=== PATIENT | male | born 1950 | race African-American/Black ===

== ENCOUNTER 2016-07-02 12:44 | Inpatient (IN) | payer OTHER ==
[~2016-07-02] VITALS: Ht 185.4 cm; Wt 110.8 kg
[~2016-07-02 12:44] MED LIST: 1-ME1LIQ PO; ALLO100T PO; AMIO200 PO; AMLO10 PO; CALC.25 PO; FURO20 PO; HYDR25TA35 PO; KCL20 PO; LACT12%T TOP; LISI-366 PO; METO100T PO; METO2.5T7 PO; PRED20 PO; RENATAB5 PO; SYMB160A INH; TERA5CAP3 PO; VITA400C58 PO; WARF5 PO
[2016-07-02 12:57] VITALS: BP 138/69; PULSE 86; RESP 16; TEMP 97.9; O2SAT 100
[2016-07-02] MEDS ORDERED: SODIUM CHLORIDE 0.9% FLUSH 5 ML FLUSH IVF PRN ×2 (13:00→15:30)
[2016-07-02] MEDS ORDERED: FUROSEMIDE 40 MG/4 ML VIAL IVP ONE (13:00)
[2016-07-02] MEDS ORDERED: NITROGLYCERIN 2% OINT 1 GM PACKET TOP ONE (13:00)
[2016-07-02 13:13] VITALS: BP 138/69; PULSE 77; RESP 23; O2SAT 100
[2016-07-02 13:36] LABS: ANION GAP 11 MEQ/L (5-15); AST (GOT) 10 U/L (15-37); BICARBONATE 20.2 MEQ/L (21.0-32.0); BLOOD UREA NITROGEN 30 MG/DL (7-18); CHLORIDE 105 MEQ/L (98-107); GLOMERULAR FILTRATION RATE 24 ML/MIN (>89); MAGNESIUM 1.9 MG/DL (1.5-2.5); POTASSIUM 4.4 MEQ/L (3.5-5.1); SODIUM (NA) 136 MEQ/L (136-145)
[2016-07-02 13:41] LABS: ALKALINE PHOSPHATASE 98 U/L (45-117); ALT (GPT) 11 U/L (12-78); TOTAL BILIRUBIN ADULT 0.8 MG/DL (0.2-1.0)
[2016-07-02 13:47] LABS: CREATINE KINASE 39 U/L (39-308)
--- NOTE | 2016-07-02 13:55 | RADRPT ---
EXAM DATE/TIME: 07/02/2016 13:23 [facility] COMPARISON: CHEST SINGLE AP, October 23, 2014, 12:54. CT ABDOMEN W/O CONTRAST, October 27, 2014, 14:43. INDICATIONS : Shortness of breath and left arm swelling. MEDICAL HISTORY : None. SURGICAL HISTORY : None. ENCOUNTER: Initial ACUITY: 3 weeks PAIN SCORE: 0/10 LOCATION: Bilateral chest FINDINGS: Single upright portable view of the chest demonstrates bilateral costophrenic angle blunting and jordan cent hazy parenchymal density consistent with stable moderate sized bilateral pleural effusions. The heart size appears moderately enlarged. The pulmonary vasculature is normal in caliber. Osseous struc tures are unremarkable. CONCLUSION: Stable moderate cardiomegaly and bilateral pleural effusions. Vilma Valdivia MD on July 02, 2016 at 13:52 Board Certified Radiologist. This report was verified electronically.
[2016-07-02] MEDS ORDERED: ALLO100T PO (14:03)
[2016-07-02] MEDS ORDERED: VITA500T4 PO (14:03)
[2016-07-02] MEDS ORDERED: METO2.5T PO (14:03)
[2016-07-02] MEDS ORDERED: HYDR25TA35 PO (14:03)
[2016-07-02] MEDS ORDERED: CALC0.25 PO (14:03)
[2016-07-02] MEDS ORDERED: METO100T PO (14:03)
[2016-07-02] MEDS ORDERED: LISI40TA PO (14:03)
[2016-07-02] MEDS ORDERED: SYMB160A INH (14:03)
[2016-07-02] MEDS ORDERED: TERA5CAP3 PO (14:03)
[2016-07-02] MEDS ORDERED: ERGO1CAP30 PO (14:03)
[2016-07-02] MEDS ORDERED: HARVONI PO (14:03)
[2016-07-02] MEDS ORDERED: AMLO10TA2 PO (14:03)
[2016-07-02] MEDS ORDERED: RENATAB PO (14:03)
[2016-07-02] MEDS ORDERED: TRAM50TA PO (14:03)
[2016-07-02 14:04] LABS: AUTOMATED NEUTROPHIL # 3.1 TH/MM3 (1.8-7.7); BASOPHIL # 0.1 TH/MM3 (0-0.2); BASOPHIL % 1.2 % (0.0-2.0); EOSINOPHIL # 0.1 TH/MM3 (0-0.4); EOSINOPHIL % 3.1 % (0.0-4.0); HEMATOCRIT 32.2 % (39.0-51.0); HEMO FLAGS DIFF FINAL; LYMPH % 17.4 % (9.0-44.0); LYMPHOCYTE # 0.8 TH/MM3 (1.0-4.8); MEAN CELL VOLUME 105.3 FL (80.0-100.0); MEAN CORPUSCULAR HGB CONC 34.2 % (32.0-36.0); MONO % 13.4 % (0.0-8.0); NEUT % 64.9 % (16.0-70.0); PLATELET COUNT 110 TH/MM3 (150-450); RED BLOOD COUNT 3.05 MIL/MM3 (4.50-5.90); RED CELL DISTRIBUTION WIDTH 15.6 % (11.6-17.2); WHITE BLOOD COUNT 4.7 TH/MM3 (4.0-11.0)
[2016-07-02 14:11] LABS: INTERNATIONAL NORMALIZED RATIO 1.1 RATIO
[2016-07-02 14:14] LABS: APTT (PATIENT) 23.8 SEC (24.3-30.1)
--- NOTE | 2016-07-02 14:35 | RADRPT ---
EXAM DATE/TIME: 07/02/2016 13:52 [facility] COMPARISON: No previous studies available for comparison. INDICATIONS : Left arm swelling for 2 weeks. MEDICAL HISTORY : Hypertension. Stroke. CVA. A fib. COPD. Dyspnea. Renal failure. SURGICAL HISTORY : AV fistula. ENCOUNTER: Initial ACUITY: 2 weeks PAIN SCORE: 4/10 LOCATION: Left arm. FINDINGS: There is spontaneous flow documented in the brachial, basilic, cephalic, axillary, and subclavian vei ns. The vessels are compressible and augmentation response is documented. No filling defects are se en. The flow is phasic with respiration. Direction of flow in the jugular vein is caudal. CONCLUSION: Normal examination. Vilma Valdivia MD on July 02, 2016 at 14:32 Board Certified Radiologist. This report was verified electronically.
[2016-07-02 15:11] VITALS: BP 159/84; PULSE 86; RESP 16; O2SAT 99
--- NOTE | 2016-07-02 15:24 | HHI.HP ---
[facility] Service [facility] Primary Care Physician Maria Elena [facility] Admission Diagnosis chf Diagnoses: (1) Acute exacerbation of CHF (congestive heart failure) (2) Hypertension (3) Chronic kidney disease (CKD) stage G4/A1, severely decreased glomerular filtration rate (GFR) between 15-29 mL/min/1.73 square meter and albuminuria creatinine ratio less than 30 mg/g Chief Complaint: Dyspnea, swelling Travel History International Travel<30 Days: No Contact w/Intl Traveler <30 Da: No Traveled to Known Affected Are: No History of Present Illness The patient is a 66-year-old male who presented to the emergency department with complaint of worsening shortness of breath since . Over the past 2-3 weeks he has noted increasing dyspnea. No cough. Denies chest pain. Does have a history of CHF. Has noted increased swelling of the left arm. Also having bilateral lower extremity swelling. Review of Systems Constitutional: DENIES: Fever, Chills, Night Sweats Eyes: DENIES: Blurred vision, Vision loss Ears, nose, mouth, throat: DENIES: Hearing loss Respiratory: COMPLAINS OF: Shortness of breath, DENIES: Cough, Wheezing, Sputum production Cardiovascular: COMPLAINS OF: Dyspnea on Exertion, Lower Extremity Edema, DENIES: Chest pain, Palpitations Gastrointestinal: DENIES: Abdominal pain, Constipation, Diarrhea, Nausea, Vomiting Genitourinary: DENIES: Urinary frequency, Urinary incontinence, Urgency, Hematuria, Dysuria, Nocturia Musculoskeletal: DENIES: Joint pain, Muscle aches Integumentary: DENIES: Pruritus, Rash Hematologic/lymphatic: DENIES: Bruising Neurologic: DENIES: Headache Past Family Social History Past Medical History CHF Hypertension CKD stage 4 Hyperlipidemia Anemia History of Hep C Past Surgical History Denies Reported Medications Symbicort 2 puffs twice a day Tear Zosyn 5 mg daily at bedtime Lisinopril 40 mg daily Allopurinol 100 mg daily Metoprolol 150 mg daily Amlodipine 10 mg daily Hydralazine 25 mg twice a day Renal multivitamin Tramadol 100 mg 3 times a day Harvoni daily Metolazone 2.5 mg daily Vitamin B12 daily Calcitriol 0.25 g daily Ergocalciferol 50,000 units monthly Allergies: Coded Allergies: No Known Allergies (Verified , 07/02/16) Family History Hypertension, cancer Social History Quit smoking 20 years ago. Drinks 2-3 beers per day. Reports remote history of IV drug abuse, but not in many years. Physical Exam Vital Signs Vital Signs Date Time Temp Pulse Resp B/P Pulse Ox O2 Delivery O2 Flow Rate FiO2 07/02/16 15:11 86 16 159/84 99 Nasal Cannula 2 07/02/16 13:13 77 23 138/69 100 Nasal Cannula 2 07/02/16 12:57 97.9 86 16 138/69 100 Physical Exam GENERAL: Well-nourished, well-developed male in no acute distress. HEENT: Normocephalic, atraumatic. Pupils equal, round and reactive. Extraocular movements intact. No scleral icterus. No injection or drainage. Oropharynx is clear. Mucous membranes are moist. CARDIOVASCULAR: Regular rate and rhythm without murmurs, gallops, or rubs. RESPIRATORY: Bibasilar crackles are noted. Breathing is non-labored. GASTROINTESTINAL: Abdomen soft, non-tender, nondistended. EXTREMITIES: 2+ bilateral lower extremity edema. No calf tenderness. Trace to 1 + edema of the left upper extremity. PSYCH: Alert and oriented x 3. Laboratory Laboratory Tests Test 07/02/16 13:05 White Blood Count 4.7 Red Blood Count 3.05 Hemoglobin 11.0 Hematocrit 32.2 Mean Corpuscular Volume 105.3 Mean Corpuscular Hemoglobin 36.0 Mean Corpuscular Hemoglobin 34.2 Concent Red Cell Distribution Width 15.6 Platelet Count 110 Mean Platelet Volume 9.6 Neutrophils (%) (Auto) 64.9 Lymphocytes (%) (Auto) 17.4 Monocytes (%) (Auto) 13.4 Eosinophils (%) (Auto) 3.1 Basophils (%) (Auto) 1.2 Neutrophils # (Auto) 3.1 Lymphocytes # (Auto) 0.8 Monocytes # (Auto) 0.6 Eosinophils # (Auto) 0.1 Basophils # (Auto) 0.1 CBC Comment DIFF FINAL Differential Comment Prothrombin Time 12.0 Prothromb Time International 1.1 Ratio Activated Partial 23.8 Thromboplast Time Sodium Level 136 Potassium Level 4.4 Chloride Level 105 Carbon Dioxide Level 20.2 Anion Gap 11 Blood Urea Nitrogen 30 Creatinine 3.16 Estimat Glomerular Filtration 24 Rate Random Glucose 107 Calcium Level 9.3 Magnesium Level 1.9 Total Bilirubin 0.8 Aspartate Amino Transf 10 (AST/SGOT) Alanine Aminotransferase 11 (ALT/SGPT) Alkaline Phosphatase 98 Total Creatine Kinase 39 Troponin I 0.02 B-Type Natriuretic Peptide 1471 Total Protein 7.9 Albumin 3.6 Result Diagram: 07/02/16 1305 07/02/16 1305 Imaging Last Impressions Chest X-Ray 07/02/16 1255 Signed Impressions: Service Date/Time: Saturday, July 02, 2016 13:23 - CONCLUSION: Stable moderate cardiomegaly and bilateral pleural effusions. Vilma Valdivia MD Upper Extremity Ultrasound 07/02/16 0000 Signed Impressions: Service Date/Time: Saturday, July 02, 2016 13:52 - CONCLUSION: Normal examination. Vilma Valdivia MD Assessment and Plan Assessment and Plan 1. CHF exacerbation: Uncertain if systolic or diastolic. Most recent echocardiogram available at this time was done in 2014. Repeat echocardiogram. Diuresis. Consult cardiology. Monitor on telemetry. 2. Chronic kidney disease stage IV: Consult nephrology. 3. Hypertension: Continue amlodipine, metoprolol, hydralazine, terazosin. Hold lisinopril. 4. DVT prophylaxis: Heparin. Michele Drew MD Jul 02, 2016 15:24
[2016-07-02 15:46] VITALS: BP 171/95; PULSE 81; RESP 18; O2SAT 100
--- NOTE | 2016-07-02 17:00 | PD ---
HPI Chief Complaint: Respiratory Symptoms Time Seen by Provider: 12:55 Travel History International Travel<30 days: No Contact w/Intl Traveler<30days: No Traveled to known affect area: No History of Present Illness HPI 66-year-old male presents with shortness of breath. He has also been having swelling to his legs and his left arm. He presents from the [place] with also pleural effusions. He states he feels worse when he moves around. He denies other modifying factors. He denies other concurrent complaints. Quality is hard to catch breath. Severity is worsening to at rest. Duration is progressive over the past week or so. PFSH Past Medical History Asthma: No Atrial Fibrillation: Yes Cancer: No Cardiovascular Problems: Yes (CHF) COPD: Yes Cerebrovascular Accident: Yes (ABOUT 5 YRS AGO) Endocrine: No Genitourinary: No Hypertension: Yes Immune Disorder: No Musculoskeletal: No Neurologic: Yes (STROKE ABOUT 5YRS AGO) Psychiatric: No Reproductive: No Respiratory: Yes (COPD) Migraines: No Renal Failure: Yes Seizures: No Sleep Apnea: No Past Surgical History Surgical History: No Previous Surgery Abdominal Surgery: No Cardiac Surgery: No Ear Surgery: No Endocrine Surgery: No Eye Surgery: No Genitourinary Surgery: No Gynecologic Surgery: No Oral Surgery: No Thoracic Surgery: No Social History Alcohol Use: Yes (BEER DAILY) Tobacco Use: No Substance Use: No Allergies-Medications (Allergen,Severity, Reaction): Coded Allergies: No Known Allergies (Verified , 07/02/16) Reported Meds & Prescriptions Reported Meds & Active Scripts Active Reported Tramadol (Tramadol HCl) 50 Mg Tab 100 Mg PO TID Terazosin (Terazosin HCl) 5 Mg Cap 5 Mg PO HS [Harvoni] 1 Tab PO DAILY From 06/06/2016-11/25/2016 Renal Multivitamin Formula (B-Complex W/ C & Folic Acid) 1 Tab 1 Tab PO DAILY Metoprolol Tartrate 100 Mg Tab 150 Mg PO DAILY Metolazone 2.5 Mg Tab 2.5 Mg PO DAILY Lisinopril 40 Mg Tab 40 Mg PO DAILY Hydralazine (Hydralazine HCl) 25 Mg Tab 25 Mg PO BID Take with a meal Ergocalciferol 50,000 Unit Cap 50,000 Units PO MONTHLY Vitamin B-12 (Cyanocobalamin) 500 Mcg Tab 500 Mcg PO DAILY Calcitriol 0.25 Mcg Cap 0.25 Mcg PO DAILY Symbicort Inh (Budesonide/Formoterol Fumarate) 160-4.5 Mcg/Act Aero 2 Puff INH BID Rinse mouth after each use Amlodipine (Amlodipine Besylate) 10 Mg Tab 10 Mg PO DAILY Allopurinol 100 Mg Tab 100 Mg PO DAILY Review of Systems Except as stated in HPI: all other systems reviewed are Neg Physical Exam Narrative GENERAL: Well-nourished, well-developed patient. SKIN: Warm and dry. HEAD: Normocephalic and atraumatic. EYES: No injection or drainage. ENT: No nasal drainage noted. NECK: Supple, trachea midline. CARDIOVASCULAR: Regular rate and rhythm RESPIRATORY: Crackles bilaterally. No accessory muscle use. GASTROINTESTINAL: Abdomen soft, non-tender, nondistended. EXTREMITIES: Significant edema to bilateral lower extremities and left arm noted NEUROLOGICAL: Awake and alert. Moves all extremities. Normal speech. Data Data Last Documented VS Vital Signs Date Time Temp Pulse Resp B/P Pulse Ox O2 Delivery O2 Flow Rate FiO2 07/02/16 13:13 77 23 138/69 100 Nasal Cannula 2 07/02/16 12:57 97.9 Orders Complete Blood Count With Diff (07/02/16 12:55) Comprehensive Metabolic Panel (07/02/16 12:55) B-Type Natriuretic Peptide (07/02/16 12:55) Act Partial Throm Time (Ptt) (07/02/16 12:55) Prothrombin Time / Inr (Pt) (07/02/16 12:55) Magnesium (Mg) (07/02/16 12:55) Ckmb (Isoenzyme) Profile (07/02/16 12:55) Troponin I (07/02/16 12:55) Iv Access Insert/Monitor (07/02/16 12:55) Electrocardiogram (07/02/16 12:55) Ecg Monitoring (07/02/16 12:55) Oximetry (07/02/16 12:55) Chest, Single Ap (07/02/16 12:55) Sodium Chloride 0.9% Flush (Ns Flush) (07/02/16 13:00) Furosemide Inj (Lasix Inj) (07/02/16 13:00) Us Arm Venous Doppler (07/02/16 ) Nitroglycerin 2% Oint (Nitroglycerin 2% (07/02/16 13:00) Admit Order (Ed Use Only) (07/02/16 14:45) Labs Laboratory Tests Test 07/02/16 13:05 White Blood Count 4.7 TH/MM3 Red Blood Count 3.05 MIL/MM3 Hemoglobin 11.0 GM/DL Hematocrit 32.2 % Mean Corpuscular Volume 105.3 FL Mean Corpuscular Hemoglobin 36.0 PG Mean Corpuscular Hemoglobin 34.2 % Concent Red Cell Distribution Width 15.6 % Platelet Count 110 TH/MM3 Mean Platelet Volume 9.6 FL Neutrophils (%) (Auto) 64.9 % Lymphocytes (%) (Auto) 17.4 % Monocytes (%) (Auto) 13.4 % Eosinophils (%) (Auto) 3.1 % Basophils (%) (Auto) 1.2 % Neutrophils # (Auto) 3.1 TH/MM3 Lymphocytes # (Auto) 0.8 TH/MM3 Monocytes # (Auto) 0.6 TH/MM3 Eosinophils # (Auto) 0.1 TH/MM3 Basophils # (Auto) 0.1 TH/MM3 CBC Comment DIFF FINAL Differential Comment Prothrombin Time 12.0 SEC Prothromb Time International 1.1 RATIO Ratio Activated Partial 23.8 SEC Thromboplast Time Sodium Level 136 MEQ/L Potassium Level 4.4 MEQ/L Chloride Level 105 MEQ/L Carbon Dioxide Level 20.2 MEQ/L Anion Gap 11 MEQ/L Blood Urea Nitrogen 30 MG/DL Creatinine 3.16 MG/DL Estimat Glomerular Filtration 24 ML/MIN Rate Random Glucose 107 MG/DL Calcium Level 9.3 MG/DL Magnesium Level 1.9 MG/DL Total Bilirubin 0.8 MG/DL Aspartate Amino Transf 10 U/L (AST/SGOT) Alanine Aminotransferase 11 U/L (ALT/SGPT) Alkaline Phosphatase 98 U/L Total Creatine Kinase 39 U/L Troponin I 0.02 NG/ML B-Type Natriuretic Peptide 1471 PG/ML Total Protein 7.9 GM/DL Albumin 3.6 GM/DL [facility] Medical Decision Making Medical Screen Exam Complete: Yes Emergency Medical Condition: Yes Medical Record Reviewed: Yes (past history confirmed) Interpretation(s) EKG without STEMI criteria, right bundle branch block, sinus rhythm CBC & BMP Diagram 07/02/16 13:05 Last 24 hours Impressions Chest X-Ray 07/02/16 1255 Signed Impressions: Service Date/Time: Saturday, July 02, 2016 13:23 - CONCLUSION: Stable moderate cardiomegaly and bilateral pleural effusions. Vilma Valdivia MD Upper Extremity Ultrasound 07/02/16 0000 Signed Impressions: Service Date/Time: Saturday, July 02, 2016 13:52 - CONCLUSION: Normal examination. Vilma Valdivia MD Differential Diagnosis Anemia, renal failure, heart failure.... Narrative Course Will check blood work, chest x-ray, EKG and dose with nitroglycerin Lasix and reevaluate ED workup confirms heart failure will admit to the hospital for further care Physician Communication Physician Communication dr shaver agrees to admit Diagnosis Primary Impression: Acute exacerbation of CHF (congestive heart failure) Additional Impression: Chronic kidney disease (CKD) stage G4/A1, severely decreased glomerular filtration rate (GFR) between 15-29 mL/min/1.73 square meter and albuminuria creatinine ratio less than 30 mg/g Admitting Information Admitting Physician Requests: Admit Ana Maria Escudero MD Jul 02, 2016 17:00
[2016-07-02 17:20] VITALS: BP 159/104; PULSE 18; PULSE 73; RESP 18; O2SAT 96
[2016-07-02] MEDS: HEPARIN SODIUM - SQ 10,000 UNITS/ML VIAL SQ SCH (17:33)
[2016-07-02] MEDS: METOPROLOL TARTRATE 50 MG TAB PO SCH ×2 (17:56→22:07)
--- NOTE | 2016-07-02 17:59 | PD.CONS ---
[facility] Service Nephrology Consult Requested By Reason for Consult Stage IV CKD Primary Care Physician [facility] History of Present Illness Mr. Figueroa has been admitted with complaints of shortness of breath, edema. Duration of symptoms is about 3 weeks. No chest pain. He is noted to have advanced renal dysfunction. 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 Has had AVF placed in the left forearm in 2007. He has not been on dialysis. Patient reports of remote history of cardiac catheterization. No diabetes. History of hypertension. Review of Systems Constitutional: COMPLAINS OF: Fatigue, Weight gain Respiratory: COMPLAINS OF: Shortness of breath, DENIES: Cough, Wheezing Cardiovascular: COMPLAINS OF: Dyspnea on Exertion, Lower Extremity Edema, Orthopnea, DENIES: Chest pain, Palpitations, Claudication Gastrointestinal: DENIES: Abdominal pain, Black stools, Bloody stools Past Family Social History Allergies: Coded Allergies: No Known Allergies (Verified , 07/02/16) Past Medical History CHF Hypertension CKD stage 4 Hyperlipidemia Anemia History of Hep C Past Surgical History AVF placement. Reported Medications Symbicort 2 puffs twice a day Terazosin 5 mg daily at bedtime Lisinopril 40 mg daily Allopurinol 100 mg daily Metoprolol 150 mg daily Amlodipine 10 mg daily Hydralazine 25 mg twice a day Renal multivitamin Tramadol 100 mg 3 times a day Harvoni daily Metolazone 2.5 mg daily Vitamin B12 daily Calcitriol 0.25 g daily Ergocalciferol 50,000 units monthly A Active Ordered Medications Current Medications Medications (Trade) Dose Ordered Sig/Denice Route Start Time Stop Time Status Last Admin (NS Flush) 2 ml UNSCH PRN IVF 07/02/16 13:00 (NS Flush) 2 ml BID IVF 07/02/16 21:00 (NS Flush) 2 ml UNSCH PRN IVF 07/02/16 15:30 (Bumex Inj) 1 mg BID@09,18 IVP 07/02/16 18:00 07/02/16 17:33 (KCl) 20 meq BID PO 07/02/16 21:00 (Heparin Inj) 5,000 units Q12H SQ 07/02/16 16:00 07/02/16 17:33 (Lopressor) 50 mg Q8HR PO 07/02/16 17:30 UNV (Norvasc) 10 mg DAILY PO 07/03/16 09:00 UNV (Apresoline) 25 mg Q12HR PO 07/02/16 21:00 UNV (Apresoline Inj) 10 mg Q4H PRN IV PUSH 07/02/16 17:30 UNV Family History Hypertension, cancer Social History Quit smoking 20 years ago. Drinks 2-3 beers per day. Reports remote history of IV drug abuse, but not in many years. Physical Exam Vital Signs Vital Signs Date Time Temp Pulse Resp B/P Pulse Ox O2 Delivery O2 Flow Rate FiO2 07/02/16 17:20 73 18 159/104 96 Nasal Cannula 2 07/02/16 15:46 81 18 171/95 100 Nasal Cannula 2 07/02/16 15:11 86 16 159/84 99 Nasal Cannula 2 07/02/16 13:13 77 23 138/69 100 Nasal Cannula 2 07/02/16 12:57 97.9 86 16 138/69 100 Physical Exam GENERAL: Awake, alert, oriented. SKIN: Warm and dry. HEAD: Normocephalic. EYES: No scleral icterus. No injection or drainage. NECK: Supple, trachea midline. No JVD or lymphadenopathy. CARDIOVASCULAR: Regular rate and rhythm without murmurs, gallops, or rubs. RESPIRATORY: Breath sounds equal bilaterally. Bilateral rhonchi, wheezes. GASTROINTESTINAL: Abdomen soft, non-tender, nondistended. Obese. MUSCULOSKELETAL: No cyanosis, edema. BACK: Nontender without obvious deformity. No CVA tenderness. Laboratory Laboratory Tests Test 07/02/16 13:05 White Blood Count 4.7 Red Blood Count 3.05 Hemoglobin 11.0 Hematocrit 32.2 Mean Corpuscular Volume 105.3 Mean Corpuscular Hemoglobin 36.0 Mean Corpuscular Hemoglobin 34.2 Concent Red Cell Distribution Width 15.6 Platelet Count 110 Mean Platelet Volume 9.6 Neutrophils (%) (Auto) 64.9 Lymphocytes (%) (Auto) 17.4 Monocytes (%) (Auto) 13.4 Eosinophils (%) (Auto) 3.1 Basophils (%) (Auto) 1.2 Neutrophils # (Auto) 3.1 Lymphocytes # (Auto) 0.8 Monocytes # (Auto) 0.6 Eosinophils # (Auto) 0.1 Basophils # (Auto) 0.1 CBC Comment DIFF FINAL Differential Comment Prothrombin Time 12.0 Prothromb Time International 1.1 Ratio Activated Partial 23.8 Thromboplast Time Sodium Level 136 Potassium Level 4.4 Chloride Level 105 Carbon Dioxide Level 20.2 Anion Gap 11 Blood Urea Nitrogen 30 Creatinine 3.16 Estimat Glomerular Filtration 24 Rate Random Glucose 107 Calcium Level 9.3 Magnesium Level 1.9 Total Bilirubin 0.8 Aspartate Amino Transf 10 (AST/SGOT) Alanine Aminotransferase 11 (ALT/SGPT) Alkaline Phosphatase 98 Total Creatine Kinase 39 Troponin I 0.02 B-Type Natriuretic Peptide 1471 Total Protein 7.9 Albumin 3.6 Result Diagram: 07/02/16 1305 07/02/16 1305 Assessment and Plan Problem List: (1) Chronic kidney disease, stage IV (severe) Plan: baseline renal function is not known, he is aware that he has stage IV CKD. May have hypertensive nephrosclerosis. Hepatitis C related MPGN is also a possibility. Obtain UA. He demonstrates signs of fluid overload, I will begin diuretic therapy. No immediate need for dialysis. Gadolinium is contraindicated in this gentleman. Monitor urine output and renal function as well as electrolytes and daily weight. Avoid nephrotoxic agents. Protect left upper extremity from IV and BP measurements. (2) Congestive heart failure Plan: Obtain echo to further classify CHF. Fluid overload also could be from renal dysfunction. Diuretics. (3) Hypertension Plan: BP is high here. Restart home medications. Monitor. (4) Hepatitis C Plan: Appears to be have been on Harvoni. Details are not known. (5) Secondary hyperparathyroidism (of renal origin) Plan: He is on Calcitriol. Obtain PTH level. Also obtain 25 hydroxy Vitamin D level. (6) Anemia Plan: Hemoglobin is 11. May have anemia of CKD. No need for Epogen. Assessment and Plan Thanks for the consult. I will follow. Kory Montaño MD Jul 02, 2016 17:59
[2016-07-02] MEDS ORDERED: BUMETANIDE INJ 1 MG/4 ML VIAL IVP SCH ×2 (18:00)
[2016-07-02 18:45] LABS: BACTERIA, URINE MANY /hpf; BLOOD, URINE SMALL (NEG); COMMENT (UR) CULTURE INDICATED; CULTURE IF INDICATED CULTURE INDICATED; GLUCOSE,URINE NEG (NEG); KETONE, URINE NEG (NEG); NITRITE,URINE NEG (NEG); SQUAMOUS EPITHELIAL CELL URINE <1 /hpf (0-5); URINE COLOR LIGHT-YELLOW (YELLW/STRAW)
[2016-07-02] MEDS ORDERED: BUMETANIDE INJ 1 MG/4 ML VIAL IV PUSH ONE (19:00)
--- NOTE | 2016-07-02 19:18 | MB ---
cc: LITO PERALES DO DATE OF CONSULTATION: 07/02/2016 REASON FOR CONSULTATION: Acute congestive heart failure. PRIMARY CARE PHYSICIAN: Ligia Castaneda HISTORY OF PRESENT ILLNESS: Gagan Figueroa is a pleasant 66-year-old -[place] male who presented to the [facility] Emergency Room on July 02, 2016 with a complaint of worsening shortness of breath. He states that this originally started around when he started noticing that he needed another pillow so that he could sleep at night. Then around , he felt that he was getting more and more short of breath. The shortness of breath comes on with any type of exertion. He denies any chest pain with this. He states that during both and that he ate his meals including ham, turkey and gravy and did not really watch his salt content. He has noticed bilateral lower extremity edema mostly since . Today he went the [facility] and they did an x-ray which showed bilateral pleural effusions and he was sent over to the emergency room. PAST MEDICAL HISTORY: 1. Congestive heart failure, which is most likely diastolic in nature in the past. 2. Hypertension. 3. Chronic kidney disease stage IV 3. Hyperlipidemia. 4. Anemia. 5. History of hepatitis C. PAST SURGICAL HISTORY: 1. Atrial fibrillation ablation (October 30, 2014) with pulmonary vein isolation, roof line posterior wall ablation, mitral valve line, mitral valve isolation, anterior ablation, left atrial tachycardia ablation. 2. Left forearm AV fistula. ALLERGIES: NO KNOWN DRUG ALLERGIES. MEDICATIONS: 1. Symbicort 160 /4.5 two puffs twice a day. 2. Terazosin 5 milligrams every night 3. Lisinopril 40 milligrams daily 4. Allopurinol 100 milligrams daily 5. Metoprolol tartrate 150 milligrams daily. 6. Norvasc 10 milligrams daily. 7. Hydralazine 25 milligrams twice a day. 8. Tramadol 100 milligrams three times a day. 9. Metolazone 2.5 milligrams daily. 10. Calcitriol 0.25 micrograms daily. FAMILY HISTORY: Positive for hypertension and cancer. Denies premature coronary artery disease or sudden cardiac within the family. SOCIAL HISTORY: The patient previously smoked but quit around twenty years ago. He drinks two to three beers per day. Remote history of IV drug abuse but not for a significant number of years. REVIEW OF SYSTEMS Fourteen systems were reviewed including osteopathic in the history and physical with pertinent positives and negatives as above; otherwise negative. PHYSICAL EXAMINATION VITAL SIGNS: Temperature 97.9, heart rate 86, blood pressure 159/84, respirations 16, pulse oximetry 99% on two liters. GENERAL: In general, the patient appears well and in no acute distress, awake, alert and oriented times three. HEAD, EYES, EARS, NOSE, THROAT: Extraocular muscles intact. Mucous membranes moist. NECK: The neck is supple with mild jugular venous distention noted to the jaw line. Carotid upstroke is brisk in nature. HEART: Regular rate and rhythm with a split S2. No noted murmurs, gallops or rubs. PMI is difficult to locate due to body habitus. LUNGS: Decreased breath sounds at bilateral bases with minimal rales. ABDOMEN: The abdomen is soft, nontender and nondistended. No organomegaly noted. EXTREMITIES: Lower extremities have 2+ pitting edema with chronic changes due to edema. Left forearm has a fistula with a positive thrill. NEUROLOGIC: No focal deficits. OSTEOPATHIC: Osteopathically, no kyphoscoliosis, lordosis or paraspinal tender points. LABORATORY FINDINGS: Hemoglobin 11.0, hematocrit 32.2, platelets 110,000. INR 1.1. Potassium 4.4, BUN 30, creatinine 3.06. Troponin 0.02. BNP 1471. CARDIOLOGY STUDIES: Electrocardiogram (July 02, 2016 at 1306): Normal sinus rhythm with occasional PAC, right bundle branch block. Compared to the previous tracing (October 31, 2014 at 0558), no significant change. IMPRESSION: 1. Acute on chronic heart failure presenting over the past few weeks to months, possibly due to increased salt intake. 2. Hypertension 3. History of atrial fibrillation status post ablation (October 30, 2014). 4. Chronic kidney disease stage IV not currently on dialysis, left arm AV fistula. 5. Hyperlipidemia. 6. History of hepatitis C. 7. History of remote tobacco abuse. RECOMMENDATIONS: 1. Nohemi appears to be an acute heart failure most likely on chronic heart failure state. This may be due to increased salt intake during the holidays. We will attempt to diurese him. 2. We will obtain a 2-D echocardiogram to look at his overall left ventricular function, cardiac structure and possible valvulopathies. 3. We will continue troponins for a total of three due to the patient's acute heart failure to rule out a type 1 versus type 2 myocardial infarction, but I do not believe that this is acute coronary syndrome in nature 4. He will need further blood pressure management. 5. Further recommendations will be made during the hospital course. Thank you for allowing me to see Nohemi Figueroa. If there are any questions, please do not hesitate to call. Lito Perales DO DIMITRI/JCC /5:17 PM /7:01 PM
[2016-07-02 20:15] VITALS: BP 159/80; PULSE 88; RESP 20; TEMP 97.3; O2SAT 100
[2016-07-02] MEDS: SODIUM CHLORIDE 0.9% FLUSH 5 ML FLUSH IVF SCH (21:00)
[2016-07-02] MEDS: POTASSIUM CHLORIDE 20 MEQ CONTROLLED RELEASE TAB PO SCH (22:06)
[2016-07-02] MEDS: hydrALAZINE HCL 25 MG TAB PO SCH (22:07)
[2016-07-03] VITALS (9 sets, daily range): BP systolic 136–170; BP diastolic 76–94; PULSE 70–84; RESP 18–26; TEMP 97.3–98.2; O2SAT 95–100
[2016-07-03] MEDS: HEPARIN SODIUM - SQ 10,000 UNITS/ML VIAL SQ SCH ×2 (04:39→15:49)
[2016-07-03] MEDS: METOPROLOL TARTRATE 50 MG TAB PO SCH ×3 (04:40→22:13)
[2016-07-03 06:18] LABS: BICARBONATE 20.6 MEQ/L (21.0-32.0); POTASSIUM 4.4 MEQ/L (3.5-5.1)
--- NOTE | 2016-07-03 08:48 | PD.CARD.PN ---
Subjective Subjective Remarks No chest pain, decreased shortness of breath Objective Medications Current Medications Medications (Trade) Dose Ordered Sig/Denice Route Start Time Stop Time Status Last Admin (KCl) 20 meq BID PO 07/02/16 21:00 07/02/16 22:06 (Heparin Inj) 5,000 units Q12H SQ 07/02/16 16:00 07/03/16 04:39 (Lopressor) 50 mg Q8HR PO 07/02/16 17:30 07/03/16 04:40 (Norvasc) 10 mg DAILY PO 07/03/16 09:00 (Apresoline) 25 mg Q12HR PO 07/02/16 21:00 07/02/16 22:07 (Apresoline Inj) 10 mg Q4H PRN IV PUSH 07/02/16 17:30 (Bumex Inj) 2 mg BID@,18 IVP 07/03/16 09:00 Vital Signs / I&O Vital Signs Date Time Temp Pulse Resp B/P Pulse Ox O2 Delivery O2 Flow Rate FiO2 07/03/16 04:00 97.9 82 20 140/78 99 07/03/16 00:00 97.5 76 20 136/78 100 07/02/16 20:15 97.3 88 20 159/80 100 07/02/16 17:20 73 18 159/104 96 Nasal Cannula 2 07/02/16 15:46 81 18 171/95 100 Nasal Cannula 2 07/02/16 15:11 86 16 159/84 99 Nasal Cannula 2 07/02/16 13:13 100 Nasal Cannula 2.00 07/02/16 13:13 77 23 138/69 100 Nasal Cannula 2 07/02/16 12:57 97.9 86 16 138/69 100 I/O 07/02/16 07/02/16 07/02/16 07/03/16 07/03/16 07/03/16 07:00 15:00 23:00 07:00 15:00 23:00 Intake Total 240 ml 120 ml Output Total 575 ml 600 ml Balance -335 ml -480 ml Intake Oral 240 ml 120 ml Output Urine Total 575 ml 600 ml # Voids 2 Physical Exam GENERAL: NAD, AAOx3 SKIN: Warm and dry. HEAD: Atraumatic. Normocephalic. EYES: Pupils equal and round. No scleral icterus. No injection or drainage. ENT: No nasal bleeding or discharge. Mucous membranes pink and moist. NECK: Trachea midline. Minimal JVD CARDIOVASCULAR: Regular rate and rhythm. No noted murmurs RESPIRATORY: No accessory muscle use. Decreased breath sounds bilaterally, mild rales lower lobes GASTROINTESTINAL: Abdomen soft, non-tender, nondistended. Hepatic and splenic margins not palpable. MUSCULOSKELETAL: Bilateral lower extremity edema with secondary changes. Left forearm fistula with thrill NEUROLOGICAL: Awake and alert. No obvious cranial nerve deficits. Motor grossly within normal limits. Five out of 5 muscle strength in the arms and legs. Normal speech. PSYCHIATRIC: Appropriate mood and affect; insight and judgment normal. Laboratory Laboratory Tests Test 07/02/16 07/02/16 07/02/16 07/03/16 13:05 18:15 19:27 00:24 White Blood Count 4.7 TH/MM3 Red Blood Count 3.05 MIL/MM3 Hemoglobin 11.0 GM/DL Hematocrit 32.2 % Mean Corpuscular Volume 105.3 FL Mean Corpuscular Hemoglobin 36.0 PG Mean Corpuscular Hemoglobin 34.2 % Concent Red Cell Distribution Width 15.6 % Platelet Count 110 TH/MM3 Mean Platelet Volume 9.6 FL Neutrophils (%) (Auto) 64.9 % Lymphocytes (%) (Auto) 17.4 % Monocytes (%) (Auto) 13.4 % Eosinophils (%) (Auto) 3.1 % Basophils (%) (Auto) 1.2 % Neutrophils # (Auto) 3.1 TH/MM3 Lymphocytes # (Auto) 0.8 TH/MM3 Monocytes # (Auto) 0.6 TH/MM3 Eosinophils # (Auto) 0.1 TH/MM3 Basophils # (Auto) 0.1 TH/MM3 CBC Comment DIFF FINAL Differential Comment Prothrombin Time 12.0 SEC Prothromb Time International 1.1 RATIO Ratio Activated Partial 23.8 SEC Thromboplast Time Sodium Level 136 MEQ/L Potassium Level 4.4 MEQ/L Chloride Level 105 MEQ/L Carbon Dioxide Level 20.2 MEQ/L Anion Gap 11 MEQ/L Blood Urea Nitrogen 30 MG/DL Creatinine 3.16 MG/DL Estimat Glomerular Filtration 24 ML/MIN Rate Random Glucose 107 MG/DL Calcium Level 9.3 MG/DL Magnesium Level 1.9 MG/DL Total Bilirubin 0.8 MG/DL Aspartate Amino Transf 10 U/L (AST/SGOT) Alanine Aminotransferase 11 U/L (ALT/SGPT) Alkaline Phosphatase 98 U/L Total Creatine Kinase 39 U/L Troponin I 0.02 NG/ML LESS THAN 0.02 0.02 NG/ML NG/ML B-Type Natriuretic Peptide 1471 PG/ML Total Protein 7.9 GM/DL Albumin 3.6 GM/DL 25-Hydroxy Vitamin D Total 21.9 ng/ML Urine Color LIGHT-YELLOW Urine Turbidity HAZY Urine pH 5.0 Urine Specific [place] 1.008 Urine Protein 30 mg/dL Urine Glucose (UA) NEG mg/dL Urine Ketones NEG mg/dL Urine Occult Blood SMALL Urine Nitrite NEG Urine Bilirubin NEG Urine Urobilinogen LESS THAN 2.0 MG/DL Urine Leukocyte Esterase LARGE Urine RBC 9 /hpf Urine WBC /hpf Urine WBC Clumps MANY Urine Squamous Epithelial <1 /hpf Cells Urine Bacteria MANY /hpf Microscopic Urinalysis Comment CULTURE INDICATED Parathyroid Hormone (Intact) 64.1 PG/ML Test 07/03/16 05:03 Sodium Level 137 MEQ/L Potassium Level 4.4 MEQ/L Chloride Level 106 MEQ/L Carbon Dioxide Level 20.6 MEQ/L Anion Gap 10 MEQ/L Blood Urea Nitrogen 33 MG/DL Creatinine 3.17 MG/DL Estimat Glomerular Filtration 24 ML/MIN Rate Random Glucose 89 MG/DL Calcium Level 8.6 MG/DL Phosphorus Level 3.2 MG/DL Assessment and Plan Problem List: (1) Acute exacerbation of CHF (congestive heart failure) (2) Chronic kidney disease, stage IV (severe) (3) Hypertension (4) COPD (5) Atrial fibrillation (6) Anemia Assessment and Plan 1) Diuresed well over night, down 1 kg, continue with diuresis 2) 2D echo pending 3) Blood pressure better controlled 4) Per the patient, not on ASA due to his kidney function, no contraindications and believe benefit outweighs the risk, would start ASA 81mg 5) History of Afib, s/p ablation (2010) Lito Sanchez DO Jul 03, 2016 08:48
[2016-07-03] MEDS: SODIUM CHLORIDE 0.9% FLUSH 5 ML FLUSH IVF SCH ×2 (09:19→20:26)
[2016-07-03] MEDS: hydrALAZINE HCL 25 MG TAB PO SCH ×2 (09:19→20:26)
[2016-07-03] MEDS: BUMETANIDE INJ 1 MG/4 ML VIAL IVP SCH ×2 (09:19→17:39)
[2016-07-03] MEDS: POTASSIUM CHLORIDE 20 MEQ CONTROLLED RELEASE TAB PO SCH ×2 (09:20→20:26)
--- NOTE | 2016-07-03 10:54 | EKG ---
Date Performed: 07/02/2016 Time Performed: 13:06:34 PTAGE: 66 years EKG: Sinus rhythm WITH OCCASIONAL SUPRAVENTRICULAR PREMATURE COMPLEXES RIGHT BUNDLE BRANCH BLOCK ABNORMAL ECG PREVIOUS TRACING : 10/31/2014 05.58 Compared to prior tracing no significant change DOCTOR: [place] Interpretating Date/Time 07/03/2016 10:53:10
[2016-07-03] MEDS: ASPIRIN 81 MG CHEW TAB CHEW SCH (11:17)
--- NOTE | 2016-07-03 12:01 | HHI.NPPN ---
Subjective General Problems: Edema Renal Failure: Chronic, Acute (Pily Mac) Review of Systems Respiratory Lungs: SOB (Pily Mac) Cardiovascular Cardiac: Edema (Pily Mac) Objective Data Data 07/02/16 07/03/16 19:00 07:00 Intake Total 360 ml Output Total 400 ml 775 ml Balance -400 ml -415 ml Intake Oral 360 ml Output Urine Total 400 ml 775 ml # Voids 2 Vital Signs Date Time Temp Pulse Resp B/P Pulse Ox O2 Delivery O2 Flow Rate FiO2 07/03/16 08:00 97.7 78 18 160/76 98 07/03/16 04:00 97.9 82 20 140/78 99 07/03/16 00:00 97.5 76 20 136/78 100 07/02/16 20:15 97.3 88 20 159/80 100 07/02/16 17:20 73 18 159/104 96 Nasal Cannula 2 07/02/16 15:46 81 18 171/95 100 Nasal Cannula 2 07/02/16 15:11 86 16 159/84 99 Nasal Cannula 2 07/02/16 13:13 100 Nasal Cannula 2.00 07/02/16 13:13 77 23 138/69 100 Nasal Cannula 2 07/02/16 12:57 97.9 86 16 138/69 100 (Pily Mac) -: 07/02/16 1305 07/03/16 0503 Microbiology 07/02/16 Urine Culture, Received Pending Imaging Last 72 hours Impressions Chest X-Ray 07/02/16 1255 Signed Impressions: Service Date/Time: Saturday, July 02, 2016 13:23 - CONCLUSION: Stable moderate cardiomegaly and bilateral pleural effusions. Vilma Valdivia MD Upper Extremity Ultrasound 07/02/16 0000 Signed Impressions: Service Date/Time: Saturday, July 02, 2016 13:52 - CONCLUSION: Normal examination. Vilma Valdivia MD (Pily Mac) Physical Exam General Appearance: Well Developed, Well Nourished, No Acute Distress (Pily Mac) Eyes Eye Exam: Pupils Equal (Pily Mac) Throat Throat Exam: Oral Mucosa [place] & Moist (Pily Mac) Pulmonary Resp Exam: Breath Sounds Equal, No Distress, Crackles, Rhonchi (Pily Mac) Cardiology CV Exam: Regular, Normal Sinus Rhythm (Pily Mac) Gastrointestinal/Abdomen GI Exam: Soft, Non-Tender, Bowel Sounds Present, Positive Bowel Movement ( Pily Mac) Musculoskeletal MS Exam: Joints Intact, Normal Gait (Pily Mac) Integumentary Skin Exam: Normal Turgor (Pily Mac) Extremeties Extremities Exam: Pedal Pulses Palpable, Moderate Edema (Pily Mac) Neurologic Neuro Exam: Alert, Awake, Oriented, Speech Clear, Moving All Extremities ( Pily Mac) Assessment/Plan Discussed Condition With: Patient Assessment Summary: Anemia of CKD Problem List: (1) Chronic kidney disease, stage IV (severe) Plan: baseline renal function is not known, he is aware that he has stage IV CKD. He has AVF in left arm that may not be functioning May have underlying hypertensive nephrosclerosis. Hepatitis C related MPGN is also a possibility. TRAM may be from CHF exacerbation quantify proteinuria, Urine culture in process He still demonstrates signs of fluid overload, continue diuresis he is non oliguric his renal function remained stable overnight No immediate need for dialysis. Monitor urine output and renal function as well as electrolytes and daily weight. Avoid nephrotoxic agents. Gadolinium is contraindicated in this gentleman. Protect left upper extremity from IV and BP measurements. (2) Congestive heart failure Plan: Echo today, results pending continue diuresing (3) Hypertension Plan: BP improved continue oral medications amlodipine can cause lower extremity edema (4) Secondary hyperparathyroidism (of renal origin) Plan: PTH acceptable will resume calcitriol (5) Anemia Plan: Hemoglobin stable (6) Hepatitis C Plan: Appears to be have been on Harvoni. Details are not known. (Pily Mac) Plan patient was seen and examined. Continue diuresis. Renal function is stable. No immediate indication for dialysis. (Kory Montaño MD) Pily Mac Jul 03, 2016 12:01 Kory Montaño MD Jul 03, 2016 20:36
--- NOTE | 2016-07-03 14:25 | HHI.PR ---
Subjective Remarks Follow up CHF exacerbation, renal failure. The patient states that he feels better overall, but does still have shortness of breath. Denies chest pain. No other complaints at this time. Objective Vitals Vital Signs Date Time Temp Pulse Resp B/P Pulse Ox O2 Delivery O2 Flow Rate FiO2 07/03/16 12:00 97.4 84 18 170/84 95 07/03/16 08:00 97.7 78 18 160/76 98 07/03/16 04:00 97.9 82 20 140/78 99 07/03/16 00:00 97.5 76 20 136/78 100 07/02/16 20:15 97.3 88 20 159/80 100 07/02/16 17:20 73 18 159/104 96 Nasal Cannula 2 07/02/16 15:46 81 18 171/95 100 Nasal Cannula 2 07/02/16 15:11 86 16 159/84 99 Nasal Cannula 2 I/O 07/02/16 07/02/16 07/02/16 07/03/16 07/03/16 07/03/16 07:00 15:00 23:00 07:00 15:00 23:00 Intake Total 240 ml 120 ml Output Total 575 ml 600 ml Balance -335 ml -480 ml Intake Oral 240 ml 120 ml Output Urine Total 575 ml 600 ml # Voids 2 Result Diagram: 07/02/16 1305 07/03/16 0503 Imaging Last Impressions Chest X-Ray 07/02/16 1255 Signed Impressions: Service Date/Time: Saturday, July 02, 2016 13:23 - CONCLUSION: Stable moderate cardiomegaly and bilateral pleural effusions. Vilma Valdivia MD Upper Extremity Ultrasound 07/02/16 0000 Signed Impressions: Service Date/Time: Saturday, July 02, 2016 13:52 - CONCLUSION: Normal examination. Vilma Valdivia MD Objective Remarks General: No acute distress. Heart: Regular rhythm. No murmur. Lungs: Mild scattered rhonchi. Breathing is nonlabored. Abdomen: Soft, nontender, nondistended. Extremities: 2+ bilateral lower extremity edema. Psych: Alert and oriented. Procedures None Urinary Catheter: No Vascular Central Line Catheter: No A/P Problem List: (1) Acute exacerbation of CHF (congestive heart failure) ICD Code: I50.9 Status: Acute (2) Hypertension ICD Code: I10 Status: Acute (3) Chronic kidney disease (CKD) stage G4/A1, severely decreased glomerular filtration rate (GFR) between 15-29 mL/min/1.73 square meter and albuminuria creatinine ratio less than 30 mg/g ICD Code: N18.4 Status: Acute Assessment and Plan 1. CHF exacerbation: Uncertain if systolic or diastolic. Most recent echocardiogram available at this time was done in 2014. Repeat echocardiogram is pending. Monitor on telemetry. Appreciate cardiology recommendations. Discussed with Dr. Sanchez. Continue diuresis. 2. Chronic kidney disease stage IV: Appreciate nephrology recommendations. 3. Hypertension: Continue amlodipine, metoprolol, hydralazine, terazosin. Hold lisinopril. 4. DVT prophylaxis: Heparin. Michele Drew MD Jul 03, 2016 14:25
[2016-07-03] MEDS: CALCITRIOL 0.25 MCG CAP PO SCH (14:26)
[2016-07-04] VITALS (9 sets, daily range): BP systolic 155–177; BP diastolic 72–98; PULSE 71–77; RESP 16–22; TEMP 94.6–98.3; O2SAT 96–100
[2016-07-04] MEDS: METOPROLOL TARTRATE 50 MG TAB PO SCH ×3 (05:06→22:49)
[2016-07-04] MEDS: HEPARIN SODIUM - SQ 10,000 UNITS/ML VIAL SQ SCH ×2 (05:07→16:46)
[2016-07-04 07:05] LABS: BICARBONATE 22.6 MEQ/L (21.0-32.0); POTASSIUM 4.1 MEQ/L (3.5-5.1)
[2016-07-04] MEDS: ASPIRIN 81 MG CHEW TAB CHEW SCH (08:48)
[2016-07-04] MEDS: POTASSIUM CHLORIDE 20 MEQ CONTROLLED RELEASE TAB PO SCH ×2 (08:49→20:57)
[2016-07-04] MEDS: BUMETANIDE INJ 1 MG/4 ML VIAL IVP SCH ×2 (08:49→16:46)
[2016-07-04] MEDS: CALCITRIOL 0.25 MCG CAP PO SCH (08:49)
[2016-07-04] MEDS: SODIUM CHLORIDE 0.9% FLUSH 5 ML FLUSH IVF SCH ×2 (08:49→20:56)
[2016-07-04] MEDS: hydrALAZINE HCL 25 MG TAB PO SCH (08:49)
--- NOTE | 2016-07-04 08:59 | EC ---
Study Study Date:07/03/2016 STUDY CONCLUSIONS SUMMARY - Left ventricle: The cavity size was normal. Wall thickness was normal. Systolic function was normal. The estimated ejection fraction was in the range of 55% to 60%. Wall motion was normal; there were no regional wall motion abnormalities. - Mitral valve: Mild regurgitation. - Tricuspid valve: Mild-moderate regurgitation. - Pulmonary arteries: PA peak pressure: 49mm Hg (S). - Pericardium, extracardiac: A trivial pericardial effusion was identified. If LV function is below 40, please consider prescribing an ACEI or ARB or document rationale for non-use. PROCEDURE DATA STUDY STATUS: Elective. Procedure: Transthoracic echocardiography. Image quality was good. Scanning was performed from the parasternal, apical, and subcostal acoustic windows. Study completion: The patient tolerated the procedure well. Transthoracic echocardiography. M-mode, complete 2D, complete spectral Doppler, and color Doppler. Patient status: Inpatient. CARDIAC ANATOMY LEFT VENTRICLE: The cavity size was normal. Wall thickness was normal. Systolic function was normal. The estimated ejection fraction was in the range of 55% to 60%. Wall motion was normal; there were no regional wall motion abnormalities. AORTIC VALVE: Trileaflet; mildly thickened, mildly calcified leaflets. Doppler: Transvalvular velocity was within the normal range. There was no stenosis. No regurgitation. AORTA: Aortic root: The aortic root was normal in size. MITRAL VALVE: Structurally normal valve. Doppler: Transvalvular velocity was within the normal range. There was no evidence for stenosis. Mild regurgitation. Peak gradient: 4mm Hg (D). LEFT ATRIUM: The atrium was normal in size. RIGHT VENTRICLE: The cavity size was normal. Wall thickness was normal. PULMONIC VALVE: Doppler: Transvalvular velocity was within the normal range. There was no evidence for stenosis. No regurgitation. TRICUSPID VALVE: Structurally normal valve. Doppler: Transvalvular velocity was within the normal range. Mild-moderate regurgitation. PULMONARY ARTERY: The main pulmonary artery was normal-sized. Systolic pressure was within the normal range. RIGHT ATRIUM: The atrium was normal in size. PERICARDIUM: A trivial pericardial effusion was identified. SYSTEMIC VEINS: Inferior vena cava: The vessel was normal in size. BASIC MEASUREMENTS ADULT Normal Left ventricle LV internal dimension, ED, chordal level, *53 mm 43-52 PLAX LV internal dimension, ES, chordal level, *40.8 mm 23-38 PLAX Fractional shortening, chordal level, PLAX *23 % >29 LV posterior wall thickness, ED 9.45 mm IVS/LVPW ratio, ED *1.43 <1.3 Ventricular septum Septal thickness, ED 13.5 mm Aortic valve Leaflet separation 19 mm 15-26 Left atrium Anterior-posterior dimension 41 mm Right ventricle RV internal dimension, ED, PLAX 29.9 mm 19-38 BASIC MEASUREMENTS ADULT Normal Aortic valve Leaflet separation 19 mm 15-26 Aorta Root diameter, ED 27 mm 20-37 DOPPLER MEASUREMENTS ADULT Normal Main pulmonary artery Pressure, S *49 mm Hg =30 Mitral valve Peak E-wave velocity 99.2 cm/s Peak A-wave velocity 56.3 cm/s Peak gradient, D 4 mm Hg Peak E/A ratio 1.8 Tricuspid valve Regurgitant peak velocity 311 cm/s Peak RV-RA gradient, S 39 mm Hg Maximal regurgitant velocity 311 cm/s Systemic veins Estimated CVP 10 mm Hg Right ventricle RV pressure, S *49 mm Hg <30 LEGEND: Mean values are shown as u=mean value. Asterisk (*) silva values outside specified normal range. Prepared and signed by James Jones [id number]
--- NOTE | 2016-07-04 10:51 | PD.CARD.PN ---
Subjective Subjective Remarks No chest pain, no shortness of breath Objective Medications Current Medications Medications (Trade) Dose Ordered Sig/Denice Route Start Time Stop Time Status Last Admin (KCl) 20 meq BID PO 07/02/16 21:00 07/04/16 08:49 (Heparin Inj) 5,000 units Q12H SQ 07/02/16 16:00 07/04/16 05:07 (Lopressor) 50 mg Q8HR PO 07/02/16 17:30 07/04/16 05:06 (Norvasc) 10 mg DAILY PO 07/03/16 09:00 07/04/16 08:49 (Apresoline) 25 mg Q12HR PO 07/02/16 21:00 07/04/16 08:49 (Apresoline Inj) 10 mg Q4H PRN IV PUSH 07/02/16 17:30 (Bumex Inj) 2 mg BID@09,18 IVP 07/03/16 09:00 07/04/16 08:49 (Aspirin Chew) 81 mg DAILY CHEW 07/03/16 10:00 07/04/16 08:48 (Rocaltrol) 0.25 mcg DAILY PO 07/03/16 13:00 07/04/16 08:49 Vital Signs / I&O Vital Signs Date Time Temp Pulse Resp B/P Pulse Ox O2 Delivery O2 Flow Rate FiO2 07/04/16 08:30 96 Nasal Cannula 3.00 07/04/16 08:00 98.3 71 18 170/72 100 07/04/16 03:37 97.4 77 22 155/77 99 07/03/16 23:55 97.5 70 24 169/94 100 07/03/16 20:27 74 07/03/16 19:40 97.3 75 26 148/78 100 07/03/16 16:14 75 07/03/16 16:00 98.2 76 18 138/82 98 07/03/16 12:00 97.4 84 18 170/84 95 I/O 07/03/16 07/03/16 07/03/16 07/04/16 07/04/16 07/04/16 07:00 15:00 23:00 07:00 15:00 23:00 Intake Total 120 ml 480 ml 240 ml 100 ml Output Total 600 ml 875 ml 600 ml 500 ml Balance -480 ml -395 ml -360 ml -400 ml Intake Oral 120 ml 480 ml 240 ml 100 ml IV Total 0 ml Output Urine Total 600 ml 875 ml 600 ml 500 ml # Bowel Movements 1 0 0 Physical Exam GENERAL: NAD, AAOx3 SKIN: Warm and dry. HEAD: Atraumatic. Normocephalic. EYES: Pupils equal and round. No scleral icterus. No injection or drainage. ENT: No nasal bleeding or discharge. Mucous membranes pink and moist. NECK: Trachea midline. Minimal JVD CARDIOVASCULAR: Regular rate and rhythm. No noted murmurs RESPIRATORY: No accessory muscle use. Clear to auscultation, no rales noted GASTROINTESTINAL: Abdomen soft, non-tender, nondistended. Hepatic and splenic margins not palpable. MUSCULOSKELETAL: Bilateral lower extremity edema decreased. Left forearm fistula with thrill NEUROLOGICAL: Awake and alert. No obvious cranial nerve deficits. Motor grossly within normal limits. Five out of 5 muscle strength in the arms and legs. Normal speech. PSYCHIATRIC: Appropriate mood and affect; insight and judgment normal. Laboratory Laboratory Tests Test 07/04/16 05:20 Sodium Level 138 MEQ/L Potassium Level 4.1 MEQ/L Chloride Level 105 MEQ/L Carbon Dioxide Level 22.6 MEQ/L Anion Gap 10 MEQ/L Blood Urea Nitrogen 35 MG/DL Creatinine 3.19 MG/DL Estimat Glomerular Filtration 24 ML/MIN Rate Random Glucose 97 MG/DL Calcium Level 8.7 MG/DL Phosphorus Level 2.8 MG/DL Assessment and Plan Problem List: (1) Acute exacerbation of CHF (congestive heart failure) (2) Chronic kidney disease, stage IV (severe) (3) Hypertension (4) COPD (5) Atrial fibrillation (6) Anemia Assessment and Plan 1) Continues to diurese well, weight down 3kg 2) EF 55-60% 3) Blood pressure still elevated over night, will re-add Lisinopril at 20mg 4) Acute heart failure most likely multifactorial including increased salt intake over the holidays, HTN and CKD 5) May need to be on diuretic outpt, but needs follow up with Lito Vargas DO Jul 04, 2016 10:51
[2016-07-04] MEDS ORDERED: hydrALAZINE HCL 25 MG TAB PO ONE ×2 (11:00→11:30)
--- NOTE | 2016-07-04 11:33 | HHI.PR ---
Subjective Remarks Follow-up CHF exacerbation, chronic kidney disease, UTI. The patient continues to report shortness of breath. No chest pain. Feels that the swelling in his legs is improving. Objective Vitals Vital Signs Date Time Temp Pulse Resp B/P Pulse Ox O2 Delivery O2 Flow Rate FiO2 07/04/16 08:30 96 Nasal Cannula 3.00 07/04/16 08:00 98.3 71 18 170/72 100 07/04/16 03:37 97.4 77 22 155/77 99 07/03/16 23:55 97.5 70 24 169/94 100 07/03/16 20:27 74 07/03/16 19:40 97.3 75 26 148/78 100 07/03/16 16:14 75 07/03/16 16:00 98.2 76 18 138/82 98 07/03/16 12:00 97.4 84 18 170/84 95 I/O 07/03/16 07/03/16 07/03/16 07/04/16 07/04/16 07/04/16 07:00 15:00 23:00 07:00 15:00 23:00 Intake Total 120 ml 480 ml 240 ml 100 ml Output Total 600 ml 875 ml 600 ml 500 ml Balance -480 ml -395 ml -360 ml -400 ml Intake Oral 120 ml 480 ml 240 ml 100 ml IV Total 0 ml Output Urine Total 600 ml 875 ml 600 ml 500 ml # Bowel Movements 1 0 0 Result Diagram: 07/02/16 1305 07/04/16 0520 Imaging Last Impressions Chest X-Ray 07/02/16 1255 Signed Impressions: Service Date/Time: Saturday, July 02, 2016 13:23 - CONCLUSION: Stable moderate cardiomegaly and bilateral pleural effusions. Vilma Valdivia MD Upper Extremity Ultrasound 07/02/16 0000 Signed Impressions: Service Date/Time: Saturday, July 02, 2016 13:52 - CONCLUSION: Normal examination. Vilma Valdivia MD Objective Remarks General: No acute distress. Heart: Regular rhythm. No murmur. Lungs: Occasional wheeze. Breathing is nonlabored. Abdomen: Soft, nontender, nondistended. Extremities: 2+ bilateral lower extremity edema, slightly improved. Psych: Alert and oriented. Procedures None Urinary Catheter: No Vascular Central Line Catheter: No A/P Problem List: (1) Acute exacerbation of CHF (congestive heart failure) ICD Code: I50.9 Status: Acute (2) Hypertension ICD Code: I10 Status: Chronic (3) Chronic kidney disease (CKD) stage G4/A1, severely decreased glomerular filtration rate (GFR) between 15-29 mL/min/1.73 square meter and albuminuria creatinine ratio less than 30 mg/g ICD Code: N18.4 Status: Chronic Assessment and Plan 1. CHF exacerbation, diastolic: most recent echocardiogram available at this time was done in 2014. Repeat echocardiogram shows EF of 55-60%. Monitor on telemetry. Appreciate cardiology recommendations. Continue diuresis. 2. Chronic kidney disease stage IV: Appreciate nephrology recommendations. Creatinine stable. 3. Hypertension: Continue amlodipine, metoprolol, hydralazine, terazosin. Restart lisinopril. 4. DVT prophylaxis: Heparin. Michele Drew MD Jul 04, 2016 11:33
[2016-07-04] MEDS: LISINOPRIL 20 MG TAB PO SCH (11:34)
--- NOTE | 2016-07-04 12:29 | HHI.NPPN ---
Subjective General Problems: Edema Renal Failure: Chronic, Acute Interval History He is resting comfortably. Renal function is stable. Good response to diuretics. (Pily Mac) Review of Systems Respiratory Lungs: SOB (Pily Mac) Cardiovascular Cardiac: Edema (Pily Mac) Objective Data Data 07/03/16 07/04/16 19:00 07:00 Intake Total 480 ml 340 ml Output Total 875 ml 1100 ml Balance -395 ml -760 ml Intake Oral 480 ml 340 ml IV Total 0 ml Output Urine Total 875 ml 1100 ml # Bowel Movements 1 0 Vital Signs Date Time Temp Pulse Resp B/P Pulse Ox O2 Delivery O2 Flow Rate FiO2 07/04/16 08:30 96 Nasal Cannula 3.00 07/04/16 08:00 98.3 71 18 170/72 100 07/04/16 03:37 97.4 77 22 155/77 99 07/03/16 23:55 97.5 70 24 169/94 100 07/03/16 20:27 74 07/03/16 19:40 97.3 75 26 148/78 100 07/03/16 16:14 75 07/03/16 16:00 98.2 76 18 138/82 98 (Pily Mac) -: 07/02/16 1305 07/04/16 0520 Imaging Last 72 hours Impressions Chest X-Ray 07/02/16 1255 Signed Impressions: Service Date/Time: Saturday, July 02, 2016 13:23 - CONCLUSION: Stable moderate cardiomegaly and bilateral pleural effusions. Vilma Valdivia MD Upper Extremity Ultrasound 07/02/16 0000 Signed Impressions: Service Date/Time: Saturday, July 02, 2016 13:52 - CONCLUSION: Normal examination. Vilma Valdivia MD (Pily Mac) Physical Exam General Appearance: Well Developed, Well Nourished, No Acute Distress, Comfortable ( Pily Mac) Eyes Eye Exam: Pupils Equal (Pily Mac) Throat Throat Exam: Oral Mucosa [place] & Moist (Pily Mac) Pulmonary Resp Exam: Breath Sounds Equal, No Distress, Crackles, Rhonchi (Pily Mac) Cardiology CV Exam: Regular, Normal Sinus Rhythm (Pily Mac) Gastrointestinal/Abdomen GI Exam: Soft, Non-Tender, Bowel Sounds Present, Positive Bowel Movement ( Pily Mac) Musculoskeletal MS Exam: Joints Intact, Normal Gait (Pily Mac) Integumentary Skin Exam: Normal Turgor (Pily Mac) Extremeties Extremities Exam: Pedal Pulses Palpable, Moderate Edema (Pily Mac) Neurologic Neuro Exam: Alert, Awake, Oriented, Speech Clear, Moving All Extremities ( Pily Mac) Assessment/Plan Discussed Condition With: Patient Assessment Summary: Anemia of CKD Problem List: (1) Chronic kidney disease, stage IV (severe) Plan: baseline renal function is not known, he is aware that he has stage IV CKD. He has AVF in left arm that may not be functioning May have underlying hypertensive nephrosclerosis. Hepatitis C related MPGN is also a possibility. renal function has remained stable He still demonstrates signs of fluid overload, continue diuresis he is non oliguric No need for dialysis at this time Monitor urine output and renal function as well as electrolytes and daily weight. Avoid nephrotoxic agents. Gadolinium is contraindicated in this gentleman. Protect left upper extremity from IV and BP measurements. (2) Congestive heart failure Plan: Echo EF 55-60%, cardiology has been following continue diuresing (3) Hypertension Plan: BP improved continue oral medications amlodipine can cause lower extremity edema , dosage reduced to 5 mg daily Lisinopril resumed, monitor response hydralazine dosage adjusted by cardiology (4) Secondary hyperparathyroidism (of renal origin) Plan: PTH acceptable continue calcitriol (5) Anemia Plan: Hemoglobin stable (6) Hepatitis C Plan: Appears to be have been on Harvoni. Details are not known. (Pily Mac) Plan patient was seen and examined. Renal function is stable. He can be discharged on oral diuretic. No immediate need for dialysis. He is currently comfortable. (Kory Montaño MD) Pily Mac Jul 04, 2016 12:29 Kory Montaño MD Jul 04, 2016 16:30
[2016-07-04] MEDS: hydrALAZINE HCL 20 MG/ML VIAL IV PUSH PRN (19:00)
[2016-07-04] MEDS: hydrALAZINE HCL 50 MG TAB PO SCH (20:57)
[2016-07-04] MEDS ORDERED: hydrALAZINE HCL 25 MG TAB PO SCH (21:00)
[2016-07-05] VITALS (10 sets, daily range): BP systolic 135–162; BP diastolic 71–97; PULSE 78–150; RESP 16–19; TEMP 98–98.5; O2SAT 98–100
[2016-07-05] MEDS: HEPARIN SODIUM - SQ 10,000 UNITS/ML VIAL SQ SCH ×2 (05:22→17:47)
[2016-07-05] MEDS: METOPROLOL TARTRATE 50 MG TAB PO SCH ×3 (05:22→20:53)
--- NOTE | 2016-07-05 08:01 | HHI.PR ---
Subjective Remarks Follow-up CHF exacerbation. The patient states that he is feeling better today. Oxygen requirement continues to decrease. Has been ambulating in the room without significant dyspnea. Objective Vitals Vital Signs Date Time Temp Pulse Resp B/P Pulse Ox O2 Delivery O2 Flow Rate FiO2 07/05/16 04:00 98.0 83 16 161/79 100 07/05/16 00:38 Nasal Cannula 2.00 07/04/16 22:58 98 Nasal Cannula 3.00 07/04/16 20:00 97.7 73 16 161/72 100 07/04/16 20:00 76 07/04/16 18:45 177/96 07/04/16 16:00 94.6 76 18 167/98 100 07/04/16 15:32 72 07/04/16 12:00 97.7 75 18 161/74 98 07/04/16 08:30 96 Nasal Cannula 3.00 07/04/16 08:00 98.3 71 18 170/72 100 I/O 07/04/16 07/04/16 07/04/16 07/05/16 07/05/16 07/05/16 07:00 15:00 23:00 07:00 15:00 23:00 Intake Total 100 ml 360 ml 200 ml 360 ml Output Total 500 ml 1540 ml 930 ml 700 ml Balance -400 ml -1180 ml -730 ml -340 ml Intake Oral 100 ml 360 ml 200 ml 360 ml IV Total 0 ml Output Urine Total 500 ml 1540 ml 930 ml 700 ml # Bowel Movements 0 Result Diagram: 07/02/16 1305 07/04/16 0520 Imaging Last Impressions Chest X-Ray 07/02/16 1255 Signed Impressions: Service Date/Time: Saturday, July 02, 2016 13:23 - CONCLUSION: Stable moderate cardiomegaly and bilateral pleural effusions. Vilma Valdivia MD Upper Extremity Ultrasound 07/02/16 0000 Signed Impressions: Service Date/Time: Saturday, July 02, 2016 13:52 - CONCLUSION: Normal examination. Vilma Valdivia MD Objective Remarks General: No acute distress. Heart: Regular rhythm. No murmur. Lungs: Occasional wheeze. Breathing is nonlabored. Abdomen: Soft, nontender, nondistended. Extremities: 2+ bilateral lower extremity edema. Psych: Alert and oriented. Procedures None Urinary Catheter: No Vascular Central Line Catheter: No A/P Problem List: (1) Acute exacerbation of CHF (congestive heart failure) ICD Code: I50.9 Status: Acute (2) Hypertension ICD Code: I10 Status: Chronic (3) Chronic kidney disease (CKD) stage G4/A1, severely decreased glomerular filtration rate (GFR) between 15-29 mL/min/1.73 square meter and albuminuria creatinine ratio less than 30 mg/g ICD Code: N18.4 Status: Chronic Assessment and Plan 1. CHF exacerbation, diastolic: Improving. Repeat echocardiogram shows EF of 55- 60%. Monitor on telemetry. Appreciate cardiology recommendations. Continue diuresis with Bumex. Wean oxygen as tolerated. 2. Chronic kidney disease stage IV: Appreciate nephrology recommendations. Creatinine stable. 3. Hypertension: Blood pressure still elevated. Continue amlodipine, metoprolol , terazosin, lisinopril. Increase hydralazine. Amlodipine decreased due to edema. 4. DVT prophylaxis: Heparin. Michele Drew MD Jul 05, 2016 08:01
[2016-07-05 08:45] LABS: BICARBONATE 26.7 MEQ/L (21.0-32.0); POTASSIUM 3.9 MEQ/L (3.5-5.1)
[2016-07-05] MEDS: SODIUM CHLORIDE 0.9% FLUSH 5 ML FLUSH IVF SCH ×2 (09:00→20:53)
[2016-07-05] MEDS: CALCITRIOL 0.25 MCG CAP PO SCH (10:09)
[2016-07-05] MEDS: hydrALAZINE HCL 50 MG TAB PO SCH ×3 (10:09→20:53)
[2016-07-05] MEDS: ASPIRIN 81 MG CHEW TAB CHEW SCH (10:09)
[2016-07-05] MEDS: BUMETANIDE INJ 1 MG/4 ML VIAL IVP SCH ×2 (10:09→17:47)
[2016-07-05] MEDS: LISINOPRIL 20 MG TAB PO SCH (10:10)
[2016-07-05] MEDS: amLODIPine BESYLATE 5 MG TAB PO SCH (10:10)
[2016-07-05] MEDS: POTASSIUM CHLORIDE 20 MEQ CONTROLLED RELEASE TAB PO SCH ×2 (10:10→20:53)
--- NOTE | 2016-07-05 16:52 | PD.CARD.PN ---
Subjective Subjective Remarks pt had a 34 beat run of VT Objective Medications Administered Medications Medications (Trade) Dose Ordered Sig/Denice Route PRN Reason Start Time Stop Time Status Last Admin Dose Admin IV Flush (NS Flush) 2 ml BID IVF 07/02/16 21:00 07/05/16 09:00 Potassium Chloride (KCl) 20 meq BID PO 07/02/16 21:00 07/05/16 10:10 Heparin Sodium (Porcine) (Heparin Inj) 5,000 units Q12H SQ 07/02/16 16:00 07/05/16 05:22 Metoprolol Tartrate (Lopressor) 50 mg Q8HR PO 07/02/16 17:30 07/05/16 13:15 Hydralazine HCl (Apresoline Inj) 10 mg Q4H PRN IV PUSH SBP>160, DBP>90 07/02/16 17:30 07/04/16 19:00 Bumetanide (Bumex Inj) 2 mg BID@09,18 IVP 07/03/16 09:00 07/05/16 10:09 Aspirin (Aspirin Chew) 81 mg DAILY CHEW 07/03/16 10:00 07/05/16 10:09 Calcitriol (Rocaltrol) 0.25 mcg DAILY PO 07/03/16 13:00 07/05/16 10:09 Lisinopril (Prinivil) 20 mg DAILY PO 07/04/16 11:00 07/05/16 10:10 Amlodipine Besylate (Norvasc) 5 mg DAILY PO 07/05/16 09:00 07/05/16 10:10 Hydralazine HCl (Apresoline) 50 mg Q8HR PO 07/05/16 14:00 07/05/16 13:15 Vital Signs / I&O Vital Signs Date Time Temp Pulse Resp B/P Pulse Ox O2 Delivery O2 Flow Rate FiO2 07/05/16 16:12 98.3 78 18 153/73 99 07/05/16 12:16 98.2 78 18 135/71 99 07/05/16 08:09 98.5 80 19 162/87 100 07/05/16 04:00 98.0 83 16 161/79 100 07/05/16 00:38 Nasal Cannula 2.00 07/04/16 22:58 98 Nasal Cannula 3.00 07/04/16 20:00 97.7 73 16 161/72 100 07/04/16 20:00 76 07/04/16 18:45 177/96 I/O 07/04/16 07/04/16 07/04/16 07/05/16 07/05/16 07/05/16 07:00 15:00 23:00 07:00 15:00 23:00 Intake Total 100 ml 360 ml 200 ml 360 ml 720 ml Output Total 500 ml 1540 ml 930 ml 700 ml 950 ml Balance -400 ml -1180 ml -730 ml -340 ml -230 ml Intake Oral 100 ml 360 ml 200 ml 360 ml 720 ml IV Total 0 ml Output Urine Total 500 ml 1540 ml 930 ml 700 ml 950 ml # Bowel Movements 0 0 Physical Exam GENERAL: This is a well-nourished, well-developed patient, in no apparent distress. CARDIOVASCULAR: Regular rate and rhythm without murmurs, gallops, or rubs. RESPIRATORY: Clear to auscultation. Breath sounds equal bilaterally. No wheezes , rales, or rhonchi. GASTROINTESTINAL: Abdomen soft, non-tender, nondistended. Normal active bowel sounds MUSCULOSKELETAL: Extremities without clubbing, cyanosis, or edema. NEURO: Alert & Oriented x4 to person, place, time, situation. Moves all ext x4 Laboratory Laboratory Tests Test 07/05/16 07:50 Sodium Level 140 MEQ/L Potassium Level 3.9 MEQ/L Chloride Level 105 MEQ/L Carbon Dioxide Level 26.7 MEQ/L Anion Gap 8 MEQ/L Blood Urea Nitrogen 35 MG/DL Creatinine 3.22 MG/DL Estimat Glomerular Filtration 24 ML/MIN Rate Random Glucose 88 MG/DL Calcium Level 9.0 MG/DL Imaging Last Impressions Chest X-Ray 07/02/16 1255 Signed Impressions: Service Date/Time: Saturday, July 02, 2016 13:23 - CONCLUSION: Stable moderate cardiomegaly and bilateral pleural effusions. Vilma Valdivia MD Upper Extremity Ultrasound 07/02/16 0000 Signed Impressions: Service Date/Time: Saturday, July 02, 2016 13:52 - CONCLUSION: Normal examination. Vilma Valdivia MD Assessment and Plan Problem List: (1) VT (ventricular tachycardia) Assessment and Plan: Significant 34 beat run; will check mg/phos, K is ok. Will likely need high-risk cath to excluded ischemic origin, though will be at high risk for renal failure (2) Acute exacerbation of CHF (congestive heart failure) Assessment and Plan: seems reasonably compensated (3) Chronic kidney disease, stage IV (severe) (4) Hypertension Assessment and Plan Tentative plan is for cath Tue by Daniel with EP study if no CAD Roger Contreras MD Jul 05, 2016 16:52
--- NOTE | 2016-07-05 17:32 | HHI.NPPN ---
Subjective General Problems: Edema Renal Failure: Chronic, Acute Review of Systems Respiratory Lungs: SOB Cardiovascular Cardiac: Edema Objective Data Data 07/04/16 07/05/16 19:00 07:00 Intake Total 360 ml 560 ml Output Total 1540 ml 1630 ml Balance -1180 ml -1070 ml Intake Oral 360 ml 560 ml IV Total 0 ml Output Urine Total 1540 ml 1630 ml Vital Signs Date Time Temp Pulse Resp B/P Pulse Ox O2 Delivery O2 Flow Rate FiO2 07/05/16 16:12 98.3 78 18 153/73 99 07/05/16 12:16 98.2 78 18 135/71 99 07/05/16 08:09 98.5 80 19 162/87 100 07/05/16 04:00 98.0 83 16 161/79 100 07/05/16 00:38 Nasal Cannula 2.00 07/04/16 22:58 98 Nasal Cannula 3.00 07/04/16 20:00 97.7 73 16 161/72 100 07/04/16 20:00 76 07/04/16 18:45 177/96 -: 07/02/16 1305 07/05/16 0750 Physical Exam General Appearance: Well Developed, Well Nourished, No Acute Distress, Comfortable Eyes Eye Exam: Pupils Equal Throat Throat Exam: Oral Mucosa [place] & Moist Pulmonary Resp Exam: Breath Sounds Equal, No Distress, Crackles, Rhonchi Cardiology CV Exam: Regular, Normal Sinus Rhythm Gastrointestinal/Abdomen GI Exam: Soft, Non-Tender, Bowel Sounds Present, Positive Bowel Movement Musculoskeletal MS Exam: Joints Intact, Normal Gait Integumentary Skin Exam: Normal Turgor Extremeties Extremities Exam: Pedal Pulses Palpable, Moderate Edema Neurologic Neuro Exam: Alert, Awake, Oriented, Speech Clear, Moving All Extremities Assessment/Plan Discussed Condition With: Patient Assessment Summary: Anemia of CKD Problem List: (1) Chronic kidney disease, stage IV (severe) Plan: baseline renal function is not known, he is aware that he has stage IV CKD. He has AVF in left arm that may not be functioning May have underlying hypertensive nephrosclerosis. Hepatitis C related MPGN is also a possibility. renal function cr slightly up on bumex UOP 3.1 L (2) Congestive heart failure Plan: Echo EF 55-60%, cardiology has been following continue diuresing (3) Hypertension Plan: BP improved continue oral medications amlodipine can cause lower extremity edema , dosage reduced to 5 mg daily Lisinopril resumed, monitor response hydralazine dosage adjusted by cardiology (4) Secondary hyperparathyroidism (of renal origin) Plan: PTH acceptable continue calcitriol (5) Anemia Plan: Hemoglobin stable (6) Hepatitis C Plan: Appears to be have been on Harvoni. Details are not known. Pepito Gold MD Jul 05, 2016 17:32
[2016-07-05 17:41] LABS: MAGNESIUM 1.5 MG/DL (1.5-2.5)
[2016-07-06] VITALS (27 sets, daily range): BP systolic 140–178; BP diastolic 66–98; PULSE 79–110; RESP 18–20; TEMP 98–98.5; O2SAT 96–99
[2016-07-06] MEDS: HEPARIN SODIUM - SQ 10,000 UNITS/ML VIAL SQ SCH ×2 (03:30→15:13)
[2016-07-06 04:37] LABS: BICARBONATE 27.6 MEQ/L (21.0-32.0); POTASSIUM 3.8 MEQ/L (3.5-5.1)
[2016-07-06] MEDS: METOPROLOL TARTRATE 50 MG TAB PO SCH ×3 (06:14→21:25)
[2016-07-06] MEDS: hydrALAZINE HCL 50 MG TAB PO SCH ×3 (06:14→21:25)
[2016-07-06] MEDS: CALCITRIOL 0.25 MCG CAP PO SCH (08:47)
[2016-07-06] MEDS: POTASSIUM CHLORIDE 20 MEQ CONTROLLED RELEASE TAB PO SCH ×2 (08:47→21:25)
[2016-07-06] MEDS: LISINOPRIL 20 MG TAB PO SCH (08:47)
[2016-07-06] MEDS: ASPIRIN 81 MG CHEW TAB CHEW SCH (08:47)
[2016-07-06] MEDS: amLODIPine BESYLATE 5 MG TAB PO SCH (08:47)
[2016-07-06] MEDS: BUMETANIDE INJ 1 MG/4 ML VIAL IVP SCH ×2 (08:47→21:29)
[2016-07-06] MEDS: cefTRIAXone INJ 1,000 MG in SODIUM CHLORIDE 0.9% INJ 100 ML IV SCH (08:48)
--- NOTE | 2016-07-06 11:20 | HHI.PR ---
Subjective Remarks Follow-up CHF. Patient states that his breathing is better. Denies chest pain, dyspnea, palpitations. Objective Vitals Vital Signs Date Time Temp Pulse Resp B/P Pulse Ox O2 Delivery O2 Flow Rate FiO2 07/06/16 06:00 90 07/06/16 05:00 96 07/06/16 04:00 98.2 96 20 156/66 99 07/06/16 04:00 110 07/06/16 03:00 89 07/06/16 02:00 91 07/06/16 02:00 97 Room Air 07/06/16 01:00 94 07/06/16 00:00 94 07/06/16 00:00 98.4 80 18 140/88 98 07/06/16 00:00 99 Nasal Cannula 2.00 07/05/16 23:00 84 07/05/16 22:00 79 07/05/16 21:00 93 07/05/16 20:00 98.3 94 18 147/97 98 07/05/16 20:00 80 07/05/16 20:00 99 Nasal Cannula 2.00 07/05/16 16:12 98.3 78 18 153/73 99 07/05/16 12:47 150 07/05/16 12:16 98.2 78 18 135/71 99 I/O 07/05/16 07/05/16 07/05/16 07/06/16 07/06/16 07/06/16 07:00 15:00 23:00 07:00 15:00 23:00 Intake Total 360 ml 720 ml 460 ml Output Total 700 ml 950 ml 750 ml Balance -340 ml -230 ml -290 ml Intake Oral 360 ml 720 ml 460 ml Output Urine Total 700 ml 950 ml 750 ml # Bowel Movements 0 0 Result Diagram: 07/02/16 1305 07/06/16 0351 Imaging Last Impressions Chest X-Ray 07/02/16 1255 Signed Impressions: Service Date/Time: Saturday, July 02, 2016 13:23 - CONCLUSION: Stable moderate cardiomegaly and bilateral pleural effusions. Vilma Valdivia MD Upper Extremity Ultrasound 07/02/16 0000 Signed Impressions: Service Date/Time: Saturday, July 02, 2016 13:52 - CONCLUSION: Normal examination. Vilma Valdivia MD Objective Remarks General: No acute distress. Heart: Regular rhythm. No murmur. Lungs: Occasional wheeze. Breathing is nonlabored. Abdomen: Soft, nontender, nondistended. Extremities: 2+ bilateral lower extremity edema. Psych: Alert and oriented. Procedures None Urinary Catheter: No Vascular Central Line Catheter: No A/P Problem List: (1) Acute exacerbation of CHF (congestive heart failure) ICD Code: I50.9 Status: Acute (2) Hypertension ICD Code: I10 Status: Chronic (3) VT (ventricular tachycardia) ICD Code: I47.2 Status: Acute (4) Chronic kidney disease, stage IV (severe) ICD Code: N18.4 Status: Chronic Assessment and Plan 1. CHF exacerbation, diastolic: Improving. Repeat echocardiogram shows EF of 55- 60%. Monitor on telemetry. Appreciate cardiology recommendations. Continue diuresis with Bumex. Tolerating room air this morning. 2. Chronic kidney disease stage IV: Appreciate nephrology recommendations. Creatinine stable. 3. Hypertension: Blood pressure still elevated. Continue amlodipine, metoprolol , terazosin, lisinopril. Increase hydralazine. Amlodipine decreased due to edema. 4. DVT prophylaxis: Heparin. 5. Ventricular tachycardia: Patient had a 34 beat run of V. tach yesterday. Appreciate cardiology recommendations. Transferred to [facility]. Michele Drew MD Jul 06, 2016 11:20
--- NOTE | 2016-07-06 11:42 | PD.CARD.PN ---
Subjective Subjective Remarks No more VT, no complaints. Objective Medications Administered Medications Medications (Trade) Dose Ordered Sig/Denice Route PRN Reason Start Time Stop Time Status Last Admin Dose Admin IV Flush (NS Flush) 2 ml BID IVF 07/02/16 21:00 07/05/16 20:53 Potassium Chloride (KCl) 20 meq BID PO 07/02/16 21:00 07/06/16 08:47 Heparin Sodium (Porcine) (Heparin Inj) 5,000 units Q12H SQ 07/02/16 16:00 07/06/16 03:30 Metoprolol Tartrate (Lopressor) 50 mg Q8HR PO 07/02/16 17:30 07/06/16 06:14 Hydralazine HCl (Apresoline Inj) 10 mg Q4H PRN IV PUSH SBP>160, DBP>90 07/02/16 17:30 07/04/16 19:00 Bumetanide (Bumex Inj) 2 mg BID@09,18 IVP 07/03/16 09:00 07/06/16 08:47 Aspirin (Aspirin Chew) 81 mg DAILY CHEW 07/03/16 10:00 07/06/16 08:47 Calcitriol (Rocaltrol) 0.25 mcg DAILY PO 07/03/16 13:00 07/06/16 08:47 Lisinopril (Prinivil) 20 mg DAILY PO 07/04/16 11:00 07/06/16 08:47 Amlodipine Besylate (Norvasc) 5 mg DAILY PO 07/05/16 09:00 07/06/16 08:47 Hydralazine HCl 50 mg 50 mg Q8HR PO 07/05/16 14:00 07/06/16 06:14 Ceftriaxone Sodium/Sodium Chloride (Rocephin Inj/NS Inj) 100 ml @ 200 mls/hr Q24H IV 07/06/16 07:00 07/06/16 08:48 Vital Signs / I&O Vital Signs Date Time Temp Pulse Resp B/P Pulse Ox O2 Delivery O2 Flow Rate FiO2 07/06/16 06:00 90 07/06/16 05:00 96 07/06/16 04:00 98.2 96 20 156/66 99 07/06/16 04:00 110 07/06/16 03:00 89 07/06/16 02:00 91 07/06/16 02:00 97 Room Air 07/06/16 01:00 94 07/06/16 00:00 94 07/06/16 00:00 98.4 80 18 140/88 98 07/06/16 00:00 99 Nasal Cannula 2.00 07/05/16 23:00 84 07/05/16 22:00 79 07/05/16 21:00 93 07/05/16 20:00 98.3 94 18 147/97 98 07/05/16 20:00 80 07/05/16 20:00 99 Nasal Cannula 2.00 07/05/16 16:12 98.3 78 18 153/73 99 07/05/16 12:47 150 07/05/16 12:16 98.2 78 18 135/71 99 I/O 07/05/16 07/05/16 07/05/16 07/06/16 07/06/16 07/06/16 07:00 15:00 23:00 07:00 15:00 23:00 Intake Total 360 ml 720 ml 460 ml Output Total 700 ml 950 ml 750 ml Balance -340 ml -230 ml -290 ml Intake Oral 360 ml 720 ml 460 ml Output Urine Total 700 ml 950 ml 750 ml # Bowel Movements 0 0 Physical Exam GENERAL: This is a well-nourished, well-developed patient, in no apparent distress. CARDIOVASCULAR: Regular rate and rhythm without murmurs, gallops, or rubs. RESPIRATORY: Clear to auscultation. Breath sounds equal bilaterally. No wheezes , rales, or rhonchi. GASTROINTESTINAL: Abdomen soft, non-tender, nondistended. Normal active bowel sounds MUSCULOSKELETAL: Extremities without clubbing, cyanosis, or edema. NEURO: Alert & Oriented x4 to person, place, time, situation. Moves all ext x4 Laboratory Laboratory Tests Test 07/05/16 07/06/16 17:07 03:51 Phosphorus Level 2.3 MG/DL Magnesium Level 1.5 MG/DL Sodium Level 141 MEQ/L Potassium Level 3.8 MEQ/L Chloride Level 104 MEQ/L Carbon Dioxide Level 27.6 MEQ/L Anion Gap 9 MEQ/L Blood Urea Nitrogen 35 MG/DL Creatinine 3.11 MG/DL Estimat Glomerular Filtration 25 ML/MIN Rate Random Glucose 104 MG/DL Calcium Level 9.1 MG/DL Imaging Last Impressions Chest X-Ray 07/02/16 1255 Signed Impressions: Service Date/Time: Saturday, July 02, 2016 13:23 - CONCLUSION: Stable moderate cardiomegaly and bilateral pleural effusions. Vilma Valdivia MD Upper Extremity Ultrasound 07/02/16 0000 Signed Impressions: Service Date/Time: Saturday, July 02, 2016 13:52 - CONCLUSION: Normal examination. Vilma Valdivia MD Assessment and Plan Problem List: (1) VT (ventricular tachycardia) Assessment and Plan: Significant 34 beat run; will check mg/phos, K is ok. Will likely need high-risk cath to excluded ischemic origin, though will be at high risk for renal failure; will replete Mg. (2) Acute exacerbation of CHF (congestive heart failure) Assessment and Plan: seems reasonably compensated (3) Chronic kidney disease, stage IV (severe) (4) Hypertension Assessment and Plan Tentative plan is for cath Tue by Daniel with EP study if no CAD Roger Contreras MD Jul 06, 2016 11:41
[2016-07-06] MEDS ORDERED: MAGNESIUM SULFATE 1 GM PREMIX 100 ML IV ONE (11:45)
[2016-07-06] MEDS: SODIUM CHLORIDE 0.9% FLUSH 5 ML FLUSH IVF SCH ×2 (15:10→21:26)
[2016-07-07] VITALS (26 sets, daily range): BP systolic 149–164; BP diastolic 80–105; PULSE 74–101; RESP 16–18; TEMP 98.3–98.7; O2SAT 97–100
[2016-07-07] MEDS: HEPARIN SODIUM - SQ 10,000 UNITS/ML VIAL SQ SCH ×2 (05:42→17:47)
[2016-07-07] MEDS: METOPROLOL TARTRATE 50 MG TAB PO SCH ×3 (05:45→21:10)
[2016-07-07] MEDS: hydrALAZINE HCL 50 MG TAB PO SCH ×3 (05:45→21:10)
[2016-07-07] MEDS: cefTRIAXone INJ 1,000 MG in SODIUM CHLORIDE 0.9% INJ 100 ML IV SCH (05:46)
[2016-07-07 07:08] LABS: BICARBONATE 29.4 MEQ/L (21.0-32.0); MAGNESIUM 1.6 MG/DL (1.5-2.5); POTASSIUM 3.8 MEQ/L (3.5-5.1)
[2016-07-07] MEDS ORDERED: POTASSIUM PHOSPHATE MONOBASIC 500 MG TAB PO ONE (07:30)
[2016-07-07] MEDS: SODIUM CHLORIDE 0.9% FLUSH 5 ML FLUSH IVF SCH ×2 (09:26→21:10)
[2016-07-07] MEDS: CALCITRIOL 0.25 MCG CAP PO SCH (09:27)
[2016-07-07] MEDS: amLODIPine BESYLATE 5 MG TAB PO SCH (09:27)
[2016-07-07] MEDS: LISINOPRIL 20 MG TAB PO SCH (09:27)
[2016-07-07] MEDS: BUMETANIDE INJ 1 MG/4 ML VIAL IVP SCH ×2 (09:27→17:48)
[2016-07-07] MEDS: POTASSIUM CHLORIDE 20 MEQ CONTROLLED RELEASE TAB PO SCH ×2 (09:27→21:10)
[2016-07-07] MEDS: ASPIRIN 81 MG CHEW TAB CHEW SCH (09:28)
--- NOTE | 2016-07-07 10:00 | HHI.PR ---
Subjective Remarks Follow-up CHF, hypertension. Patient denies chest pain, dyspnea. Feels that his lower extremity swelling is improving. Objective Vitals Vital Signs Date Time Temp Pulse Resp B/P Pulse Ox O2 Delivery O2 Flow Rate FiO2 07/07/16 07:00 98.5 88 18 161/100 97 07/07/16 06:00 94 07/07/16 05:00 87 07/07/16 04:17 98.3 86 16 154/83 98 07/07/16 04:00 86 07/07/16 03:00 92 07/07/16 02:00 101 07/07/16 01:00 94 07/07/16 00:40 98.5 92 16 160/105 98 07/07/16 00:00 90 07/06/16 23:00 92 07/06/16 22:00 106 07/06/16 21:00 89 07/06/16 20:00 87 07/06/16 19:54 98.2 81 20 175/98 98 07/06/16 19:54 98 Room Air 07/06/16 19:00 91 07/06/16 18:00 91 07/06/16 18:00 98.5 83 20 144/81 99 07/06/16 17:14 96 21 07/06/16 17:00 105 07/06/16 16:00 89 07/06/16 15:00 98.1 81 20 178/86 99 07/06/16 15:00 85 07/06/16 14:00 91 07/06/16 13:00 91 07/06/16 12:00 101 07/06/16 11:49 98 07/06/16 11:00 88 07/06/16 11:00 98.0 88 20 158/88 99 07/06/16 10:00 81 I/O 07/06/16 07/06/16 07/06/16 07/07/16 07/07/16 07/07/16 07:00 15:00 23:00 07:00 15:00 23:00 Intake Total 460 ml 820 ml 480 ml Output Total 750 ml 1650 ml 1900 ml Balance -290 ml -830 ml -1420 ml Intake Oral 460 ml 620 ml 480 ml IV Total 200 ml Output Urine Total 750 ml 1650 ml 1900 ml # Bowel Movements 0 1 1 Result Diagram: 07/07/16 0555 Imaging Last Impressions Chest X-Ray 07/02/16 1255 Signed Impressions: Service Date/Time: Saturday, July 02, 2016 13:23 - CONCLUSION: Stable moderate cardiomegaly and bilateral pleural effusions. Vilma Valdivia MD Upper Extremity Ultrasound 07/02/16 0000 Signed Impressions: Service Date/Time: Saturday, July 02, 2016 13:52 - CONCLUSION: Normal examination. Vilma Valdivia MD Objective Remarks General: No acute distress. Heart: Regular rhythm. No murmur. Lungs: Clear to auscultation bilaterally. Breathing is nonlabored. Abdomen: Soft, nontender, nondistended. Extremities: 2+ bilateral lower extremity edema, slightly improved. Psych: Alert and oriented. Procedures None Urinary Catheter: No Vascular Central Line Catheter: No A/P Problem List: (1) Acute exacerbation of CHF (congestive heart failure) ICD Code: I50.9 Status: Acute (2) Hypertension ICD Code: I10 Status: Chronic (3) VT (ventricular tachycardia) ICD Code: I47.2 Status: Acute (4) Chronic kidney disease, stage IV (severe) ICD Code: N18.4 Status: Chronic Assessment and Plan 1. CHF exacerbation, diastolic: Improving. Repeat echocardiogram shows EF of 55- 60%. Monitor on telemetry. Appreciate cardiology recommendations. Continue diuresis with Bumex. Tolerating room air. 2. Chronic kidney disease stage IV: Appreciate nephrology recommendations. Creatinine stable. 3. Hypertension: Blood pressure still elevated. Continue amlodipine, metoprolol , terazosin, lisinopril. Increase hydralazine. Amlodipine decreased due to edema. 4. DVT prophylaxis: Heparin. 5. Ventricular tachycardia: Patient had a 34 beat run of V. tach. Appreciate cardiology recommendations. Transferred to [facility]. Planning for cardiac catheterization tomorrow. Discussed with Dr. Contreras. Michele Drew MD Jul 07, 2016 10:00
--- NOTE | 2016-07-07 10:10 | PD.CARD.PN ---
Subjective Subjective Remarks pt feels well, no further vt Objective Medications Administered Medications Medications (Trade) Dose Ordered Sig/Denice Route PRN Reason Start Time Stop Time Status Last Admin Dose Admin IV Flush (NS Flush) 2 ml BID IVF 07/02/16 21:00 07/07/16 09:26 Potassium Chloride (KCl) 20 meq BID PO 07/02/16 21:00 07/07/16 09:27 Heparin Sodium (Porcine) (Heparin Inj) 5,000 units Q12H SQ 07/02/16 16:00 07/07/16 05:42 Metoprolol Tartrate (Lopressor) 50 mg Q8HR PO 07/02/16 17:30 07/07/16 05:45 Hydralazine HCl (Apresoline Inj) 10 mg Q4H PRN IV PUSH SBP>160, DBP>90 07/02/16 17:30 07/04/16 19:00 Bumetanide (Bumex Inj) 2 mg BID@09,18 IVP 07/03/16 09:00 07/07/16 09:27 Aspirin (Aspirin Chew) 81 mg DAILY CHEW 07/03/16 10:00 07/07/16 09:28 Calcitriol (Rocaltrol) 0.25 mcg DAILY PO 07/03/16 13:00 07/07/16 09:27 Lisinopril (Prinivil) 20 mg DAILY PO 07/04/16 11:00 07/07/16 09:27 Amlodipine Besylate (Norvasc) 5 mg DAILY PO 07/05/16 09:00 07/07/16 09:27 Hydralazine HCl 50 mg 50 mg Q8HR PO 07/05/16 14:00 07/07/16 05:45 Ceftriaxone Sodium/Sodium Chloride (Rocephin Inj/NS Inj) 100 ml @ 200 mls/hr Q24H IV 07/06/16 07:00 07/07/16 05:46 Vital Signs / I&O Vital Signs Date Time Temp Pulse Resp B/P Pulse Ox O2 Delivery O2 Flow Rate FiO2 07/07/16 07:00 98.5 88 18 161/100 97 07/07/16 06:00 94 07/07/16 05:00 87 07/07/16 04:17 98.3 86 16 154/83 98 07/07/16 04:00 86 07/07/16 03:00 92 07/07/16 02:00 101 07/07/16 01:00 94 07/07/16 00:40 98.5 92 16 160/105 98 07/07/16 00:00 90 07/06/16 23:00 92 07/06/16 22:00 106 07/06/16 21:00 89 07/06/16 20:00 87 07/06/16 19:54 98.2 81 20 175/98 98 07/06/16 19:54 98 Room Air 07/06/16 19:00 91 07/06/16 18:00 91 07/06/16 18:00 98.5 83 20 144/81 99 07/06/16 17:14 96 21 07/06/16 17:00 105 07/06/16 16:00 89 07/06/16 15:00 98.1 81 20 178/86 99 07/06/16 15:00 85 07/06/16 14:00 91 07/06/16 13:00 91 07/06/16 12:00 101 07/06/16 11:49 98 07/06/16 11:00 88 07/06/16 11:00 98.0 88 20 158/88 99 I/O 07/06/16 07/06/16 07/06/16 07/07/16 07/07/16 07/07/16 07:00 15:00 23:00 07:00 15:00 23:00 Intake Total 460 ml 820 ml 480 ml Output Total 750 ml 1650 ml 1900 ml Balance -290 ml -830 ml -1420 ml Intake Oral 460 ml 620 ml 480 ml IV Total 200 ml Output Urine Total 750 ml 1650 ml 1900 ml # Bowel Movements 0 1 1 Physical Exam GENERAL: This is a well-nourished, well-developed patient, in no apparent distress. CARDIOVASCULAR: Regular rate and rhythm without murmurs, gallops, or rubs. RESPIRATORY: Clear to auscultation. Breath sounds equal bilaterally. No wheezes , rales, or rhonchi. GASTROINTESTINAL: Abdomen soft, non-tender, nondistended. Normal active bowel sounds MUSCULOSKELETAL: Extremities without clubbing, cyanosis, or edema. NEURO: Alert & Oriented x4 to person, place, time, situation. Moves all ext x4 Laboratory Laboratory Tests Test 07/07/16 05:55 Sodium Level 140 MEQ/L Potassium Level 3.8 MEQ/L Chloride Level 104 MEQ/L Carbon Dioxide Level 29.4 MEQ/L Anion Gap 7 MEQ/L Blood Urea Nitrogen 34 MG/DL Creatinine 3.03 MG/DL Estimat Glomerular Filtration 25 ML/MIN Rate Random Glucose 98 MG/DL Calcium Level 9.4 MG/DL Phosphorus Level 1.8 MG/DL Magnesium Level 1.6 MG/DL Imaging Last Impressions Chest X-Ray 07/02/16 1255 Signed Impressions: Service Date/Time: Saturday, July 02, 2016 13:23 - CONCLUSION: Stable moderate cardiomegaly and bilateral pleural effusions. Vilma Valdivia MD Upper Extremity Ultrasound 07/02/16 0000 Signed Impressions: Service Date/Time: Saturday, July 02, 2016 13:52 - CONCLUSION: Normal examination. Vilma Valdivia MD Assessment and Plan Problem List: (1) VT (ventricular tachycardia) Assessment and Plan: Significant 34 beat run; Will likely need high-risk cath to excluded ischemic origin, though will be at high risk for renal failure ; (2) Acute exacerbation of CHF (congestive heart failure) Assessment and Plan: seems reasonably compensated (3) Chronic kidney disease, stage IV (severe) (4) Hypertension Assessment and Plan Tentative plan is for cath Tue by Daniel with EP study if no CAD, will make npo past midnight Roger Contreras MD Jul 07, 2016 10:10
[2016-07-07] MEDS: TERAZOSIN HCL 5 MG CAP PO SCH (21:10)
[2016-07-08] VITALS (24 sets, daily range): BP systolic 129–171; BP diastolic 70–92; PULSE 66–100; RESP 16–20; TEMP 97.8–98.6; O2SAT 97–99
[2016-07-08] MEDS: HEPARIN SODIUM - SQ 10,000 UNITS/ML VIAL SQ SCH (04:11)
[2016-07-08] MEDS: METOPROLOL TARTRATE 50 MG TAB PO SCH ×3 (06:05→21:15)
[2016-07-08] MEDS: cefTRIAXone INJ 1,000 MG in SODIUM CHLORIDE 0.9% INJ 100 ML IV SCH (06:05)
[2016-07-08] MEDS: hydrALAZINE HCL 50 MG TAB PO SCH ×3 (06:05→21:15)
[2016-07-08 06:55] LABS: BICARBONATE 29.5 MEQ/L (21.0-32.0); MAGNESIUM 1.4 MG/DL (1.5-2.5); POTASSIUM 3.4 MEQ/L (3.5-5.1)
[2016-07-08] MEDS: LISINOPRIL 20 MG TAB PO SCH (08:08)
[2016-07-08] MEDS: CALCITRIOL 0.25 MCG CAP PO SCH (08:08)
[2016-07-08] MEDS: amLODIPine BESYLATE 5 MG TAB PO SCH (08:08)
[2016-07-08] MEDS: POTASSIUM CHLORIDE 20 MEQ CONTROLLED RELEASE TAB PO SCH ×2 (08:08→21:14)
[2016-07-08] MEDS: ASPIRIN 81 MG CHEW TAB CHEW SCH (08:08)
[2016-07-08] MEDS ORDERED: MAGNESIUM SULFATE 1 GM PREMIX 100 ML IV ONE (08:45)
[2016-07-08] MEDS: BUMETANIDE INJ 1 MG/4 ML VIAL IVP SCH (09:06)
[2016-07-08] MEDS: SODIUM CHLORIDE 0.9% FLUSH 5 ML FLUSH IVF SCH ×2 (09:07→21:15)
--- NOTE | 2016-07-08 09:36 | HHI.PR ---
Subjective Remarks Follow-up CHF, arrhythmia. Patient denies chest pain, dyspnea. Swelling is improving. Scheduled for catheterization today. Objective Vitals Vital Signs Date Time Temp Pulse Resp B/P Pulse Ox O2 Delivery O2 Flow Rate FiO2 07/08/16 06:00 100 07/08/16 05:00 100 07/08/16 04:00 75 07/08/16 04:00 98.2 92 18 156/77 98 07/08/16 03:00 81 07/08/16 02:00 83 07/08/16 01:00 86 07/08/16 00:00 98.4 89 18 167/85 98 07/08/16 00:00 89 07/07/16 23:00 90 07/07/16 22:00 97 07/07/16 21:00 88 07/07/16 20:19 21 07/07/16 20:00 96 07/07/16 20:00 98 Room Air 07/07/16 20:00 98.7 96 18 164/87 98 07/07/16 18:00 98 07/07/16 17:00 92 07/07/16 16:00 95 07/07/16 15:00 90 07/07/16 15:00 98.4 80 18 162/91 97 07/07/16 14:00 91 07/07/16 13:00 90 07/07/16 12:00 89 07/07/16 11:00 98.4 89 18 149/80 98 07/07/16 11:00 89 07/07/16 10:21 100 21 07/07/16 10:00 92 I/O 07/07/16 07/07/16 07/07/16 07/08/16 07/08/16 07/08/16 07:00 15:00 23:00 07:00 15:00 23:00 Intake Total 480 ml 910 ml 240 ml Output Total 1900 ml 900 ml 1400 ml Balance -1420 ml 10 ml -1160 ml Intake Oral 480 ml 810 ml 240 ml IV Total 100 ml Output Urine Total 1900 ml 900 ml 1400 ml # Bowel Movements 1 1 0 Result Diagram: 07/08/16 0615 Imaging Last Impressions Chest X-Ray 07/02/16 1255 Signed Impressions: Service Date/Time: Saturday, July 02, 2016 13:23 - CONCLUSION: Stable moderate cardiomegaly and bilateral pleural effusions. Vilma Valdivia MD Upper Extremity Ultrasound 07/02/16 0000 Signed Impressions: Service Date/Time: Saturday, July 02, 2016 13:52 - CONCLUSION: Normal examination. Vilma Valdivia MD Objective Remarks General: No acute distress. Heart: Regular rhythm. No murmur. Lungs: Clear to auscultation bilaterally. Breathing is nonlabored. Abdomen: Soft, nontender, nondistended. Extremities: 1+ bilateral lower extremity edema. Psych: Alert and oriented. Procedures None Urinary Catheter: No Vascular Central Line Catheter: No A/P Problem List: (1) Acute exacerbation of CHF (congestive heart failure) ICD Code: I50.9 Status: Acute (2) Hypertension ICD Code: I10 Status: Chronic (3) VT (ventricular tachycardia) ICD Code: I47.2 Status: Acute (4) Chronic kidney disease, stage IV (severe) ICD Code: N18.4 Status: Chronic Assessment and Plan 1. CHF exacerbation, diastolic: Improving. Repeat echocardiogram shows EF of 55- 60%. Monitor on telemetry. Appreciate cardiology recommendations. Continue diuresis with Bumex. Tolerating room air. 2. Chronic kidney disease stage IV: Appreciate nephrology recommendations. Creatinine stable. 3. Hypertension: Blood pressure still elevated. Continue amlodipine, metoprolol , terazosin, lisinopril. Increase hydralazine. Amlodipine decreased due to edema. 4. DVT prophylaxis: Heparin. 5. Ventricular tachycardia: Patient had a 34 beat run of V. tach. Appreciate cardiology recommendations. Transferred to [facility]. Planning for cardiac catheterization today. 6. Hypomagnesemia: Supplement magnesium. 7. Hypokalemia: Supplement potassium. Michele Drew MD Jul 08, 2016 09:36
[2016-07-08] MEDS ORDERED: POTASSIUM CHLORIDE 20 MEQ CONTROLLED RELEASE TAB PO ONE (09:45)
--- NOTE | 2016-07-08 10:17 | EKG ---
Date Performed: 07/08/2016 Time Performed: 04:32:56 PTAGE: 66 years EKG: Sinus rhythm with PAC(s) Right bundle branch block Inferior T wave changes are nonspecific PVC Compared to prior tracing no significant change Abnormal ECG PREVIOUS TRACING : 07/02/2016 13.06 DOCTOR: [place] Interpretating Date/Time 07/08/2016 10:14:56
[2016-07-08] MEDS ORDERED: HEPARIN-NS/PF INJ 500 ML ONE (11:38)
[2016-07-08] MEDS ORDERED: MIDAZOLAM HCL 2 MG/2 ML VIAL ONE (11:38)
[2016-07-08] MEDS ORDERED: MAGNESIUM SULFATE 1 GM PREMIX 100 ML ONE (11:51)
[2016-07-08] MEDS ORDERED: IOHEXOL 350 MG/ML 50 ML BTL (for Cath Lab) OTHER ONE (12:30)
--- NOTE | 2016-07-08 13:02 | PD.CARD.PN ---
Subjective Subjective Remarks Post-cath, doing well, no chest pain, no shortness of breath Objective Medications Current Medications Medications (Trade) Dose Ordered Sig/Denice Route Start Time Stop Time Status Last Admin (KCl) 20 meq BID PO 07/02/16 21:00 07/08/16 08:08 (Heparin Inj) 5,000 units Q12H SQ 07/02/16 16:00 07/08/16 04:11 (Lopressor) 50 mg Q8HR PO 07/02/16 17:30 07/08/16 06:05 (Apresoline Inj) 10 mg Q4H PRN IV PUSH 07/02/16 17:30 07/04/16 19:00 (Aspirin Chew) 81 mg DAILY CHEW 07/03/16 10:00 07/08/16 08:08 (Rocaltrol) 0.25 mcg DAILY PO 07/03/16 13:00 07/08/16 08:08 (Prinivil) 20 mg DAILY PO 07/04/16 11:00 07/08/16 08:08 (Norvasc) 5 mg DAILY PO 07/05/16 09:00 07/08/16 08:08 Hydralazine HCl 50 mg 50 mg Q8HR PO 07/05/16 14:00 07/08/16 06:05 (Rocephin Inj/NS Inj) 100 ml @ 200 mls/hr Q24H IV 07/06/16 07:00 07/08/16 06:05 (Hytrin) 5 mg HS PO 07/07/16 21:00 07/07/16 21:10 (Bumetanide) 2 mg BID@09,18 PO 07/08/16 18:00 Vital Signs / I&O Vital Signs Date Time Temp Pulse Resp B/P Pulse Ox O2 Delivery O2 Flow Rate FiO2 07/08/16 11:00 78 07/08/16 10:00 97 21 07/08/16 10:00 85 07/08/16 09:00 90 07/08/16 08:00 93 07/08/16 08:00 99 Room Air 07/08/16 07:00 98.6 87 17 171/92 99 07/08/16 07:00 84 07/08/16 06:00 100 07/08/16 05:00 100 07/08/16 04:00 75 07/08/16 04:00 98.2 92 18 156/77 98 07/08/16 03:00 81 07/08/16 02:00 83 07/08/16 01:00 86 07/08/16 00:00 98.4 89 18 167/85 98 07/08/16 00:00 89 07/07/16 23:00 90 07/07/16 22:00 97 07/07/16 21:00 88 07/07/16 20:19 21 07/07/16 20:00 96 07/07/16 20:00 98 Room Air 07/07/16 20:00 98.7 96 18 164/87 98 07/07/16 18:00 98 07/07/16 17:00 92 07/07/16 16:00 95 07/07/16 15:00 90 07/07/16 15:00 98.4 80 18 162/91 97 07/07/16 14:00 91 I/O 07/07/16 07/07/16 07/07/16 07/08/16 07/08/16 07/08/16 07:00 15:00 23:00 07:00 15:00 23:00 Intake Total 480 ml 910 ml 240 ml Output Total 1900 ml 900 ml 1400 ml Balance -1420 ml 10 ml -1160 ml Intake Oral 480 ml 810 ml 240 ml IV Total 100 ml Output Urine Total 1900 ml 900 ml 1400 ml # Bowel Movements 1 1 0 Physical Exam GENERAL: NAD, AAOx3 SKIN: Warm and dry. HEAD: Atraumatic. Normocephalic. EYES: Pupils equal and round. No scleral icterus. No injection or drainage. ENT: No nasal bleeding or discharge. Mucous membranes pink and moist. NECK: Trachea midline. Minimal JVD CARDIOVASCULAR: Regular rate and rhythm. No noted murmurs RESPIRATORY: No accessory muscle use. Clear to auscultation, no rales noted GASTROINTESTINAL: Abdomen soft, non-tender, nondistended. Hepatic and splenic margins not palpable. MUSCULOSKELETAL: Bilateral lower extremity edema decreased. Left forearm fistula with thrill NEUROLOGICAL: Awake and alert. No obvious cranial nerve deficits. Motor grossly within normal limits. Five out of 5 muscle strength in the arms and legs. Normal speech. PSYCHIATRIC: Appropriate mood and affect; insight and judgment normal. Laboratory Laboratory Tests Test 07/08/16 06:15 Sodium Level 141 MEQ/L Potassium Level 3.4 MEQ/L Chloride Level 101 MEQ/L Carbon Dioxide Level 29.5 MEQ/L Anion Gap 11 MEQ/L Blood Urea Nitrogen 32 MG/DL Creatinine 2.91 MG/DL Estimat Glomerular Filtration 27 ML/MIN Rate Random Glucose 93 MG/DL Calcium Level 9.2 MG/DL Phosphorus Level 2.3 MG/DL Magnesium Level 1.4 MG/DL Assessment and Plan Problem List: (1) VT (ventricular tachycardia) (2) Acute exacerbation of CHF (congestive heart failure) (3) Chronic kidney disease, stage IV (severe) (4) Hypertension Assessment and Plan 1) Sustained VT with 34 beat run, may be due to electrolytes, but still a long run... no significant CAD to explain, will consult Dr. Gonzales EP Cardio for further work up 2) EF 55-60% 3) Acute heart failure most likely multifactorial including increased salt intake over the holidays, HTN and CKD 4) May need to be on diuretic outpt, but [facility] Lito Sanchez DO Jul 08, 2016 13:02
[2016-07-08] MEDS ORDERED: MISC INFORMATION XX ONE (13:45)
[2016-07-08] MEDS ORDERED: SODIUM CHLORIDE 0.9% FLUSH 5 ML FLUSH IVF PRN (13:45)
[2016-07-08] MEDS: hydrALAZINE HCL 20 MG/ML VIAL IV PUSH PRN (16:27)
--- NOTE | 2016-07-08 16:47 | MA ---
cc: LITO PERALES DO DATE 07/08/2016 PROCEDURE Left heart catheterization, coronary angiogram. PREPROCEDURE DIAGNOSIS Sustained VT, acute on chronic heart failure. POSTPROCEDURE DIAGNOSIS No significant coronary artery disease, sustained VT of unknown cause. MEDICATIONS 1. Versed 1 mg. 2. Fentanyl 50 mcg. CONTRAST USED 40 mL. FLUOROSCOPY 4.8 minutes ESTIMATED BLOOD LOSS 10 mL PROCEDURAL SUMMARY Gagan Figueroa is a pleasant 66-year-old male who originally came in with acute on chronic heart failure. Over the weekend he was found to have a 34 beat run of ventricular tachycardia of unknown cause. Because of the sustained ventricular tachycardia, I was asked to rule out an ischemic cause. I explained risks, benefits and alternatives including possible dialysis as he has chronic kidney disease stage IV. He understood the risks, benefits and alternative and signed consent as such. He was brought to the cardiac catheterization lab and prepped in the usual sterile fashion. Because of his chronic kidney disease, DyeVert was hooked up to our IV system for the procedure. Right femoral artery was accessed using a modified Seldinger technique with a micro puncture needle. Placement of a 5-Sami sheath was done, aspirated and flushed easily. JR-4 was advanced over a J-wire to the ascending aorta. Selective angiography of the right coronary artery shows that it is a nondominant vessel. JR-4 was then exchanged for a JL-4. Selective angiography of the left coronary system shows a large left main with no significant disease. LAD is a tortuous vessel with 20-30% lesion proximally and no significant disease distally. The LAD is noted to wrap around the lower part of the apex and help somewhat with the inferior wall. The LAD gives off two major diagonals with no significant disease. The left circumflex is a large vessel with tortuosity as well. It gives off three main obtuse marginals including the PDA. JL-4 was then exchanged for an angled pigtail. This was used to cross the aortic valve and pressures of the left ventricle were measured with an LVEDP of 23. This was pulled back across the aortic valve showing no significant gradient of aortic stenosis. Angled pigtail was then removed over a J-wire. The patient left the catheterization lab cardiovascularly stable. We will plan on pulling his line in his room. IMPRESSION 1. Sustained ventricular tachycardia of unknown cause. 2. Acute on chronic heart failure on admission since being diuresed. 3. Tortuous coronary arteries most likely from hypertensive heart disease. RECOMMENDATIONS 1. Gagan appears to be diuresed well and is no longer having symptoms. 2. As far as his ventricular tachycardia goes I will have Dr. Gonzales see him for further considerations on workup. 3. Continue with electrolyte replacement. Thank you for allowing me to see Gagan Figueroa. If there are any questions please do not hesitate to call. Lito Perales DO VGP/KK /12:33 PM /4:35 PM
[2016-07-08] MEDS: BUMETANIDE 1 MG TAB PO SCH (17:19)
[2016-07-08] MEDS ORDERED: cloNIDine HCL 0.1 MG TAB PO PRN (19:45)
[2016-07-08] MEDS: TERAZOSIN HCL 5 MG CAP PO SCH (21:15)
[2016-07-09] VITALS (27 sets, daily range): BP systolic 131–158; BP diastolic 79–91; PULSE 71–111; RESP 16–20; TEMP 97.7–99.3; O2SAT 94–99
[2016-07-09] MEDS: hydrALAZINE HCL 50 MG TAB PO SCH ×3 (05:33→21:30)
[2016-07-09] MEDS: METOPROLOL TARTRATE 50 MG TAB PO SCH ×3 (05:33→21:29)
[2016-07-09 06:56] LABS: BICARBONATE 31.9 MEQ/L (21.0-32.0); MAGNESIUM 1.7 MG/DL (1.5-2.5); POTASSIUM 3.6 MEQ/L (3.5-5.1)
[2016-07-09 07:06] LABS: AUTOMATED NEUTROPHIL # 2.3 TH/MM3 (1.8-7.7); BASOPHIL # 0.1 TH/MM3 (0-0.2); BASOPHIL % 1.5 % (0.0-2.0); EOSINOPHIL # 0.1 TH/MM3 (0-0.4); EOSINOPHIL % 3.2 % (0.0-4.0); HEMATOCRIT 32.8 % (39.0-51.0); HEMO FLAGS DIFF FINAL; LYMPHOCYTE # 1.2 TH/MM3 (1.0-4.8); MEAN CELL VOLUME 106.2 FL (80.0-100.0); MEAN CORPUSCULAR HEMOGLOBIN 35.7 PG (27.0-34.0); MEAN CORPUSCULAR HGB CONC 33.6 % (32.0-36.0); MONO % 17.6 % (0.0-8.0); NEUT % 51.7 % (16.0-70.0); PLATELET COUNT 112 TH/MM3 (150-450); RED BLOOD COUNT 3.09 MIL/MM3 (4.50-5.90); RED CELL DISTRIBUTION WIDTH 15.5 % (11.6-17.2); WHITE BLOOD COUNT 4.5 TH/MM3 (4.0-11.0)
[2016-07-09] MEDS: cefTRIAXone INJ 1,000 MG in SODIUM CHLORIDE 0.9% INJ 100 ML IV SCH (07:36)
[2016-07-09] MEDS: ASPIRIN 81 MG CHEW TAB CHEW SCH (08:49)
[2016-07-09] MEDS: LISINOPRIL 20 MG TAB PO SCH (08:49)
[2016-07-09] MEDS: amLODIPine BESYLATE 5 MG TAB PO SCH (08:49)
[2016-07-09] MEDS: POTASSIUM CHLORIDE 20 MEQ CONTROLLED RELEASE TAB PO SCH ×2 (08:49→21:29)
[2016-07-09] MEDS: SODIUM CHLORIDE 0.9% FLUSH 5 ML FLUSH IVF SCH ×2 (08:49→21:30)
[2016-07-09] MEDS: CALCITRIOL 0.25 MCG CAP PO SCH (08:49)
[2016-07-09] MEDS: BUMETANIDE 1 MG TAB PO SCH ×2 (08:50→18:00)
--- NOTE | 2016-07-09 08:55 | MB ---
cc: MICHAEL GARCÍA M.D. DATE OF CONSULTATION 07/09/2016 REASON FOR CONSULTATION Ventricular tachycardia HISTORY Mr. Figueroa is a 66-year-old -[place] gentleman with a history of diastolic heart failure, previous hospitalization, high blood pressure, renal insufficiency, history of Hep-C, previous hospitalization admitted due to shortness of breath. During hospitalization, he developed a full episode of ventricular tachycardia over 34 beat that was self-limited. Left heart catheterization was performed and showed no significant occlusion. A 2-D echo indicated a normal ejection fraction. I was consulted for further evaluation and management. The chart was reviewed. The patient was evaluated. ALLERGIES None SOCIAL HISTORY The patient drinks two or three beers a day, stopped smoking 20 years ago. FAMILY HISTORY Noncontributory to his current medical condition. MEDICATIONS 1. Symbicort 2. Lisinopril 3. Allopurinol 4. Metoprolol 5. Amlodipine 6. Hydralazine 7. Tramadol 8. Metolazone REVIEW OF SYSTEMS Currently, the patient refers no chest pain or discomfort. No palpitation. No vomiting. No fever. PHYSICAL EXAM Alert, fully oriented. VITAL SIGNS: His blood pressure this morning 131/91, pulse around 79-90, respiratory rate 18. LUNGS: Ventilated. CARDIOVASCULAR: S1-S2, no gallop. No murmur. No rub. ABDOMEN: Soft. No mass. No bruit. EXTREMITIES: No edema. Electrocardiogram shows sinus rhythm, PVCs, right bundle-branch block, diffuse ST changes. LABORATORY DATA White blood cell is 4.5, hemoglobin 11. Potassium is 3.6, creatinine is getting better 2.98, troponin 0.02, INR 1.1. ASSESSMENT AND RECOMMENDATIONS Mr. Figeuroa has an episode of ventricular tachycardia. It was self-limited over 34 beats. Normal ejection fraction. He was symptomatic. He is already on beta-florence. Left heart catheterization indicated no occlusion. My recommendation at this point is electrophysiology study and if VT induced, defibrillator insertion for sudden secondary prevention. The risks, the nature and the benefit of the procedure are clearly stated to him. The risks include pneumothorax, cardiac perforation, stroke and even . The patient understood and agreed to proceed. He will be NPO after breakfast. The case extensively discussed with him. MD NU Duval/DJAna /8:16 AM /8:42 AM
[2016-07-09] MEDS: MAGNESIUM SULFATE 1 GM PREMIX 100 ML IV SCH ×2 (12:17→13:19)
--- NOTE | 2016-07-09 13:14 | HHI.PR ---
Subjective Remarks Patient resting in bed comfortably Seen and examined with the nurse at the bedside Stated no short of breath chest pain headache or lightheadedness He was seen by Dr. Gonzales today, mostly plan for EP study. Objective Vitals Vital Signs Date Time Temp Pulse Resp B/P Pulse Ox O2 Delivery O2 Flow Rate FiO2 07/09/16 12:46 81 07/09/16 11:00 98.4 76 19 149/79 98 07/09/16 11:00 84 07/09/16 10:00 87 07/09/16 09:00 95 07/09/16 08:00 73 07/09/16 07:00 98.2 71 19 154/81 98 07/09/16 07:00 98 Room Air 07/09/16 07:00 71 07/09/16 06:00 82 07/09/16 05:00 81 07/09/16 04:00 99.3 111 20 131/91 94 07/09/16 04:00 79 07/09/16 03:00 79 07/09/16 02:00 98 07/09/16 01:00 84 07/09/16 00:00 82 07/09/16 00:00 98.9 96 20 153/84 98 07/08/16 23:00 76 07/08/16 22:00 84 07/08/16 21:00 78 07/08/16 20:00 97 Room Air 07/08/16 20:00 78 07/08/16 20:00 97.8 79 20 129/70 97 07/08/16 19:54 97 07/08/16 18:03 75 07/08/16 17:00 68 07/08/16 16:06 78 07/08/16 15:00 66 07/08/16 15:00 99 Room Air 07/08/16 15:00 98.0 87 16 170/89 99 07/08/16 14:00 77 I/O 07/08/16 07/08/16 07/08/16 07/09/16 07/09/16 07/09/16 07:00 15:00 23:00 07:00 15:00 23:00 Intake Total 240 ml 1180 ml 380 ml Output Total 1400 ml 1475 ml 1050 ml Balance -1160 ml -295 ml -670 ml Intake Oral 240 ml 480 ml 380 ml IV Total 700 ml Output Urine Total 1400 ml 1475 ml 1050 ml # Bowel Movements 0 Result Diagram: 07/09/16 0600 07/09/16 0600 Imaging Last Impressions Chest X-Ray 07/02/16 1255 Signed Impressions: Service Date/Time: Saturday, July 02, 2016 13:23 - CONCLUSION: Stable moderate cardiomegaly and bilateral pleural effusions. Vilma Valdivia MD Upper Extremity Ultrasound 07/02/16 0000 Signed Impressions: Service Date/Time: Saturday, July 02, 2016 13:52 - CONCLUSION: Normal examination. Vilma Valdivia MD Objective Remarks GENERAL: This is a well-nourished, well-developed patient, in no apparent distress. SKIN: No rashes, warm and dry HEAD: Atraumatic. Normocephalic. EYES: Pupils equal round and reactive. Extraocular motions intact. No scleral icterus. ENT: Nose without bleeding, or drainage, Airway patent. NECK: Trachea midline. Supple CARDIOVASCULAR: Regular rate and rhythm with ectopy RESPIRATORY: Fair air entry bilaterally. No wheezes, rales, or rhonchi. GASTROINTESTINAL: Abdomen soft, non-tender, nondistended. Positive bowel sounds MUSCULOSKELETAL: Extremities without clubbing, cyanosis, +1 edema. Pedal pulses appreciated NEUROLOGICAL: Awake and alert. Moves all extremity. Normal speech.no focal neurological deficit Procedures None A/P Problem List: (1) Acute exacerbation of CHF (congestive heart failure) ICD Code: I50.9 Status: Acute (2) Hypertension ICD Code: I10 Status: Chronic (3) VT (ventricular tachycardia) ICD Code: I47.2 Status: Acute (4) Chronic kidney disease, stage IV (severe) ICD Code: N18.4 Status: Chronic Assessment and Plan - CHF exacerbation, diastolic: Improving. Repeat echocardiogram shows EF of 55- 60%. Monitor on telemetry. Appreciate cardiology recommendations. Continue diuresis with Bumex. Tolerating room air. - Chronic kidney disease stage IV: Appreciate nephrology recommendations. Creatinine stable. Monitor BMP - Hypertension: Still uncontrolled,. Continue amlodipine, metoprolol, terazosin , lisinopril. hydralazine. Amlodipine decreased due to edema. Clonidine as needed with parameter - Ventricular tachycardia: Patient had a 34 beat run of V. tach. Appreciate cardiology recommendations. Status post heart catheter showed tortuous coronary artery, recommended EP study, Dr. Alston consulted - Hypomagnesemia: Supplement magnesium as needed - DVT prophylaxis: Heparin. D/W nurse Vaibhav Salgado MD Jul 09, 2016 13:14
--- NOTE | 2016-07-09 13:37 | PD.CARD.PN ---
Subjective Subjective Remarks No chest pain, no shortness of breath Objective Medications Current Medications Medications (Trade) Dose Ordered Sig/Denice Route Start Time Stop Time Status Last Admin (KCl) 20 meq BID PO 07/02/16 21:00 07/09/16 08:49 (Lopressor) 50 mg Q8HR PO 07/02/16 17:30 07/09/16 05:33 (Apresoline Inj) 10 mg Q4H PRN IV PUSH 07/02/16 17:30 07/08/16 16:27 (Aspirin Chew) 81 mg DAILY CHEW 07/03/16 10:00 07/09/16 08:49 (Rocaltrol) 0.25 mcg DAILY PO 07/03/16 13:00 07/09/16 08:49 (Prinivil) 20 mg DAILY PO 07/04/16 11:00 07/09/16 08:49 (Norvasc) 5 mg DAILY PO 07/05/16 09:00 07/09/16 08:49 Hydralazine HCl 50 mg 50 mg Q8HR PO 07/05/16 14:00 07/09/16 05:33 (Rocephin Inj/NS Inj) 100 ml @ 200 mls/hr Q24H IV 07/06/16 07:00 07/09/16 07:36 (Hytrin) 5 mg HS PO 07/07/16 21:00 07/08/16 21:15 (Bumetanide) 2 mg BID@09,18 PO 07/08/16 18:00 07/09/16 08:50 Clonidine 0.1 mg 0.1 mg Q6H PRN PO 07/08/16 19:45 (Magnesium Sulfate 1 Gm Premix) 100 ml @ 100 mls/hr Q1H IV 07/09/16 12:00 07/09/16 13:59 07/09/16 13:19 Vital Signs / I&O Vital Signs Date Time Temp Pulse Resp B/P Pulse Ox O2 Delivery O2 Flow Rate FiO2 07/09/16 12:46 81 07/09/16 11:00 98.4 76 19 149/79 98 07/09/16 11:00 84 07/09/16 10:00 87 07/09/16 09:00 95 07/09/16 08:00 73 07/09/16 07:00 98.2 71 19 154/81 98 07/09/16 07:00 98 Room Air 07/09/16 07:00 71 07/09/16 06:00 82 07/09/16 05:00 81 07/09/16 04:00 99.3 111 20 131/91 94 07/09/16 04:00 79 07/09/16 03:00 79 07/09/16 02:00 98 07/09/16 01:00 84 07/09/16 00:00 82 07/09/16 00:00 98.9 96 20 153/84 98 07/08/16 23:00 76 07/08/16 22:00 84 07/08/16 21:00 78 07/08/16 20:00 97 Room Air 07/08/16 20:00 78 07/08/16 20:00 97.8 79 20 129/70 97 07/08/16 19:54 97 07/08/16 18:03 75 07/08/16 17:00 68 07/08/16 16:06 78 07/08/16 15:00 66 07/08/16 15:00 99 Room Air 07/08/16 15:00 98.0 87 16 170/89 99 07/08/16 14:00 77 I/O 07/08/16 07/08/16 07/08/16 07/09/16 07/09/16 07/09/16 07:00 15:00 23:00 07:00 15:00 23:00 Intake Total 240 ml 1180 ml 380 ml Output Total 1400 ml 1475 ml 1050 ml Balance -1160 ml -295 ml -670 ml Intake Oral 240 ml 480 ml 380 ml IV Total 700 ml Output Urine Total 1400 ml 1475 ml 1050 ml # Bowel Movements 0 Physical Exam GENERAL: NAD, AAOx3 SKIN: Warm and dry. HEAD: Atraumatic. Normocephalic. EYES: Pupils equal and round. No scleral icterus. No injection or drainage. ENT: No nasal bleeding or discharge. Mucous membranes pink and moist. NECK: Trachea midline. Minimal JVD CARDIOVASCULAR: Regular rate and rhythm. No noted murmurs RESPIRATORY: No accessory muscle use. Clear to auscultation, no rales noted GASTROINTESTINAL: Abdomen soft, non-tender, nondistended. Hepatic and splenic margins not palpable. MUSCULOSKELETAL: Bilateral lower extremity edema decreased. Left forearm fistula with thrill NEUROLOGICAL: Awake and alert. No obvious cranial nerve deficits. Motor grossly within normal limits. Five out of 5 muscle strength in the arms and legs. Normal speech. PSYCHIATRIC: Appropriate mood and affect; insight and judgment normal. Laboratory Laboratory Tests Test 07/09/16 06:00 White Blood Count 4.5 TH/MM3 Red Blood Count 3.09 MIL/MM3 Hemoglobin 11.0 GM/DL Hematocrit 32.8 % Mean Corpuscular Volume 106.2 FL Mean Corpuscular Hemoglobin 35.7 PG Mean Corpuscular Hemoglobin 33.6 % Concent Red Cell Distribution Width 15.5 % Platelet Count 112 TH/MM3 Mean Platelet Volume 9.7 FL Neutrophils (%) (Auto) 51.7 % Lymphocytes (%) (Auto) 26.0 % Monocytes (%) (Auto) 17.6 % Eosinophils (%) (Auto) 3.2 % Basophils (%) (Auto) 1.5 % Neutrophils # (Auto) 2.3 TH/MM3 Lymphocytes # (Auto) 1.2 TH/MM3 Monocytes # (Auto) 0.8 TH/MM3 Eosinophils # (Auto) 0.1 TH/MM3 Basophils # (Auto) 0.1 TH/MM3 CBC Comment DIFF FINAL Differential Comment Sodium Level 138 MEQ/L Potassium Level 3.6 MEQ/L Chloride Level 99 MEQ/L Carbon Dioxide Level 31.9 MEQ/L Anion Gap 7 MEQ/L Blood Urea Nitrogen 31 MG/DL Creatinine 2.98 MG/DL Estimat Glomerular Filtration 26 ML/MIN Rate Random Glucose 91 MG/DL Calcium Level 8.9 MG/DL Magnesium Level 1.7 MG/DL Assessment and Plan Problem List: (1) VT (ventricular tachycardia) (2) Acute exacerbation of CHF (congestive heart failure) (3) Chronic kidney disease, stage IV (severe) (4) Hypertension Assessment and Plan 1) Sustained VT with 34 beat run, may be due to electrolytes, but still a long run... no significant CAD to explain, to undergo EP study today with Dr. Gonzales to see if inducible VT 2) EF 55-60% 3) Acute heart failure most likely multifactorial including increased salt intake over the holidays, HTN and CKD... appears currently euvolemic 4) May need to be on diuretic outpt, but [facility] Lito Sanchez DO Jul 09, 2016 13:37
[2016-07-09] MEDS: TERAZOSIN HCL 5 MG CAP PO SCH (21:29)
[2016-07-10] VITALS (14 sets, daily range): BP systolic 146–170; BP diastolic 82–100; PULSE 67–116; RESP 16–20; TEMP 97.8–98.4; O2SAT 63–99
[2016-07-10] MEDS: hydrALAZINE HCL 50 MG TAB PO SCH ×2 (06:20→14:05)
[2016-07-10] MEDS: METOPROLOL TARTRATE 50 MG TAB PO SCH ×2 (06:20→14:05)
[2016-07-10] MEDS ORDERED: ISOPROTERENOL HCL 1 MG/5 ML AMP ONE (07:45)
[2016-07-10] MEDS ORDERED: SODIUM CHLOR 0.9% 250 ML INJ 250 ML ONE (07:46)
[2016-07-10] MEDS ORDERED: PROPOFOL 200 MG/20 ML AMP IV ONE (08:30)
[2016-07-10] MEDS ORDERED: ONDANSETRON HCL 4 MG/2 ML VIAL IV PRN (09:00)
[2016-07-10] MEDS ORDERED: METOCLOPRAMIDE HCL 10 MG/2 ML VIAL IV PRN (09:00)
[2016-07-10] MEDS ORDERED: ATROPINE SULFATE 1 MG/ML VIAL IV PRN (09:00)
[2016-07-10] MEDS ORDERED: oxyCODONE/ACETAMINOPHEN 5 MG/325 MG TAB PO PRN ×2 (09:00)
[2016-07-10] MEDS ORDERED: MIDAZOLAM HCL 2 MG/2 ML VIAL ONE (09:00)
[2016-07-10] MEDS ORDERED: SODIUM CHLOR 0.9% 250 ML INJ 250 ML IV PRN (09:00)
[2016-07-10] MEDS ORDERED: LORazepam 2 MG/ML VIAL IV PRN (09:00)
[2016-07-10] MEDS ORDERED: LIDOCAINE HCL 1% 50 ML VIAL INFIL PRN (09:00)
--- NOTE | 2016-07-10 09:15 | MA ---
cc: MICHAEL GARCÍA M.D. DATE: 07/10/2016 PROCEDURE Electrophysiology study, CS cannulation, repeat electrophysiology study on Isuprel infusion. INDICATION Mr. Song is a 66-year-old -[place] gentleman with history of high blood pressure, hyperlipidemia, developed episode of self-limited ventricular tachycardia, during hospitalization, left heart catheterization showed no significant occlusion. The ejection fraction was 55%, to undergo electrophysiology study. The risks, the nature and the benefit of the procedure are clearly stated to him. The risks include pneumothorax, cardiac perforation, stroke, need for open heart surgery and even . The patient understood and agreed to proceed. PROCEDURE After written informed consent was obtained, the patient was brought to the EP lab where he was prepped and draped in the usual sterile fashion. Conscious sedation was initiated and maintained throughout the procedure by anesthesiologist. Once sedation was verified, the right inguinal area was anesthetized with 2% Xylocaine. Using modified Seldinger technique, the right femoral vein was cannulated on four occasions, four guidewires were advanced. Over the wires 3, 5 and a 6-Togolese Hemaquet were advanced. Then under fluoroscopic guidance through the 5 and 6-Togolese Hemaquet, four 5-Togolese Violet curved quadripolar electrophysiology catheters were advanced and placed around the His, upper right atrium, coronary sinus and right ventricular apex. Basic interval was measured, they were within normal limits. At this point atrial pacing protocol was performed. Atrial pacing protocol consists of incremental atrial pacing as well as program stimulation with 410 cycle length and up to one excess stimuli delivered. No tachyarrhythmia was induced. Sinus recovery time were within normal limits. Pacing from the coronary sinus showed no pre-excitation. Then ventricular pacing protocol was performed. There was VA conduction. Ventricular pacing protocol consists of incremental ventricular pacing as well as program stimulation with 410 cycle length and up to three excess stimuli delivered. No tachyarrhythmia was induced. Then Isuprel infusion was initiated. Ventricular pacing protocol was repeated again, no tachyarrhythmia was induced, post Isuprel no tachyarrhythmia was induced. At that point the procedure was complete. All catheters were removed. The patient is going to be transferred to the recovery room. No incident report. The patient tolerated the procedure. Blood loss was minimal. 1. Electrocardiogram. At baseline the patient was in sinus. Postprocedure electrocardiogram was unchanged. 2. Basic interval. Base cycle length was around 840 milliseconds, AH around 90 and HV around 68 milliseconds. 3. Atrial pacing protocol. Wenckebach of the node was around 240 milliseconds. ERP of the node 600 240 milliseconds. No tachyarrhythmia was induced. 4. Ventricular pacing protocol. There was VA conduction. No tachyarrhythmia was induced. CONCLUSION Negative electrophysiology study for supraventricular tachyarrhythmia. COMMENT AND RECOMMENDATION The patient will be transferred to the recovery room. Can be observed and discharged home later on the day. Medical management for now. MD NU Duval/ANNETTEL /8:47 AM 8:54 AM
[2016-07-10] MEDS: BUMETANIDE 1 MG TAB PO SCH (09:31)
[2016-07-10] MEDS: ASPIRIN 81 MG CHEW TAB CHEW SCH (09:31)
[2016-07-10] MEDS: LISINOPRIL 20 MG TAB PO SCH (09:31)
[2016-07-10] MEDS: POTASSIUM CHLORIDE 20 MEQ CONTROLLED RELEASE TAB PO SCH (09:31)
[2016-07-10] MEDS: amLODIPine BESYLATE 5 MG TAB PO SCH (09:31)
[2016-07-10] MEDS: CALCITRIOL 0.25 MCG CAP PO SCH (09:31)
[2016-07-10] MEDS: SODIUM CHLORIDE 0.9% FLUSH 5 ML FLUSH IVF SCH (09:32)
--- NOTE | 2016-07-10 09:39 | PD.CARD.PN ---
Subjective Subjective Remarks No chest pain, no shortness of breath Back from EP study, no inducible VT Objective Medications Current Medications Medications (Trade) Dose Ordered Sig/Denice Route Start Time Stop Time Status Last Admin (KCl) 20 meq BID PO 07/02/16 21:00 07/10/16 09:31 (Lopressor) 50 mg Q8HR PO 07/02/16 17:30 07/10/16 06:20 (Apresoline Inj) 10 mg Q4H PRN IV PUSH 07/02/16 17:30 07/08/16 16:27 (Aspirin Chew) 81 mg DAILY CHEW 07/03/16 10:00 07/10/16 09:31 (Rocaltrol) 0.25 mcg DAILY PO 07/03/16 13:00 07/10/16 09:31 (Prinivil) 20 mg DAILY PO 07/04/16 11:00 07/10/16 09:31 (Norvasc) 5 mg DAILY PO 07/05/16 09:00 07/10/16 09:31 Hydralazine HCl 50 mg 50 mg Q8HR PO 07/05/16 14:00 07/10/16 06:20 (Rocephin Inj/NS Inj) 100 ml @ 200 mls/hr Q24H IV 07/06/16 07:00 07/09/16 07:36 (Hytrin) 5 mg HS PO 07/07/16 21:00 07/09/16 21:29 (Bumetanide) 2 mg BID@09,18 PO 07/08/16 18:00 07/10/16 09:31 (NS Flush) 2 ml BID IVF 07/08/16 21:00 07/10/16 09:32 (NS Flush) 2 ml UNSCH PRN IVF 07/08/16 13:45 07/09/16 07:36 (Catapres) 0.1 mg Q6H PRN PO 07/08/16 19:45 (Percocet 5-325 Mg) 1 tab Q4H PRN PO 07/10/16 09:00 (Percocet 5-325 Mg) 2 tab Q4H PRN PO 07/10/16 09:00 (Ativan Inj) 0.5 mg UNSCH PRN IV 07/10/16 09:00 07/11/16 08:59 Atropine Sulfate 0.5 mg 0.5 mg UNSCH PRN IV 07/10/16 09:00 (NS 250 ml Inj) 250 ml @ 500 mls/hr ONCE PRN IV 07/10/16 09:00 07/11/16 08:59 (Reglan Inj) 10 mg Q4H PRN IV 07/10/16 09:00 (Zofran Inj) 4 mg Q4H PRN IV 07/10/16 09:00 (Xylocaine 1% Inj (50 ml)) 10 ml UNSCH PRN INFIL 07/10/16 09:00 07/11/16 08:59 (Bacitracin Oint Packet) 0.9 gm ONCE ONCE TOP 07/10/16 10:00 07/10/16 10:01 07/10/16 09:32 Vital Signs / I&O Vital Signs Date Time Temp Pulse Resp B/P Pulse Ox O2 Delivery O2 Flow Rate FiO2 07/10/16 06:00 67 07/10/16 05:00 70 07/10/16 04:00 76 07/10/16 03:48 98.0 71 16 146/82 99 07/10/16 03:00 81 07/10/16 02:00 81 07/10/16 01:00 80 07/10/16 00:20 97.8 69 16 147/93 98 07/10/16 00:00 71 07/09/16 23:00 75 07/09/16 22:00 75 07/09/16 21:00 87 07/09/16 20:00 78 07/09/16 19:57 97.7 78 16 147/84 99 07/09/16 19:56 99 Room Air 07/09/16 19:41 97 21 07/09/16 19:00 83 07/09/16 18:11 88 07/09/16 17:05 73 07/09/16 16:24 90 07/09/16 15:30 98.7 79 17 158/86 98 07/09/16 15:00 72 07/09/16 14:00 89 07/09/16 13:00 83 07/09/16 12:46 81 07/09/16 11:00 98.4 76 19 149/79 98 07/09/16 11:00 84 07/09/16 10:00 87 I/O 1/1807/09/16 07/09/16 07/10/16 07/10/16 07/10/16 07:00 15:00 23:00 07:00 15:00 23:00 Intake Total 380 ml 530 ml 320 ml Output Total 1050 ml 775 ml 400 ml Balance -670 ml -245 ml -80 ml Intake Oral 380 ml 330 ml 320 ml IV Total 200 ml Output Urine Total 1050 ml 775 ml 400 ml # Bowel Movements 1 Physical Exam GENERAL: NAD, AAOx3 SKIN: Warm and dry. HEAD: Atraumatic. Normocephalic. EYES: Pupils equal and round. No scleral icterus. No injection or drainage. ENT: No nasal bleeding or discharge. Mucous membranes pink and moist. NECK: Trachea midline. Minimal JVD CARDIOVASCULAR: Regular rate and rhythm. No noted murmurs RESPIRATORY: No accessory muscle use. Clear to auscultation, no rales noted GASTROINTESTINAL: Abdomen soft, non-tender, nondistended. Hepatic and splenic margins not palpable. MUSCULOSKELETAL: Bilateral lower extremity edema decreased. Left forearm fistula with thrill NEUROLOGICAL: Awake and alert. No obvious cranial nerve deficits. Motor grossly within normal limits. Five out of 5 muscle strength in the arms and legs. Normal speech. PSYCHIATRIC: Appropriate mood and affect; insight and judgment normal. Laboratory Laboratory Tests Test 07/10/16 05:30 Magnesium Level 2.2 MG/DL Assessment and Plan Problem List: (1) VT (ventricular tachycardia) (2) Acute exacerbation of CHF (congestive heart failure) (3) Chronic kidney disease, stage IV (severe) (4) Hypertension Assessment and Plan 1) Sustained VT with 34 beat run, may be due to electrolytes, but still a long run... no significant CAD to explain, EP study showing no inducible VT 2) EF 55-60% 3) Acute heart failure most likely multifactorial including increased salt intake over the holidays, HTN and CKD... 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
[2016-07-10] MEDS ORDERED: BACITRACIN OINT 0.9 GM PKT TOP ONE (10:00)
[2016-07-10] MEDS: hydrALAZINE HCL 20 MG/ML VIAL IV PUSH PRN (11:54)
[2016-07-10] MEDS ORDERED: POTA20TA5 PO (12:10)
[2016-07-10] MEDS ORDERED: AMLO5 PO (12:10)
[2016-07-10] MEDS ORDERED: Aspirin Chew CHEW (12:10)
[2016-07-10] MEDS ORDERED: LISI-515 PO (12:10)
[2016-07-10] MEDS ORDERED: BUME1TAB PO (12:10)
[2016-07-10] MEDS ORDERED: METO-309 PO (12:10)
[2016-07-10] MEDS ORDERED: HYDR50TA15 PO (12:10)
[2016-07-10] MEDS ORDERED: OXYC1TAB63 PO (12:10)
--- NOTE | 2016-07-10 12:13 | HHI.FF ---
Face to Face Verification Diagnosis: (1) Acute exacerbation of CHF (congestive heart failure) (2) Hypertension (3) VT (ventricular tachycardia) (4) Chronic kidney disease, stage IV (severe) Physical Therapy Order: Evaluate and Treat Occupational Therapy Order: Evaluate and Treat Home Health Nursing Order: Medical education CHF education Nursing assessment with vital signs I have seen patient Nohemi Figueroa on 07/10/16. My clinical findings support the need for the requested home health care services because: Med compliance is questionable I certify that my clinical findings support that this patient is homebound because: Unsafe to leave home unassisted Poor cardiac reserve Vaibhav Salgado MD Jul 10, 2016 12:13
--- NOTE | 2016-07-10 13:09 | HHI.PR ---
Subjective Remarks Doing well this morning, patient had EP study yesterday was negative Chest pain or short of breath Objective Vitals Vital Signs Date Time Temp Pulse Resp B/P Pulse Ox O2 Delivery O2 Flow Rate FiO2 07/10/16 12:00 100 07/10/16 11:00 83 07/10/16 11:00 97.9 75 20 170/100 75 07/10/16 10:00 72 07/10/16 09:00 69 07/10/16 07:00 98.4 116 20 161/96 63 07/10/16 07:00 80 07/10/16 07:00 93 Nasal Cannula 2.00 07/10/16 06:00 67 07/10/16 05:00 70 07/10/16 04:00 76 07/10/16 03:48 98.0 71 16 146/82 99 07/10/16 03:00 81 07/10/16 02:00 81 07/10/16 01:00 80 07/10/16 00:20 97.8 69 16 147/93 98 07/10/16 00:00 71 07/09/16 23:00 75 07/09/16 22:00 75 07/09/16 21:00 87 07/09/16 20:00 78 07/09/16 19:57 97.7 78 16 147/84 99 07/09/16 19:56 99 Room Air 07/09/16 19:41 97 21 07/09/16 19:00 83 07/09/16 18:11 88 07/09/16 17:05 73 07/09/16 16:24 90 07/09/16 15:30 98.7 79 17 158/86 98 07/09/16 15:00 72 07/09/16 14:00 89 I/O 07/09/16 07/09/16 07/09/16 07/10/16 07/10/16 07/10/16 07:00 15:00 23:00 07:00 15:00 23:00 Intake Total 380 ml 530 ml 320 ml Output Total 1050 ml 775 ml 400 ml Balance -670 ml -245 ml -80 ml Intake Oral 380 ml 330 ml 320 ml IV Total 200 ml Output Urine Total 1050 ml 775 ml 400 ml # Bowel Movements 1 Result Diagram: 07/09/16 0600 1/18/17 0600 Objective Remarks GENERAL: This is a well-nourished, well-developed patient, in no apparent distress. SKIN: No rashes, warm and dry HEAD: Atraumatic. Normocephalic. EYES: Pupils equal round and reactive. Extraocular motions intact. No scleral icterus. ENT: Nose without bleeding, or drainage, Airway patent. NECK: Trachea midline. Supple CARDIOVASCULAR: Regular rate and rhythm with ectopy RESPIRATORY: Fair air entry bilaterally. No wheezes, rales, or rhonchi. GASTROINTESTINAL: Abdomen soft, non-tender, nondistended. Positive bowel sounds MUSCULOSKELETAL: Extremities without clubbing, cyanosis, +1 edema. Pedal pulses appreciated NEUROLOGICAL: Awake and alert. Moves all extremity. Normal speech.no focal neurological deficit Procedures None A/P Problem List: (1) Acute exacerbation of CHF (congestive heart failure) ICD Code: I50.9 Status: Acute (2) Hypertension ICD Code: I10 Status: Chronic (3) VT (ventricular tachycardia) ICD Code: I47.2 Status: Acute (4) Chronic kidney disease, stage IV (severe) ICD Code: N18.4 Status: Chronic Assessment and Plan - CHF exacerbation, diastolic: Improving. Repeat echocardiogram shows EF of 55- 60%. Monitor on telemetry. Appreciate cardiology recommendations. Continue diuresis with Bumex. Tolerating room air. - Chronic kidney disease stage IV: Appreciate nephrology recommendations. Creatinine stable. Monitor BMP - Hypertension: Still uncontrolled,. Continue amlodipine, metoprolol, terazosin , lisinopril. hydralazine. Amlodipine decreased due to edema. Clonidine as needed with parameter - Ventricular tachycardia: Patient had a 34 beat run of V. tach. Appreciate cardiology recommendations. Status post heart catheter showed tortuous coronary artery, status post EP study she is negative - Hypomagnesemia: Supplement magnesium as needed - DVT prophylaxis: Heparin. D/W nurse Discharge Planning Discharge home today Vaibhav Salgado MD Jul 10, 2016 13:09
--- NOTE | 2016-07-10 17:42 | HHI.DS ---
Discharge Summary Admission Date Jul 02, 2016 at 14:46 Discharge Date: Jul 10, 2016 Admitting Diagnosis chf (1) Acute exacerbation of CHF (congestive heart failure) ICD Code: I50.9 (2) Hypertension ICD Code: I10 (3) VT (ventricular tachycardia) ICD Code: I47.2 (4) Chronic kidney disease, stage IV (severe) ICD Code: N18.4 Procedures Heart catheter and EP study Brief History - From Admission The patient is a 66-year-old male who presented to the emergency department with complaint of worsening shortness of breath since . Over the past 2-3 weeks he has noted increasing dyspnea. No cough. Denies chest pain. Does have a history of CHF. Has noted increased swelling of the left arm. Also having bilateral lower extremity swelling. CBC/BMP: 07/09/16 0600 07/09/16 0600 Significant Findings Laboratory Tests Test 07/08/16 07/09/16 06:15 06:00 Potassium Level 3.4 MEQ/L (3.5-5.1) Blood Urea Nitrogen 32 MG/DL (7-18) 31 MG/DL (7-18) Creatinine 2.91 MG/DL 2.98 MG/DL (0.60-1.30) (0.60-1.30) Estimat Glomerular Filtration 27 ML/MIN (>89) 26 ML/MIN (>89) Rate Phosphorus Level 2.3 MG/DL (2.5-4.9) Magnesium Level 1.4 MG/DL (1.5-2.5) Red Blood Count 3.09 MIL/MM3 (4.50-5.90) Hemoglobin 11.0 GM/DL (13.0-17.0) Hematocrit 32.8 % (39.0-51.0) Mean Corpuscular Volume 106.2 FL (80.0-100.0) Mean Corpuscular Hemoglobin 35.7 PG (27.0-34.0) Platelet Count 112 TH/MM3 (150-450) Monocytes (%) (Auto) 17.6 % (0.0-8.0) PE at Discharge GENERAL: This is a well-nourished, well-developed patient, in no apparent distress. SKIN: No rashes, warm and dry HEAD: Atraumatic. Normocephalic. EYES: Pupils equal round and reactive. Extraocular motions intact. No scleral icterus. ENT: Nose without bleeding, or drainage, Airway patent. NECK: Trachea midline. Supple CARDIOVASCULAR: Regular rate and rhythm with ectopy RESPIRATORY: Fair air entry bilaterally. No wheezes, rales, or rhonchi. GASTROINTESTINAL: Abdomen soft, non-tender, nondistended. Positive bowel sounds MUSCULOSKELETAL: Extremities without clubbing, cyanosis, +1 edema. Pedal pulses appreciated NEUROLOGICAL: Awake and alert. Moves all extremity. Normal speech.no focal neurological deficit Hospital Course 66 years old male admitted for CHF exacerbation, diastolic: Improving. Repeat echocardiogram shows EF of 55-60%. Monitor on telemetry. Appreciate cardiology recommendations. Continue diuresis with Bumex. Tolerating room air. Chronic kidney disease stage IV: Appreciate nephrology recommendations. Creatinine stable. Monitor BMP Hypertension uncontrolled,. Continue amlodipine, metoprolol, terazosin, lisinopril. hydralazine. Amlodipine decreased due to edema. Clonidine as needed with parameter Ventricular tachycardia: Patient had a 34 beat run of V. tach. Appreciate cardiology recommendations. Status post heart catheter showed tortuous coronary artery, status post EP study she is negative patient cleared by forest patrolman for discharge [id number] encounter performed with the patient on discharge day, with extensive counseling, as well as physical exam, summary of hospitalization course and postdischarge plan has been D/W the patient. D/W nurse D/W case management rn. Discharge medications reviewed and printed and signed, post discharge follow up visit with PCP and other specialist as well as Brief hospital course and discharge summary has been placed. Pt Condition on Discharge: Fair Discharge Disposition: Disch w/ Home Health Serv Discharge Time: > 30 minutes Discharge Instructions DIET: Follow Instructions for: Heart Healthy Diet Activities you can perform: See Additionl Instruction Other Activity Instructions: Per PT recommendation New Medications: Amlodipine (Norvasc) 5 Mg Tab 5 MG PO DAILY htn #30 TAB Bumetanide (Bumetanide) 1 Mg Tab 2 MG PO BID@09,18 chf #30 TAB Hydralazine (Hydralazine) 50 Mg Tab 50 MG PO Q8HR htn #60 TAB Lisinopril (Lisinopril) 20 Mg Tab 20 MG PO DAILY htn #30 TAB Metoprolol Tartrate (Lopressor) 50 Mg Tab 50 MG PO Q8HR cad #60 TAB Oxycodone-Acetaminophen (Oxycodone-Acetaminophen) 5-325 mg Tab 1 TAB PO Q4H PRN PAIN SCALE 1 TO 4 #10 TAB Potassium Chloride Microencaps (Potassium Chloride Microencaps) 20 Meq Tab 20 MEQ PO BID repl #60 TAB ([Aspirin Chew]) 81 MG CHEW 81 MG CHEW DAILY cad #30 TAB.CHEW Continued Medications: Allopurinol (Allopurinol) 100 Mg Tab 100 MG PO DAILY Gout #30 Ref 0 TAB B-Complex W/ C & Folic Acid (Renal Multivitamin Formula) 1 Tab 1 TAB PO DAILY Nutritional Supplement Budesonide-Formoterol Inh (Symbicort Inh) 160-4.5 Mcg/Act Aero 2 PUFF INH BID Rinse mouth after each use #1 Ref 0 INHALER Calcitriol (Calcitriol) 0.25 Mcg Cap 0.25 MCG PO DAILY Calcium Supplement #30 Ref 0 CAP Cyanocobalamin (Vitamin B-12) 500 Mcg Tab 500 MCG PO DAILY Nutritional Supplement #1 Ref 0 BOTTLE Ergocalciferol (Ergocalciferol) 50,000 Unit Cap 80056 UNITS PO MONTHLY Nutritional Supplement #30 Ref 0 CAP Metoprolol Tartrate (Metoprolol Tartrate) 100 Mg Tab 150 MG PO DAILY #30 Ref 0 TAB Terazosin (Terazosin) 5 Mg Cap 5 MG PO HS Prostate #30 Ref 0 CAP Vaibhav Salgado MD Jul 10, 2016 17:42
== END 2016-07-10 15:30 | disposition home health service (06) | DRG 286 ==
LOC: NEPE 12:44 → NEDA 14:46 → N04B 20:04 → HCIN 07-05 18:47
PROVIDERS: ADMIT Hospitalist; ATTEND Hospitalist
PROC: B2111ZZ Fluoroscopy of Multiple Coronary Arteries using Low Osmolar Contrast (ICD-10-PCS; 2016-07-08)
PROC: 4A023N7 Measurement of Cardiac Sampling and Pressure, Left Heart, Percutaneous Approach (ICD-10-PCS; principal; 2016-07-08 09:45)
PROC: 4A0234Z Measurement of Cardiac Electrical Activity, Percutaneous Approach (ICD-10-PCS; 2016-07-10)
DX: I13.0 Hypertensive heart and chronic kidney disease with heart failure and stage 1 through stage 4 chronic kidney disease, or unspecified chronic kidney disease (principal); I50.33 Acute on chronic diastolic (congestive) heart failure; I47.2 Ventricular tachycardia; N18.4 Chronic kidney disease, stage 4 (severe); N25.81 Secondary hyperparathyroidism of renal origin; N39.0 Urinary tract infection, site not specified; J44.9 Chronic obstructive pulmonary disease, unspecified; Z87.891 Personal history of nicotine dependence; E78.5 Hyperlipidemia, unspecified; D63.1 Anemia in chronic kidney disease; B19.20 Unspecified viral hepatitis C without hepatic coma; I48.91 Unspecified atrial fibrillation; E87.6 Hypokalemia; E83.42 Hypomagnesemia; I77.1 Stricture of artery; M10.9 Gout, unspecified; Z86.73 Personal history of transient ischemic attack (TIA), and cerebral infarction without residual deficits
CPT/HCPCS: 71010; 76937; 80048; 80053; 81001; 82043; 82306; 82550; 83735; 83880; 83970; 84100; 84484; 85025; 85610; 85730; 87077; 87086; 87186; 93005; 93306; 93454; 93620; 93623; 93971; 96374; C1730; C1769; C1893; J0360; J0696; J1644; J1940; J2250; J3010; J3475; J7050; Q9967

== ENCOUNTER 2017-07-05 17:35 | Inpatient (IN) | payer OTHER, MEDICARE ==
[~2017-07-05] VITALS: Ht 185.4 cm; Wt 88.2 kg
[2017-07-05] VITALS (8 sets, daily range): BP systolic 98–121; BP diastolic 71–85; PULSE 78–163; RESP 16–23; TEMP 96.6–97.6; O2SAT 99–100
[~2017-07-05 17:35] MED LIST changes: -1-ME1LIQ PO; -AMIO200 PO; -AMLO10 PO; +AMLO10TA2 PO; +AMLO5 PO; +Aspirin Chew CHEW; +BUME1TAB PO; -CALC.25 PO; +CALC0.25 PO; -FURO20 PO; +HARVONI PO; +HYDR50TA15 PO; -KCL20 PO; -LACT12%T TOP; -LISI-366 PO; +LISI-515 PO; +LISI40TA PO; +METO-309 PO; +METO2.5T PO; -METO2.5T7 PO; +OXYC1TAB63 PO; +POTA20TA5 PO; -PRED20 PO; +RENATAB PO; -RENATAB5 PO; +TRAM50TA PO; -VITA400C58 PO; +VITA500012 PO; +VITA500T4 PO; -WARF5 PO
[2017-07-05] MEDS ORDERED: DILTIAZEM HCL 25 MG/5 ML VIAL ONE (17:47)
[2017-07-05] MEDS ORDERED: HYDR-3799 PO (17:56)
[2017-07-05] MEDS ORDERED: SODIUM CHLORIDE 0.9% FLUSH 10 ML FLUSH IVF PRN (18:00)
[2017-07-05] MEDS ORDERED: DILTIAZEM HCL 25 MG/5 ML VIAL IV ONE ×2 (18:00→18:45)
[2017-07-05] MEDS ORDERED: SODIUM CHLORID 0.9% 500 ML INJ 500 ML IV ONE ×2 (18:15→19:15)
[2017-07-05] MEDS ORDERED: CALCIUM GLUCONATE INJ 1 GM in DEXTROSE 5% IN WATER 100ML INJ 100 ML IV ONE ×2 (18:15)
[2017-07-05] MEDS ORDERED: METOPROLOL TARTRATE 5 MG/5 ML VIAL IV PUSH STA (18:19)
[2017-07-05 18:24] LABS: AUTOMATED NEUTROPHIL # 3.8 TH/MM3 (1.8-7.7); HEMOGLOBIN 10.1 GM/DL (13.0-17.0); LYMPH % 10.2 % (9.0-44.0); LYMPHOCYTE # 0.5 TH/MM3 (1.0-4.8); MEAN CELL VOLUME 111.5 FL (80.0-100.0); MEAN CORPUSCULAR HEMOGLOBIN 38.7 PG (27.0-34.0); MEAN CORPUSCULAR HGB CONC 34.7 % (32.0-36.0); MEAN PLATELET VOLUME 10.2 FL (7.0-11.0); MONO % 10.1 % (0.0-8.0); MONOCYTE # 0.5 TH/MM3 (0-0.9); NEUT % 79.7 % (16.0-70.0); PLATELET COUNT 63 TH/MM3 (150-450); RED CELL DISTRIBUTION WIDTH 16.1 % (11.6-17.2); WHITE BLOOD COUNT 4.8 TH/MM3 (4.0-11.0)
[2017-07-05 18:39] LABS: INTERNATIONAL NORMALIZED RATIO 1.5 RATIO; PROTHROMBIN TIME - PATIENT 15.3 SEC (9.8-11.6)
[2017-07-05 18:42] LABS: ALBUMIN 3.3 GM/DL (3.4-5.0); ALT (GPT) 35 U/L (12-78); AST (GOT) 29 U/L (15-37); BICARBONATE 17.8 MEQ/L (21.0-32.0); BLOOD UREA NITROGEN 146 MG/DL (7-18); CHLORIDE 102 MEQ/L (98-107); GLOMERULAR FILTRATION RATE 6 ML/MIN (>89); GLUCOSE,RANDOM 95 MG/DL (74-106); SODIUM (NA) 137 MEQ/L (136-145)
[2017-07-05 18:46] LABS: ALKALINE PHOSPHATASE 62 U/L (45-117); TOTAL BILIRUBIN ADULT 3.4 MG/DL (0.2-1.0); TOTAL PROTEIN 7.3 GM/DL (6.4-8.2); TROPONIN I 0.08 NG/ML (0.02-0.05)
[2017-07-05 18:50] LABS: CREATININE 10.87 MG/DL (0.60-1.30)
[2017-07-05] MEDS: DILTIAZEM INJ 125 MG in SODIUM CHLORIDE 0.9% INJ 100 ML IV PRN (18:51)
--- NOTE | 2017-07-05 18:55 | RADRPT ---
EXAM DATE/TIME: 07/05/2017 18:39 [facility] COMPARISON: CHEST SINGLE AP, July 02, 2016, 13:23. INDICATIONS : Short of Breath MEDICAL HISTORY : Hypertension. Stroke. CVA. A fib. COPD. Dyspnea. Renal failure SURGICAL HISTORY : AV fistula. ENCOUNTER: Initial ACUITY: 1 day PAIN SCORE: 0/10 LOCATION: Bilateral chest FINDINGS: Basilar consolidation and small effusion not changed on the right and almost completely resolved on t he left. No pneumothorax. Heart size stable, upper limits of normal. CONCLUSION: Improved on the left. No significant change on the right. Matthew Aguila MD on July 05, 2017 at 18:51 Board Certified Radiologist. This report was verified electronically.
[2017-07-05] MEDS ORDERED: VANCOMYCIN 1 GM/200 ML INJ 200 ML IV SCH (19:00)
[2017-07-05] MEDS ORDERED: CEFEPIME INJ 1,000 MG in SODIUM CHLORIDE 0.9% INJ 100 ML IV ONE (19:00)
[2017-07-05 19:09] LABS: BURR CELLS 1+ (NORMAL)
[2017-07-05 19:10] LABS: ACANTHOCYTES OCC (NORMAL); OVALOCYTES 1+ (NORMAL)
--- NOTE | 2017-07-05 19:13 | PD ---
HPI Chief Complaint: Respiratory Symptoms Time Seen by Provider: 17:42 Travel History International Travel<30 days: No Contact w/Intl Traveler<30days: No Traveled to known affect area: No History of Present Illness HPI Patient is a 67-year-old male who comes in complaining of shortness of breath and palpitations. He says he was seen at [facility] yesterday and diagnosed with pneumonia. He says he was told to stay, but he signed out AMA. He has a history of chronic kidney disease, and his arm is being prepped for a fistula. He has not started dialysis yet. He denies any chest pain. He says "I don't feel well." He says he has not been urinating very much. Nothing seems to make his symptoms better. PFSH Past Medical History Asthma: No Atrial Fibrillation: Yes Cancer: No Cardiovascular Problems: Yes (CHF) COPD: Yes Cerebrovascular Accident: Yes Endocrine: No Genitourinary: No Hypertension: Yes Immune Disorder: No Musculoskeletal: No Neurologic: Yes (STROKE ABOUT 5YRS AGO) Psychiatric: No Reproductive: No Respiratory: Yes Migraines: No Renal Failure: Yes Seizures: No Sleep Apnea: No Past Surgical History Abdominal Surgery: No Cardiac Surgery: No Ear Surgery: No Endocrine Surgery: No Eye Surgery: No Genitourinary Surgery: No Gynecologic Surgery: No Oral Surgery: No Thoracic Surgery: No Other Surgery: Yes (AV FISTULA ON LEFT FOREARM ) Social History Alcohol Use: Yes (BEER DAILY) Tobacco Use: No Substance Use: No Allergies-Medications (Allergen,Severity, Reaction): Coded Allergies: No Known Allergies (Verified Adverse Reaction, Unknown, 07/05/17) Reported Meds & Prescriptions Reported Meds & Active Scripts Active Reported Hydralazine HCl 25 Mg Tablet 50 Mg PO TID Terazosin (Terazosin HCl) 5 Mg Cap 5 Mg PO HS Metoprolol Tartrate 100 Mg Tab 150 Mg PO DAILY Metolazone 2.5 Mg Tab 2.5 Mg PO DAILY Calcitriol 0.25 Mcg Cap 0.25 Mcg PO DAILY Amlodipine (Amlodipine Besylate) 10 Mg Tab 5 Mg PO DAILY Allopurinol 100 Mg Tab 100 Mg PO DAILY Review of Systems Except as stated in HPI: all other systems reviewed are Neg General / Constitutional: No: Fever, Chills HENT: No: Headaches, Lightheadedness Cardiovascular: Positive: Palpitations Respiratory: Positive: Cough, Shortness of Breath Gastrointestinal: No: Nausea, Vomiting Genitourinary: Positive: Decreased Urinary Output Musculoskeletal: No: Myalgias, Edema Skin: No Rash, No Change in Pigmentation Neurologic: No: Weakness, Dizziness Physical Exam Narrative GENERAL: Awake and alert, in no acute distress. SKIN: Focused skin assessment warm/dry. HEAD: Atraumatic. Normocephalic. EYES: Pupils equal and round. No scleral icterus. No injection or drainage. ENT: No nasal bleeding or discharge. Dry mucous membranes. NECK: Trachea midline. No JVD. CARDIOVASCULAR: Tachycardia. No murmur appreciated. RESPIRATORY: No accessory muscle use. Clear to auscultation. Breath sounds equal bilaterally. GASTROINTESTINAL: Abdomen soft, non-tender, nondistended. MUSCULOSKELETAL: No obvious deformities. No clubbing. No cyanosis. No edema. NEUROLOGICAL: Awake and alert. No obvious cranial nerve deficits. Motor grossly within normal limits. Normal speech. PSYCHIATRIC: Appropriate mood and affect; insight and judgment normal. Data Data Last Documented VS Vital Signs Date Time Temp Pulse Resp B/P (MAP) Pulse Ox O2 Delivery O2 Flow Rate FiO2 07/05/17 18:54 144 112/82 07/05/17 18:23 16 100 Nasal Cannula 2.00 07/05/17 17:38 97.6 Orders Orders Diltiazem Inj (Cardizem Inj) (07/05/17 17:47) Complete Blood Count With Diff (07/05/17 17:58) Comprehensive Metabolic Panel (07/05/17 17:58) B-Type Natriuretic Peptide (07/05/17 17:58) Act Partial Throm Time (Ptt) (07/05/17 17:58) Prothrombin Time / Inr (Pt) (07/05/17 17:58) Ckmb (Isoenzyme) Profile (07/05/17 17:58) Troponin I (07/05/17 17:58) Iv Access Insert/Monitor (07/05/17 17:58) Ecg Monitoring (07/05/17 17:58) Oximetry (07/05/17 17:58) Oxygen Administration (07/05/17 17:58) Chest, Single Ap (07/05/17 17:58) Sodium Chloride 0.9% Flush (Ns Flush) (07/05/17 18:00) Blood Culture (07/05/17 17:58) Diltiazem Inj (Cardizem Inj) (07/05/17 18:00) Calcium Gluconate Inj (Calcium Gluconate (07/05/17 18:15) Sodium Chlorid 0.9% 500 Ml Inj (Ns 500 M (07/05/17 18:15) Metoprolol Tartrate Inj (Lopressor Inj) (07/05/17 18:19) Vital Signs (Adult) Q15MX4,Q4H (07/05/17 18:34) Rough Rounder Machine / Telemetry STARR.Q8H (07/05/17 18:34) Cardiac Rhythm STARR.Q8H (07/05/17 18:34) Notify Dr: Other (07/05/17 18:34) Diltiazem Inj (Cardizem Inj) (07/05/17 18:45) Diltiazem Inj (Cardizem Inj) (07/05/17 18:45) Cefepime Inj (Maxipime Inj) (07/05/17 19:00) Vancomycin Inj (Vancomycin Inj) (07/05/17 19:00) Electrocardiogram (07/05/17 17:42) Sodium Chlorid 0.9% 500 Ml Inj (Ns 500 M (07/05/17 19:15) Labs Laboratory Tests Test 07/05/17 18:00 White Blood Count 4.8 TH/MM3 Red Blood Count 2.60 MIL/MM3 Hemoglobin 10.1 GM/DL Hematocrit 29.0 % Mean Corpuscular Volume 111.5 FL Mean Corpuscular Hemoglobin 38.7 PG Mean Corpuscular Hemoglobin Concent 34.7 % Red Cell Distribution Width 16.1 % Platelet Count 63 TH/MM3 Mean Platelet Volume 10.2 FL Neutrophils (%) (Auto) 79.7 % Lymphocytes (%) (Auto) 10.2 % Monocytes (%) (Auto) 10.1 % Eosinophils (%) (Auto) 0.0 % Basophils (%) (Auto) 0.0 % Neutrophils # (Auto) 3.8 TH/MM3 Lymphocytes # (Auto) 0.5 TH/MM3 Monocytes # (Auto) 0.5 TH/MM3 Eosinophils # (Auto) 0.0 TH/MM3 Basophils # (Auto) 0.0 TH/MM3 CBC Comment AUTO DIFF Prothrombin Time 15.3 SEC Prothromb Time International Ratio 1.5 RATIO Activated Partial Thromboplast Time 24.3 SEC Blood Urea Nitrogen 146 MG/DL Creatinine 10.87 MG/DL Random Glucose 95 MG/DL Total Protein 7.3 GM/DL Albumin 3.3 GM/DL Calcium Level 9.0 MG/DL Alkaline Phosphatase 62 U/L Aspartate Amino Transf (AST/SGOT) 29 U/L Alanine Aminotransferase (ALT/SGPT) 35 U/L Total Bilirubin 3.4 MG/DL Sodium Level 137 MEQ/L Potassium Level 4.6 MEQ/L Chloride Level 102 MEQ/L Carbon Dioxide Level 17.8 MEQ/L Anion Gap 17 MEQ/L Estimat Glomerular Filtration Rate 6 ML/MIN Total Creatine Kinase 69 U/L Troponin I 0.08 NG/ML B-Type Natriuretic Peptide 1320 PG/ML MDM Medical Decision Making Medical Screen Exam Complete: Yes Emergency Medical Condition: Yes Medical Record Reviewed: Yes Interpretation(s) ECG shows atrial fibrillation with RVR. Differential Diagnosis Sepsis versus pneumonia versus ACS versus A. fib versus electrolyte abnormality versus renal failure Narrative Course Patient is a 67-year-old male who comes in due to palpitations and shortness of breath. Exam shows tachycardia and dry mucous membranes. IV established, labs sent. Labs show BUN to be 104 and creatinine is 10. BNP is elevated. Troponin is 0.08. Patient given antibiotics, IV fluids, aspirin. Patient received 20 mg of Cardizem by EMS. He was given another 25 on arrival. Followed by bolus of 10 mg of Cardizem. Given 500 ML's of IV fluid. Given 2.5 mg of metoprolol. Started on a Cardizem drip. Given another 500 ML bolus of IV fluids. Started on IV antibiotics due to pneumonia diagnosis yesterday. He'll be admitted for further management. Critical Care Narrative Aggregate critical care time was 40 minutes. Time to perform other separately billable procedures was not included in the critical care time. My time did not include minutes spent treating any other patients simultaneously or on activities that did not directly contribute to the patient's treatment. The services I provided to this patient were to treat and/or prevent clinically significant deterioration that could result in: Serious illness or I provided critical care services requiring my management, as noted below: Chart data review, documentation time, medication orders and management, vital sign assessments/reviewing monitor data, ordering and reviewing lab tests, ordering and interpreting/reviewing x-rays and diagnostic studies, care of the patient and discussion of the patient with the admitting physicians. Diagnosis Primary Impression: Atrial fibrillation with RVR Additional Impressions: Kidney failure Qualified Codes: N17.9 - Acute kidney failure, unspecified; N18.9 - Chronic kidney disease, unspecified Pneumonia Qualified Codes: J18.9 - Pneumonia, unspecified organism Admitting Information Admitting Physician Requests: it Keisha Ordaz MD Jul 05, 2017 19:13
[2017-07-05] MEDS ORDERED: DIGOXIN 0.5 MG/2 ML VIAL IV PUSH ONE (19:30)
[2017-07-05] MEDS ORDERED: LACTULOSE SYRUP 20 GM/30 ML CUP PO PRN (20:00)
[2017-07-05] MEDS ORDERED: MISCELLANEOUS NURSING INFORMATION XX SCH (20:00)
[2017-07-05] MEDS ORDERED: MAGNESIUM HYDROXIDE SUSP 30 ML CUP PO PRN (20:00)
[2017-07-05] MEDS ORDERED: SODIUM CHLORIDE 0.9% FLUSH 10 ML FLUSH IV FLUSH PRN (20:00)
[2017-07-05] MEDS ORDERED: CHLORHEXIDINE GLUCONATE 2 % 1 PACK (2 CLOTHS) TOP PRN (20:00)
[2017-07-05] MEDS ORDERED: ACETAMINOPHEN 325 MG TAB PO PRN (20:00)
[2017-07-05] MEDS ORDERED: SENNOSIDES 8.6 MG TAB PO PRN (20:00)
[2017-07-05] MEDS ORDERED: RESP: ALBUTEROL 2.5 MG/3 ML NEB (PRN) INH (20:00)
[2017-07-05] MEDS ORDERED: METOCLOPRAMIDE HCL 10 MG/2 ML VIAL IV PUSH PRN (20:00)
[2017-07-05] MEDS ORDERED: BISACODYL 10 MG SUPP RECTAL PRN (20:00)
[2017-07-05] MEDS ORDERED: ONDANSETRON HCL 4 MG/2 ML VIAL IV PUSH PRN (20:00)
[2017-07-05] MEDS ORDERED: AMIODARONE INJ 150 MG in DEXTROSE 5% IN WATER 100ML INJ 100 ML IV ONE ×2 (20:11)
[2017-07-05] MEDS ORDERED: AMIODARONE INJ 450 MG in DEXTROSE 5% IN WATE(EXCEL) INJ 241 ML IV PRN ×2 (20:21)
[2017-07-05] MEDS: RESP: IPRATROPIUM 0.5 MG/2.5 ML NEB INH SCH (20:30)
[2017-07-05] MEDS ORDERED: VANCOMYCIN 1,000 MG/NS 250 ML IV ONE ×2 (20:30)
--- NOTE | 2017-07-05 20:34 | HHI.HP ---
HPI Service Critical Care Medicine Primary Care Physician Maria Elena [facility] Admission Diagnosis Afib with rvr, elevated troponin, renal failure Diagnosis: Chief Complaint: Shortness of breath Travel History International Travel<30 Days: No Contact w/Intl Traveler <30 Da: No Traveled to Known Affected Are: No Sepsis Criteria SIRS Criteria (2 or more): Heart rate over 90, RR > 20 or PaCO2 < 32 Sepsis Criteria (SIRS+source): Infect source susp/known Severe Sepsis (+one): Acute Oliguria/Renal Failure Criteria Outcome: Meets severe sepsis criteria History of Present Illness HPI 67-year-old male with a medical history significant for diastolic CHF, CK D for which she had a left arm AV fistula placed which is being prepped for dialysis. Patient developed a cough about a week back with some shortness of breath and was seen at [facility] yesterday and diagnosed with a pneumonia. He was advised admission however signed out AMA since he wished to come to [facility]. Following leaving that hospital he went home yesterday and then today presented at [facility] ER with persisting cough and shortness of breath. He was noted to be in A. fib with RVR with ventricular rate going up to the 180s. He was otherwise maintaining BP and O2 sats on 2 L nasal cannula. He has had a poor appetite for the last 1 week as well as minimal diarrhea. Denies any chest pain or abdominal pain. He did have some nausea off and on for the last week. He denies any increasing leg swelling, denies any melena or rectal bleeding dysuria. Urinary frequency or hematuria. Patient was also found to have worsening renal function with creatinine of 10 and BUN greater than 100. Patient was initiated on a Cardizem drip for rate control and was also given digoxin 0.5 mg IV 1 dose. He was accepted for admission by critical care medicine service. When I evaluated the patient in the ER he was sitting up in the ER stretcher on 2 L nasal cannula and did not appear to be in any acute distress except for minimal shortness of breath and cough. 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 In the ER he did receive a dose of antibiotics after blood cultures were obtained. History PFSH Past Medical History Asthma: No Atrial Fibrillation: Yes Cancer: No Cardiovascular Problems: Yes (CHF) COPD: Yes Cerebrovascular Accident: Yes Endocrine: No Genitourinary: No Hypertension: Yes Immune Disorder: No Musculoskeletal: No Neurologic: Yes (STROKE ABOUT 5YRS AGO) Psychiatric: No Reproductive: No Respiratory: Yes Migraines: No Renal Failure: Yes Seizures: No Sleep Apnea: No Past Surgical History Abdominal Surgery: No Cardiac Surgery: No Ear Surgery: No Endocrine Surgery: No Eye Surgery: No Genitourinary Surgery: No Gynecologic Surgery: No Oral Surgery: No Thoracic Surgery: No Other Surgery: Yes (AV FISTULA ON LEFT FOREARM ) Social History Alcohol Use: Yes (BEER DAILY) Tobacco Use: No Substance Use: No Allergies-Medications Allergies-Medications (Allergen,Severity, Reaction): Coded Allergies: No Known Allergies (Verified Adverse Reaction, Unknown, 07/05/17) Reported Meds & Prescriptions Reported Meds & Active Scripts Active Reported Hydralazine HCl 25 Mg Tablet 50 Mg PO TID Terazosin (Terazosin HCl) 5 Mg Cap 5 Mg PO HS Metoprolol Tartrate 100 Mg Tab 150 Mg PO DAILY Metolazone 2.5 Mg Tab 2.5 Mg PO DAILY Calcitriol 0.25 Mcg Cap 0.25 Mcg PO DAILY Amlodipine (Amlodipine Besylate) 10 Mg Tab 5 Mg PO DAILY Allopurinol 100 Mg Tab 100 Mg PO DAILY ROS Review of Systems Except as stated in HPI: all other systems reviewed are Neg General / Constitutional: No: Fever, Chills HENT: No: Headaches, Lightheadedness Cardiovascular: Positive: Palpitations Respiratory: Positive: Cough, Shortness of Breath Gastrointestinal: Positive : Diarrhea. No: Nausea, Vomiting Genitourinary: Positive: Decreased Urinary Output Musculoskeletal: No: Myalgias, Edema Skin: No Rash, No Change in Pigmentation Neurologic: No: Weakness, Dizziness Physical Exam Vital Signs Vital Signs Date Time Temp Pulse Resp B/P (MAP) Pulse Ox O2 Delivery O2 Flow Rate FiO2 07/05/17 19:43 130 148/80 07/05/17 19:13 159 109/74 07/05/17 18:54 144 112/82 07/05/17 18:51 170 141/64 07/05/17 18:23 163 16 105/85 (92) 100 Nasal Cannula 2.00 07/05/17 18:03 100 Nasal Cannula 2.00 07/05/17 18:03 100 Nasal Cannula 2.00 07/05/17 18:03 158 16 98/80 (86) 07/05/17 17:44 150 17 100 Nasal Cannula 2.00 07/05/17 17:38 97.6 78 23 117/71 (86) 100 Physical Exam Physical Exam Narrative GENERAL: Awake and alert, in no acute distress. SKIN: Focused skin assessment warm/dry. HEAD: Atraumatic. Normocephalic. EYES: Pupils equal and round. No scleral icterus. No injection or drainage. ENT: No nasal bleeding or discharge. Dry mucous membranes. NECK: Trachea midline. No JVD. CARDIOVASCULAR: S1-S2 irregularly irregular, no gallop or murmur. RESPIRATORY: Good air entry bilaterally but decreased at bases, scattered rhonchi, no wheezing GASTROINTESTINAL: Abdomen soft, non-tender, nondistended. Bowel sounds sluggish MUSCULOSKELETAL: No obvious deformities. No clubbing. No cyanosis. No edema. NEUROLOGICAL: Awake and alert. No obvious cranial nerve deficits. Motor grossly within normal limits. Normal speech. PSYCHIATRIC: Appropriate mood and affect; insight and judgment normal. Laboratory Laboratory Tests Test 07/05/17 18:00 White Blood Count 4.8 Red Blood Count 2.60 Hemoglobin 10.1 Hematocrit 29.0 Mean Corpuscular Volume 111.5 Mean Corpuscular Hemoglobin 38.7 Mean Corpuscular Hemoglobin Concent 34.7 Red Cell Distribution Width 16.1 Platelet Count 63 Mean Platelet Volume 10.2 Neutrophils (%) (Auto) 79.7 Lymphocytes (%) (Auto) 10.2 Monocytes (%) (Auto) 10.1 Eosinophils (%) (Auto) 0.0 Basophils (%) (Auto) 0.0 Neutrophils # (Auto) 3.8 Lymphocytes # (Auto) 0.5 Monocytes # (Auto) 0.5 Eosinophils # (Auto) 0.0 Basophils # (Auto) 0.0 CBC Comment AUTO DIFF Differential Comment AUTO DIFF CONFIRMED Platelet Estimate LOW Platelet Morphology Comment NORMAL Ovalocytes 1+ Nicole Cells 1+ Acanthocytes OCC Prothrombin Time 15.3 Prothromb Time International Ratio 1.5 Activated Partial Thromboplast Time 24.3 Blood Urea Nitrogen 146 Creatinine 10.87 Random Glucose 95 Total Protein 7.3 Albumin 3.3 Calcium Level 9.0 Alkaline Phosphatase 62 Aspartate Amino Transf (AST/SGOT) 29 Alanine Aminotransferase (ALT/SGPT) 35 Total Bilirubin 3.4 Sodium Level 137 Potassium Level 4.6 Chloride Level 102 Carbon Dioxide Level 17.8 Anion Gap 17 Estimat Glomerular Filtration Rate 6 Total Creatine Kinase 69 Troponin I 0.08 B-Type Natriuretic Peptide 1320 Date/Time Source Procedure Growth Status 07/05/17 18:10 Blood Peripheral Aerobic Blood Culture Pending Received 07/05/17 18:10 Blood Peripheral Anaerobic Blood Culture Pending Received Result Diagram: 07/05/17 1800 07/05/17 1800 Imaging Chest x-ray portable which was personally reviewed: Right pleural effusion with suspected right base consolidation Septic Shock Reassessment Septic shock perfusion: reassessment completed Caprini VTE Risk Assessment Caprini VTE Risk Assessment: Mod/High Risk (score >= 2) Caprini Risk Assessment Model Point Value = 1 Point Value = 2 Point Value = 3 Point Value = 5 Age 41-60 Minor surgery BMI > 25 kg/m2 Swollen legs Varicose veins or History of unexplained or recurrent spontaneous Oral contraceptives or hormone replacement Sepsis (< 1 month) Serious lung disease, including pneumonia (< 1 month) Abnormal pulmonary function Acute myocardial infarction Congestive heart failure (< 1 month) History of inflammatory bowel disease Medical patient at bed rest Age 61-74 Arthroscopic surgery Major open surgery (> 45 min) Laparoscopic surgery (> 45 min) Malignancy Confined to bed (> 72 hours) Immobilizing plaster cast Central venous access Age >= 75 History of VTE Family history of VTE Factor V Leiden Prothrombin [id number] Lupus anticoagulant Anticardiolipin antibodies Elevated serum homocysteine Heparin-induced thrombocytopenia Other congenital or acquired thrombophilia Stroke (< 1 month) Elective arthroplasty Hip, pelvis, or leg fracture Acute spinal cord injury (< 1 month) Prophylaxis Regimen Total Risk Factor Score Risk Level Prophylaxis Regimen 0-1 Low Early ambulation 2 Moderate Order ONE of the following: *Sequential Compression Device (SCD) *Heparin 5000 units SQ BID 3-4 Higher Order ONE of the following medications: *Heparin 5000 units SQ TID *Enoxaparin/Lovenox 40 mg SQ daily (WT < 150 kg, CrCl > 30 mL/min) *Enoxaparin/Lovenox 30 mg SQ daily (WT < 150 kg, CrCl > 10-29 mL/min) *Enoxaparin/Lovenox 30 mg SQ BID (WT < 150 kg, CrCl > 30 mL/min) AND/OR *Sequential Compression Device (SCD) 5 or more Highest Order ONE of the following medications: *Heparin 5000 units SQ TID (Preferred with Epidurals) *Enoxaparin/Lovenox 40 mg SQ daily (WT < 150 kg, CrCl > 30 mL/min) *Enoxaparin/Lovenox 30 mg SQ daily (WT < 150 kg, CrCl > 10-29 mL/min) *Enoxaparin/Lovenox 30 mg SQ BID (WT < 150 kg, CrCl > 30 mL/min) AND *Sequential Compression Device (SCD) Assessment and Plan Assessment and Plan 67-year-old male with: Acute respiratory failure Dyspnea A. fib with RVR History of diastolic CHF Suspected pneumonia Suspected sepsis TRAM/CKD Diarrhea Plan: Neuro: Follow neuro status. Tylenol when necessary for pain. Cardiovascular: Continue Cardizem drip. Given digoxin 0.5 mg IV 1 dose. Being initiated on amiodarone bolus followed by infusion to attempt cardioversion. 2-D echo ordered. Consult cardiology Dr. Sanchez who has evaluated patient during last admission. Patient is followed by the [facility] for his cardiac care. Gentle hydration as patient appears dry clinically. Pulmonary: Continue supplemental O2, ipratropium every 6 hourly with albuterol for wheezing if needed. CT chest without contrast requested for further evaluation of right base effusion/consolidation. GI/liver: Adam T elevation noted. We'll initiate renal diet. Zofran when necessary for nausea vomiting. Watch for diarrhea. Renal/: IV hydration, strict intake output, monitor and replete electro lites , follow BUN/creatinine. Latif catheterization for accurate intake output and patient with TRAM/ CKD. Nephrology consult requested as patient may require hemodialysis. He has a left arm AV fistula though has never been on dialysis before. He is followed by grade checker at the [place]. Check UA and urine cultures as indicated. ID: Received Vanco/cefepime in ER. We'll continue cefepime and add Zithromax for empiric antibiotic coverage while awaiting blood culture results. Check urine for strep pneumo and Legionella antigen. Check nasal washings for influenza A and B. Endocrine: Watch for hyperglycemia, SSI for glycemic control if needed. Heme: Follow CBC. Thrombocytopenia noted. Subcutaneous heparin for DVT prophylaxis Prophylaxis: SCDs, subcutaneous heparin for DVT prophylaxis. Condition critical. Time spent on critical care excluding procedures 60 minutes Rashad Valdes MD Jul 05, 2017 20:34
[2017-07-05] MEDS: SODIUM CHLOR 0.9% 1000 ML INJ 1,000 ML IV SCH (20:56)
[2017-07-05 21:49] LABS: TROPONIN I 0.08 NG/ML (0.02-0.05)
[2017-07-05] MEDS: AMIODARONE INJ 450 MG in SODIUM CHLOR 0.9% (EXCEL) INJ 241 ML IV PRN (21:51)
[2017-07-05] MEDS: METOPROLOL TARTRATE 5 MG/5 ML VIAL IV PUSH SCH (22:39)
[2017-07-05] MEDS: HEPARIN SODIUM - SQ 10,000 UNITS/ML VIAL SQ SCH (22:40)
[2017-07-05] MEDS: SODIUM CHLORIDE 0.9% FLUSH 10 ML FLUSH IV FLUSH SCH (22:40)
[2017-07-05] MEDS: AZITHROMYCIN 250 MG TAB PO SCH (22:42)
--- NOTE | 2017-07-05 22:55 | RADRPT ---
EXAM DATE/TIME: 07/05/2017 22:07 [facility] COMPARISON: CT ABDOMEN W/O CONTRAST, October 27, 2014, 14:43. CHEST SINGLE AP, July 05, 2017, 18:39. INDICATIONS : Shortness of breath. RADIATION DOSE: 9.59 CTDIvol (mGy) MEDICAL HISTORY : Cardiovascular disease. Stroke Renal failure, chronic. SURGICAL HISTORY : None. ENCOUNTER: Initial ACUITY: 1 day PAIN SCALE: 0/10 LOCATION: Bilateral chest TECHNIQUE: Volumetric scanning of the chest was performed. Using automated exposure control and adjustment of t he mA and/or kV according to patient size, radiation dose was kept as low as reasonably achievable to obtain optimal diagnostic quality images. DICOM format image data is available electronically for r eview and comparison. Follow-up recommendations for detected pulmonary nodules are based at a minimum on nodule size and pa tient risk factors according to Fleischner Society Guidelines. FINDINGS: Moderate right and small left pleural effusions are present. There is associated dependent consolidat ion of both lower lobes that is also right worse than left. Limited hilar evaluation without contrast but potentially a 16 x 24 mm right hilar lymph node. I don't see any mediastinal or left hilar lymph adenopathy. There is no pneumothorax. Patchy coronary artery calcification, both right and left-sided. Upper abdomen only partly included on the study. Small ascites is evident. Liver surface appears mild ly nodular. CONCLUSION: 1. Right greater the left pleural effusions and basilar consolidation. 2. Suspected mildly enlarged right hilar lymph node, nonspecific but no lymphadenopathy seen elsewher e and presumably benign/reactive. 3. Suspected cirrhosis. Small ascites is seen in the upper abdomen. 4. Coronary artery calcification. Matthew Aguila MD on July 05, 2017 at 22:48 Board Certified Radiologist. This report was verified electronically.
[2017-07-05 23:03] LABS: AMORPHOUS SEDIMENT, URINE RARE; BACTERIA, URINE MANY /hpf; BILIRUBIN, URINE NEG (NEG); BLOOD, URINE SMALL (NEG); GLUCOSE,URINE NEG (NEG); HYALINE CAST, URINE 5 /lpf (RARE); KETONE, URINE NEG (NEG); NITRITE,URINE NEG (NEG); SQUAMOUS EPITHELIAL CELL URINE <1 /hpf (0-5); URINE COLOR YELLOW (YELLW/STRAW); URINE LEUKOCYTE ESTERASE LARGE (NEG)
[2017-07-06] VITALS (20 sets, daily range): BP systolic 107–129; BP diastolic 69–91; PULSE 121–162; RESP 16–25; TEMP 96.3–99; O2SAT 96–100
[2017-07-06] MEDS ORDERED: DIGOXIN 0.5 MG/2 ML VIAL IV PUSH ONE (00:30)
[2017-07-06] MEDS ORDERED: DILTIAZEM HCL 25 MG/5 ML VIAL IV ONE (02:00)
[2017-07-06] MEDS: DILTIAZEM INJ 125 MG in SODIUM CHLORIDE 0.9% INJ 100 ML IV PRN ×3 (03:34→20:51)
[2017-07-06] MEDS: METOPROLOL TARTRATE 5 MG/5 ML VIAL IV PUSH SCH ×3 (03:45→13:30)
[2017-07-06] MEDS: CHLORHEXIDINE GLUCONATE 2 % 1 PACK (2 CLOTHS) TOP SCH (03:45)
[2017-07-06] MEDS: RESP: IPRATROPIUM 0.5 MG/2.5 ML NEB INH SCH ×4 (04:00→21:11)
[2017-07-06 04:07] LABS: AUTOMATED NEUTROPHIL # 3.8 TH/MM3 (1.8-7.7); BASOPHIL % 0.1 % (0.0-2.0); HEMATOCRIT 25.8 % (39.0-51.0); LYMPH % 5.8 % (9.0-44.0); LYMPHOCYTE # 0.3 TH/MM3 (1.0-4.8); MEAN CORPUSCULAR HEMOGLOBIN 38.8 PG (27.0-34.0); MEAN PLATELET VOLUME 10.3 FL (7.0-11.0); MONO % 8.3 % (0.0-8.0); MONOCYTE # 0.4 TH/MM3 (0-0.9); NEUT % 85.8 % (16.0-70.0); PLATELET COUNT 56 TH/MM3 (150-450); RED BLOOD COUNT 2.32 MIL/MM3 (4.50-5.90); RED CELL DISTRIBUTION WIDTH 15.9 % (11.6-17.2); WHITE BLOOD COUNT 4.5 TH/MM3 (4.0-11.0)
[2017-07-06 04:24] LABS: ALBUMIN 3.1 GM/DL (3.4-5.0); AST (GOT) 23 U/L (15-37); BICARBONATE 14.7 MEQ/L (21.0-32.0); BLOOD UREA NITROGEN 140 MG/DL (7-18); CALCIUM 9.1 MG/DL (8.5-10.1); CHLORIDE 103 MEQ/L (98-107); GLOMERULAR FILTRATION RATE 6 ML/MIN (>89); GLUCOSE,RANDOM 138 MG/DL (74-106); MAGNESIUM 2.2 MG/DL (1.5-2.5); SODIUM (NA) 136 MEQ/L (136-145)
[2017-07-06 04:25] LABS: ALT (GPT) 29 U/L (12-78); PHOSPHORUS 5.5 MG/DL (2.5-4.9)
[2017-07-06 04:30] LABS: ALKALINE PHOSPHATASE 57 U/L (45-117); TOTAL BILIRUBIN ADULT 3.3 MG/DL (0.2-1.0); TOTAL PROTEIN 6.7 GM/DL (6.4-8.2); TROPONIN I 0.08 NG/ML (0.02-0.05)
[2017-07-06 04:34] LABS: CREATININE 10.47 MG/DL (0.60-1.30)
--- NOTE | 2017-07-06 04:46 | RADRPT ---
EXAM DATE/TIME: 07/06/2017 03:18 [facility] COMPARISON: CHEST SINGLE AP, July 05, 2017, 18:39. INDICATIONS : Shortness of breath, possible pulmonary disease. MEDICAL HISTORY : Hypertension. Stroke. Chronic obstructive pulmonary disease. CVA A-Fib Renal failure SURGICAL HISTORY : A-V fistula ENCOUNTER: Subsequent ACUITY: 2 days PAIN SCORE: 0/10 LOCATION: Bilateral chest FINDINGS: The heart size is enlarged. There is increased density at the right lower chest. The left lung is darrian ssly clear. CONCLUSION: Right base increased density secondary to right effusion with some degree of accompanying atelectasis or consolidation. This is unchanged from the prior exam. Matthew Toro MD on July 06, 2017 at 4:42 Board Certified Radiologist. This report was verified electronically.
[2017-07-06 04:50] LABS: ACANTHOCYTES OCC (NORMAL)
[2017-07-06 04:51] LABS: KERATOCYTES OCC (NORMAL); OVALOCYTES 1+ (NORMAL)
[2017-07-06] MEDS: AMIODARONE INJ 450 MG in SODIUM CHLOR 0.9% (EXCEL) INJ 241 ML IV PRN ×2 (05:36→20:52)
[2017-07-06] MEDS: HEPARIN SODIUM - SQ 10,000 UNITS/ML VIAL SQ SCH ×2 (06:00→13:31)
[2017-07-06] MEDS: SODIUM CHLORIDE 0.9% FLUSH 10 ML FLUSH IV FLUSH SCH ×2 (07:47→20:52)
[2017-07-06] MEDS: AZITHROMYCIN 250 MG TAB PO SCH (07:48)
--- NOTE | 2017-07-06 09:44 | PD.CONS ---
History of Present Illness Service Nephrology Consult Requested By Attending Reason for Consult CKD on TRAM Primary Care Physician Physician [facility] Diagnoses: (1) Kidney failure (2) Chronic kidney disease, stage IV (severe) (3) Atrial fibrillation with RVR (4) COPD (5) Acute exacerbation of CHF (congestive heart failure) History of Present Illness 67-year-old male with a medical history significant for CKD stage four with left arm AV fistula placed 10 years ago but has not needed dialysis. He presented yesterday to [facility] [place] and left against advise. Patient then presented to [facility]. Creat is elevated at 10.47 and BUN of 40. Also reports minimal urinary output. (Chhaya Vee) Diagnoses: (1) Kidney failure (2) Chronic kidney disease, stage IV (severe) (3) Atrial fibrillation with RVR (4) COPD (5) Acute exacerbation of CHF (congestive heart failure) (Marianne Elise MD) Review of Systems Constitutional: COMPLAINS OF: Fatigue, Fever Respiratory: COMPLAINS OF: Cough, Sputum production, Shortness of breath Gastrointestinal: COMPLAINS OF: Diarrhea, DENIES: Nausea, Vomiting Genitourinary: DENIES: Urinary frequency minimal urine output reported (Chhaya Vee) Past Family Social History Allergies: Coded Allergies: No Known Allergies (Verified Allergy, Unknown, 07/05/17) Past Medical History Asthma: No Atrial Fibrillation Cancer: No (CHF) COPD: Yes Cerebrovascular Accident: Yes HTN STROKE COPD CKD stage IV Past Surgical History Other Surgery: Yes (AV FISTULA ON LEFT FOREARM ) Reported Medications Current Medications Medications (Trade) Dose Ordered Sig/Denice Route Start Time Stop Time Status Last Admin (NS Flush) 2 ml UNSCH PRN IVF 07/05/17 18:00 Diltiazem HCl 125 mg/Sodium Chloride 125 ml @ 5 mls/hr TITRATE PRN IV 07/05/17 18:45 07/06/17 03:34 Sodium Chloride 1,000 ml @ 60 mls/hr [id number] IV 07/05/17 19:58 07/05/17 20:56 (NS Flush) 2 ml BID IV FLUSH 07/05/17 21:00 07/06/17 07:47 (Tylenol) 650 mg Q6H PRN PO 07/05/17 20:00 (Zofran Inj) 4 mg Q6H PRN IV PUSH 07/05/17 20:00 (Reglan Inj) 5 mg Q6H PRN IV PUSH 07/05/17 20:00 (Albuterol Neb) 2.5 mg Q6HR NEB PRN INH 07/05/17 20:00 (Atrovent Neb) 0.5 mg Q6HR NEB INH 07/05/17 22:00 07/06/17 08:01 (Heparin Inj) 5,000 units Q8H SQ 07/05/17 22:00 07/05/17 22:40 Miscellaneous Information 1 Q361D XX 07/05/17 20:00 (Chlorhexidine 2% Cloth) 3 pack Taper DAILY@04 TOP 07/06/17 04:00 07/02/18 03:59 07/06/17 03:45 (Chlorhexidine 2% Cloth) 3 pack UNSCH PRN TOP 07/05/17 20:00 (Milk Of Magnesia Liq) 30 ml Q12H PRN PO 07/05/17 20:00 (Senokot) 17.2 mg Q12H PRN PO 07/05/17 20:00 (Dulcolax Supp) 10 mg DAILY PRN RECTAL 07/05/17 20:00 (Lactulose Liq) 30 ml DAILY PRN PO 07/05/17 20:00 Amiodarone HCl 450 mg/Sodium Chloride 250 ml @ 33.33 mls/ hr Q7H31M PRN IV 07/05/17 20:45 07/06/17 05:36 (Zithromax) 500 mg DAILY PO 07/05/17 20:45 07/06/17 07:48 Cefepime HCl 1000 mg/Sodium Chloride 100 ml @ 200 mls/hr DAILY@1800 IV 07/06/17 18:00 (Lopressor Inj) 5 mg Q6H IV PUSH 07/05/17 21:00 07/06/17 07:47 Social History Quit smoking 10 years ago beer daily lives with elderly mother (Chhaya Vee) Physical Exam Vital Signs Vital Signs Date Time Temp Pulse Resp B/P (MAP) Pulse Ox O2 Delivery O2 Flow Rate FiO2 07/06/17 07:52 98 Nasal Cannula 2.00 07/06/17 07:49 129 123/91 07/06/17 07:00 97.6 132 17 123/91 (102) 98 07/06/17 06:00 130 07/06/17 06:00 130 07/06/17 05:36 133 122/84 07/06/17 04:00 128 07/06/17 04:00 96.3 128 16 118/86 (97) 100 07/06/17 04:00 128 07/06/17 03:34 150 119/81 07/06/17 02:00 135 07/06/17 02:00 135 07/05/17 22:58 139 07/05/17 22:57 139 07/05/17 22:54 96.6 139 17 121/78 (92) 100 07/05/17 21:51 110 114/75 07/05/17 21:30 130 18 106/85 (92) 100 Nasal Cannula 2.00 07/05/17 20:56 136 116/81 07/05/17 20:32 99 Nasal Cannula 1.00 07/05/17 19:43 130 148/80 07/05/17 19:13 159 109/74 07/05/17 18:54 144 112/82 07/05/17 18:51 170 141/64 07/05/17 18:23 163 16 105/85 (92) 100 Nasal Cannula 2.00 07/05/17 18:03 100 Nasal Cannula 2.00 07/05/17 18:03 100 Nasal Cannula 2.00 07/05/17 18:03 158 16 98/80 (86) 07/05/17 17:44 150 17 100 Nasal Cannula 2.00 07/05/17 17:38 97.6 78 23 117/71 (86) 100 Physical Exam GENERAL: Awake and alert, in no acute distress. SKIN: Focused skin assessment warm/dry. Fistula in left arm HEAD: Atraumatic. Normocephalic. EYES: Pupils equal and round. No scleral icterus. No injection or drainage. ENT: No nasal bleeding or discharge. Dry mucous membranes. NECK: Trachea midline. No JVD. CARDIOVASCULAR: S1-S2 irregularly irregular, no gallop or murmur. RESPIRATORY: Good air entry bilaterally but decreased at bases, scattered rhonchi, no wheezing GASTROINTESTINAL: Abdomen soft, non-tender, nondistended. Bowel sounds sluggish MUSCULOSKELETAL: No obvious deformities. No clubbing. No cyanosis. No edema. NEUROLOGICAL: Awake and alert. No obvious cranial nerve deficits. Motor grossly within normal limits. Normal speech. PSYCHIATRIC: Appropriate mood and affect; insight and judgment normal Laboratory Laboratory Tests Test 07/05/17 18:00 07/05/17 20:54 07/05/17 22:30 07/06/17 03:37 White Blood Count 4.8 4.5 Red Blood Count 2.60 2.32 Hemoglobin 10.1 9.0 Hematocrit 29.0 25.8 Mean Corpuscular Volume 111.5 111.0 Mean Corpuscular Hemoglobin 38.7 38.8 Mean Corpuscular Hemoglobin Concent 34.7 35.0 Red Cell Distribution Width 16.1 15.9 Platelet Count 63 56 Mean Platelet Volume 10.2 10.3 Neutrophils (%) (Auto) 79.7 85.8 Lymphocytes (%) (Auto) 10.2 5.8 Monocytes (%) (Auto) 10.1 8.3 Eosinophils (%) (Auto) 0.0 0.0 Basophils (%) (Auto) 0.0 0.1 Neutrophils # (Auto) 3.8 3.8 Lymphocytes # (Auto) 0.5 0.3 Monocytes # (Auto) 0.5 0.4 Eosinophils # (Auto) 0.0 0.0 Basophils # (Auto) 0.0 0.0 CBC Comment AUTO DIFF AUTO DIFF Differential Comment AUTO DIFF CONFIRMED AUTO DIFF CONFIRMED Platelet Estimate LOW LOW Platelet Morphology Comment NORMAL ENLARGED Ovalocytes 1+ 1+ [place] Cells 1+ Acanthocytes OCC OCC Prothrombin Time 15.3 Prothromb Time International Ratio 1.5 Activated Partial Thromboplast Time 24.3 Blood Urea Nitrogen 146 140 Creatinine 10.87 10.47 Random Glucose 95 138 Total Protein 7.3 6.7 Albumin 3.3 3.1 Calcium Level 9.0 9.1 Alkaline Phosphatase 62 57 Aspartate Amino Transf (AST/SGOT) 29 23 Alanine Aminotransferase (ALT/SGPT) 35 29 Total Bilirubin 3.4 3.3 Sodium Level 137 136 Potassium Level 4.6 4.6 Chloride Level 102 103 Carbon Dioxide Level 17.8 14.7 Anion Gap 17 18 Estimat Glomerular Filtration Rate 6 6 Total Creatine Kinase 69 Troponin I 0.08 0.08 0.08 B-Type Natriuretic Peptide 1320 Thyroid Stimulating Hormone 3rd Gen 0.631 Urine Color YELLOW Urine Turbidity HAZY Urine pH 5.0 Urine Specific [place] 1.013 Urine Protein 30 Urine Glucose (UA) NEG Urine Ketones NEG Urine Occult Blood SMALL Urine Nitrite NEG Urine Bilirubin NEG Urine Urobilinogen LESS THAN 2.0 Urine Leukocyte Esterase LARGE Urine RBC 5 Urine WBC 113 Urine Squamous Epithelial Cells <1 Urine Amorphous Sediment RARE Urine Bacteria MANY Urine Hyaline Casts 5 Microscopic Urinalysis Comment CATH-CULTURE IND Nasal Screen MRSA (PCR) MRSA NOT DETECTED Keratocytes OCC Phosphorus Level 5.5 Magnesium Level 2.2 Lactic Acid Level 1.1 Date/Time Source Procedure Growth Status 07/05/17 18:10 Blood Peripheral Aerobic Blood Culture Pending Received 07/05/17 18:10 Blood Peripheral Anaerobic Blood Culture Pending Received 07/05/17 22:30 Urine Catheterized Urine Urine Culture Pending Received (Chhaya Vee) Result Diagram: 07/06/17 0337 07/06/17 0337 Imaging Last Impressions Chest X-Ray 07/06/17 0000 Signed Impressions: Service Date/Time: Thursday, July 06, 2017 03:18 - CONCLUSION: Right base increased density secondary to right effusion with some degree of accompanying atelectasis or consolidation. This is unchanged from the prior exam. Matthew Toro MD Chest CT 07/05/17 0000 Signed Impressions: Service Date/Time: Wednesday, July 05, 2017 22:07 - CONCLUSION: 1. Right greater the left pleural effusions and basilar consolidation. 2. Suspected mildly enlarged right hilar lymph node, nonspecific but no lymphadenopathy seen elsewhere and presumably benign/reactive. 3. Suspected cirrhosis. Small ascites is seen in the upper abdomen. 4. Coronary artery calcification. Matthew Aguila MD (Chhaya Vee) Assessment and Plan Problem List: (1) Kidney failure ICD Codes: N19 - Unspecified kidney failure Status: Acute Plan: Creat 10.47. BUN 140. GFR 6. Minimal urine output with noted SOB. Plan to start dialysis today. Fistula in left arm in place Consult for case management to arrange outpatient dialysis (2) COPD Status: Acute Plan: O 2 2 liters on breathing treatment (3) Atrial fibrillation with RVR ICD Codes: I48.91 - Unspecified atrial fibrillation Status: Acute Plan: Heart rate in 130 to 140's On amiodarone and cardizem. Cardiology managing (4) Anemia ICD Codes: D64.9 - Anemia, unspecified Plan: HGB 9.0 most likely chronic disease (Chhaya Vee) Problem List: (1) Kidney failure ICD Codes: N19 - Unspecified kidney failure Status: Acute Plan: Creat 10.47. BUN 140. GFR 6. Minimal urine output with noted SOB. Plan to start dialysis today. Fistula in left arm in place Consult for case management to arrange outpatient dialysis. D/W the patient and his family over the phone. Patient live in [facility] and will need out patient HD arrangement. (2) COPD Status: Acute Plan: O 2 2 liters on breathing treatment (3) Atrial fibrillation with RVR ICD Codes: I48.91 - Unspecified atrial fibrillation Status: Acute Plan: Heart rate in 130 to 140's On amiodarone and cardizem. Cardiology managing (4) Anemia ICD Codes: D64.9 - Anemia, unspecified Plan: HGB 9.0 most likely chronic disease (Marianne Elise MD) Problem Qualifiers (1) Kidney failure: Qualified Codes: N17.9 - Acute kidney failure, unspecified; N18.5 - Chronic kidney disease, stage 5 Chhaya Vee Jul 06, 2017 09:44 Marianne Elise MD Jul 06, 2017 16:40
[2017-07-06] MEDS ORDERED: SODIUM CHLOR 0.9% 1000 ML INJ 1,000 ML IV PRN (09:57)
[2017-07-06] MEDS ORDERED: SODIUM CHLOR 0.9% 1000 ML INJ 1,000 ML OTHER PRN ×2 (09:57)
[2017-07-06] MEDS ORDERED: ALBUMIN 25% INJ 100 ML IV PRN (10:00)
[2017-07-06] MEDS ORDERED: MANNITOL 12.5 GM/50 ML VIAL IV PRN (10:00)
[2017-07-06] MEDS ORDERED: ACETAMINOPHEN 325 MG TAB PO PRN (10:00)
[2017-07-06] MEDS ORDERED: GENTAMICIN SULFATE 20 MG/2 ML VIAL OTHER PRN (10:00)
[2017-07-06] MEDS ORDERED: diphenhydrAMINE HCL 25 MG CAP PO PRN (10:00)
[2017-07-06] MEDS ORDERED: HEPARIN SODIUM - IV 10,000 UNITS/10 ML VIAL PRN (10:00)
[2017-07-06] MEDS ORDERED: HEPARIN SODIUM - IV 10,000 UNITS/10 ML VIAL IV FLUSH PRN (10:00)
[2017-07-06] MEDS ORDERED: ONDANSETRON HCL 4 MG/2 ML VIAL IV PUSH PRN (10:00)
[2017-07-06] MEDS ORDERED: NITROGLYCERIN 0.4 MG SL 25 TABS/BTL SL PRN (10:00)
[2017-07-06] MEDS ORDERED: SODIUM CHLORIDE 0.9% FLUSH 10 ML FLUSH IV FLUSH PRN (10:00)
--- NOTE | 2017-07-06 12:45 | PD.CONS ---
HPI Consult Requested By [facility] History of Present Illness 67-year-old male with a medical history significant for diastolic CHF, CKD on HD diagnosed with a pneumonia in [facility]. He was advised admission however signed out AMA since he wished to come to [facility]. Following leaving that hospital he went home yesterday and then today presented at [facility] ER with persisting cough and shortness of breath. He was noted to be in A. fib with RVR with ventricular rate going up to the 180s. Cardiology consulted fo Afib management. Pt known to Dr. Sanchez and Dr. Gonzales. Review of Systems Consitutional: DENIES: Fatigue, Fever, Chills, Weight gain, Weight loss Eyes: DENIES: Amaurosis Fugax, Change in vision HEENT: DENIES: Lightheadedness, Change in hearing Respiratory: DENIES: See HPI, Cough, Snoring, Shortness of breath, Wheezing, Sputum production Cardiovascular: DENIES: See HPI, Chest pain, Palpitations, Syncope, Tachycardia Gastrointestinal: DENIES: Nausea, Vomiting, Change in bowel habits, Reflux, Bloody stools, Melena Genitourinary: DENIES: Urinary incontinence, Difficulty voiding Integumentary: DENIES: Rash Neurologic: DENIES: Tingling or numbness, Memory problems, Poor Balance, Stroke symptoms Musculoskeletal: DENIES: Joint pain, Muscle pain, Limited range of motion, Back pain Psychiatric: DENIES: Anxiety, Depression, Sleep disturbances Hematologic: DENIES: Bruising tendencies, Bleeding tendencies Endocrine: DENIES: Weight gain, Weight loss, Thyroid disease Past Family Social History Allergies: Coded Allergies: No Known Allergies (Verified Allergy, Unknown, 07/05/17) Past Medical History Atrial Fibrillation COPD HTN STROKE CKD stage IV Reported Medications Reported Meds & Active Scripts Active Reported Hydralazine HCl 25 Mg Tablet 50 Mg PO TID Terazosin (Terazosin HCl) 5 Mg Cap 5 Mg PO HS Metoprolol Tartrate 100 Mg Tab 150 Mg PO DAILY Metolazone 2.5 Mg Tab 2.5 Mg PO DAILY Calcitriol 0.25 Mcg Cap 0.25 Mcg PO DAILY Amlodipine (Amlodipine Besylate) 10 Mg Tab 5 Mg PO DAILY Allopurinol 100 Mg Tab 100 Mg PO DAILY Active Ordered Medications Current Medications Medications (Trade) Dose Ordered Sig/Denice Route Start Time Stop Time Status Last Admin (NS Flush) 2 ml UNSCH PRN IVF 07/05/17 18:00 Diltiazem HCl 125 mg/Sodium Chloride 125 ml @ 5 mls/hr TITRATE PRN IV 07/05/17 18:45 07/06/17 11:33 Sodium Chloride 1,000 ml @ 60 mls/hr [id number] IV 07/05/17 19:58 07/05/17 20:56 (NS Flush) 2 ml BID IV FLUSH 07/05/17 21:00 07/06/17 07:47 (Tylenol) 650 mg Q6H PRN PO 07/05/17 20:00 (Zofran Inj) 4 mg Q6H PRN IV PUSH 07/05/17 20:00 (Reglan Inj) 5 mg Q6H PRN IV PUSH 07/05/17 20:00 (Albuterol Neb) 2.5 mg Q6HR NEB PRN INH 07/05/17 20:00 (Atrovent Neb) 0.5 mg Q6HR NEB INH 07/05/17 22:00 07/06/17 08:01 (Heparin Inj) 5,000 units Q8H SQ 07/05/17 22:00 07/05/17 22:40 Miscellaneous Information 1 Q361D XX 07/05/17 20:00 (Chlorhexidine 2% Cloth) 3 pack Taper DAILY@04 TOP 07/06/17 04:00 07/02/18 03:59 07/06/17 03:45 (Chlorhexidine 2% Cloth) 3 pack UNSCH PRN TOP 07/05/17 20:00 (Milk Of Magnesia Liq) 30 ml Q12H PRN PO 07/05/17 20:00 (Senokot) 17.2 mg Q12H PRN PO 07/05/17 20:00 (Dulcolax Supp) 10 mg DAILY PRN RECTAL 07/05/17 20:00 (Lactulose Liq) 30 ml DAILY PRN PO 07/05/17 20:00 Amiodarone HCl 450 mg/Sodium Chloride 250 ml @ 33.33 mls/ hr Q7H31M PRN IV 07/05/17 20:45 07/06/17 05:36 (Zithromax) 500 mg DAILY PO 07/05/17 20:45 07/06/17 07:48 Cefepime HCl 1000 mg/Sodium Chloride 100 ml @ 200 mls/hr DAILY@1800 IV 07/06/17 18:00 (Lopressor Inj) 5 mg Q6H IV PUSH 07/05/17 21:00 07/06/17 07:47 Sodium Chloride 1,000 ml @ 0 mls/hr Q0M PRN OTHER 07/06/17 09:57 (Heparin Inj) 8,000 units UNSCH PRN IV FLUSH 07/06/17 10:00 Sodium Chloride 1,000 ml @ 200 mls/hr Q5H PRN IV 07/06/17 09:57 Sodium Chloride 1,000 ml @ 0 mls/hr Q0M PRN OTHER 07/06/17 09:57 (Mannitol Inj) 12.5 gm UNSCH PRN IV 07/06/17 10:00 Albumin Human 100 ml @ 60 mls/hr UNSCH PRN IV 07/06/17 10:00 (NS Flush) 5 ml UNSCH PRN IV FLUSH 07/06/17 10:00 (Heparin Inj) UNSCH PRN .XX 07/06/17 10:00 (Gentamicin (Dialysis) Inj) 20 mg UNSCH PRN OTHER 07/06/17 10:00 (Zofran Inj) 4 mg UNSCH PRN IV PUSH 07/06/17 10:00 (Tylenol) 650 mg UNSCH PRN PO 07/06/17 10:00 (Benadryl) 25 mg UNSCH PRN PO 07/06/17 10:00 (Nitrostat Sl) 0.4 mg UNSCH PRN SL 07/06/17 10:00 (Catapres) 0.1 mg UNSCH PRN PO 07/06/17 10:00 (Epogen Inj) 10,000 units UNSCH PRN IV PUSH 07/06/17 10:00 (Gelfoam 12 Mm/7 Mm Top) 1 foam UNSCH PRN TOP 07/06/17 10:00 Social History Quit smoking 10 years ago beer daily lives with elderly mother Physical Exam Vital Signs Vital Signs Date Time Temp Pulse Resp B/P (MAP) Pulse Ox O2 Delivery O2 Flow Rate FiO2 07/06/17 11:33 147 107/67 07/06/17 11:00 153 20 124/73 (90) 97 07/06/17 10:00 121 07/06/17 10:00 121 18 125/89 (101) 97 07/06/17 10:00 121 07/06/17 09:00 133 17 118/76 (90) 97 07/06/17 08:00 129 18 107/78 (88) 98 07/06/17 08:00 129 07/06/17 08:00 129 07/06/17 07:52 98 Nasal Cannula 2.00 07/06/17 07:49 129 123/91 07/06/17 07:00 97.6 132 17 123/91 (102) 98 07/06/17 06:00 130 07/06/17 06:00 130 07/06/17 05:36 133 122/84 07/06/17 04:00 128 07/06/17 04:00 96.3 128 16 118/86 (97) 100 07/06/17 04:00 128 07/06/17 03:34 150 119/81 07/06/17 02:00 135 07/06/17 02:00 135 07/05/17 22:58 139 07/05/17 22:57 139 07/05/17 22:54 96.6 139 17 121/78 (92) 100 07/05/17 21:51 110 114/75 07/05/17 21:30 130 18 106/85 (92) 100 Nasal Cannula 2.00 07/05/17 20:56 136 116/81 07/05/17 20:32 99 Nasal Cannula 1.00 07/05/17 19:43 130 148/80 07/05/17 19:13 159 109/74 07/05/17 18:54 144 112/82 07/05/17 18:51 170 141/64 07/05/17 18:23 163 16 105/85 (92) 100 Nasal Cannula 2.00 07/05/17 18:03 100 Nasal Cannula 2.00 07/05/17 18:03 100 Nasal Cannula 2.00 07/05/17 18:03 158 16 98/80 (86) 07/05/17 17:44 150 17 100 Nasal Cannula 2.00 07/05/17 17:38 97.6 78 23 117/71 (86) 100 Physical Exam GENERAL: Well-nourished, well-developed patient. SKIN: Warm and dry. HEAD: Normocephalic. EYES: No scleral icterus. No injection or drainage. NECK: Supple, trachea midline. No JVD or lymphadenopathy. CARDIOVASCULAR: Irr Irr without murmurs, gallops, or rubs. RESPIRATORY: Breath sounds equal bilaterally. No accessory muscle use. GASTROINTESTINAL: Abdomen soft, non-tender, nondistended. EXTREMITIES: No cyanosis, or ++edema. NEUROLOGICAL: Awake, alert, and oriented x 3. Non-focal. Laboratory Laboratory Tests Test 07/05/17 18:00 07/05/17 20:54 07/05/17 22:30 07/06/17 03:37 White Blood Count 4.8 4.5 Red Blood Count 2.60 2.32 Hemoglobin 10.1 9.0 Hematocrit 29.0 25.8 Mean Corpuscular Volume 111.5 111.0 Mean Corpuscular Hemoglobin 38.7 38.8 Mean Corpuscular Hemoglobin Concent 34.7 35.0 Red Cell Distribution Width 16.1 15.9 Platelet Count 63 56 Mean Platelet Volume 10.2 10.3 Neutrophils (%) (Auto) 79.7 85.8 Lymphocytes (%) (Auto) 10.2 5.8 Monocytes (%) (Auto) 10.1 8.3 Eosinophils (%) (Auto) 0.0 0.0 Basophils (%) (Auto) 0.0 0.1 Neutrophils # (Auto) 3.8 3.8 Lymphocytes # (Auto) 0.5 0.3 Monocytes # (Auto) 0.5 0.4 Eosinophils # (Auto) 0.0 0.0 Basophils # (Auto) 0.0 0.0 CBC Comment AUTO DIFF AUTO DIFF Differential Comment AUTO DIFF CONFIRMED AUTO DIFF CONFIRMED Platelet Estimate LOW LOW Platelet Morphology Comment NORMAL ENLARGED Ovalocytes 1+ 1+ Nicole Cells 1+ Acanthocytes OCC OCC Prothrombin Time 15.3 Prothromb Time International Ratio 1.5 Activated Partial Thromboplast Time 24.3 Blood Urea Nitrogen 146 140 Creatinine 10.87 10.47 Random Glucose 95 138 Total Protein 7.3 6.7 Albumin 3.3 3.1 Calcium Level 9.0 9.1 Alkaline Phosphatase 62 57 Aspartate Amino Transf (AST/SGOT) 29 23 Alanine Aminotransferase (ALT/SGPT) 35 29 Total Bilirubin 3.4 3.3 Sodium Level 137 136 Potassium Level 4.6 4.6 Chloride Level 102 103 Carbon Dioxide Level 17.8 14.7 Anion Gap 17 18 Estimat Glomerular Filtration Rate 6 6 Total Creatine Kinase 69 Troponin I 0.08 0.08 0.08 B-Type Natriuretic Peptide 1320 Thyroid Stimulating Hormone 3rd Gen 0.631 Urine Color YELLOW Urine Turbidity HAZY Urine pH 5.0 Urine Specific [place] 1.013 Urine Protein 30 Urine Glucose (UA) NEG Urine Ketones NEG Urine Occult Blood SMALL Urine Nitrite NEG Urine Bilirubin NEG Urine Urobilinogen LESS THAN 2.0 Urine Leukocyte Esterase LARGE Urine RBC 5 Urine WBC 113 Urine Squamous Epithelial Cells <1 Urine Amorphous Sediment RARE Urine Bacteria MANY Urine Hyaline Casts 5 Microscopic Urinalysis Comment CATH-CULTURE IND Nasal Screen MRSA (PCR) MRSA NOT DETECTED Keratocytes OCC Phosphorus Level 5.5 Magnesium Level 2.2 Lactic Acid Level 1.1 Test 07/06/17 11:00 Date/Time Source Procedure Growth Status 07/05/17 18:10 Blood Peripheral Aerobic Blood Culture - Preliminary NO GROWTH IN 1 DAY Resulted 07/05/17 18:10 Blood Peripheral Anaerobic Blood Culture - Preliminary NO GROWTH IN 1 DAY Resulted 07/05/17 22:30 Urine Catheterized Urine Urine Culture Pending Received Result Diagram: 07/06/17 0337 07/06/17 0337 Imaging Last Impressions Chest X-Ray 07/06/17 0000 Signed Impressions: Service Date/Time: Thursday, July 06, 2017 03:18 - CONCLUSION: Right base increased density secondary to right effusion with some degree of accompanying atelectasis or consolidation. This is unchanged from the prior exam. Matthew Toro MD Chest CT 07/05/17 0000 Signed Impressions: Service Date/Time: Wednesday, July 05, 2017 22:07 - CONCLUSION: 1. Right greater the left pleural effusions and basilar consolidation. 2. Suspected mildly enlarged right hilar lymph node, nonspecific but no lymphadenopathy seen elsewhere and presumably benign/reactive. 3. Suspected cirrhosis. Small ascites is seen in the upper abdomen. 4. Coronary artery calcification. Matthew Aguila MD Assessment and Plan Problem List: (1) Atrial fibrillation ICD Codes: I48.91 - Atrial fibrillation Status: Acute Plan: Afib with RVR in the setting of Acute on Chronic Renal Failure. S/P HD Still on Afib with RVR, asymptomatic. On Cardizem and Amiodarone drips EF 60% Recommendations: -Cont rate control with Cardizem and Amio -Avoid electrolytes abnormalities -Consult Dr. Gonzales in AM Further management to be determine by James Evans MD Jul 06, 2017 12:44
--- NOTE | 2017-07-06 13:05 | ECHRPT ---
Indication: Atrial-fib CONCLUSIONS The left ventricular systolic function is normal with an estimated ejection fraction in the range of 60-65%. Normal left ventricular size. Wall thickness is measured at the upper limits of normal. No regional wall motion abnormalities are present. Mild thickening of the mitral valve leaflets. Trace mitral valve regurgitation. Mild thickening of the aortic valve leaflets. There is moderate tricuspid regurgitation. There is estimated mild pulmonary hypertension present (range 40-50 mmHg). BP: 122 / 84 HR: 133 Rhythm: Atrial fibrillation MEASUREMENTS (Male / Female) Normal Values Technical Quality:Good 2D ECHO LV Diastolic Diameter PLAX 4.6 cm 4.2 - 5.9 / 3.9 - 5.3 cm LV Systolic Diameter PLAX 3.3 cm IVS Diastolic Thickness 1.2 cm 0.6 - 1.0 / 0.6 - 0.9 cm LVPW Diastolic Thickness 1.3 cm 0.6 - 1.0 / 0.6 - 0.9 cm LV Relative Wall Thickness 0.5 RV Internal Dim ED PLAX 2.6 cm LVOT Diameter 2.0 cm LA Systolic Diameter LX 3.9 cm 3.0 - 4.0 / 2.7 - 3.8 cm M-MODE Aortic Root Diameter MM 2.2 cm LA Systolic Diameter MM 3.6 cm LA Ao Ratio MM 1.6 AV Cusp Separation MM 1.3 cm DOPPLER AV Peak Velocity 192.0 cm/s AV Peak Gradient 14.7 mmHg LVOT Peak Velocity 122.0 cm/s LVOT Peak Gradient 6.0 mmHg AV Area Cont Eq pk 2.0 cm MV Area PHT 4.3 cm LV E' Lateral Velocity 6.8 cm/s LV E' Septal Velocity 4.5 cm/s TR Peak Velocity 297.0 cm/s TR Peak Gradient 35.3 mmHg Right Atrial Pressure 10.0 mmHg Pulmonary Artery Systolic Pressu 45.3 mmHg Right Ventricular Systolic Press 45.3 mmHg PV Peak Velocity 100.0 cm/s PV Peak Gradient 4.0 mmHg FINDINGS LEFT VENTRICLE The left ventricular systolic function is normal with an estimated ejection fraction in the range of 60-65%. Normal left ventricular size. Wall thickness is measured at the upper limits of normal. No regional wall motion abnormalities are present. RIGHT VENTRICLE Normal right ventricular size and systolic function. LEFT ATRIUM The left atrial size is normal. RIGHT ATRIUM The right atrial size is normal. ATRIAL SEPTUM Normal atrial septal thickness without atrial level shunting by limited color doppler interrogation. AORTA The aortic root and proximal ascending aorta are normal in size on limited imaging. MITRAL VALVE Mild thickening of the mitral valve leaflets. Trace mitral valve regurgitation. AORTIC VALVE Trileaflet aortic valve. Mild thickening of the aortic valve leaflets. TRICUSPID VALVE Structurally normal tricuspid valve. There is moderate tricuspid regurgitation. There is estimated mild pulmonary hypertension present (range 40-50 mmHg). PULMONARY VALVE No pulmonary valve regurgitation or stenosis. VESSELS The inferior vena cava is normal in size. PERICARDIUM No pericardial effusion. James Jones MD (Electronically Signed) Final Date:06 July 2017 13:04
[2017-07-06] MEDS: SODIUM CHLOR 0.9% 1000 ML INJ 1,000 ML IV SCH (13:29)
[2017-07-06] MEDS ORDERED: METOPROLOL TARTRATE 5 MG/5 ML VIAL IV PUSH STA ×2 (14:07→14:19)
[2017-07-06 14:42] LABS: HEPATITIS A AB IGM NEGATIVE (NEGATIVE); HEPATITIS B CORE AB IGM NEGATIVE (NEGATIVE); HEPATITIS B SURFACE ANTIGEN NEGATIVE (NEGATIVE); HEPATITIS C AB IgG REACTIVE (NEGATIVE)
[2017-07-06] MEDS: DILTIAZEM HCL 90 MG TAB PO SCH ×2 (15:28→20:52)
--- NOTE | 2017-07-06 16:21 | EKG ---
Date Performed: 07/05/2017 Time Performed: 17:42:20 PTAGE: 67 years EKG: ATRIAL FIBRILLATION WITH RAPID VENTRICULAR RESPONSE RIGHT BUNDLE BRANCH BLOCK ABNORMAL ECG Compared to PREVIOUS TRACING , atrial fibrillation has replaced Sinus rhythm . PREVIOUS TRACIN07/08/2016 04.32 DOCTOR: Raleigh Langley Interpretating Date/Time 07/06/2017 16:20:31
[2017-07-06] MEDS: CEFEPIME INJ 1,000 MG in SODIUM CHLORIDE 0.9% INJ 100 ML IV SCH (17:47)
--- NOTE | 2017-07-06 19:37 | HHI.CCPN ---
Subjective Remarks/Hospital Course Hospital Course: 67-year-old male with a medical history significant for diastolic CHF, CK D for which she had a left arm AV fistula placed which is being prepped for dialysis. Patient developed a cough about a week back with some shortness of breath and was seen at [facility] yesterday and diagnosed with a pneumonia. He was advised admission however signed out AMA since he wished to come to [facility]. Following leaving that hospital he went home yesterday and then today presented at [facility] ER with persisting cough and shortness of breath. He was noted to be in A. fib with RVR with ventricular rate going up to the 180s. He was otherwise maintaining BP and O2 sats on 2 L nasal cannula. He has had a poor appetite for the last 1 week as well as minimal diarrhea. Denies any chest pain or abdominal pain. He did have some nausea off and on for the last week. He denies any increasing leg swelling, denies any melena or rectal bleeding dysuria. Urinary frequency or hematuria. Patient was also found to have worsening renal function with creatinine of 10 and BUN greater than 100. Patient was initiated on a Cardizem drip for rate control and was also given digoxin 0.5 mg IV 1 dose. He was accepted for admission by critical care medicine service. When I evaluated the patient in the ER he was sitting up in the ER stretcher on 2 L nasal cannula and did not appear to be in any acute distress except for minimal shortness of breath and cough. Patient tells me that he sees his physicians at the [place] including his concrete tile machine operator and talent acquisition specialist. In the ER he did receive a dose of antibiotics after blood cultures were obtained. Subjective: 07/06: seen and evaluated around 10am. delayed note entry. patient remains in afib RVR. currently undergoing HD. discussed case with Dr. Hoffmann, plan for volume removal with IHD and see if this will improve rate control. remains on cardizem drip and amiodarone drip. dig loaded overnight. patient subjectively denies complaints. ROS negative. Objective Vital Signs Date Time Temp Pulse Resp B/P (MAP) Pulse Ox O2 Delivery O2 Flow Rate FiO2 07/06/17 18:00 143 07/06/17 17:00 17 111/86 (94) 96 07/06/17 16:00 97.6 07/06/17 07:52 Nasal Cannula 2.00 Intake and Output 07/06/17 07/06/17 07/07/17 08:00 16:00 00:00 Intake Total 350 ml 200 ml 360 ml Output Total 350 ml 2000 ml 250 ml Balance 0 ml -1800 ml 110 ml Result Diagram: 07/06/1733607/06/17336 Imaging Chest x-ray portable which was personally reviewed: Right pleural effusion with suspected right base consolidation Objective Remarks GENERAL: Awake and alert, lying in bed. SKIN: Focused skin assessment warm/dry. HEAD: Atraumatic. Normocephalic. EYES: Pupils equal and round. No scleral icterus. No injection or drainage. ENT: No nasal bleeding or discharge. Dry mucous membranes. NECK: Trachea midline. No JVD. CARDIOVASCULAR: tachycardic rate in the 150s, irregularly irregular rhythm. afib by tele. RESPIRATORY: equal chest rise, nc o2. GASTROINTESTINAL: Abdomen soft, non-tender, nondistended. MUSCULOSKELETAL: No obvious deformities. No clubbing. No cyanosis. No edema. NEUROLOGICAL: Awake and alert. No obvious cranial nerve deficits. Motor grossly within normal limits. Normal speech. A/P Assessment and Plan 67-year-old male with: Acute hypoxic respiratory failure - resolving. Dyspnea - resolved. A. fib with RVR - persistent, severe. Diastolic CHF exacerbation possible pneumonia TRAM/CKD requiring renal replacement therapy Diarrhea Plan: Neuro: Follow neuro status. Tylenol when necessary for pain. Cardiovascular: Continue Cardizem drip and amiodarone drip. start cardizem 90mg po q6h and metoprolol 25mg po q6h. add lopressor 5mg iv q2h prn for breakthrough to control heart rate. loaded with digoxin 0.5mg iv on 07/05. check dig level in AM. stop ivf. IHD for volume removal. Pulmonary: Continue supplemental O2, ipratropium every 6 hourly with albuterol for wheezing if needed. GI/liver: renal diet. Zofran when necessary for nausea vomiting. Watch for diarrhea. Renal/: strict intake output, monitor and replete electrolites, follow BUN/ creatinine. Latif catheterization for accurate intake output and patient with TRAM/ CKD. Nephrology consult. IHD daily for volume removal. ID: Received Vanco/cefepime in ER. We'll continue cefepime and add Zithromax for empiric antibiotic coverage while awaiting blood culture results. Check urine for strep pneumo and Legionella antigen. Check nasal washings for influenza A and B. Endocrine: Watch for hyperglycemia, SSI for glycemic control if needed. Heme: Follow CBC. Thrombocytopenia noted. start heparin drip: CHADS score > 2 for afib. Prophylaxis: SCDs, heaprin drip. Dispo: remain in ICU. very complex and difficult to control afib. Prashanth Oshea MD Jul 06, 2017 19:37
[2017-07-06] MEDS: METOPROLOL TARTRATE 5 MG/5 ML VIAL IV PUSH PRN (20:52)
[2017-07-06] MEDS: METOPROLOL TARTRATE 25 MG TAB PO SCH (21:42)
[2017-07-06] MEDS: HEPARIN-D5W 25,000 U/250 ML 250 ML IV PRN (21:48)
[2017-07-07] VITALS (20 sets, daily range): BP systolic 102–122; BP diastolic 65–85; PULSE 125–149; RESP 12–20; TEMP 97.5–98.5; O2SAT 95–99
[2017-07-07] MEDS: CHLORHEXIDINE GLUCONATE 2 % 1 PACK (2 CLOTHS) TOP SCH (03:35)
[2017-07-07] MEDS: DILTIAZEM HCL 90 MG TAB PO SCH ×4 (03:38→22:11)
[2017-07-07] MEDS: METOPROLOL TARTRATE 25 MG TAB PO SCH ×4 (03:38→22:11)
[2017-07-07] MEDS: RESP: IPRATROPIUM 0.5 MG/2.5 ML NEB INH SCH ×4 (03:46→21:24)
[2017-07-07] MEDS: DILTIAZEM INJ 125 MG in SODIUM CHLORIDE 0.9% INJ 100 ML IV PRN ×3 (05:23→22:11)
[2017-07-07 05:41] LABS: HEMATOCRIT 25.6 % (39.0-51.0); HEMOGLOBIN 8.8 GM/DL (13.0-17.0); MEAN CELL VOLUME 110.9 FL (80.0-100.0); MEAN CORPUSCULAR HEMOGLOBIN 38.3 PG (27.0-34.0); MEAN CORPUSCULAR HGB CONC 34.5 % (32.0-36.0); MEAN PLATELET VOLUME 10.3 FL (7.0-11.0); PLATELET COUNT 60 TH/MM3 (150-450); RED BLOOD COUNT 2.31 MIL/MM3 (4.50-5.90); RED CELL DISTRIBUTION WIDTH 15.7 % (11.6-17.2); WHITE BLOOD COUNT 4.5 TH/MM3 (4.0-11.0)
[2017-07-07 06:10] LABS: INTERNATIONAL NORMALIZED RATIO 1.4 RATIO; PROTHROMBIN TIME - PATIENT 14.6 SEC (9.8-11.6)
[2017-07-07 06:35] LABS: ALBUMIN 2.8 GM/DL (3.4-5.0); ALKALINE PHOSPHATASE 54 U/L (45-117); ALT (GPT) 25 U/L (12-78); AST (GOT) 20 U/L (15-37); BICARBONATE 20.3 MEQ/L (21.0-32.0); BLOOD UREA NITROGEN 97 MG/DL (7-18); CHLORIDE 103 MEQ/L (98-107); CREATININE 7.86 MG/DL (0.60-1.30); GLOMERULAR FILTRATION RATE 8 ML/MIN (>89); GLUCOSE,RANDOM 117 MG/DL (74-106); SODIUM (NA) 136 MEQ/L (136-145); TOTAL BILIRUBIN ADULT 3.5 MG/DL (0.2-1.0); TOTAL PROTEIN 6.4 GM/DL (6.4-8.2)
--- NOTE | 2017-07-07 10:15 | HHI.CCPN ---
Subjective Remarks/Hospital Course Hospital Course: 67-year-old male with a medical history significant for diastolic CHF, CK D for which she had a left arm AV fistula placed which is being prepped for dialysis. Patient developed a cough about a week back with some shortness of breath and was seen at [facility] yesterday and diagnosed with a pneumonia. He was advised admission however signed out AMA since he wished to come to [facility]. Following leaving that hospital he went home yesterday and then today presented at [facility] ER with persisting cough and shortness of breath. He was noted to be in A. fib with RVR with ventricular rate going up to the 180s. He was otherwise maintaining BP and O2 sats on 2 L nasal cannula. He has had a poor appetite for the last 1 week as well as minimal diarrhea. Denies any chest pain or abdominal pain. He did have some nausea off and on for the last week. He denies any increasing leg swelling, denies any melena or rectal bleeding dysuria. Urinary frequency or hematuria. Patient was also found to have worsening renal function with creatinine of 10 and BUN greater than 100. Patient was initiated on a Cardizem drip for rate control and was also given digoxin 0.5 mg IV 1 dose. He was accepted for admission by critical care medicine service. When I evaluated the patient in the ER he was sitting up in the ER stretcher on 2 L nasal cannula and did not appear to be in any acute distress except for minimal shortness of breath and cough. Patient tells me that he sees his physicians at the [place] including his bacteriology research assistant and unloader. In the ER he did receive a dose of antibiotics after blood cultures were obtained. Subjective: 07/06: seen and evaluated around 10am. delayed note entry. patient remains in afib RVR. currently undergoing HD. discussed case with Dr. Hoffmann, plan for volume removal with IHD and see if this will improve rate control. remains on cardizem drip and amiodarone drip. dig loaded overnight. patient subjectively denies complaints. ROS negative. 07/07 Patient is lying in bed in NAD. Afebrile. On Heparin, Cardizem and Amio drips. For HD today. Objective Vital Signs Date Time Temp Pulse Resp B/P (MAP) Pulse Ox O2 Delivery O2 Flow Rate FiO2 07/07/17 09:00 131 14 102/77 (85) 98 07/07/17 08:22 Nasal Cannula 1.00 07/07/17 08:00 97.6 Intake and Output 07/07/17 07/07/17 07/08/17 08:00 16:00 00:00 Intake Total 508 ml Output Total 285 ml Balance 223 ml Result Diagram: 07/07/17 0512 07/07/17 0512 Other Results Laboratory Tests Test 07/06/17 11:00 07/06/17 20:52 07/07/17 05:12 07/07/17 07:43 Hepatitis A IgM Antibody NEGATIVE Hepatitis B Surface Antigen NEGATIVE Hepatitis B Core IgM Antibody NEGATIVE Hepatitis C Antibody REACTIVE Activated Partial Thromboplast Time 24.9 SEC 206.8 SEC 53.3 SEC White Blood Count 4.5 TH/MM3 Red Blood Count 2.31 MIL/MM3 Hemoglobin 8.8 GM/DL Hematocrit 25.6 % Mean Corpuscular Volume 110.9 FL Mean Corpuscular Hemoglobin 38.3 PG Mean Corpuscular Hemoglobin Concent 34.5 % Red Cell Distribution Width 15.7 % Platelet Count 60 TH/MM3 Mean Platelet Volume 10.3 FL Prothrombin Time 14.6 SEC Prothromb Time International Ratio 1.4 RATIO Blood Urea Nitrogen 97 MG/DL Creatinine 7.86 MG/DL Random Glucose 117 MG/DL Total Protein 6.4 GM/DL Albumin 2.8 GM/DL Calcium Level 9.0 MG/DL Alkaline Phosphatase 54 U/L Aspartate Amino Transf (AST/SGOT) 20 U/L Alanine Aminotransferase (ALT/SGPT) 25 U/L Total Bilirubin 3.5 MG/DL Sodium Level 136 MEQ/L Potassium Level 3.3 MEQ/L Chloride Level 103 MEQ/L Carbon Dioxide Level 20.3 MEQ/L Anion Gap 13 MEQ/L Estimat Glomerular Filtration Rate 8 ML/MIN Digoxin Level 2.0 NG/ML Imaging Last Impressions Chest X-Ray 07/06/17 0000 Signed Impressions: Service Date/Time: Thursday, July 06, 2017 03:18 - CONCLUSION: Right base increased density secondary to right effusion with some degree of accompanying atelectasis or consolidation. This is unchanged from the prior exam. Matthew Toro MD Chest CT 07/05/17 0000 Signed Impressions: Service Date/Time: Wednesday, July 05, 2017 22:07 - CONCLUSION: 1. Right greater the left pleural effusions and basilar consolidation. 2. Suspected mildly enlarged right hilar lymph node, nonspecific but no lymphadenopathy seen elsewhere and presumably benign/reactive. 3. Suspected cirrhosis. Small ascites is seen in the upper abdomen. 4. Coronary artery calcification. Matthew Aguila MD Objective Remarks GENERAL: Awake and alert, lying in bed. SKIN: Focused skin assessment warm/dry. HEAD: Atraumatic. Normocephalic. EYES: Pupils equal and round. No scleral icterus. No injection or drainage. ENT: No nasal bleeding or discharge. Dry mucous membranes. NECK: Trachea midline. No JVD. CARDIOVASCULAR: tachycardic rate in the 150s, irregularly irregular rhythm. afib by tele. RESPIRATORY: equal chest rise, nc o2. GASTROINTESTINAL: Abdomen soft, non-tender, nondistended. MUSCULOSKELETAL: No obvious deformities. No clubbing. No cyanosis. No edema. NEUROLOGICAL: Awake and alert. No obvious cranial nerve deficits. Motor grossly within normal limits. Normal speech. A/P Assessment and Plan 67-year-old male with: Acute hypoxic respiratory failure - resolving. Dyspnea - resolved. A. fib with RVR - persistent, Diastolic CHF exacerbation possible pneumonia TRAM/CKD requiring renal replacement therapy Diarrhea Plan: Neuro: Follow neuro status. Tylenol when necessary for pain. CV: Continue Cardizem drip and amiodarone drip. On Cardizem 90mg po q6h and metoprolol 25mg po q6h. Lopressor 5mg iv q2h prn for breakthrough to control heart rate. Cards is following- Dr. Shun Gonzales consulted for possible ablation. Pulmonary: Continue supplemental O2, ipratropium every 6 hourly with albuterol for wheezing if needed. GI/liver: renal diet. Zofran when necessary for nausea vomiting. Renal/: Monitor renal function, avoid nephrotoxins. s/p HD yesterday with removal 2L. For HD today Renal-Dr. Montaño ID: Received Vanco/cefepime in ER. Continue cefepime and Zithromax for empiric antibiotic coverage strep pneumo and Legionella antigen negative. Blood culture 07/05: NGTD Endocrine:, SSI for glycemic control if needed. Heme: Follow CBC, coags- on Heparin drip Prophylaxis: SCDs, heparin drip. Level 3 El Adamson MD Jul 07, 2017 10:15
[2017-07-07] MEDS: EPOETIN ALFA 10,000 UNITS/ML VIAL IV PUSH PRN (10:25)
[2017-07-07] MEDS: GELATIN 12 MM/7 MM FOAM TOP PRN (10:25)
[2017-07-07] MEDS: VITAMIN B CMPLX/VITC/FOLIC AC CAP PO SCH (10:30)
--- NOTE | 2017-07-07 10:36 | HHI.NPPN ---
Subjective General Problems: Anemia, Edema, Heart Disease, Hypertension Renal Failure: End Stage Renal Disease History of Present Illness 67-year-old male with a medical history significant for Hypertension, CVA, Atrial fibrillation, and CKD stage four approaching stage 5, with left arm AV fistula placed 10 years ago but has not needed dialysis. He presented yesterday to [facility] [place] and left against advise. Patient then presented to [place]. Creat is elevated at 10.47 and BUN of 40. Also reports minimal urinary output. Additional Remarks Patient is alert, now on HD, no SOB, no chest pain. Review of Systems General Constitutional: Fatigue Respiratory Lungs: SOB Cardiovascular Cardiac: YUAN Objective Data Data Vital Signs Date Time Temp Pulse Resp B/P (MAP) Pulse Ox O2 Delivery O2 Flow Rate FiO2 07/07/17 10:00 143 07/07/17 09:00 131 14 102/77 (85) 98 07/07/17 08:22 98 Nasal Cannula 1.00 07/07/17 08:21 135 07/07/17 08:21 135 07/07/17 08:00 127 07/07/17 08:00 97.6 127 12 107/79 (88) 96 07/07/17 06:00 139 07/07/17 05:23 134 103/74 07/07/17 05:20 130 103/74 07/07/17 05:20 130 103/74 07/07/17 04:00 97.5 140 18 116/73 (87) 98 07/07/17 04:00 140 07/07/17 03:48 99 Nasal Cannula 2.00 07/07/17 02:00 135 07/07/17 00:00 98.5 132 20 115/78 (90) 95 07/07/17 00:00 132 07/06/17 22:00 137 07/06/17 21:13 98 Nasal Cannula 2.00 07/06/17 20:52 148 115/69 07/06/17 20:51 151 115/69 07/06/17 20:00 150 07/06/17 20:00 98.3 150 16 115/69 (84) 97 07/06/17 19:51 98 Nasal Cannula 2.00 07/06/17 18:00 143 07/06/17 18:00 143 07/06/17 17:00 150 17 111/86 (94) 96 07/06/17 16:00 147 07/06/17 16:00 147 07/06/17 16:00 97.6 147 19 122/76 (91) 97 07/06/17 15:00 146 25 129/89 (102) 98 07/06/17 14:00 152 07/06/17 14:00 152 07/06/17 14:00 152 19 123/80 (94) 98 07/06/17 13:00 162 118/79 (92) 96 07/06/17 12:00 99.0 154 21 117/81 (93) 98 07/06/17 12:00 154 07/06/17 12:00 154 07/06/17 11:33 147 107/67 07/06/17 11:00 153 20 124/73 (90) 97 -: 07/07/17 0512 07/07/17 0512 Physical Exam General Appearance: No Acute Distress, Comfortable Eyes Eye Exam: Pupils Equal Neck Neck Exam: Neck Supple Pulmonary Resp Exam: Breath Sounds Equal, Crackles, Rhonchi, Decreased Bases, Diminished Breath Sounds Cardiology CV Exam: Irregular, Tachycardia Gastrointestinal/Abdomen GI Exam: Soft, Non-Tender, Bowel Sounds Present, Distended Extremeties Extremities Exam: Trace Edema Neurologic Neuro Exam: Alert, Awake, Oriented Psychiatric Psych Exam: Appropriate Responses Assessment/Plan Assessment Summary: Anemia of CKD, Hypertension, End Stage Renal Disease Problem List: (1) End stage renal failure on dialysis ICD Codes: N18.6 - End stage renal disease; Z99.2 - Dependence on renal dialysis (2) Congestive heart failure ICD Codes: I50.9 - Congestive heart failure Status: Acute (3) Hypertension ICD Codes: I10 - Hypertension Status: Chronic (4) Anemia ICD Codes: D64.9 - Anemia, unspecified Status: Acute (5) Anemia ICD Codes: D64.9 - Anemia, unspecified (6) COPD Status: Acute (7) Atrial fibrillation ICD Codes: I48.91 - Atrial fibrillation Status: Acute Plan Patient was started on HD. He has advance stage 5 chronic kidney disease. Now on HD, and tolerating well. AVF is working, and the BP is stable. Follow Hgb, on Epogen, check iron study. Start Phsolo as Po4 slightly elevated. Check PTH. HD to continue 3 times a week. Still has RVR, cardiology following. Problem Qualifiers (1) Hypertension: Qualified Codes: I10 - Essential (primary) hypertension Marianne Elise MD Jul 07, 2017 10:36
[2017-07-07] MEDS: AZITHROMYCIN 250 MG TAB PO SCH (11:35)
[2017-07-07] MEDS: AMIODARONE INJ 450 MG in SODIUM CHLOR 0.9% (EXCEL) INJ 241 ML IV PRN (12:37)
[2017-07-07] MEDS: HEPARIN-D5W 25,000 U/250 ML 250 ML IV PRN (12:40)
[2017-07-07] MEDS: CALCIUM ACETATE 667 MG CAP PO SCH ×2 (13:00→15:36)
[2017-07-07] MEDS: SODIUM CHLORIDE 0.9% FLUSH 10 ML FLUSH IV FLUSH SCH ×2 (13:45→22:10)
[2017-07-07] MEDS: CEFEPIME INJ 1,000 MG in SODIUM CHLORIDE 0.9% INJ 100 ML IV SCH (15:36)
[2017-07-08] VITALS (13 sets, daily range): BP systolic 108–132; BP diastolic 71–92; PULSE 104–131; RESP 14–19; TEMP 97.5–98.2; O2SAT 93–98
[2017-07-08] MEDS: METOPROLOL TARTRATE 5 MG/5 ML VIAL IV PUSH PRN (00:57)
[2017-07-08] MEDS: CHLORHEXIDINE GLUCONATE 2 % 1 PACK (2 CLOTHS) TOP SCH (01:45)
[2017-07-08] MEDS: METOPROLOL TARTRATE 25 MG TAB PO SCH ×4 (03:55→22:22)
[2017-07-08] MEDS: DILTIAZEM HCL 90 MG TAB PO SCH ×4 (03:55→22:22)
[2017-07-08] MEDS: RESP: IPRATROPIUM 0.5 MG/2.5 ML NEB INH SCH ×4 (04:06→20:36)
[2017-07-08] MEDS: AMIODARONE INJ 450 MG in SODIUM CHLOR 0.9% (EXCEL) INJ 241 ML IV PRN ×2 (05:09→19:01)
[2017-07-08 08:46] LABS: HEMATOCRIT 29.9 % (39.0-51.0); HEMOGLOBIN 10.4 GM/DL (13.0-17.0); MEAN CELL VOLUME 110.5 FL (80.0-100.0); MEAN CORPUSCULAR HEMOGLOBIN 38.3 PG (27.0-34.0); MEAN CORPUSCULAR HGB CONC 34.7 % (32.0-36.0); MEAN PLATELET VOLUME 9.6 FL (7.0-11.0); PLATELET COUNT 59 TH/MM3 (150-450); RED CELL DISTRIBUTION WIDTH 15.8 % (11.6-17.2); WHITE BLOOD COUNT 4.6 TH/MM3 (4.0-11.0)
[2017-07-08 08:55] LABS: INTERNATIONAL NORMALIZED RATIO 1.2 RATIO; PROTHROMBIN TIME - PATIENT 12.6 SEC (9.8-11.6)
[2017-07-08 09:09] LABS: % SATURATION IRON PROFILE 14.9 % (20-50); ALBUMIN 2.8 GM/DL (3.4-5.0); ALT (GPT) 22 U/L (12-78); AST (GOT) 15 U/L (15-37); BLOOD UREA NITROGEN 64 MG/DL (7-18); CALCIUM 9.1 MG/DL (8.5-10.1); CHLORIDE 100 MEQ/L (98-107); CREATININE 5.69 MG/DL (0.60-1.30); GLOMERULAR FILTRATION RATE 12 ML/MIN (>89); GLUCOSE,RANDOM 120 MG/DL (74-106); IRON (FE) 40 MCG/DL (65-175); SODIUM (NA) 136 MEQ/L (136-145); TOTAL IRON BINDING CAPACITY 269 MCG/DL (250-450)
[2017-07-08 09:17] LABS: ALKALINE PHOSPHATASE 62 U/L (45-117); TOTAL BILIRUBIN ADULT 2.5 MG/DL (0.2-1.0); TOTAL PROTEIN 6.9 GM/DL (6.4-8.2)
[2017-07-08] MEDS: CALCIUM ACETATE 667 MG CAP PO SCH ×3 (10:12→17:13)
[2017-07-08] MEDS: SODIUM CHLORIDE 0.9% FLUSH 10 ML FLUSH IV FLUSH SCH ×2 (10:12→22:22)
[2017-07-08] MEDS: AZITHROMYCIN 250 MG TAB PO SCH (10:12)
[2017-07-08] MEDS: VITAMIN B CMPLX/VITC/FOLIC AC CAP PO SCH (10:12)
[2017-07-08] MEDS: DILTIAZEM INJ 125 MG in SODIUM CHLORIDE 0.9% INJ 100 ML IV PRN ×2 (10:38→23:49)
[2017-07-08 10:58] LABS: FERRITIN 256 NG/ML (26-388)
--- NOTE | 2017-07-08 11:00 | HHI.NPPN ---
Subjective General Problems: Anemia, Edema, Heart Disease, Hypertension Renal Failure: End Stage Renal Disease History of Present Illness 67-year-old male with a medical history significant for Hypertension, CVA, Atrial fibrillation, and CKD stage four approaching stage 5, with left arm AV fistula placed 10 years ago but has not needed dialysis. He presented yesterday to [facility] [place] and left against advise. Patient then presented to [place]. Creat is elevated at 10.47 and BUN of 40. Also reports minimal urinary output. Additional Remarks Patient is alert, no SOB , no chest pain. Review of Systems General Constitutional: Fatigue Respiratory Lungs: SOB Cardiovascular Cardiac: YAUN Objective Data Data Vital Signs Date Time Temp Pulse Resp B/P (MAP) Pulse Ox O2 Delivery O2 Flow Rate FiO2 07/08/17 10:38 114 121/84 07/08/17 09:36 97 Nasal Cannula 1.00 07/08/17 06:00 112 07/08/17 05:26 98 Nasal Cannula 1.00 07/08/17 05:09 114 07/08/17 04:00 97.8 113 14 126/90 (102) 95 07/08/17 04:00 113 07/08/17 02:00 109 07/08/17 02:00 109 116/79 07/08/17 01:47 104 07/08/17 00:00 97.6 131 18 131/71 (91) 94 07/08/17 00:00 131 07/07/17 22:11 133 114/83 07/07/17 22:00 133 07/07/17 21:26 98 Nasal Cannula 1.00 07/07/17 20:22 98 Nasal Cannula 1.00 07/07/17 20:00 97.5 131 13 122/75 (91) 96 07/07/17 20:00 131 07/07/17 18:00 125 07/07/17 16:00 97.5 135 16 105/76 (86) 96 07/07/17 16:00 135 07/07/17 15:00 132 16 118/85 (96) 97 07/07/17 14:00 130 13 120/78 (92) 97 07/07/17 14:00 130 07/07/17 13:46 132 07/07/17 13:00 127 13 106/77 (87) 96 07/07/17 12:37 140 1/16/18 12:00 149 07/07/17 12:00 97.8 149 14 111/78 (89) 97 07/07/17 11:00 143 15 109/78 (88) 97 -: 07/08/17 0800 07/08/17 0800 Physical Exam General Appearance: No Acute Distress, Comfortable Eyes Eye Exam: Pupils Equal Neck Neck Exam: Neck Supple Pulmonary Resp Exam: Breath Sounds Equal, Crackles, Rhonchi, Decreased Bases, Diminished Breath Sounds Cardiology CV Exam: Irregular, Tachycardia Gastrointestinal/Abdomen GI Exam: Soft, Non-Tender, Bowel Sounds Present, Distended Extremeties Extremities Exam: Trace Edema Neurologic Neuro Exam: Alert, Awake, Oriented Psychiatric Psych Exam: Appropriate Responses Assessment/Plan Assessment Summary: Anemia of CKD, Hypertension, End Stage Renal Disease Problem List: (1) End stage renal failure on dialysis ICD Codes: N18.6 - End stage renal disease; Z99.2 - Dependence on renal dialysis (2) Congestive heart failure ICD Codes: I50.9 - Congestive heart failure Status: Acute (3) Hypertension ICD Codes: I10 - Hypertension Status: Chronic (4) Anemia ICD Codes: D64.9 - Anemia, unspecified Status: Acute (5) Anemia ICD Codes: D64.9 - Anemia, unspecified (6) COPD Status: Acute (7) Atrial fibrillation ICD Codes: I48.91 - Atrial fibrillation Status: Acute Plan Patient was started on HD. He has advance stage 5 chronic kidney disease. Now on HD, and tolerating well. AVF is working, and the BP is stable. Follow Hgb, on Epogen, check iron study. On Phsolo as Po4 slightly elevated. Check PTH. HD to continue 3 times a week. Out patient HD arrangements. K is low, will replace. Problem Qualifiers (1) Hypertension: Qualified Codes: I10 - Essential (primary) hypertension Marianne Elise MD Jul 08, 2017 11:00
[2017-07-08] MEDS ORDERED: POTASSIUM CHLORIDE 20 MEQ CONTROLLED RELEASE TAB PO ONE (11:45)
--- NOTE | 2017-07-08 14:21 | HHI.CCPN ---
Subjective Remarks/Hospital Course Hospital Course: 67-year-old male with a medical history significant for diastolic CHF, CKD for which he had a left arm AV fistula placed which is being prepped for dialysis. Patient developed a cough about a week back with some shortness of breath and was seen at [facility] yesterday and diagnosed with a pneumonia. He was advised admission however signed out AMA since he wished to come to [facility]. Following leaving that hospital he went home yesterday and then today presented at [facility] ER with persisting cough and shortness of breath. He was noted to be in A. fib with RVR with ventricular rate going up to the 180s. He was otherwise maintaining BP and O2 sats on 2 L nasal cannula. He has had a poor appetite for the last 1 week as well as minimal diarrhea. Denies any chest pain or abdominal pain. He did have some nausea off and on for the last week. He denies any increasing leg swelling, denies any melena or rectal bleeding dysuria. Urinary frequency or hematuria. Patient was also found to have worsening renal function with creatinine of 10 and BUN greater than 100. Patient was initiated on a Cardizem drip for rate control and was also given digoxin 0.5 mg IV 1 dose. He was accepted for admission by critical care medicine service. When I evaluated the patient in the ER he was sitting up in the ER stretcher on 2 L nasal cannula and did not appear to be in any acute distress except for minimal shortness of breath and cough. Patient tells me that he sees his physicians at the [facility] including his clinical administrative coordinator and industrial pharmacist. In the ER he did receive a dose of antibiotics after blood cultures were obtained. Subjective: 07/06: seen and evaluated around 10am. delayed note entry. patient remains in afib RVR. currently undergoing HD. discussed case with Dr. Hoffmann, plan for volume removal with IHD and see if this will improve rate control. remains on cardizem drip and amiodarone drip. dig loaded overnight. patient subjectively denies complaints. ROS negative. 07/07 Patient is lying in bed in NAD. Afebrile. On Heparin, Cardizem and Amio drips. For HD today. 07/08: Resting in bed comfortably on nasal cannula. Remains in A. fib with RVR on Cardizem and amiodarone drips as well as by mouth Cardizem and Lopressor with IV Lopressor as needed for rapid ventricular response. Has been evaluated by cardiology Dr. Hoffmann however still awaiting EP evaluation by Dr. Gonzales to consider ablation in view of difficult to control A. fib with RVR. Objective Vital Signs Date Time Temp Pulse Resp B/P (MAP) Pulse Ox O2 Delivery O2 Flow Rate FiO2 07/08/17 12:00 98.2 114 19 126/86 (99) 93 07/08/17 09:36 Nasal Cannula 1.00 Intake and Output 07/08/17 07/08/17 07/09/17 08:00 16:00 00:00 Intake Total 863 ml Output Total 160 ml Balance 703 ml Result Diagram: 07/08/17 0800 07/08/17 0800 Other Results Microbiology Date/Time Source Procedure Growth Status 07/05/17 22:30 Urine Catheterized Urine Urine Culture - Final NO GROWTH IN 48 HOURS. Complete 07/05/17 22:30 Urine Catheterized Urine Legionella Antigen - Final PRESUMPTIVE NEGATIVE FOR LEGIONELLA P... Complete 07/05/17 22:30 Urine Catheterized Urine Streptococcus pneumoniae Antigen (M - Final PRESUMPTIVE NEGATIVE FOR STREPTOCOCCU... Complete Imaging Last Impressions Chest X-Ray 07/06/17 0000 Signed Impressions: Service Date/Time: Thursday, July 06, 2017 03:18 - CONCLUSION: Right base increased density secondary to right effusion with some degree of accompanying atelectasis or consolidation. This is unchanged from the prior exam. Matthew Toro MD Chest CT 07/05/17 0000 Signed Impressions: Service Date/Time: Wednesday, July 05, 2017 22:07 - CONCLUSION: 1. Right greater the left pleural effusions and basilar consolidation. 2. Suspected mildly enlarged right hilar lymph node, nonspecific but no lymphadenopathy seen elsewhere and presumably benign/reactive. 3. Suspected cirrhosis. Small ascites is seen in the upper abdomen. 4. Coronary artery calcification. Matthew Aguila MD Objective Remarks GENERAL: Awake and alert, lying in bed. SKIN: Focused skin assessment warm/dry. HEAD: Atraumatic. Normocephalic. EYES: Pupils equal and round. No scleral icterus. No injection or drainage. ENT: No nasal bleeding or discharge. Dry mucous membranes. NECK: Trachea midline. No JVD. CARDIOVASCULAR: tachycardic rate in the 150s, irregularly irregular rhythm. afib by tele. RESPIRATORY: equal chest rise, nc o2. GASTROINTESTINAL: Abdomen soft, non-tender, nondistended. MUSCULOSKELETAL: No obvious deformities. No clubbing. No cyanosis. No edema. NEUROLOGICAL: Awake and alert. No obvious cranial nerve deficits. Motor grossly within normal limits. Normal speech. A/P Assessment and Plan 67-year-old male with: Acute hypoxic respiratory failure - resolving. Dyspnea - resolved. A. fib with RVR - persistent, Diastolic CHF exacerbation possible pneumonia TRAM/CKD requiring renal replacement therapy Diarrhea Plan: Neuro: Follow neuro status. Tylenol when necessary for pain. CV: Continue Cardizem drip and amiodarone drip. On Cardizem 90mg po q6h and metoprolol 25mg po q6h. Lopressor 5mg iv q2h prn for breakthrough to control heart rate. Cards is following- Dr. Hoffmann. On anticoagulation with heparin per cardiology. Switched to by mouth anticoagulation following evaluation/ablation by Dr. Gonzales. Dr. Gonzales to evaluate for possible ablation. Pulmonary: Continue supplemental O2, ipratropium every 6 hourly with albuterol for wheezing if needed. GI/liver: renal diet. Zofran when necessary for nausea vomiting. Renal/: Monitor renal function, avoid nephrotoxins. Started HD. Renal-Dr. Montaño ID: Received Vanco/cefepime in ER. Continue cefepime and Zithromax for empiric antibiotic coverage strep pneumo and Legionella antigen negative. Blood culture 07/05: NGTD Endocrine:, SSI for glycemic control if needed. Heme: Follow CBC, coags- on Heparin drip Prophylaxis: SCDs, heparin drip. Level 3 Rashad Valdes MD Jul 08, 2017 14:21
--- NOTE | 2017-07-08 15:45 | MB ---
cc: DWAYNE MANN M.D. DATE OF CONSULTATION 07/08/2017 HISTORY OF PRESENT ILLNESS Nohemi is a very pleasant 67-year-old gentleman with a history of coronary artery disease. He had a stent placed two years ago. He does not recall if he had chest pain prior to that. He presented to the emergency room on July 05 with chief complaint of palpitations and shortness of breath. He was recently diagnosed with pneumonia at [facility] and left AMA at that time. He has a history of chronic renal insufficiency and has been placed on dialysis during this admission for the first time. He is currently in atrial fibrillation with rapid ventricular response. He has been anemic with thrombocytopenia as well since admission. He complains of shortness of breath which is mild and palpitations. Otherwise denies any fevers, chills, cough, GI or bleeding, PND, orthopnea, syncope, dizziness or chest pain. PAST MEDICAL HISTORY 1. Per history of present illness. 2. History of a CVA 5 years ago. 3. Hypertension. SOCIAL HISTORY Drinks a beer a day. Denies tobacco use. ALLERGIES None. MEDICATIONS Medications prior to admission: 1. Hydralazine 25 mg t.i.d. 2. Terazosin. 3. Metoprolol 100 mg daily. 4. Metolazone 2.5 mg daily. 5. Calcitriol. 6. Amlodipine 10 mg daily. 7. Allopurinol 100 mg daily. In the hospital the patient is on: 1. Calcium acetate 667 mg t.i.d. 2. Vitamin-B. 3. Vitamin-C. 4. Folic acid complex. 5. Metoprolol 25 mg q.6h. 6. Heparin drip. 7. Cefepime. 8. Diltiazem 90, p.o. q.6h. 9. Albumin IV with dialysis. 10.Amiodarone IV. 11.Azithromycin 500 mg p.o. daily. 12.Cardizem drip. PHYSICAL EXAMINATION VITAL SIGNS: Blood pressure 121/84, pulse ranging between 112 and 114, sats 93% on one liter nasal cannula, respiratory rate 19, temperature 98.2. GENERAL: He is alert and oriented x3, in no distress. NECK: Supple. No JVD. No bruit. CARDIOVASCULAR: S1, S2, no murmurs, rubs or gallops. LUNGS: Notable for decreased breath sounds at the right base. ABDOMEN: Soft, nontender, nondistended. Positive bowel sounds. EXTREMITIES: Without extremity edema. IMAGING Chest x-ray on July 06, 2017 shows a right base increased density secondary to right effusion with some degree of accompanying atelectasis or consolidation, unchanged compared to previous. EKG EKG on admission shows atrial fibrillation at a rate of 170 beats per minute, right bundle branch block, nonspecific ST-T wave changes. ECHOCARDIOGRAM He had an echocardiogram on July 06 which shows an EF of 60-65%, trace mitral regurgitation, PA pressure ranging between 40 and 50, moderate tricuspid regurgitation. LABORATORY White count 4.6, hemoglobin 10.4 (8.8 yesterday), platelet count 59 (as low as 56), hematocrit 29.9. Sodium 136, potassium 3.9, chloride 100, bicarb 27.0, BUN 64, creatinine 5.69. AST 15, ALT 22. Albumin 2.8. BNP is 1320. Troponin is 0.08 followed by 0.08 and 0.08. INR is 1.2. PTT today at 8:00 a.m. is 37.8. Digoxin level is 2.0 on July 07, 2017. Hepatitis C antibody is reactive on July 06, 2017. DIAGNOSIS 1. Atrial fibrillation with rapid ventricular response. 2. Anemia. 3. Thrombocytopenia. 4. Chronic renal insufficiency. 5. End-stage renal disease. 6. Hepatitis C. 7. Hypokalemia. 8. Hypoalbuminemia. 9. Hyperbilirubinemia. 10.Macrocytosis. 11.Non-STEMI. 12.Coronary artery disease. 13.History of CVA. 14.Mitral regurgitation. DISCUSSION The patient's CHADS-VASc score is 4. He has hypertension, he has had a previous CVA and he has coronary artery disease. Therefore I recommend Coumadin and/or novel oral anticoagulant agent such Xarelto, Pradaxa or Eliquis, if or when his blood count is stabilized and evaluated. Currently not only is he anemic but his hemoglobin is unstable. Certainly this could be from his end-stage renal disease but he also has thrombocytopenia and hepatitis C and he could be sequestering platelets and have varices and high bleeding risk. He will definitely need further evaluation of the exact etiology of his anemia and thrombocytopenia prior to starting long-term anticoagulation. Currently he is on heparin which he appears to be tolerating. His high heart rate is partially explained by anemia. Therefore, I would not be overly aggressive with rate control. As long as his heart rate is nonsustained above 130 for more than an hour consecutively would manage conservatively, again until his anemia can be analyzed better and stabilized. His troponin elevation is probably nonspecific due to renal insufficiency. He is not having any chest pain, however, will need to follow him closely as he has had previous stent placement and he has multiple cardiac risk factors for an ischemic etiology to the elevated troponin. Aspirin is currently being held, again due to unstable hemoglobin and thrombocytopenia. He is being treated for pneumonia as well. Will continue to follow him closely. Dwayne Mann MD AWC/BT /2:30 PM /3:10 PM
[2017-07-08] MEDS: CEFEPIME INJ 1,000 MG in SODIUM CHLORIDE 0.9% INJ 100 ML IV SCH (17:14)
[2017-07-08] MEDS: HEPARIN-D5W 25,000 U/250 ML 250 ML IV PRN (17:52)
--- NOTE | 2017-07-08 23:52 | HHI.PR ---
Subjective Remarks Feeling tired Objective Vital Signs Date Time Temp Pulse Resp B/P (MAP) Pulse Ox O2 Delivery O2 Flow Rate FiO2 07/08/17 22:00 120 07/08/17 20:37 94 21 07/08/17 20:00 119 07/08/17 20:00 97.5 119 16 132/92 (105) 93 07/08/17 19:01 118 131/82 07/08/17 16:00 98.2 117 15 108/78 (88) 95 07/08/17 12:00 98.2 114 19 126/86 (99) 93 07/08/17 10:38 114 121/84 07/08/17 09:36 97 Nasal Cannula 1.00 07/08/17 08:00 98.0 114 14 123/84 (97) 95 07/08/17 06:00 112 07/08/17 05:26 98 Nasal Cannula 1.00 07/08/17 05:09 114 07/08/17 04:00 97.8 113 14 126/90 (102) 95 07/08/17 04:00 113 07/08/17 02:00 109 07/08/17 02:00 109 116/79 07/08/17 01:47 104 07/08/17 00:00 97.6 131 18 131/71 (91) 94 07/08/17 00:00 131 I/O 07/08/17 07/08/17 07/08/17 07/09/17 07/09/17 07/09/17 07:00 15:00 23:00 07:00 15:00 23:00 Intake Total 863 ml 480 ml Output Total 160 ml 250 ml Balance 703 ml 230 ml Intake Oral 300 ml 480 ml IV Total 563 ml Output Urine Total 160 ml 250 ml # Bowel Movements 1 Result Diagram: 07/08/17 0800 07/08/17 0800 Imaging alert, fully oriented, in bed Lungs: ventilated Heart: S1, S2 irregular, no gallop Abdomen: soft, no mass Ext: no edema Last Impressions Chest X-Ray 07/06/17 0000 Signed Impressions: Service Date/Time: Thursday, July 06, 2017 03:18 - CONCLUSION: Right base increased density secondary to right effusion with some degree of accompanying atelectasis or consolidation. This is unchanged from the prior exam. Matthew Toro MD Chest CT 07/05/17 0000 Signed Impressions: Service Date/Time: Wednesday, July 05, 2017 22:07 - CONCLUSION: 1. Right greater the left pleural effusions and basilar consolidation. 2. Suspected mildly enlarged right hilar lymph node, nonspecific but no lymphadenopathy seen elsewhere and presumably benign/reactive. 3. Suspected cirrhosis. Small ascites is seen in the upper abdomen. 4. Coronary artery calcification. Matthew Aguila MD Current Medications Medications (Trade) Dose Ordered Sig/Denice Route Start Time Stop Time Status Last Admin (NS Flush) 2 ml UNSCH PRN IVF 07/05/17 18:00 Diltiazem HCl 125 mg/Sodium Chloride 125 ml @ 5 mls/hr TITRATE PRN IV 07/05/17 18:45 07/08/17 10:38 (NS Flush) 2 ml BID IV FLUSH 07/05/17 21:00 07/08/17 22:22 (Tylenol) 650 mg Q6H PRN PO 07/05/17 20:00 (Zofran Inj) 4 mg Q6H PRN IV PUSH 07/05/17 20:00 (Reglan Inj) 5 mg Q6H PRN IV PUSH 07/05/17 20:00 (Albuterol Neb) 2.5 mg Q6HR NEB PRN INH 07/05/17 20:00 (Atrovent Neb) 0.5 mg Q6HR NEB INH 07/05/17 22:00 07/08/17 20:36 (Heparin Inj) 5,000 units Q8H SQ 07/05/17 22:00 Future Hold 07/06/17 13:31 Miscellaneous Information 1 Q361D XX 07/05/17 20:00 07/06/17 20:00 (Chlorhexidine 2% Cloth) 3 pack Taper DAILY@04 TOP 07/06/17 04:00 07/02/18 03:59 07/08/17 01:45 (Chlorhexidine 2% Cloth) 3 pack UNSCH PRN TOP 07/05/17 20:00 (Milk Of Magnesia Liq) 30 ml Q12H PRN PO 07/05/17 20:00 (Senokot) 17.2 mg Q12H PRN PO 07/05/17 20:00 (Dulcolax Supp) 10 mg DAILY PRN RECTAL 07/05/17 20:00 (Lactulose Liq) 30 ml DAILY PRN PO 07/05/17 20:00 Amiodarone HCl 450 mg/Sodium Chloride 250 ml @ 33.33 mls/ hr Q7H31M PRN IV 07/05/17 20:45 07/08/17 19:01 (Zithromax) 500 mg DAILY PO 07/05/17 20:45 07/08/17 10:12 Cefepime HCl 1000 mg/Sodium Chloride 100 ml @ 200 mls/hr DAILY@1800 IV 07/06/17 18:00 07/08/17 17:14 Sodium Chloride 1,000 ml @ 0 mls/hr Q0M PRN OTHER 07/06/17 09:57 (Heparin Inj) 8,000 units UNSCH PRN IV FLUSH 07/06/17 10:00 Sodium Chloride 1,000 ml @ 200 mls/hr Q5H PRN IV 07/06/17 09:57 Sodium Chloride 1,000 ml @ 0 mls/hr Q0M PRN OTHER 07/06/17 09:57 (Mannitol Inj) 12.5 gm UNSCH PRN IV 07/06/17 10:00 Albumin Human 100 ml @ 60 mls/hr UNSCH PRN IV 07/06/17 10:00 (NS Flush) 5 ml UNSCH PRN IV FLUSH 07/06/17 10:00 (Heparin Inj) UNSCH PRN .XX 07/06/17 10:00 (Gentamicin (Dialysis) Inj) 20 mg UNSCH PRN OTHER 07/06/17 10:00 (Zofran Inj) 4 mg UNSCH PRN IV PUSH 07/06/17 10:00 (Tylenol) 650 mg UNSCH PRN PO 07/06/17 10:00 (Benadryl) 25 mg UNSCH PRN PO 07/06/17 10:00 (Nitrostat Sl) 0.4 mg UNSCH PRN SL 07/06/17 10:00 (Catapres) 0.1 mg UNSCH PRN PO 07/06/17 10:00 (Epogen Inj) 10,000 units UNSCH PRN IV PUSH 07/06/17 10:00 07/07/17 10:25 (Gelfoam 12 Mm/7 Mm Top) 1 foam UNSCH PRN TOP 07/06/17 10:00 07/07/17 10:25 (Cardizem) 90 mg Q6H PO 07/06/17 15:30 07/08/17 22:22 (Lopressor) 25 mg Q6H PO 07/06/17 22:00 07/08/17 22:22 (Lopressor Inj) 5 mg Q2H PRN IV PUSH 07/06/17 15:30 07/08/17 00:57 Heparin Sodium/ Dextrose 250 ml @ 17 mls/hr TITRATE PRN IV 07/06/17 19:00 07/08/17 17:52 (Phoslo) 667 mg TID PO 07/07/17 13:00 07/08/17 17:13 (Nephrocaps) 1 cap DAILY PO 07/07/17 10:30 07/08/17 10:12 Assessment and Plan Problem List: (1) Atrial fibrillation ICD Codes: I48.91 - Atrial fibrillation Status: Acute Plan: Patient HR difficult to control. On cardizem IV and PO On IN heparin NO chest pain No sign of active CAD No indication of liver malfunction I do not understand Dr Garcia assessment nor his involvement in the case. Case discussed extensively with Mr Figueroa. ESRD on HD Good candidate for eliquis. EPS and ablation tomorrow. Patient understand the risks, the nature and benefits of the procedure And agree to proceed. (2) Hypertension ICD Codes: I10 - Hypertension Status: Chronic Plan: SBP 122 (3) End stage renal failure on dialysis ICD Codes: N18.6 - End stage renal disease; Z99.2 - Dependence on renal dialysis Plan: Manage by nephrology Problem Qualifiers (1) Hypertension: Qualified Codes: I10 - Essential (primary) hypertension Jonny Gonzales MD Jul 08, 2017 23:52
[2017-07-09] VITALS (12 sets, daily range): BP systolic 113–138; BP diastolic 68–98; PULSE 62–130; RESP 16–17; TEMP 98.1–98.5; O2SAT 94–100
[2017-07-09] MEDS: RESP: IPRATROPIUM 0.5 MG/2.5 ML NEB INH SCH ×4 (03:51→21:08)
[2017-07-09] MEDS: CHLORHEXIDINE GLUCONATE 2 % 1 PACK (2 CLOTHS) TOP SCH (04:00)
[2017-07-09 04:33] LABS: HEMATOCRIT 30.2 % (39.0-51.0); HEMOGLOBIN 10.6 GM/DL (13.0-17.0); MEAN CELL VOLUME 109.5 FL (80.0-100.0); MEAN CORPUSCULAR HEMOGLOBIN 38.3 PG (27.0-34.0); MEAN PLATELET VOLUME 9.5 FL (7.0-11.0); PLATELET COUNT 69 TH/MM3 (150-450); RED BLOOD COUNT 2.76 MIL/MM3 (4.50-5.90); RED CELL DISTRIBUTION WIDTH 16.7 % (11.6-17.2); WHITE BLOOD COUNT 4.9 TH/MM3 (4.0-11.0)
[2017-07-09] MEDS: DILTIAZEM HCL 90 MG TAB PO SCH (04:34)
[2017-07-09] MEDS: METOPROLOL TARTRATE 25 MG TAB PO SCH (04:34)
[2017-07-09 04:42] LABS: INTERNATIONAL NORMALIZED RATIO 1.2 RATIO
[2017-07-09 05:02] LABS: ALBUMIN 2.7 GM/DL (3.4-5.0); ALT (GPT) 19 U/L (12-78); AST (GOT) 10 U/L (15-37); BICARBONATE 25.3 MEQ/L (21.0-32.0); BLOOD UREA NITROGEN 68 MG/DL (7-18); CALCIUM 8.9 MG/DL (8.5-10.1); CHLORIDE 101 MEQ/L (98-107); CREATININE 5.75 MG/DL (0.60-1.30); GLOMERULAR FILTRATION RATE 12 ML/MIN (>89); GLUCOSE,RANDOM 117 MG/DL (74-106); SODIUM (NA) 137 MEQ/L (136-145)
[2017-07-09 05:05] LABS: ALKALINE PHOSPHATASE 67 U/L (45-117); TOTAL BILIRUBIN ADULT 1.7 MG/DL (0.2-1.0); TOTAL PROTEIN 6.9 GM/DL (6.4-8.2)
--- NOTE | 2017-07-09 08:05 | MB ---
cc: MICHAEL GARCÍA M.D. DATE OF CONSULTATION July 07, 2017 REASON FOR CONSULTATION Atrial fibrillation, fast ventricular response unable to control with medication. Mr. Figueroa is a 57-year-old -[place] gentleman with history of atrial fibrillation. He had a previous ablation around 5 or 6 years ago. He was admitted at the hospital due to atrial fibrillation with biventricular response. The patient is on multiple medications. Heart rate difficult to control. I was consulted for evaluation and management. The chart was reviewed. The patient was evaluated. ALLERGIES None. SOCIAL HISTORY The gentleman denies smoking and drinking. FAMILY HISTORY Noncontributory to his current medical condition. MEDICATIONS 1. Metoprolol. 2. Cefepime. 3. Cardizem 90 mg q. 6 hours. 4. He is on aspirin. 5. Acetaminophen. 6. Epogen. 7. Metoprolol. 8. Cardizem IV. REVIEW OF SYSTEMS Currently he refers feeling tired. No chest pain or chest discomfort. No fever. PHYSICAL EXAMINATION GENERAL: On physical exam, fully oriented. VITAL SIGNS: Blood pressure on evaluation 105/76, pulse 75, pulse 135, respiratory 18. LUNGS: Ventilated. CARDIOVASCULAR: S1, S2, irregular. No gallop. ABDOMEN: Soft. No mass. EXTREMITIES: No edema. ELECTROCARDIOGRAM Atrial fibrillation with fast ventricular response. Right bundle-branch block, diffuse ST changes. LABORATORY DATA Hemoglobin 10.4, white blood cells 4.6, potassium is 3.3, creatinine is 7.69. ASSESSMENT AND RECOMMENDATIONS Mr. Figueroa's heart rate is very difficult to control. He had atrial fibrillation with fast ventricular response. He was on heparin prehospitalization. The best approach at this point is electrophysiology study and ablation. The risks, the nature and the benefit of the procedure are clearly stated to him. The risks include pneumothorax, cardiac perforation, stroke and even . The gentleman is going to be observed. Possible ablation on morning. Michael García MD HS/SSB /11:36 PM /7:46 AM
[2017-07-09] MEDS: VITAMIN B CMPLX/VITC/FOLIC AC CAP PO SCH (09:00)
[2017-07-09] MEDS: CALCIUM ACETATE 667 MG CAP PO SCH ×3 (09:00→18:00)
[2017-07-09] MEDS: SODIUM CHLORIDE 0.9% FLUSH 10 ML FLUSH IV FLUSH SCH ×2 (09:00→21:00)
[2017-07-09] MEDS: AZITHROMYCIN 250 MG TAB PO SCH (09:00)
[2017-07-09] MEDS: AMIODARONE INJ 450 MG in SODIUM CHLOR 0.9% (EXCEL) INJ 241 ML IV PRN (10:35)
--- NOTE | 2017-07-09 10:40 | HHI.CCPN ---
Subjective Remarks/Hospital Course Hospital Course: 67-year-old male with a medical history significant for diastolic CHF, CKD for which he had a left arm AV fistula placed which is being prepped for dialysis. Patient developed a cough about a week back with some shortness of breath and was seen at [facility] yesterday and diagnosed with a pneumonia. He was advised admission however signed out AMA since he wished to come to [facility]. Following leaving that hospital he went home yesterday and then today presented at [facility] ER with persisting cough and shortness of breath. He was noted to be in A. fib with RVR with ventricular rate going up to the 180s. He was otherwise maintaining BP and O2 sats on 2 L nasal cannula. He has had a poor appetite for the last 1 week as well as minimal diarrhea. Denies any chest pain or abdominal pain. He did have some nausea off and on for the last week. He denies any increasing leg swelling, denies any melena or rectal bleeding dysuria. Urinary frequency or hematuria. Patient was also found to have worsening renal function with creatinine of 10 and BUN greater than 100. Patient was initiated on a Cardizem drip for rate control and was also given digoxin 0.5 mg IV 1 dose. He was accepted for admission by critical care medicine service. When I evaluated the patient in the ER he was sitting up in the ER stretcher on 2 L nasal cannula and did not appear to be in any acute distress except for minimal shortness of breath and cough. Patient tells me that he sees his physicians at the [facility] including his [employer] insurance. In the ER he did receive a dose of antibiotics after blood cultures were obtained. Subjective: 07/06: seen and evaluated around 10am. delayed note entry. patient remains in afib RVR. currently undergoing HD. discussed case with Dr. Hoffmann, plan for volume removal with IHD and see if this will improve rate control. remains on cardizem drip and amiodarone drip. dig loaded overnight. patient subjectively denies complaints. ROS negative. 07/07 Patient is lying in bed in NAD. Afebrile. On Heparin, Cardizem and Amio drips. For HD today. 07/08: Resting in bed comfortably on nasal cannula. Remains in A. fib with RVR on Cardizem and amiodarone drips as well as by mouth Cardizem and Lopressor with IV Lopressor as needed for rapid ventricular response. Has been evaluated by cardiology Dr. Hoffmann however still awaiting EP evaluation by Dr. Gonzales to consider ablation in view of difficult to control A. fib with RVR. 07.09 No events overnight. Receiving HD with 2L goal removal. For possible EP study and ablation this morning by Dr. Gonzales. Remains in Afib with RVR, on Amio and Cardizem drips. Objective Vital Signs Date Time Temp Pulse Resp B/P (MAP) Pulse Ox O2 Delivery O2 Flow Rate FiO2 07/09/17 08:00 114 07/09/17 07:59 95 21 07/09/17 04:00 98.2 16 138/98 (111) 07/08/17 09:36 Nasal Cannula 1.00 Intake and Output 07/09/17 07/09/17 07/10/17 08:00 16:00 00:00 Output Total 325 ml Balance -325 ml Result Diagram: 07/09/17 0422 07/09/17 0422 Other Results Laboratory Tests Test 07/08/17 22:44 07/09/17 04:22 Activated Partial Thromboplast Time 41.8 SEC 36.6 SEC White Blood Count 4.9 TH/MM3 Red Blood Count 2.76 MIL/MM3 Hemoglobin 10.6 GM/DL Hematocrit 30.2 % Mean Corpuscular Volume 109.5 FL Mean Corpuscular Hemoglobin 38.3 PG Mean Corpuscular Hemoglobin Concent 35.0 % Red Cell Distribution Width 16.7 % Platelet Count 69 TH/MM3 Mean Platelet Volume 9.5 FL Prothrombin Time 12.0 SEC Prothromb Time International Ratio 1.2 RATIO Blood Urea Nitrogen 68 MG/DL Creatinine 5.75 MG/DL Random Glucose 117 MG/DL Total Protein 6.9 GM/DL Albumin 2.7 GM/DL Calcium Level 8.9 MG/DL Alkaline Phosphatase 67 U/L Aspartate Amino Transf (AST/SGOT) 10 U/L Alanine Aminotransferase (ALT/SGPT) 19 U/L Total Bilirubin 1.7 MG/DL Sodium Level 137 MEQ/L Potassium Level 3.0 MEQ/L Chloride Level 101 MEQ/L Carbon Dioxide Level 25.3 MEQ/L Anion Gap 11 MEQ/L Estimat Glomerular Filtration Rate 12 ML/MIN Imaging Last Impressions Chest X-Ray 07/06/17 0000 Signed Impressions: Service Date/Time: Thursday, July 06, 2017 03:18 - CONCLUSION: Right base increased density secondary to right effusion with some degree of accompanying atelectasis or consolidation. This is unchanged from the prior exam. Matthew Toro MD Chest CT 07/05/17 0000 Signed Impressions: Service Date/Time: Wednesday, July 05, 2017 22:07 - CONCLUSION: 1. Right greater the left pleural effusions and basilar consolidation. 2. Suspected mildly enlarged right hilar lymph node, nonspecific but no lymphadenopathy seen elsewhere and presumably benign/reactive. 3. Suspected cirrhosis. Small ascites is seen in the upper abdomen. 4. Coronary artery calcification. Matthew Aguila MD Objective Remarks GENERAL: Awake and alert, lying in bed. SKIN: Focused skin assessment warm/dry. HEAD: Atraumatic. Normocephalic. EYES: Pupils equal and round. No scleral icterus. No injection or drainage. ENT: No nasal bleeding or discharge. Dry mucous membranes. NECK: Trachea midline. No JVD. CARDIOVASCULAR: tachycardic, irregularly irregular rhythm. afib by tele. RESPIRATORY: equal chest rise, nc o2. GASTROINTESTINAL: Abdomen soft, non-tender, nondistended. MUSCULOSKELETAL: No obvious deformities. No clubbing. No cyanosis. No edema. NEUROLOGICAL: Awake and alert. No obvious cranial nerve deficits. Motor grossly within normal limits. Normal speech. A/P Assessment and Plan 67-year-old male with: Acute hypoxic respiratory failure - resolving. Dyspnea - resolved. A. fib with RVR - persistent, Diastolic CHF exacerbation possible pneumonia TRAM/CKD requiring renal replacement therapy Diarrhea Plan: Neuro: Follow neuro status. Tylenol when necessary for pain. CV: Continue Cardizem drip and amiodarone drip. On Cardizem 90mg po q6h and metoprolol 25mg po q6h. Lopressor 5mg iv q2h prn for breakthrough to control heart rate. Cards is following- Dr. Hoffmann. On anticoagulation with heparin per cardiology. For possible EP study and ablation today Pulmonary: Continue supplemental O2, ipratropium every 6 hourly with albuterol for wheezing if needed. GI/liver: renal diet. Zofran when necessary for nausea vomiting. Renal/: Monitor renal function, avoid nephrotoxins. Renal-Dr. Montaño. HD today with 2L goal removal. ID: Received Vanco/cefepime in ER. Continue cefepime and Zithromax for empiric antibiotic coverage strep pneumo and Legionella antigen negative. Blood culture 07/05: NGTD Endocrine:, SSI for glycemic control if needed. Heme: Follow CBC, coags- on Heparin drip Prophylaxis: SCDs, heparin drip. Level 2 El Adamson MD Jul 09, 2017 10:40
[2017-07-09 11:02] LABS: AUTOMATED NEUTROPHIL # 4.4 TH/MM3 (1.8-7.7); BASOPHIL % 0.2 % (0.0-2.0); EOSINOPHIL % 0.4 % (0.0-4.0); HEMATOCRIT 33.2 % (39.0-51.0); HEMOGLOBIN 11.4 GM/DL (13.0-17.0); LYMPHOCYTE # 0.4 TH/MM3 (1.0-4.8); MEAN CELL VOLUME 109.7 FL (80.0-100.0); MEAN CORPUSCULAR HEMOGLOBIN 37.5 PG (27.0-34.0); MEAN CORPUSCULAR HGB CONC 34.2 % (32.0-36.0); MEAN PLATELET VOLUME 10.3 FL (7.0-11.0); MONO % 9.9 % (0.0-8.0); MONOCYTE # 0.5 TH/MM3 (0-0.9); NEUT % 82.5 % (16.0-70.0); PLATELET COUNT 70 TH/MM3 (150-450); RED BLOOD COUNT 3.03 MIL/MM3 (4.50-5.90); RED CELL DISTRIBUTION WIDTH 16.4 % (11.6-17.2); WHITE BLOOD COUNT 5.3 TH/MM3 (4.0-11.0)
[2017-07-09] MEDS: GELATIN 12 MM/7 MM FOAM TOP PRN (11:11)
--- NOTE | 2017-07-09 11:11 | HHI.NPPN ---
Subjective General Problems: Anemia, Edema, Heart Disease, Hypertension Renal Failure: End Stage Renal Disease History of Present Illness 67-year-old male with a medical history significant for Hypertension, CVA, Atrial fibrillation, and CKD stage four approaching stage 5, with left arm AV fistula placed 10 years ago but has not needed dialysis. He presented yesterday to [facility] and left against advise. Patient then presented to [place]. Creat is elevated at 10.47 and BUN of 40. Also reports minimal urinary output. Additional Remarks Patient is alert, no SOB , seen during HD, still has tachycardia. Review of Systems General Constitutional: Fatigue Respiratory Lungs: SOB Cardiovascular Cardiac: YUAN Objective Data Data Vital Signs Date Time Temp Pulse Resp B/P (MAP) Pulse Ox O2 Delivery O2 Flow Rate FiO2 07/09/17 10:35 133 125/83 07/09/17 08:00 114 07/09/17 07:59 95 21 07/09/17 06:00 123 07/09/17 04:00 124 07/09/17 04:00 98.2 124 16 138/98 (111) 99 07/09/17 02:00 123 07/09/17 01:27 122 134/89 07/09/17 00:00 98.1 123 16 131/95 (107) 94 07/09/17 00:00 123 07/08/17 23:49 122 140/95 07/08/17 22:00 120 07/08/17 20:37 94 21 07/08/17 20:00 119 132/92 07/08/17 20:00 119 132/92 07/08/17 20:00 119 07/08/17 20:00 97.5 119 16 132/92 (105) 93 07/08/17 19:01 118 131/82 07/08/17 16:00 98.2 117 15 108/78 (88) 95 07/08/17 12:00 98.2 114 19 126/86 (99) 93 -: 07/09/17 1040 07/09/17 0422 Physical Exam General Appearance: No Acute Distress, Comfortable Eyes Eye Exam: Pupils Equal Neck Neck Exam: Neck Supple Pulmonary Resp Exam: Breath Sounds Equal, Crackles, Rhonchi, Decreased Bases, Diminished Breath Sounds Cardiology CV Exam: Irregular, Tachycardia Gastrointestinal/Abdomen GI Exam: Soft, Non-Tender, Bowel Sounds Present, Distended Extremeties Extremities Exam: Trace Edema Neurologic Neuro Exam: Alert, Awake, Oriented Psychiatric Psych Exam: Appropriate Responses Assessment/Plan Assessment Summary: Anemia of CKD, Hypertension, End Stage Renal Disease Problem List: (1) End stage renal failure on dialysis ICD Codes: N18.6 - End stage renal disease; Z99.2 - Dependence on renal dialysis (2) Congestive heart failure ICD Codes: I50.9 - Congestive heart failure Status: Acute (3) Hypertension ICD Codes: I10 - Hypertension Status: Chronic (4) Anemia ICD Codes: D64.9 - Anemia, unspecified Status: Acute (5) Anemia ICD Codes: D64.9 - Anemia, unspecified (6) COPD Status: Acute (7) Atrial fibrillation ICD Codes: I48.91 - Atrial fibrillation Status: Acute Plan Patient was started on HD. He has advance stage 5 chronic kidney disease. AVF is working, and the BP is stable. Follow Hgb, on Epogen, check iron study. On Phsolo as Po4 slightly elevated. Check PTH. HD to continue 3 times a week. Out patient HD arrangements. Still tachycardic, for ablation procedure today. HD now, remove fluid as tolerated. Problem Qualifiers (1) Hypertension: Qualified Codes: I10 - Essential (primary) hypertension Marianne Elise MD Jul 09, 2017 11:11
[2017-07-09] MEDS: EPOETIN ALFA 10,000 UNITS/ML VIAL IV PUSH PRN (11:12)
[2017-07-09 11:37] LABS: INTERNATIONAL NORMALIZED RATIO 1.2 RATIO; PROTHROMBIN TIME - PATIENT 11.9 SEC (9.8-11.6)
[2017-07-09 11:53] LABS: BANDS 1 % (0-6); CORRECTED NUCLEATED RBC 6 /100 WBC (0-0); LYMPHOCYTES 5 % (9-44); MONOCYTES 9 % (0-8); NEUTROPHIL # MANUAL DIFF 4.6 TH/MM3 (1.8-7.7); NUCLEATED RED BLOOD CELL 6 (0-0); POLYS (SEG NEUTROPHILS) 85 % (16-70)
[2017-07-09 12:00] LABS: OVALOCYTES 1+ (NORMAL)
[2017-07-09] MEDS ORDERED: PHENYLEPH/NS 1000 MCG/10 ML SYR IV ONE (12:00)
[2017-07-09] MEDS ORDERED: PROPOFOL 200 MG/20 ML AMP IV ONE (12:00)
[2017-07-09] MEDS ORDERED: METOPROLOL TARTRATE 5 MG/5 ML VIAL IV PUSH ONE (12:00)
[2017-07-09] MEDS ORDERED: PHENYLEPHRINE HCL 10 MG/ML VIAL IV ONE (12:00)
[2017-07-09] MEDS ORDERED: NEOSTIGMINE 5 MG/5 ML SYRINGE IV PUSH ONE (12:00)
[2017-07-09] MEDS ORDERED: ROCURONIUM INJ 50 MG/5 ML SYRINGE IV PUSH ONE (12:00)
[2017-07-09] MEDS ORDERED: SUCCINYLCHOLINE CHLORIDE 100 MG/5 ML SYRINGE IV PUSH ONE (12:00)
[2017-07-09] MEDS ORDERED: LIDOCAINE HCL 1% PF 5 ML SYRINGE OTHER ONE (12:00)
[2017-07-09] MEDS ORDERED: GLYCOPYRROLATE 1 MG/5 ML SYRINGE IV PUSH ONE (12:00)
[2017-07-09] MEDS ORDERED: ONDANSETRON HCL 4 MG/2 ML VIAL IV ONE (12:00)
[2017-07-09] MEDS ORDERED: ePHEDrine/NS 25 MG/5 ML SYRINGE IV ONE (12:00)
[2017-07-09 12:03] LABS: KERATOCYTES OCC (NORMAL)
[2017-07-09 12:03] LABS: CALCIUM 8.8 MG/DL (8.5-10.1); CREATININE 3.51 MG/DL (0.60-1.30)
[2017-07-09] MEDS ORDERED: HEPARIN-NS/PF INJ 2,000 ML ONE (14:10)
[2017-07-09] MEDS ORDERED: LEVOFLOXACIN 500 MG IV ONE (14:11)
[2017-07-09] MEDS ORDERED: FUROSEMIDE 40 MG/4 ML VIAL ONE (14:29)
[2017-07-09] MEDS ORDERED: PROTAMINE SULFATE 50 MG/5 ML VIAL ONE (14:29)
--- NOTE | 2017-07-09 14:42 | PD.CARD.PN ---
Subjective Subjective Remarks alert in nad Objective Medications Current Medications Medications (Trade) Dose Ordered Sig/Denice Route Start Time Stop Time Status Last Admin (NS Flush) 2 ml UNSCH PRN IVF 07/05/17 18:00 Diltiazem HCl 125 mg/Sodium Chloride 125 ml @ 5 mls/hr TITRATE PRN IV 07/05/17 18:45 07/08/17 23:49 (NS Flush) 2 ml BID IV FLUSH 07/05/17 21:00 07/08/17 22:22 (Tylenol) 650 mg Q6H PRN PO 07/05/17 20:00 (Zofran Inj) 4 mg Q6H PRN IV PUSH 07/05/17 20:00 (Reglan Inj) 5 mg Q6H PRN IV PUSH 07/05/17 20:00 (Albuterol Neb) 2.5 mg Q6HR NEB PRN INH 07/05/17 20:00 (Atrovent Neb) 0.5 mg Q6HR NEB INH 07/05/17 22:00 07/09/17 07:58 (Heparin Inj) 5,000 units Q8H SQ 07/05/17 22:00 Future Hold 07/06/17 13:31 Miscellaneous Information 1 Q361D XX 07/05/17 20:00 07/06/17 20:00 (Chlorhexidine 2% Cloth) 3 pack Taper DAILY@04 TOP 07/06/17 04:00 07/02/18 03:59 07/09/17 04:00 (Chlorhexidine 2% Cloth) 3 pack UNSCH PRN TOP 07/05/17 20:00 (Milk Of Magnesia Liq) 30 ml Q12H PRN PO 07/05/17 20:00 (Senokot) 17.2 mg Q12H PRN PO 07/05/17 20:00 (Dulcolax Supp) 10 mg DAILY PRN RECTAL 07/05/17 20:00 (Lactulose Liq) 30 ml DAILY PRN PO 07/05/17 20:00 Amiodarone HCl 450 mg/Sodium Chloride 250 ml @ 33.33 mls/ hr Q7H31M PRN IV 07/05/17 20:45 07/09/17 10:35 (Zithromax) 500 mg DAILY PO 07/05/17 20:45 07/08/17 10:12 Cefepime HCl 1000 mg/Sodium Chloride 100 ml @ 200 mls/hr DAILY@1800 IV 07/06/17 18:00 07/08/17 17:14 Sodium Chloride 1,000 ml @ 0 mls/hr Q0M PRN OTHER 07/06/17 09:57 (Heparin Inj) 8,000 units UNSCH PRN IV FLUSH 07/06/17 10:00 Sodium Chloride 1,000 ml @ 200 mls/hr Q5H PRN IV 07/06/17 09:57 Sodium Chloride 1,000 ml @ 0 mls/hr Q0M PRN OTHER 07/06/17 09:57 (Mannitol Inj) 12.5 gm UNSCH PRN IV 07/06/17 10:00 Albumin Human 100 ml @ 60 mls/hr UNSCH PRN IV 07/06/17 10:00 (NS Flush) 5 ml UNSCH PRN IV FLUSH 07/06/17 10:00 (Heparin Inj) UNSCH PRN .XX 07/06/17 10:00 (Gentamicin (Dialysis) Inj) 20 mg UNSCH PRN OTHER 07/06/17 10:00 (Zofran Inj) 4 mg UNSCH PRN IV PUSH 07/06/17 10:00 (Tylenol) 650 mg UNSCH PRN PO 07/06/17 10:00 (Benadryl) 25 mg UNSCH PRN PO 07/06/17 10:00 (Nitrostat Sl) 0.4 mg UNSCH PRN SL 07/06/17 10:00 (Catapres) 0.1 mg UNSCH PRN PO 07/06/17 10:00 (Epogen Inj) 10,000 units UNSCH PRN IV PUSH 07/06/17 10:00 07/09/17 11:12 (Gelfoam 12 Mm/7 Mm Top) 1 foam UNSCH PRN TOP 07/06/17 10:00 07/09/17 11:11 (Cardizem) 90 mg Q6H PO 07/06/17 15:30 07/09/17 04:34 (Lopressor) 25 mg Q6H PO 07/06/17 22:00 07/09/17 04:34 (Lopressor Inj) 5 mg Q2H PRN IV PUSH 07/06/17 15:30 07/08/17 00:57 Heparin Sodium/ Dextrose 250 ml @ 17 mls/hr TITRATE PRN IV 07/06/17 19:00 07/08/17 17:52 (Phoslo) 667 mg TID PO 07/07/17 13:00 07/08/17 17:13 (Nephrocaps) 1 cap DAILY PO 07/07/17 10:30 07/08/17 10:12 Vital Signs / I&O Vital Signs Date Time Temp Pulse Resp B/P (MAP) Pulse Ox O2 Delivery O2 Flow Rate FiO2 07/09/17 10:35 133 125/83 07/09/17 08:00 114 07/09/17 07:59 95 21 07/09/17 06:00 123 07/09/17 04:00 124 07/09/17 04:00 98.2 124 16 138/98 (111) 99 07/09/17 02:00 123 07/09/17 01:27 122 134/89 07/09/17 00:00 98.1 123 16 131/95 (107) 94 07/09/17 00:00 123 07/08/17 23:49 122 140/95 07/08/17 22:00 120 07/08/17 20:37 94 21 07/08/17 20:00 119 132/92 07/08/17 20:00 119 132/92 07/08/17 20:00 119 07/08/17 20:00 97.5 119 16 132/92 (105) 93 07/08/17 19:01 118 131/82 07/08/17 16:00 98.2 117 15 108/78 (88) 95 I/O 07/08/17 07/08/17 07/08/17 07/09/17 07/09/17 07/09/17 07:00 15:00 23:00 07:00 15:00 23:00 Intake Total 863 ml 580 ml 100 ml Output Total 160 ml 250 ml 325 ml 4000 ml Balance 703 ml 330 ml -225 ml -4000 ml Intake Oral 300 ml 480 ml IV Total 563 ml 100 ml 100 ml Output Urine Total 160 ml 250 ml 325 ml Hemodialysis 4000 ml # Bowel Movements 1 2 Laboratory GENERAL: SKIN: Warm and dry. HEAD: Normocephalic. EYES: No scleral icterus. No injection or drainage. NECK: Supple, trachea midline. No JVD or lymphadenopathy. CARDIOVASCULAR: Regular rate and rhythm without murmurs, gallops, or rubs. RESPIRATORY: Breath sounds equal bilaterally. No accessory muscle use. GASTROINTESTINAL: Abdomen soft, non-tender, nondistended. MUSCULOSKELETAL: No cyanosis, or edema. BACK: Nontender without obvious deformity. No CVA tenderness. Laboratory Tests Test 07/08/17 22:44 07/09/17 04:22 07/09/17 10:40 07/09/17 11:00 Activated Partial Thromboplast Time 41.8 SEC 36.6 SEC 49.7 SEC White Blood Count 4.9 TH/MM3 5.3 TH/MM3 Red Blood Count 2.76 MIL/MM3 3.03 MIL/MM3 Hemoglobin 10.6 GM/DL 11.4 GM/DL Hematocrit 30.2 % 33.2 % Mean Corpuscular Volume 109.5 FL 109.7 FL Mean Corpuscular Hemoglobin 38.3 PG 37.5 PG Mean Corpuscular Hemoglobin Concent 35.0 % 34.2 % Red Cell Distribution Width 16.7 % 16.4 % Platelet Count 69 TH/MM3 70 TH/MM3 Mean Platelet Volume 9.5 FL 10.3 FL Prothrombin Time 12.0 SEC 11.9 SEC Prothromb Time International Ratio 1.2 RATIO 1.2 RATIO Blood Urea Nitrogen 68 MG/DL 37 MG/DL Creatinine 5.75 MG/DL 3.51 MG/DL Random Glucose 117 MG/DL 112 MG/DL Total Protein 6.9 GM/DL Albumin 2.7 GM/DL Calcium Level 8.9 MG/DL 8.8 MG/DL Alkaline Phosphatase 67 U/L Aspartate Amino Transf (AST/SGOT) 10 U/L Alanine Aminotransferase (ALT/SGPT) 19 U/L Total Bilirubin 1.7 MG/DL Sodium Level 137 MEQ/L 137 MEQ/L Potassium Level 3.0 MEQ/L 3.2 MEQ/L Chloride Level 101 MEQ/L 99 MEQ/L Carbon Dioxide Level 25.3 MEQ/L 28.0 MEQ/L Anion Gap 11 MEQ/L 10 MEQ/L Estimat Glomerular Filtration Rate 12 ML/MIN 21 ML/MIN Neutrophils (%) (Auto) 82.5 % Lymphocytes (%) (Auto) 7.0 % Monocytes (%) (Auto) 9.9 % Eosinophils (%) (Auto) 0.4 % Basophils (%) (Auto) 0.2 % Neutrophils # (Auto) 4.4 TH/MM3 Lymphocytes # (Auto) 0.4 TH/MM3 Monocytes # (Auto) 0.5 TH/MM3 Eosinophils # (Auto) 0.0 TH/MM3 Basophils # (Auto) 0.0 TH/MM3 CBC Comment AUTO DIFF Differential Total Cells Counted 100 Neutrophils % (Manual) 85 % Band Neutrophils % 1 % Lymphocytes % 5 % Monocytes % 9 % Neutrophils # (Manual) 4.6 TH/MM3 Nucleated Red Blood Cells 6 /100 WBC Differential Comment FINAL DIFF MANUAL Platelet Estimate LOW Platelet Morphology Comment NORMAL Ovalocytes 1+ Keratocytes OCC Blood Smear Pathologist Review Test 07/09/17 12:39 Activated Partial Thromboplast Time 52.7 SEC Assessment and Plan Problem List: (1) Atrial fibrillation ICD Codes: I48.91 - Atrial fibrillation Status: Acute (2) NSTEMI (non-ST elevated myocardial infarction) ICD Codes: I21.4 - Non-ST elevation (NSTEMI) myocardial infarction (3) Chronic kidney disease (CKD) stage G4/A1, severely decreased glomerular filtration rate (GFR) between 15-29 mL/min/1.73 square meter and albuminuria creatinine ratio less than 30 mg/g ICD Codes: N18.4 - Chronic kidney disease (CKD) stage G4/A1, severely decreased glomerular filtration rate (GFR) between 15-29 mL/min/1.73 square meter and albuminuria creatinine ratio less than 30 mg/g Status: Chronic (4) Hepatitis C ICD Codes: B19.20 - Unspecified viral hepatitis C without hepatic coma Status: Acute (5) Anemia ICD Codes: D64.9 - Anemia, unspecified Status: Acute Assessment and Plan 1.) Afib rvr - rvr somewhat due to anemia, eps per Dr Gonzales, hgb unstable, needs work up to consider risks/benefits of shelter ac, ac with coumadin or noac indicated if no contraindiactions due to chadsvasc score = 4, currently on iv heparin Dwayne Garcia MD Jul 09, 2017 14:42
[2017-07-09] MEDS ORDERED: ISOPROTERENOL HCL 1 MG/5 ML AMP ONE (15:38)
[2017-07-09] MEDS ORDERED: ONDANSETRON HCL 4 MG/2 ML VIAL IV PUSH PRN (16:30)
[2017-07-09] MEDS ORDERED: BACITRACIN OINT 0.9 GM PKT TOP ONE (16:30)
[2017-07-09] MEDS ORDERED: SODIUM CHLOR 0.9% 250 ML INJ 250 ML IV PRN (16:30)
[2017-07-09] MEDS ORDERED: LORazepam 2 MG/ML VIAL IV PUSH PRN (16:30)
[2017-07-09] MEDS ORDERED: METOCLOPRAMIDE HCL 10 MG/2 ML VIAL IV PUSH PRN (16:30)
[2017-07-09] MEDS ORDERED: LIDOCAINE HCL 1% 30 ML VIAL INFIL PRN (16:30)
[2017-07-09] MEDS ORDERED: oxyCODONE/ACETAMINOPHEN 5 MG/325 MG TAB PO PRN ×2 (16:30)
[2017-07-09] MEDS ORDERED: ATROPINE SULFATE 1 MG/ML VIAL IV PUSH PRN (16:30)
--- NOTE | 2017-07-09 16:34 | CATHPROC ---
Patient Name: SAMRA BERKOWITZ Study #: [id number] Initial MD: Jonny Gonzales Date of : 1950 Study Date: 07/09/2017 Cardiac Catheterization Report 07/09/2017 4:36:21 PM Financial #: [id number] 1 of 10 Patient Name: SAMRA BERKOWITZ Study #: [id number] Initial MD: Jonny Gonzales Date of : 1950 Study Date: 07/09/2017 Entire Case Report Patient Information Patient Name SAMRA BERKOWITZ Date of 1950 Age 67 years Financial # [id number] Gender M AlternateID Lab Number 2 Room Number 508 Height (in) 73.0 Height (cm) 185.4 BSA 2.23 Weight (lbs) 216.3 Weight (kg) 98.3 Patient Address/Phone Number Home Address [facility] Home Phone Number [address] [facility] [address] Study Information Study Number Admission Scheduled Start Study Start [id number] Jul 05 2017 7:23PM 07/09/2017 Jul 09 2017 1:40PM [place] Service Electrophysiology Study Admit Source Facility Department Other [facility] - Welding Machine Operator Plasma Arc Physician and Clinical Staff Initial Jonny Wilkins Chain Carrier Esteban Dugan,RT(R) Other Anesthesia, POWERHOUSE OILER Recorder April Pond,BRITANY Recorder Pily Wong,BRITANY Scrub Kelly Shirley RCIS Procedures Performed Procedure Location (Site) Vessel Name ICE CATHETER INSERT RA Atruim RF Ablation LT. ATRIUM LT. ATRIUM 07/09/2017 4:36:21 PM Financial #: [id number] 2 of 10 Patient Name: SAMRA BERKOWITZ Study #: [id number] Initial MD: Jonny Gonzales Date of : 1950 Study Date: 07/09/2017 Equipment Time Manager Continuous Improvement Description Size Mfg Part Number Used/Scraped NEEDLE, TRANSSEPTAL NR 98 [id number] 13:43 [facility] Used C1 *[id number] [employer]/ EP [id number] 13:43 KIT, TRANSDUCER / AFIB Used PACER *[id number]- CATHETER, TACTICATH ABLAT BUNDLE 13:43 BUN[employer] Used 65 BUNDLE *[id number]- BUNDLE [id number] CATHETER, FR7 OPTIMA SPIRAL 13:43 [employer]UN[facility] FR7 *[id number]- Used BUNDLE BUNDLE [id number] 13:43 [employer] CATHETER, JSN, QUAD BUNDLE FR 5 *[id number]- Used BUNDLE [id number] 13:43 [employer]UN[employer] CATHETER, JSN, QUAD BUNDLE FR 5 *[id number]- Used BUNDLE 06578-SQOVUX SET, COOL POINT TUBING 13:43 [employer]UND[employer] *[id number]- Used BUNDLE BUNDLE SHEATH, FR8.5 STEERABLE SM 13:43 BUND[employer] 71CM [id number] Used 71CM BUNDLE COVER, TRANSDUCER CABLE 612-113 13:43 [employer] Used ACUNAV *[id number] 13:43 CORDIS/PACER SHEATH, FR10 QING 11CM FR 10 Used *[id number] 13:43 CORDIS/PACER SHEATH, FR9 QING 11CM FR 9 [id number] Used [id number] 13:43 [employer] PACK, CCL CUSTOM * Used *[id number] 13:43 MEDLINE PACER FISHER, LIMB * 2530 *[id number] Used [id number] 13:43 Conjur MEDICAL SHEATH, FR4.5 PRELUDE 11CM FR 4.5 Used [id number] 13:43 NAMIC TUBING, HIGH PRESSURE 48" 48" Used *[id number] 13:43 NAMIC TUBING, HIGH PRESSURE 48" 48" Used *[id number] 13:43 [employer] BLANKET,WARM AIR CCL * Used *[id number] DL1775 13:43 [facility] MEDICAL ELECTRODE KIT, CODI X SURFACE * Used *[id number] 184609 13:43 [facility] MEDICAL SHEATH, EPS, FR6 FAST CATH FR 6 Used *[id number] 13:43 [facility] MEDICAL SHEATH, EPS, FR7 FAST CATH FR 7 [id number] Used 655439 13:43 [facility] MEDICAL SHEATH, EPS, FR8 FAST CATH FR 8 Used *[id number] CATHETER, ACUNAV FR10 ICE [id number] 15:30 JACOBO FR 10 Used (JACOBO) *[id number] [facility] PAD, ELECTROSURGICAL 13:43 * [id number] *[id number] Used SURGICAL GROUNDING (BLUE) 07/09/2017 4:36:21 PM Financial #: [id number] 3 of 10 Patient Name: SAMRA BERKOWITZ Study #: [id number] Initial MD: Jonny Gonzales Date of : 1950 Study Date: 07/09/2017 Insurance Information Insurance Payor [facility], Private Health Insurance Third Green Party Third Green Party Number NF [facility] History: Allergies Allergy Reaction No Known Allergies History: Risk Factors Hypertension Dyslipidemia Previous Heart Failure Yes Yes Yes Prior PCI Yes Cerebrovascular Chronic Lung Disease Disease Yes Yes Labs Hgb (g/dl) Hct (%) RBC (MIL/MM3) WBC (l/cumm) Platelets (thousands) 11.60-17.00 35.00-51.00 4.00-5.90 4.00-11.00 150.00-450.00 10.0 30 2.8 4.9 69 Glucose (mg/dl) BUN (mg/dl) Creatinine (mg/dl) BUN:Creatinine (1:x) 74.00-106.00 7.00-18.00 0.50-1.30 10.00-20.00 117 68 5.7 11.9 Na (meq/l) K (meq/l) 136.00-145.00 3.50-5.10 137 3 INR (PTT:PT) 0.90-1.10 1.2 Medication Medication Total Dose (Bolus/Oral) Medication Total Dosage/Unit 1% XYLOCAINE 40 mL HEPARIN 33767 units 07/09/2017 4:36:21 PM Financial #: [id number] 4 of 10 Patient Name: SAMRA BERKOWITZ Study #: [id number] Initial MD: Jonny Gonzales Date of : 1950 Study Date: 07/09/2017 Medications (Bolus/Oral) Medication Time Given Dosage/Unit Administered By Reason 1% XYLOCAINE 07/09/2017 3:21:26 PM 20 mL Jonny Gonzales 20 mL 1% XYLOCAINE given in lab by Jonny Gonzales in Left Groin via Subcutaneous. 1% XYLOCAINE 07/09/2017 3:22:24 PM 20 mL Jonny Gonzales 20 mL 1% XYLOCAINE given in lab by Jonny Gonzales in Right Groin via Subcutaneous. HEPARIN 07/09/2017 3:31:06 PM 8000 units Anesthesia, POWERHOUSE OILER 8000 units HEPARIN given in lab by Anesthesia, POWERHOUSE OILER via Peripheral IV. Ordered by Jonny Gonzales. HEPARIN 07/09/2017 3:54:12 PM 2000 units Anesthesia, POWERHOUSE OILER 2000 units HEPARIN given in lab by Anesthesia, POWERHOUSE OILER via Peripheral IV. Ordered by Jonny Gonzales. Medication (Drip) Medication Time Given Dosage/Unit Concentration/Unit Diluent (ml) Solution HEPARIN DRIP 07/09/2017 3:54:30 PM 1000 units/hr 84653 units 250 D5W 1000 units/hr HEPARIN DRIP given in lab by Anesthesia, POWERHOUSE OILER via Peripheral IV. Pump/Drip Flow = 10 ml /hr using [place] [address] units in 250 ml. Ordered by Jonny Gonzales. HEPARIN DRIP STOPPED 07/09/2017 2:07:00 PM 10 units/hr 0 D5W 10 units/hr HEPARIN DRIP STOPPED given in lab by Jonny Gonzales. Pump/Drip Flow = 0 ml/hr using D5W. ISUPREL 07/09/2017 4:01:17 PM 10 mcg/min 1 mg 250 NaCl .9 10 mcg/min ISUPREL given in lab by Anesthesia, POWERHOUSE OILER via Peripheral IV. Pump/Drip Flow = 150 ml/hr usi ng NaCl .9 with a concentration of 1 mg in 250 ml. Ordered by Jonny Gonzales. 07/09/2017 4:36:21 PM Financial #: [id number] 5 of 10 Patient Name: SAMRA BERKOWITZ Study #: [id number] Initial MD: Jonny Gonzales Date of : 1950 Study Date: 07/09/2017 Initial Case Assessment Cardiovascular HR Rhythm NIBP Chest Pain 124 af 126/90 0 Edema Present Skin color Skin None Normal Warm Dry Circulatory - Right Pulses Dorsalis Pedis 1 Scale (0,1,2,3,4,d) Circulatory - Left Pulses Dorsalis Pedis 1 Scale (0,1,2,3,4,d) Circulatory - Lower Extremities Color Lower Right Color Lower Left Normal Normal Neurological State Oriented to time-place- Alert Moves all extremities person Respiration - General Respiration Rate SpO2 (%) (B/min) 18 100 07/09/2017 4:36:21 PM Financial #: [id number] 6 of 10 Patient Name: SAMRA BERKOWITZ Study #: [id number] Initial MD: Jonny Gonzales Date of : 1950 Study Date: 07/09/2017 Final Case Assessment Cardiovascular HR Rhythm NIBP Chest Pain 72 SR 128/48 0 Edema Present Skin color Skin None Normal Warm Dry Circulatory - Right Pulses Dorsalis Pedis 1 Scale (0,1,2,3,4,d) Circulatory - Left Pulses Dorsalis Pedis 1 Scale (0,1,2,3,4,d) Neurological State Oriented to time-place- Alert Moves all extremities person Respiration - General Respiration Rate SpO2 (%) (B/min) 18 97 Chronological Log Time Study Chronological Log 14:07:00 10 units/hr HEPARIN DRIP STOPPED given in lab by Jonny Gonzales. Pump/Drip Flow = 0 ml/hr us ing D5W. 14:10:40 Patient arrived via Bed. 14:10:46 Patient Name, D.O.B, / Armband Verified By R.N. 14:10:47 Heparin, amiodarone and cardizem gtts turned off by per Dr Gonzales's order. Arrived w fole y P/I. 14:10:48 Consent signed by the physician and the patient and verified by the Welding Machine Operator Plasma Arc staff. 14:10:51 Pre-op and post- op instructions given; patient acknowledges understanding of instructions. 14:11:00 Verbal Stimulation=2 Physical Stimulation=2 Airway=2 Respiration=2 TOTAL=8. (0=absent, 1=li mited, 2=present) 14:11:06 Anesthesia at bedside. Assumes care of patient. Rob 14:11:14 Patient has been NPO for More than 6Hrs. 14:11:19 Skin Breakdown- none per pt. Left arm w fistula drsg c/d/i 14:11:22 Patient Warmer Placed on the Table. 14:11:27 Disposable Defibrillator Pads Placed On Patient. 07/09/2017 4:36:21 PM Financial #: [id number] 7 of 10 Patient Name: SAMRA BERKOWITZ Study #: [id number] Initial MD: Jonny Gonzales Date of : 1950 Study Date: 07/09/2017 14:11:30 Gerardo Prominences Protected 14:17:34 A # 18 IV was noted in the Antecubital (right). Grade = 0 0.9ns kvo 14:17:35 A # 20 IV was noted in the Forearm (right). Grade = 0 0.9ns kvo 14:17:38 History and physical on the chart or being dictated. Assessment: Initial Case, VS=371 BPM, Rhythm=af, UJFD=403/90 mmhg, Chest Pain=0, Edema=None, Co ariadna=Normal, Skin = Warm, Dry Right Pulses: Daniel Ped=1 Left Pulses: Daniel Ped=1 14:25:00 Lower Right Extremities: Color=Normal Lower Left Extremities: Color=Normal Neurological: State=Alert, Ox3, JOLLY Respiration: Resp=18 B/min, GpT6=531 % 14:34:02 Table restraints applied according to hospital policy 14:34:08 Bilateral groins prepped with 2% chlorhexidine, and draped after a 3 minute waiting time. 14:48:54 Reference ECG taken Time Out. Correct patient, procedure, procedure equipment, site and side verified with physicia n present. Time 15:14:36 concurred by MD, individual staff and POWERHOUSE OILER. Time Out #2 - Consents verified, patient in correct position, all results are labled and displa yed, safety precautions 15:14:38 taken, antibiotics administered. Time out concurred by MD, individual staff and POWERHOUSE OILER in procedu re 15:14:42 Case Start 15:15:10 WILIAN IN PROGRESS 15:18:54 WILIAN COMPLETE 15:21:26 20 mL 1% XYLOCAINE given in lab by Jonny Gonzales in Left Groin via Subcutaneous. 15:21:41 Vascular access was obtained in the Fem Vein (left). 15:21:43 Vascular access was obtained in the Fem Vein (left). 15:21:44 Vascular access was obtained in the Fem Vein (left). 15:21:44 Vascular access was obtained in the Fem Art (left). 15:21:59 A SHEATH, FR4.5 PRELUDE 11CM FR 4.5 was advanced into the Fem Art (left) using the Modified Seldinger technique. 15:22:09 A SHEATH, EPS, FR6 FAST CATH FR 6 was advanced into the Fem Vein (left) using the Modified Seldinger technique. 15:22:17 A SHEATH, EPS, FR7 FAST CATH FR 7 was advanced into the Fem Vein (left) using the Modified Seldinger technique. 15:22:19 A SHEATH, FR10 QING 11CM FR 10 was advanced into the Fem Vein (left) using the Modified S eldinger technique. 15:22:24 20 mL 1% XYLOCAINE given in lab by Jonny Gonzales in Right Groin via Subcutaneous. 15:22:29 Vascular access was obtained in the Fem Vein (right). 15:22:30 A SHEATH, EPS, FR8 FAST CATH FR 8 was advanced into the Fem Vein (right) using the Modified Seldinger technique. A CATHETER, JSN, QUAD BUNDLE FR 5 was advanced vis Fem Vein (left) and placed in the CS. Placem ent was visually 15:22:47 confirmed under fluoroscopy. A CATHETER, JSN, QUAD BUNDLE FR 5 was advanced vis Fem Vein (left) and placed in the HIS. Place ment was 15:22:55 visually confirmed under fluoroscopy. 15:25:28 Reference ECG taken 15:30:12 CATHETER, ACUNAV FR10 ICE (JACOBO) FR 10 Was Postioned. A SHEATH, FR8.5 STEERABLE SM 71CM BUNDLE 71CM was exchanged in the Fem Vein (right). This was n ecessary in 15:30:23 order to accomodate a larger catheter. 15:30:41 BAYLIS NEEDLE INSERTED 07/09/2017 4:36:21 PM Financial #: [id number] Patient Name: SAMRA BERKOWITZ Study #: [id number] Initial MD: Jonny Gonzales Date of : 1950 Study Date: 07/09/2017 15:31:06 8000 units HEPARIN given in lab by Anesthesia, POWERHOUSE OILER via Peripheral IV. Ordered by Christian, Abel nscy. 15:32:27 A eps was advanced to the right atrium and passed through the septal wall to the left atriu m. 15:32:29 BAYLIS NEEDLE REMOVED A CATHETER, FR7 OPTIMA SPIRAL BUNDLE FR7 was advanced vis Fem Vein (right) and placed in the LA . Placement 15:34:09 was visually confirmed under fluoroscopy. 15:44:20 MAPPING IN PROGRESS 15:44:33 Activated Clotting Time Drawn 15:53:57 ACT (Normal Range 90-180) = 325 15:54:12 2000 units HEPARIN given in lab by Anesthesia, POWERHOUSE OILER via Peripheral IV. Ordered by Colten Gonzales. 1000 units/hr HEPARIN DRIP given in lab by Anesthesia, POWERHOUSE OILER via Peripheral IV. Pump/Drip Flow = 10 ml/hr using 15:54:30 D5[place] [address] units in 250 ml. Ordered by Jonny Gonzales. 15:55:37 MAPPING CATHETER REMOVED A CATHETER, TACTICATH ABLAT 65 BUNDLE was advanced vis Fem Vein (right) and placed in the LA. P lacement was 15:55:52 visually confirmed under fluoroscopy. 15:56:15 RF Ablation of the LT. ATRIUM with a CATHETER, TACTICATH ABLAT 65 BUNDLE. 15:57:04 SINUS RYTHUM NOTED 10 mcg/min ISUPREL given in lab by Anesthesia, POWERHOUSE OILER via Peripheral IV. Pump/Drip Flow = 150 ml/ hr using NaCl .9 16:01:17 with a concentration of 1 mg in 250 ml. Ordered by Jonny Gonzales. ISUPREL DC'D 16:06:45 FIB RETURNED A CATHETER, TACTICATH ABLAT 65 BUNDLE was advanced vis Fem Vein (right) and placed in the LA. P lacement was 16:07:13 visually confirmed under fluoroscopy. 16:27:19 ACT (Normal Range 90-180) = 136 Assessment: Final Case, HR=72 BPM, Rhythm=SR, QKCM=874/48 mmhg, Chest Pain=0, Edema=None, Color =Normal, Skin = Warm, Dry Right Pulses: Daniel Ped=1 16:28:41 Left Pulses: Daniel Ped=1 Neurological: State=Alert, Ox3, JOLLY Respiration: Resp=18 B/min, SpO2=97 % 16:28:42 Catheter(s) removed without difficulty 16:28:44 Sheath(s) left in place, will be removed in Holding Area 16:28:46 Case End 16:28:47 Sterile dressing applied to site 16:28:48 No case complications noted. 16:28:49 Cine recording checked. 16:28:50 Bedside Report will be given. 16:28:54 PACU called. Spoke to SYED 16:29:42 Patient moved to stretcher 07/09/2017 4:36:21 PM Financial #: [id number] Patient Name: SAMRA BERKOWITZ Study #: [id number] Initial MD: Jonny Gonzales Date of : 1950 Study Date: 07/09/2017 End Study - Contrast Media Used In Study Contrast Total Opened (mL) Total Used (mL) Total Wasted (mL) Unspecified 0 0 0 End Study - Maximum Contrast Load Max Contrast Load (mL) 86.2 End Study - Radiation Exposure Fluoro Time (minutes) 2.3 End Study - Patient Disposition Complications Transferred To Interventional Outcome No Telemetry Bed successful 07/09/2017 4:36:21 PM Financial #: [id number]
--- NOTE | 2017-07-09 16:48 | PD.CARD ---
Atrial Fibrillation Ablation PROCEDURE DATE: Jul 09, 2017 PROCEDURES PERFORMED: 1. Electrophysiology study on Isuprel infusion 2. CS cannulation 3. 3-D mapping 4. Transseptal approach 5. Right and left heart catheterization 6. Intracardiac echo 7. Radiofrequency ablation of atrial fibrillation 8. Pulmonary vein isolation 9. Posterior wall ablation 10. Mitral valve isolation 11. Mitral line creation 12. Left atrial tachycardia ablation 13. Roof line creation 14. Floor line creation 15. Anterior wall ablation INDICATIONS FOR THE PROCEDURE Mr. Figueroa is a 67-year-old male with atrial fibrillation, very symptomatic, heart rate unable to control with medications, on anticoagulation, referred for electrophysiology study and ablation. The risks, the nature and the benefits of the procedure were clearly stated to him. The risks include pneumothorax, cardiac perforation, stroke, need for open heart surgery and even . The patient understood and agreed to proceed. DESCRIPTION OF THE PROCEDURE IN DETAIL After written informed consent was obtained prior to esophageal echocardiogram, the patient was kept on the table where he was prepped and draped in the usual sterile fashion. Conscious sedation was initiated and maintained throughout the procedure by the anesthesiologist. Once sedation was verified, the right and left inguinal areas were anesthetized with 2% Xylocaine. Using modified Seldinger technique, the left femoral vein was cannulated on three occasions, three guidewires were advanced. Over the wire a 6, 7 and a 10-Prydeinig Hemaquet were advanced. Then the left femoral artery was cannulated on one occasion, one guidewire was advanced. Over the wire a 4-Prydeinig Hemaquet was advanced. Then the right femoral vein was cannulated on one occasion, one guidewire was advanced. Over the wire a 8-Prydeinig Hemaquet was advanced. Then under fluoroscopic guidance through the 6 and 7-Prydeinig Hemaquet, two 5-Prydeinig Violet curved quadripolar electrophysiology catheters were advanced and placed around the His as well as coronary sinus. Basic interval was measured. The patient was in atrial fibrillation. Through the 10-Prydeinig Hemaquet, a CordSolvonicster AcuNav intracardiac echo catheter was advanced and placed at the right atrium. Multiple view was obtained. There is minimal pericardial effusion, pulmonary vein was seen, atrial septal was visualized. Then the 8- Prydeinig Hemaquet in the right femoral vein was exchanged for Agilis transseptal sheath that was placed all the way to the superior vena cava. Through the sheath a Jennifer needle was advanced, then the sheath, the dilator and the needle were progressed until foci engaged. Once engaged, the needle was advanced. RF was delivered for 2 seconds. I was able to cross into the left atrium. Once the needle crossed, the dilator was advanced. Once the dilator crossed, the sheath was advanced. Once the sheath crossed, the dilator and the needle were removed. At this point I did flood the system and fluid movement was seen in the left atrium the indicates the sheath is in good position. The patient already received 8,000 units of heparin. The goal is to keep an ACT around 350 during ablation. Then through the sheath a [facility]. Mayank 20 pulse circumferential catheter was advanced. Using GuiaBolso endocardial solution mapping system, a two-dimensional configuration of the left atrium was obtained. Points were taken at the left superior and inferior veins, right superior and inferior veins, mitral valve, and appendages. Then through the sheath a St. Mayank TactiCath 65cm 3.5mm irrigated tipped mapping and radiofrequency ablation catheter was advanced. Esophageal probe was placed temperature monitoring during ablation. When it increased to 0.5 degrees Celsius above baseline, I moved to a different area of the atrium. First I did isolate the left superior and inferior vein. Posterior was ablated. Then a roof line was created, a floor line was created, a mitral line was isolated, then the mitral valve was isolated. At that point the patient was in left atrial tachycardia. I did map it. Early activation was located at the posterior wall near by the left inferior vein. I did ablate. tachycardia cycle length prolonged then terminated. Then isuprel was infused. patient went into junctional rhythm. It was pace terminated. Then the right superior and inferior veins were isolated. I did remap the atrium. At that point I did advance the circumferential catheter again into the vein. There was no signal into the vein, pacing from the vein showed no conduction to the atrium. Isuprel infusion was initiated at 10 mcg for 15 minutes. No tachyarrhythmia was induced, post Isuprel no tachyarrhythmia was induced. At that point the procedure was complete. All catheters were removed , atrial septal sheath was exchanged for 9-Prydeinig Hemaquet, intracardiac echo showed no pericardial effusion. There is still good flow in the pulmonary vein. The patient is going to be transferred to the recovery room. No incident report. The patient tolerated the procedure. Blood loss was minimal. FINDINGS 1. Electrocardiogram: At baseline the patient was in atrial fibrillation, post procedure the patient was in sinus rhythm. 2. Basic interval: Base cycle length was around 420. Post ablation she was around 900 milliseconds. AH at 115 and HV at 60 milliseconds. 3. Tachyarrhythmia: Atrial fibrillation was mapped and ablated. Atrial tachycardia was ablated. The ablation was successful. CONCLUSION Successful electrophysiology study, mapping, radiofrequency ablation of atrial fibrillation, left atrial tachycardia, pulmonary vein isolation, posterior ablation, mitral valve isolation, mitral line creation, roof line creation, floor line creation, left atrial tachycardia. COMMENTS AND RECOMMENDATIONS The patient is going to be transferred to the telemetry unit. Will be observed and when stable can be discharged home. Jonny Gonzales MD Jul 09, 2017 16:48
[2017-07-09] MEDS ORDERED: MIDAZOLAM HCL 2 MG/2 ML VIAL ONE (16:59)
[2017-07-09] MEDS ORDERED: DO NOT ADM ANY ANTICOAGULANT DRUGS PRN (17:00)
[2017-07-09] MEDS: AMIODARONE 200 MG TAB PO SCH (17:45)
--- NOTE | 2017-07-09 18:02 | EKG ---
Date Performed: 07/09/2017 Time Performed: 17:33:22 PTAGE: 67 years EKG: Sinus rhythm WITH OCCASIONAL SUPRAVENTRICULAR PREMATURE COMPLEXES RIGHT BUNDLE BRANCH BLOCK ABNORMAL ECG Compared to prior electrocardiogram, Normal sinus rhythm has replaced atrial fibrillation PREVIOUS TRACING : 07/05/2017 17.42 DOCTOR: Patricio Calloway Interpretating Date/Time 07/09/2017 18:00:08
[2017-07-09] MEDS: CEFEPIME INJ 1,000 MG in SODIUM CHLORIDE 0.9% INJ 100 ML IV SCH (21:00)
[2017-07-09] MEDS: APIXABAN 5 MG TABLET PO SCH (21:00)
[2017-07-10] VITALS (11 sets, daily range): BP systolic 118–154; BP diastolic 71–86; PULSE 67–91; RESP 14–19; TEMP 98.2–98.7; O2SAT 86–100
[2017-07-10] MEDS: RESP: IPRATROPIUM 0.5 MG/2.5 ML NEB INH SCH ×4 (03:47→21:16)
[2017-07-10] MEDS: CHLORHEXIDINE GLUCONATE 2 % 1 PACK (2 CLOTHS) TOP SCH (04:00)
[2017-07-10] MEDS: AMIODARONE 200 MG TAB PO SCH ×2 (05:37→18:41)
[2017-07-10 07:54] LABS: AUTOMATED NEUTROPHIL # 3.7 TH/MM3 (1.8-7.7); BASOPHIL % 0.1 % (0.0-2.0); EOSINOPHIL % 0.6 % (0.0-4.0); HEMATOCRIT 25.9 % (39.0-51.0); HEMOGLOBIN 9.1 GM/DL (13.0-17.0); LYMPHOCYTE # 0.5 TH/MM3 (1.0-4.8); MEAN CELL VOLUME 110.3 FL (80.0-100.0); MEAN CORPUSCULAR HEMOGLOBIN 38.7 PG (27.0-34.0); MEAN CORPUSCULAR HGB CONC 35.1 % (32.0-36.0); MEAN PLATELET VOLUME 10.1 FL (7.0-11.0); MONO % 12.8 % (0.0-8.0); MONOCYTE # 0.6 TH/MM3 (0-0.9); NEUT % 75.5 % (16.0-70.0); PLATELET COUNT 57 TH/MM3 (150-450); RED BLOOD COUNT 2.35 MIL/MM3 (4.50-5.90); RED CELL DISTRIBUTION WIDTH 16.8 % (11.6-17.2); WHITE BLOOD COUNT 4.9 TH/MM3 (4.0-11.0)
[2017-07-10 07:58] LABS: INTERNATIONAL NORMALIZED RATIO 1.2 RATIO; PROTHROMBIN TIME - PATIENT 12.2 SEC (9.8-11.6)
[2017-07-10 08:17] LABS: ALBUMIN 2.4 GM/DL (3.4-5.0); ALKALINE PHOSPHATASE 55 U/L (45-117); ALT (GPT) 14 U/L (12-78); AST (GOT) 14 U/L (15-37); BICARBONATE 26.6 MEQ/L (21.0-32.0); BLOOD UREA NITROGEN 49 MG/DL (7-18); CALCIUM 8.5 MG/DL (8.5-10.1); CHLORIDE 102 MEQ/L (98-107); CREATININE 4.63 MG/DL (0.60-1.30); GLOMERULAR FILTRATION RATE 16 ML/MIN (>89); GLUCOSE,RANDOM 90 MG/DL (74-106); SODIUM (NA) 139 MEQ/L (136-145); TOTAL BILIRUBIN ADULT 1.4 MG/DL (0.2-1.0); TOTAL PROTEIN 6.2 GM/DL (6.4-8.2)
--- NOTE | 2017-07-10 08:21 | HHI.CCPN ---
Subjective Remarks/Hospital Course Hospital Course: 67-year-old male with a medical history significant for diastolic CHF, CKD for which he had a left arm AV fistula placed which is being prepped for dialysis. Patient developed a cough about a week back with some shortness of breath and was seen at [facility] yesterday and diagnosed with a pneumonia. He was advised admission however signed out AMA since he wished to come to [facility]. Following leaving that hospital he went home yesterday and then today presented at [facility] ER with persisting cough and shortness of breath. He was noted to be in A. fib with RVR with ventricular rate going up to the 180s. He was otherwise maintaining BP and O2 sats on 2 L nasal cannula. He has had a poor appetite for the last 1 week as well as minimal diarrhea. Denies any chest pain or abdominal pain. He did have some nausea off and on for the last week. He denies any increasing leg swelling, denies any melena or rectal bleeding dysuria. Urinary frequency or hematuria. Patient was also found to have worsening renal function with creatinine of 10 and BUN greater than 100. Patient was initiated on a Cardizem drip for rate control and was also given digoxin 0.5 mg IV 1 dose. He was accepted for admission by critical care medicine service. When I evaluated the patient in the ER he was sitting up in the ER stretcher on 2 L nasal cannula and did not appear to be in any acute distress except for minimal shortness of breath and cough. 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 In the ER he did receive a dose of antibiotics after blood cultures were obtained. Subjective: 07/06: seen and evaluated around 10am. delayed note entry. patient remains in afib RVR. currently undergoing HD. discussed case with Dr. Hoffmann, plan for volume removal with IHD and see if this will improve rate control. remains on cardizem drip and amiodarone drip. dig loaded overnight. patient subjectively denies complaints. ROS negative. 07/07 Patient is lying in bed in NAD. Afebrile. On Heparin, Cardizem and Amio drips. For HD today. 07/08: Resting in bed comfortably on nasal cannula. Remains in A. fib with RVR on Cardizem and amiodarone drips as well as by mouth Cardizem and Lopressor with IV Lopressor as needed for rapid ventricular response. Has been evaluated by cardiology Dr. Hoffmann however still awaiting EP evaluation by Dr. Gonzales to consider ablation in view of difficult to control A. fib with RVR. 07.09 No events overnight. Receiving HD with 2L goal removal. For possible EP study and ablation this morning by Dr. Gonzales. Remains in Afib with RVR, on Amio and Cardizem drips. 07/10 No events overnight. s/p EP study and radiofrequency ablation yesterday for Afib. s/p HD with removal 4L. Off Amio and Cardizem drips. Objective Vital Signs Date Time Temp Pulse Resp B/P (MAP) Pulse Ox O2 Delivery O2 Flow Rate FiO2 07/10/17 06:00 75 07/10/17 04:00 98.2 19 137/79 (98) 100 07/09/17 21:08 21 07/09/17 17:45 Nasal Cannula 2 Intake and Output 07/10/17 07/10/17 07/11/17 08:00 16:00 00:00 Intake Total 400 ml Output Total 200 ml Balance 200 ml Result Diagram: 07/10/17 0546 07/09/17 1100 Other Results Laboratory Tests Test 07/09/17 10:40 07/09/17 11:00 07/09/17 12:39 07/10/17 05:45 White Blood Count 5.3 TH/MM3 Red Blood Count 3.03 MIL/MM3 Hemoglobin 11.4 GM/DL Hematocrit 33.2 % Mean Corpuscular Volume 109.7 FL Mean Corpuscular Hemoglobin 37.5 PG Mean Corpuscular Hemoglobin Concent 34.2 % Red Cell Distribution Width 16.4 % Platelet Count 70 TH/MM3 Mean Platelet Volume 10.3 FL Neutrophils (%) (Auto) 82.5 % Lymphocytes (%) (Auto) 7.0 % Monocytes (%) (Auto) 9.9 % Eosinophils (%) (Auto) 0.4 % Basophils (%) (Auto) 0.2 % Neutrophils # (Auto) 4.4 TH/MM3 Lymphocytes # (Auto) 0.4 TH/MM3 Monocytes # (Auto) 0.5 TH/MM3 Eosinophils # (Auto) 0.0 TH/MM3 Basophils # (Auto) 0.0 TH/MM3 CBC Comment AUTO DIFF Differential Total Cells Counted 100 Neutrophils % (Manual) 85 % Band Neutrophils % 1 % Lymphocytes % 5 % Monocytes % 9 % Neutrophils # (Manual) 4.6 TH/MM3 Nucleated Red Blood Cells 6 /100 WBC Differential Comment FINAL DIFF MANUAL Platelet Estimate LOW Platelet Morphology Comment NORMAL Ovalocytes 1+ Keratocytes OCC Blood Smear Pathologist Review Prothrombin Time 11.9 SEC Prothromb Time International Ratio 1.2 RATIO Activated Partial Thromboplast Time 49.7 SEC 52.7 SEC Blood Urea Nitrogen 37 MG/DL Creatinine 3.51 MG/DL Random Glucose 112 MG/DL Calcium Level 8.8 MG/DL Sodium Level 137 MEQ/L Potassium Level 3.2 MEQ/L Chloride Level 99 MEQ/L Carbon Dioxide Level 28.0 MEQ/L Anion Gap 10 MEQ/L Estimat Glomerular Filtration Rate 21 ML/MIN Test 07/10/17 05:46 White Blood Count 4.9 TH/MM3 Red Blood Count 2.35 MIL/MM3 Hemoglobin 9.1 GM/DL Hematocrit 25.9 % Mean Corpuscular Volume 110.3 FL Mean Corpuscular Hemoglobin 38.7 PG Mean Corpuscular Hemoglobin Concent 35.1 % Red Cell Distribution Width 16.8 % Platelet Count 57 TH/MM3 Mean Platelet Volume 10.1 FL Neutrophils (%) (Auto) 75.5 % Lymphocytes (%) (Auto) 11.0 % Monocytes (%) (Auto) 12.8 % Eosinophils (%) (Auto) 0.6 % Basophils (%) (Auto) 0.1 % Neutrophils # (Auto) 3.7 TH/MM3 Lymphocytes # (Auto) 0.5 TH/MM3 Monocytes # (Auto) 0.6 TH/MM3 Eosinophils # (Auto) 0.0 TH/MM3 Basophils # (Auto) 0.0 TH/MM3 CBC Comment AUTO DIFF Prothrombin Time 12.2 SEC Prothromb Time International Ratio 1.2 RATIO Activated Partial Thromboplast Time 25.0 SEC Imaging Last Impressions Chest X-Ray 07/06/17 0000 Signed Impressions: Service Date/Time: Thursday, July 06, 2017 03:18 - CONCLUSION: Right base increased density secondary to right effusion with some degree of accompanying atelectasis or consolidation. This is unchanged from the prior exam. Matthew Toro MD Chest CT 07/05/17 0000 Signed Impressions: Service Date/Time: Wednesday, July 05, 2017 22:07 - CONCLUSION: 1. Right greater the left pleural effusions and basilar consolidation. 2. Suspected mildly enlarged right hilar lymph node, nonspecific but no lymphadenopathy seen elsewhere and presumably benign/reactive. 3. Suspected cirrhosis. Small ascites is seen in the upper abdomen. 4. Coronary artery calcification. Matthew Aguila MD Objective Remarks GENERAL: Awake and alert, lying in bed. SKIN: Focused skin assessment warm/dry. HEAD: Atraumatic. Normocephalic. EYES: Pupils equal and round. No scleral icterus. No injection or drainage. ENT: No nasal bleeding or discharge. Dry mucous membranes. NECK: Trachea midline. No JVD. CARDIOVASCULAR: RRR, nl S1, S2 RESPIRATORY: equal chest rise, nc o2. GASTROINTESTINAL: Abdomen soft, non-tender, nondistended. MUSCULOSKELETAL: No obvious deformities. No clubbing. No cyanosis. No edema. NEUROLOGICAL: Awake and alert. No obvious cranial nerve deficits. Motor grossly within normal limits. Normal speech. A/P Assessment and Plan 67-year-old male with: Acute hypoxic respiratory failure - resolved Dyspnea - resolved. A. fib with RVR - persistent, Diastolic CHF exacerbation possible pneumonia TRAM/CKD requiring renal replacement therapy Diarrhea Plan: Neuro: Follow neuro status. Tylenol when necessary for pain. CV: s/p EP study and radiofrequency ablation for Afib yesterday by Dr. Gonzales. Placed on PO AMiodarone 400mg Q12 yesterday. Cards is following- Dr. Hoffmann. On Eliquis 5mg BID Pulmonary: Continue supplemental O2, ipratropium every 6 hourly with albuterol for wheezing if needed. GI/liver: renal diet. Zofran when necessary for nausea vomiting. Renal/: Monitor renal function, avoid nephrotoxins. Renal-Dr. Montaño. s/p HD yesterday with 4L removed ID: Received Vanco/cefepime in ER. Continue cefepime and Zithromax for empiric antibiotic coverage strep pneumo and Legionella antigen negative. Blood culture 07/05: NGTD Endocrine:, SSI for glycemic control if needed. Heme: Follow CBC, coags- on Eliquis 5mg BID Prophylaxis: SCDs, Eliquis Will transfer to [facility] and transfer care to [facility] Level 2 El Adamson MD Jul 10, 2017 08:21
[2017-07-10 08:37] LABS: BANDS 1 % (0-6); CORRECTED NUCLEATED RBC 5 /100 WBC (0-0); LYMPHOCYTES 10 % (9-44); METAMYELOCYTES 1 % (0-1); MONOCYTES 9 % (0-8); MYELOCYTES 1 % (0-0); NUCLEATED RED BLOOD CELL 5 (0-0); POLYS (SEG NEUTROPHILS) 78 % (16-70)
[2017-07-10 08:38] LABS: KERATOCYTES OCC (NORMAL); OVALOCYTES 1+ (NORMAL)
[2017-07-10] MEDS: SODIUM CHLORIDE 0.9% FLUSH 10 ML FLUSH IV FLUSH SCH ×2 (10:51→21:05)
[2017-07-10] MEDS: APIXABAN 5 MG TABLET PO SCH ×2 (10:51→21:05)
[2017-07-10] MEDS: VITAMIN B CMPLX/VITC/FOLIC AC CAP PO SCH (10:52)
[2017-07-10] MEDS: AZITHROMYCIN 250 MG TAB PO SCH (10:52)
[2017-07-10] MEDS: CALCIUM ACETATE 667 MG CAP PO SCH ×4 (10:53→18:40)
--- NOTE | 2017-07-10 11:04 | PD.CARD.PN ---
Subjective Subjective Remarks alert in nad, eating breakfast Objective Medications Current Medications Medications (Trade) Dose Ordered Sig/Denice Route Start Time Stop Time Status Last Admin (NS Flush) 2 ml UNSCH PRN IVF 07/05/17 18:00 (NS Flush) 2 ml BID IV FLUSH 07/05/17 21:00 07/10/17 10:51 (Tylenol) 650 mg Q6H PRN PO 07/05/17 20:00 (Albuterol Neb) 2.5 mg Q6HR NEB PRN INH 07/05/17 20:00 (Atrovent Neb) 0.5 mg Q6HR NEB INH 07/05/17 22:00 07/10/17 09:02 (Heparin Inj) 5,000 units Q8H SQ 07/05/17 22:00 Future Hold 07/06/17 13:31 Miscellaneous Information 1 Q361D XX 07/05/17 20:00 07/06/17 20:00 (Chlorhexidine 2% Cloth) 3 pack Taper DAILY@04 TOP 07/06/17 04:00 07/02/18 03:59 07/10/17 04:00 (Chlorhexidine 2% Cloth) 3 pack UNSCH PRN TOP 07/05/17 20:00 (Milk Of Magnesia Liq) 30 ml Q12H PRN PO 07/05/17 20:00 (Senokot) 17.2 mg Q12H PRN PO 07/05/17 20:00 (Dulcolax Supp) 10 mg DAILY PRN RECTAL 07/05/17 20:00 (Lactulose Liq) 30 ml DAILY PRN PO 07/05/17 20:00 Amiodarone HCl 450 mg/Sodium Chloride 250 ml @ 33.33 mls/ hr Q7H31M PRN IV 07/05/17 20:45 07/09/17 10:35 (Zithromax) 500 mg DAILY PO 07/05/17 20:45 07/10/17 10:52 Cefepime HCl 1000 mg/Sodium Chloride 100 ml @ 200 mls/hr DAILY@1800 IV 07/06/17 18:00 07/09/17 21:00 Sodium Chloride 1,000 ml @ 0 mls/hr Q0M PRN OTHER 07/06/17 09:57 (Heparin Inj) 8,000 units UNSCH PRN IV FLUSH 07/06/17 10:00 Sodium Chloride 1,000 ml @ 200 mls/hr Q5H PRN IV 07/06/17 09:57 Sodium Chloride 1,000 ml @ 0 mls/hr Q0M PRN OTHER 07/06/17 09:57 (Mannitol Inj) 12.5 gm UNSCH PRN IV 07/06/17 10:00 Albumin Human 100 ml @ 60 mls/hr UNSCH PRN IV 07/06/17 10:00 (NS Flush) 5 ml UNSCH PRN IV FLUSH 07/06/17 10:00 (Heparin Inj) UNSCH PRN .XX 07/06/17 10:00 (Gentamicin (Dialysis) Inj) 20 mg UNSCH PRN OTHER 07/06/17 10:00 (Zofran Inj) 4 mg UNSCH PRN IV PUSH 07/06/17 10:00 (Tylenol) 650 mg UNSCH PRN PO 07/06/17 10:00 (Benadryl) 25 mg UNSCH PRN PO 07/06/17 10:00 (Nitrostat Sl) 0.4 mg UNSCH PRN SL 07/06/17 10:00 (Catapres) 0.1 mg UNSCH PRN PO 07/06/17 10:00 (Epogen Inj) 10,000 units UNSCH PRN IV PUSH 07/06/17 10:00 07/09/17 11:12 (Gelfoam 12 Mm/7 Mm Top) 1 foam UNSCH PRN TOP 07/06/17 10:00 07/09/17 11:11 (Lopressor Inj) 5 mg Q2H PRN IV PUSH 07/06/17 15:30 07/08/17 00:57 Heparin Sodium/ Dextrose 250 ml @ 17 mls/hr TITRATE PRN IV 07/06/17 19:00 07/08/17 17:52 (Phoslo) 667 mg TID PO 07/07/17 13:00 07/10/17 10:55 (Nephrocaps) 1 cap DAILY PO 07/07/17 10:30 07/10/17 10:52 (Percocet 5-325 Mg) 1 tab Q4H PRN PO 07/09/17 16:30 (Percocet 5-325 Mg) 2 tab Q4H PRN PO 07/09/17 16:30 (Ativan Inj) 0.5 mg UNSCH PRN IV PUSH 07/09/17 16:30 07/10/17 16:29 (Atropine Inj) 0.5 mg UNSCH PRN IV PUSH 07/09/17 16:30 Sodium Chloride 250 ml @ 500 mls/hr ONCE PRN IV 07/09/17 16:30 07/10/17 16:29 (Reglan Inj) 5 mg Q4H PRN IV PUSH 07/09/17 16:30 (Zofran Inj) 4 mg Q4H PRN IV PUSH 07/09/17 16:30 (Xylocaine 1% Inj) 10 ml UNSCH PRN INFIL 07/09/17 16:30 07/10/17 16:29 (Cordarone) 400 mg Q12H PO 07/09/17 17:00 07/10/17 05:37 (Eliquis) 5 mg BID PO 07/09/17 21:00 07/10/17 10:51 Miscellaneous Information ALL NURSING DEPARTME... UNSCH PRN .XX 07/09/17 17:00 07/10/17 16:59 Vital Signs / I&O Vital Signs Date Time Temp Pulse Resp B/P (MAP) Pulse Ox O2 Delivery O2 Flow Rate FiO2 07/10/17 09:02 100 Nasal Cannula 2.00 07/10/17 06:00 75 07/10/17 04:00 98.2 74 19 137/79 (98) 100 07/10/17 04:00 74 07/10/17 02:00 71 07/10/17 00:00 98.3 67 16 118/72 (87) 86 07/10/17 00:00 67 07/09/17 22:00 89 07/09/17 21:08 97 21 07/09/17 20:00 62 07/09/17 20:00 98.5 62 17 113/68 (83) 96 07/09/17 18:00 62 07/09/17 17:45 97.9 60 18 104/73 (83) 100 Nasal Cannula 2 07/09/17 17:30 60 19 107/60 (76) 100 07/09/17 17:15 60 19 104/68 (80) 99 07/09/17 17:00 60 19 105/70 (82) 99 Nasal Cannula 2 07/09/17 16:48 97.3 63 20 99/65 (76) 99 Nasal Cannula 2 07/09/17 12:00 130 07/09/17 12:00 98.2 130 16 120/86 (97) 97 07/09/17 12:00 130 120/86 07/09/17 12:00 130 120/86 I/O 07/09/17 07/09/17 07/09/17 07/10/17 07/10/17 07/10/17 07:00 15:00 23:00 07:00 15:00 23:00 Intake Total 100 ml 352 ml 600 ml 400 ml Output Total 325 ml 4000 ml 200 ml Balance -225 ml -3648 ml 600 ml 200 ml Intake Oral 400 ml IV Total 100 ml 352 ml 600 ml Output Urine Total 325 ml 200 ml Hemodialysis 4000 ml # Bowel Movements 2 1 Physical Exam GENERAL: SKIN: Warm and dry. HEAD: Normocephalic. EYES: No scleral icterus. No injection or drainage. NECK: Supple, trachea midline. No JVD or lymphadenopathy. CARDIOVASCULAR: Regular rate and rhythm without murmurs, gallops, or rubs. RESPIRATORY: Breath sounds equal bilaterally. No accessory muscle use. GASTROINTESTINAL: Abdomen soft, non-tender, nondistended. MUSCULOSKELETAL: No cyanosis, or edema. BACK: Nontender without obvious deformity. No CVA tenderness. Laboratory Laboratory Tests Test 07/09/17 12:39 07/10/17 05:45 07/10/17 05:46 Activated Partial Thromboplast Time 52.7 SEC 25.0 SEC Blood Urea Nitrogen 49 MG/DL Creatinine 4.63 MG/DL Random Glucose 90 MG/DL Total Protein 6.2 GM/DL Albumin 2.4 GM/DL Calcium Level 8.5 MG/DL Alkaline Phosphatase 55 U/L Aspartate Amino Transf (AST/SGOT) 14 U/L Alanine Aminotransferase (ALT/SGPT) 14 U/L Total Bilirubin 1.4 MG/DL Sodium Level 139 MEQ/L Potassium Level 3.6 MEQ/L Chloride Level 102 MEQ/L Carbon Dioxide Level 26.6 MEQ/L Anion Gap 10 MEQ/L Estimat Glomerular Filtration Rate 16 ML/MIN White Blood Count 4.9 TH/MM3 Red Blood Count 2.35 MIL/MM3 Hemoglobin 9.1 GM/DL Hematocrit 25.9 % Mean Corpuscular Volume 110.3 FL Mean Corpuscular Hemoglobin 38.7 PG Mean Corpuscular Hemoglobin Concent 35.1 % Red Cell Distribution Width 16.8 % Platelet Count 57 TH/MM3 Mean Platelet Volume 10.1 FL Neutrophils (%) (Auto) 75.5 % Lymphocytes (%) (Auto) 11.0 % Monocytes (%) (Auto) 12.8 % Eosinophils (%) (Auto) 0.6 % Basophils (%) (Auto) 0.1 % Neutrophils # (Auto) 3.7 TH/MM3 Lymphocytes # (Auto) 0.5 TH/MM3 Monocytes # (Auto) 0.6 TH/MM3 Eosinophils # (Auto) 0.0 TH/MM3 Basophils # (Auto) 0.0 TH/MM3 CBC Comment AUTO DIFF Differential Total Cells Counted 100 Neutrophils % (Manual) 78 % Band Neutrophils % 1 % Lymphocytes % 10 % Monocytes % 9 % Neutrophils # (Manual) 4.0 TH/MM3 Metamyelocytes 1 % Myelocytes 1 % Nucleated Red Blood Cells 5 /100 WBC Differential Comment FINAL DIFF MANUAL Platelet Estimate LOW Platelet Morphology Comment NORMAL Ovalocytes 1+ Keratocytes OCC Prothrombin Time 12.2 SEC Prothromb Time International Ratio 1.2 RATIO Assessment and Plan Problem List: (1) Atrial fibrillation ICD Codes: I48.91 - Atrial fibrillation Status: Acute (2) NSTEMI (non-ST elevated myocardial infarction) ICD Codes: I21.4 - Non-ST elevation (NSTEMI) myocardial infarction (3) Chronic kidney disease (CKD) stage G4/A1, severely decreased glomerular filtration rate (GFR) between 15-29 mL/min/1.73 square meter and albuminuria creatinine ratio less than 30 mg/g ICD Codes: N18.4 - Chronic kidney disease (CKD) stage G4/A1, severely decreased glomerular filtration rate (GFR) between 15-29 mL/min/1.73 square meter and albuminuria creatinine ratio less than 30 mg/g Status: Chronic (4) Hepatitis C ICD Codes: B19.20 - Unspecified viral hepatitis C without hepatic coma Status: Acute (5) Anemia ICD Codes: D64.9 - Anemia, unspecified Status: Acute Assessment and Plan 1.) Afib rvr - in nsr s/p ablation per Dr Gonzales, anemia and thrombocytopenia needs work up, placed on eliquis due to chadsvasc score = 4 Dwayne Garcia MD Jul 10, 2017 11:04
--- NOTE | 2017-07-10 11:18 | EKG ---
Date Performed: 07/10/2017 Time Performed: 07:26:54 PTAGE: 67 years EKG: Sinus rhythm WITH OCCASIONAL SUPRAVENTRICULAR PREMATURE COMPLEXES RIGHT BUNDLE BRANCH BLOCK ABNORMAL ECG No signi ficant change from prior electrocardiogram. PREVIOUS TRACING : 07/09/2017 17.33 DOCTOR: Patricio Calloway Interpretating Date/Time 07/10/2017 11:17:48
--- NOTE | 2017-07-10 11:58 | HHI.NPPN ---
Subjective General Problems: Anemia, Edema, Heart Disease, Hypertension Renal Failure: End Stage Renal Disease History of Present Illness 67-year-old male with a medical history significant for Hypertension, CVA, Atrial fibrillation, and CKD stage four approaching stage 5, with left arm AV fistula placed 10 years ago but has not needed dialysis. He presented yesterday to [facility] at [place] and left against advise. Patient then presented to [place]. Creat is elevated at 10.47 and BUN of 40. Also reports minimal urinary output. Additional Remarks Patient is alert, no SOB ,feeling better, started eating. Review of Systems General Constitutional: Fatigue Respiratory Lungs: SOB Cardiovascular Cardiac: YUAN Objective Data Data Vital Signs Date Time Temp Pulse Resp B/P (MAP) Pulse Ox O2 Delivery O2 Flow Rate FiO2 07/10/17 09:02 100 Nasal Cannula 2.00 07/10/17 08:00 98.2 72 14 133/74 (93) 100 07/10/17 08:00 72 07/10/17 07:00 72 14 128/71 (90) 100 07/10/17 07:00 72 07/10/17 06:00 75 07/10/17 04:00 98.2 74 19 137/79 (98) 100 07/10/17 04:00 74 07/10/17 02:00 71 07/10/17 00:00 98.3 67 16 118/72 (87) 86 07/10/17 00:00 67 07/09/17 22:00 89 07/09/17 21:08 97 21 07/09/17 20:00 62 07/09/17 20:00 98.5 62 17 113/68 (83) 96 07/09/17 18:00 62 07/09/17 17:45 97.9 60 18 104/73 (83) 100 Nasal Cannula 2 07/09/17 17:30 60 19 107/60 (76) 100 07/09/17 17:15 60 19 104/68 (80) 99 07/09/17 17:00 60 19 105/70 (82) 99 Nasal Cannula 2 07/09/17 16:48 97.3 63 20 99/65 (76) 99 Nasal Cannula 2 07/09/17 12:00 130 07/09/17 12:00 98.2 130 16 120/86 (97) 97 07/09/17 12:00 130 120/86 07/09/17 12:00 130 120/86 -: 07/10/17 0546 07/10/17 0545 Physical Exam General Appearance: No Acute Distress, Comfortable Eyes Eye Exam: Pupils Equal Neck Neck Exam: Neck Supple Pulmonary Resp Exam: Breath Sounds Equal, Crackles, Rhonchi, Decreased Bases, Diminished Breath Sounds Cardiology CV Exam: Irregular, Tachycardia Gastrointestinal/Abdomen GI Exam: Soft, Non-Tender, Bowel Sounds Present, Distended Extremeties Extremities Exam: Trace Edema Neurologic Neuro Exam: Alert, Awake, Oriented Psychiatric Psych Exam: Appropriate Responses Assessment/Plan Assessment Summary: Anemia of CKD, Hypertension, End Stage Renal Disease Problem List: (1) End stage renal failure on dialysis ICD Codes: N18.6 - End stage renal disease; Z99.2 - Dependence on renal dialysis (2) Congestive heart failure ICD Codes: I50.9 - Congestive heart failure Status: Acute (3) Hypertension ICD Codes: I10 - Hypertension Status: Chronic (4) Anemia ICD Codes: D64.9 - Anemia, unspecified Status: Acute (5) Anemia ICD Codes: D64.9 - Anemia, unspecified (6) COPD Status: Acute (7) Atrial fibrillation ICD Codes: I48.91 - Atrial fibrillation Status: Acute Plan Patient was started on HD. He has advance stage 5 chronic kidney disease. AVF is working, and the BP is stable. Follow Hgb, on Epogen, check iron study. On Phsolo as Po4 slightly elevated. Check PTH. HD to continue 3 times a week. Out patient HD arrangements. Post ablation procedure 07/09. HD done yesterday and 4 liters removed. D/W the brother, he want the patient to go to SNF. Out Patient HD to start from 07/20. Problem Qualifiers (1) Hypertension: Qualified Codes: I10 - Essential (primary) hypertension Marianne Elise MD Jul 10, 2017 11:58
[2017-07-10] MEDS: IRON SUCROSE INJ 100 MG in SODIUM CHLORIDE 0.9% INJ 100 ML IV SCH (15:44)
--- NOTE | 2017-07-10 17:52 | HHI.PR ---
Subjective Remarks Feeling better Objective Vital Signs Date Time Temp Pulse Resp B/P (MAP) Pulse Ox O2 Delivery O2 Flow Rate FiO2 07/10/17 12:00 98.4 79 16 150/85 (106) 100 07/10/17 12:00 79 07/10/17 09:02 100 Nasal Cannula 2.00 07/10/17 08:00 98.2 72 14 133/74 (93) 100 07/10/17 08:00 72 07/10/17 07:00 72 14 128/71 (90) 100 07/10/17 07:00 72 07/10/17 06:00 75 07/10/17 04:00 98.2 74 19 137/79 (98) 100 07/10/17 04:00 74 07/10/17 02:00 71 07/10/17 00:00 98.3 67 16 118/72 (87) 86 07/10/17 00:00 67 07/09/17 22:00 89 07/09/17 21:08 97 21 07/09/17 20:00 62 07/09/17 20:00 98.5 62 17 113/68 (83) 96 07/09/17 18:00 62 I/O 07/09/17 07/09/17 07/09/17 07/10/17 07/10/17 07/10/17 07:00 15:00 23:00 07:00 15:00 23:00 Intake Total 100 ml 352 ml 600 ml 400 ml Output Total 325 ml 4000 ml 200 ml Balance -225 ml -3648 ml 600 ml 200 ml Intake Oral 400 ml IV Total 100 ml 352 ml 600 ml Output Urine Total 325 ml 200 ml Hemodialysis 4000 ml # Bowel Movements 2 1 Result Diagram: 07/10/17 0546 07/10/17 0545 Imaging Alert, fully oriented Lungs: ventilated Heart: S1, S2 regular Abdomen: soft, no mass Ext: no edema Last Impressions Chest X-Ray 07/06/17 0000 Signed Impressions: Service Date/Time: Thursday, July 06, 2017 03:18 - CONCLUSION: Right base increased density secondary to right effusion with some degree of accompanying atelectasis or consolidation. This is unchanged from the prior exam. Matthew Toro MD Chest CT 07/05/17 0000 Signed Impressions: Service Date/Time: Wednesday, July 05, 2017 22:07 - CONCLUSION: 1. Right greater the left pleural effusions and basilar consolidation. 2. Suspected mildly enlarged right hilar lymph node, nonspecific but no lymphadenopathy seen elsewhere and presumably benign/reactive. 3. Suspected cirrhosis. Small ascites is seen in the upper abdomen. 4. Coronary artery calcification. Matthew Aguila MD Current Medications Medications (Trade) Dose Ordered Sig/Denice Route Start Time Stop Time Status Last Admin (NS Flush) 2 ml UNSCH PRN IVF 07/05/17 18:00 (NS Flush) 2 ml BID IV FLUSH 07/05/17 21:00 07/10/17 10:51 (Tylenol) 650 mg Q6H PRN PO 07/05/17 20:00 (Albuterol Neb) 2.5 mg Q6HR NEB PRN INH 07/05/17 20:00 (Atrovent Neb) 0.5 mg Q6HR NEB INH 07/05/17 22:00 07/10/17 09:02 (Heparin Inj) 5,000 units Q8H SQ 07/05/17 22:00 Future Hold 07/06/17 13:31 Miscellaneous Information 1 Q361D XX 07/05/17 20:00 07/06/17 20:00 (Chlorhexidine 2% Cloth) 3 pack Taper DAILY@04 TOP 07/06/17 04:00 07/02/18 03:59 07/10/17 04:00 (Chlorhexidine 2% Cloth) 3 pack UNSCH PRN TOP 07/05/17 20:00 (Milk Of Magnesia Liq) 30 ml Q12H PRN PO 07/05/17 20:00 (Senokot) 17.2 mg Q12H PRN PO 07/05/17 20:00 (Dulcolax Supp) 10 mg DAILY PRN RECTAL 07/05/17 20:00 (Lactulose Liq) 30 ml DAILY PRN PO 07/05/17 20:00 Amiodarone HCl 450 mg/Sodium Chloride 250 ml @ 33.33 mls/ hr Q7H31M PRN IV 07/05/17 20:45 07/09/17 10:35 (Zithromax) 500 mg DAILY PO 07/05/17 20:45 07/10/17 10:52 Cefepime HCl 1000 mg/Sodium Chloride 100 ml @ 200 mls/hr DAILY@1800 IV 07/06/17 18:00 07/09/17 21:00 Sodium Chloride 1,000 ml @ 0 mls/hr Q0M PRN OTHER 07/06/17 09:57 (Heparin Inj) 8,000 units UNSCH PRN IV FLUSH 07/06/17 10:00 Sodium Chloride 1,000 ml @ 200 mls/hr Q5H PRN IV 07/06/17 09:57 Sodium Chloride 1,000 ml @ 0 mls/hr Q0M PRN OTHER 07/06/17 09:57 (Mannitol Inj) 12.5 gm UNSCH PRN IV 07/06/17 10:00 Albumin Human 100 ml @ 60 mls/hr UNSCH PRN IV 07/06/17 10:00 (NS Flush) 5 ml UNSCH PRN IV FLUSH 07/06/17 10:00 (Heparin Inj) UNSCH PRN .XX 07/06/17 10:00 (Gentamicin (Dialysis) Inj) 20 mg UNSCH PRN OTHER 07/06/17 10:00 (Zofran Inj) 4 mg UNSCH PRN IV PUSH 07/06/17 10:00 (Tylenol) 650 mg UNSCH PRN PO 07/06/17 10:00 (Benadryl) 25 mg UNSCH PRN PO 07/06/17 10:00 (Nitrostat Sl) 0.4 mg UNSCH PRN SL 07/06/17 10:00 (Catapres) 0.1 mg UNSCH PRN PO 07/06/17 10:00 (Epogen Inj) 10,000 units UNSCH PRN IV PUSH 07/06/17 10:00 07/09/17 11:12 (Gelfoam 12 Mm/7 Mm Top) 1 foam UNSCH PRN TOP 07/06/17 10:00 07/09/17 11:11 (Lopressor Inj) 5 mg Q2H PRN IV PUSH 07/06/17 15:30 07/08/17 00:57 Heparin Sodium/ Dextrose 250 ml @ 17 mls/hr TITRATE PRN IV 07/06/17 19:00 07/08/17 17:52 (Phoslo) 667 mg TID PO 07/07/17 13:00 07/10/17 14:47 (Nephrocaps) 1 cap DAILY PO 07/07/17 10:30 07/10/17 10:52 (Percocet 5-325 Mg) 1 tab Q4H PRN PO 07/09/17 16:30 (Percocet 5-325 Mg) 2 tab Q4H PRN PO 07/09/17 16:30 (Atropine Inj) 0.5 mg UNSCH PRN IV PUSH 07/09/17 16:30 (Reglan Inj) 5 mg Q4H PRN IV PUSH 07/09/17 16:30 (Zofran Inj) 4 mg Q4H PRN IV PUSH 07/09/17 16:30 (Cordarone) 400 mg Q12H PO 07/09/17 17:00 07/10/17 05:37 (Eliquis) 5 mg BID PO 07/09/17 21:00 07/10/17 10:51 Iron Sucrose 100 mg/Sodium Chloride 105 ml @ 105 mls/hr DAILY IV 07/10/17 13:00 07/12/17 09:59 07/10/17 15:44 Assessment and Plan Problem List: (1) Atrial fibrillation ICD Codes: I48.91 - Atrial fibrillation Status: Acute Plan: SP ablation In sinus rhythm Doing well Continue with current management I will be available on a PRN basis (2) Hypertension ICD Codes: I10 - Hypertension Status: Chronic Plan: SBP 158 High. Meds need to be reevaluated (3) End stage renal failure on dialysis ICD Codes: N18.6 - End stage renal disease; Z99.2 - Dependence on renal dialysis Plan: Manage by nephrology Problem Qualifiers (1) Hypertension: Qualified Codes: I10 - Essential (primary) hypertension Jonny Gonzales MD Jul 10, 2017 17:52
[2017-07-10] MEDS: CEFEPIME INJ 1,000 MG in SODIUM CHLORIDE 0.9% INJ 100 ML IV SCH (18:40)
[2017-07-11] VITALS (11 sets, daily range): BP systolic 110–159; BP diastolic 84–92; PULSE 89–152; RESP 14–22; TEMP 97.4–98.4; O2SAT 97–100
[2017-07-11] MEDS: RESP: IPRATROPIUM 0.5 MG/2.5 ML NEB INH SCH ×4 (03:27→20:56)
[2017-07-11] MEDS: CHLORHEXIDINE GLUCONATE 2 % 1 PACK (2 CLOTHS) TOP SCH (04:00)
[2017-07-11] MEDS: AMIODARONE 200 MG TAB PO SCH ×2 (05:21→18:40)
[2017-07-11 06:11] LABS: AUTOMATED NEUTROPHIL # 4.2 TH/MM3 (1.8-7.7); BASOPHIL % 0.1 % (0.0-2.0); EOSINOPHIL # 0.1 TH/MM3 (0-0.4); HEMATOCRIT 27.6 % (39.0-51.0); HEMOGLOBIN 9.3 GM/DL (13.0-17.0); LYMPH % 10.2 % (9.0-44.0); LYMPHOCYTE # 0.6 TH/MM3 (1.0-4.8); MEAN CELL VOLUME 109.8 FL (80.0-100.0); MEAN CORPUSCULAR HEMOGLOBIN 37.1 PG (27.0-34.0); MEAN CORPUSCULAR HGB CONC 33.8 % (32.0-36.0); MEAN PLATELET VOLUME 9.5 FL (7.0-11.0); MONO % 14.1 % (0.0-8.0); MONOCYTE # 0.8 TH/MM3 (0-0.9); NEUT % 74.6 % (16.0-70.0); PLATELET COUNT 60 TH/MM3 (150-450); RED BLOOD COUNT 2.51 MIL/MM3 (4.50-5.90); RED CELL DISTRIBUTION WIDTH 17.5 % (11.6-17.2); WHITE BLOOD COUNT 5.6 TH/MM3 (4.0-11.0)
[2017-07-11 06:24] LABS: INTERNATIONAL NORMALIZED RATIO 1.3 RATIO; PROTHROMBIN TIME - PATIENT 12.9 SEC (9.8-11.6)
[2017-07-11 06:34] LABS: ALBUMIN 2.4 GM/DL (3.4-5.0); ALT (GPT) 13 U/L (12-78); AST (GOT) 12 U/L (15-37); BICARBONATE 26.5 MEQ/L (21.0-32.0); BLOOD UREA NITROGEN 55 MG/DL (7-18); CALCIUM 8.6 MG/DL (8.5-10.1); CHLORIDE 102 MEQ/L (98-107); GLOMERULAR FILTRATION RATE 15 ML/MIN (>89); GLUCOSE,RANDOM 87 MG/DL (74-106); SODIUM (NA) 139 MEQ/L (136-145)
[2017-07-11 06:37] LABS: ALKALINE PHOSPHATASE 59 U/L (45-117); TOTAL BILIRUBIN ADULT 1.3 MG/DL (0.2-1.0); TOTAL PROTEIN 6.4 GM/DL (6.4-8.2)
[2017-07-11 07:29] LABS: OVALOCYTES 1+ (NORMAL)
[2017-07-11] MEDS: APIXABAN 5 MG TABLET PO SCH ×2 (08:34→21:18)
[2017-07-11] MEDS: CALCIUM ACETATE 667 MG CAP PO SCH ×3 (08:34→18:40)
[2017-07-11] MEDS: VITAMIN B CMPLX/VITC/FOLIC AC CAP PO SCH (08:34)
[2017-07-11] MEDS: AZITHROMYCIN 250 MG TAB PO SCH (08:34)
[2017-07-11] MEDS: IRON SUCROSE INJ 100 MG in SODIUM CHLORIDE 0.9% INJ 100 ML IV SCH (08:35)
[2017-07-11] MEDS: SODIUM CHLORIDE 0.9% FLUSH 10 ML FLUSH IV FLUSH SCH ×2 (08:35→21:18)
--- NOTE | 2017-07-11 08:56 | HHI.CCPN ---
Subjective Remarks/Hospital Course Hospital Course: 67-year-old male with a medical history significant for diastolic CHF, CKD for which he had a left arm AV fistula placed which is being prepped for dialysis. Patient developed a cough about a week back with some shortness of breath and was seen at [facility] yesterday and diagnosed with a pneumonia. He was advised admission however signed out AMA since he wished to come to [facility]. Following leaving that hospital he went home yesterday and then today presented at [facility] ER with persisting cough and shortness of breath. He was noted to be in A. fib with RVR with ventricular rate going up to the 180s. He was otherwise maintaining BP and O2 sats on 2 L nasal cannula. He has had a poor appetite for the last 1 week as well as minimal diarrhea. Denies any chest pain or abdominal pain. He did have some nausea off and on for the last week. He denies any increasing leg swelling, denies any melena or rectal bleeding dysuria. Urinary frequency or hematuria. Patient was also found to have worsening renal function with creatinine of 10 and BUN greater than 100. Patient was initiated on a Cardizem drip for rate control and was also given digoxin 0.5 mg IV 1 dose. He was accepted for admission by critical care medicine service. When I evaluated the patient in the ER he was sitting up in the ER stretcher on 2 L nasal cannula and did not appear to be in any acute distress except for minimal shortness of breath and cough. Patient tells me that he sees his physicians at the [place] including his cardiology consultants and chemical pathologist. In the ER he did receive a dose of antibiotics after blood cultures were obtained. Subjective: 07/06: seen and evaluated around 10am. delayed note entry. patient remains in afib RVR. currently undergoing HD. discussed case with Dr. Hoffmann, plan for volume removal with IHD and see if this will improve rate control. remains on cardizem drip and amiodarone drip. dig loaded overnight. patient subjectively denies complaints. ROS negative. 07/07 Patient is lying in bed in NAD. Afebrile. On Heparin, Cardizem and Amio drips. For HD today. 07/08: Resting in bed comfortably on nasal cannula. Remains in A. fib with RVR on Cardizem and amiodarone drips as well as by mouth Cardizem and Lopressor with IV Lopressor as needed for rapid ventricular response. Has been evaluated by cardiology Dr. Hoffmann however still awaiting EP evaluation by Dr. Gonzales to consider ablation in view of difficult to control A. fib with RVR. 07.09 No events overnight. Receiving HD with 2L goal removal. For possible EP study and ablation this morning by Dr. Gonzales. Remains in Afib with RVR, on Amio and Cardizem drips. 07/10 No events overnight. s/p EP study and radiofrequency ablation yesterday for Afib. s/p HD with removal 4L. Off Amio and Cardizem drips. 07/11 No events overnight. On 2L oxygen awaiting transfer to floor. Objective Vital Signs Date Time Temp Pulse Resp B/P (MAP) Pulse Ox O2 Delivery O2 Flow Rate FiO2 07/11/17 04:00 98.3 89 14 159/84 (109) 100 07/10/17 21:16 Nasal Cannula 2.00 07/09/17 21:08 21 Intake and Output 07/11/17 07/11/17 07/12/17 08:00 16:00 00:00 Intake Total 240 ml Output Total 550 ml Balance -310 ml Result Diagram: 07/11/17 0430 07/11/17 0430 Other Results Laboratory Tests Test 07/11/17 04:30 White Blood Count 5.6 TH/MM3 Red Blood Count 2.51 MIL/MM3 Hemoglobin 9.3 GM/DL Hematocrit 27.6 % Mean Corpuscular Volume 109.8 FL Mean Corpuscular Hemoglobin 37.1 PG Mean Corpuscular Hemoglobin Concent 33.8 % Red Cell Distribution Width 17.5 % Platelet Count 60 TH/MM3 Mean Platelet Volume 9.5 FL Neutrophils (%) (Auto) 74.6 % Lymphocytes (%) (Auto) 10.2 % Monocytes (%) (Auto) 14.1 % Eosinophils (%) (Auto) 1.0 % Basophils (%) (Auto) 0.1 % Neutrophils # (Auto) 4.2 TH/MM3 Lymphocytes # (Auto) 0.6 TH/MM3 Monocytes # (Auto) 0.8 TH/MM3 Eosinophils # (Auto) 0.1 TH/MM3 Basophils # (Auto) 0.0 TH/MM3 CBC Comment AUTO DIFF Differential Comment AUTO DIFF CONFIRMED Platelet Estimate LOW Platelet Morphology Comment ENLARGED Ovalocytes 1+ Prothrombin Time 12.9 SEC Prothromb Time International Ratio 1.3 RATIO Activated Partial Thromboplast Time 29.5 SEC Blood Urea Nitrogen 55 MG/DL Creatinine 4.80 MG/DL Random Glucose 87 MG/DL Total Protein 6.4 GM/DL Albumin 2.4 GM/DL Calcium Level 8.6 MG/DL Alkaline Phosphatase 59 U/L Aspartate Amino Transf (AST/SGOT) 12 U/L Alanine Aminotransferase (ALT/SGPT) 13 U/L Total Bilirubin 1.3 MG/DL Sodium Level 139 MEQ/L Potassium Level 3.2 MEQ/L Chloride Level 102 MEQ/L Carbon Dioxide Level 26.5 MEQ/L Anion Gap 11 MEQ/L Estimat Glomerular Filtration Rate 15 ML/MIN Imaging Last Impressions Chest X-Ray 07/06/17 0000 Signed Impressions: Service Date/Time: Thursday, July 06, 2017 03:18 - CONCLUSION: Right base increased density secondary to right effusion with some degree of accompanying atelectasis or consolidation. This is unchanged from the prior exam. Matthew Toro MD Chest CT 07/05/17 0000 Signed Impressions: Service Date/Time: Wednesday, July 05, 2017 22:07 - CONCLUSION: 1. Right greater the left pleural effusions and basilar consolidation. 2. Suspected mildly enlarged right hilar lymph node, nonspecific but no lymphadenopathy seen elsewhere and presumably benign/reactive. 3. Suspected cirrhosis. Small ascites is seen in the upper abdomen. 4. Coronary artery calcification. Matthew Aguila MD Objective Remarks GENERAL: Awake and alert, lying in bed. SKIN: Focused skin assessment warm/dry. HEAD: Atraumatic. Normocephalic. EYES: Pupils equal and round. No scleral icterus. No injection or drainage. ENT: No nasal bleeding or discharge. Dry mucous membranes. NECK: Trachea midline. No JVD. CARDIOVASCULAR: RRR, nl S1, S2 RESPIRATORY: equal chest rise, nc o2. GASTROINTESTINAL: Abdomen soft, non-tender, nondistended. MUSCULOSKELETAL: No obvious deformities. No clubbing. No cyanosis. No edema. NEUROLOGICAL: Awake and alert. No obvious cranial nerve deficits. Motor grossly within normal limits. Normal speech. A/P Assessment and Plan 67-year-old male with: Acute hypoxic respiratory failure - resolved Dyspnea - resolved. A. fib with RVR - persistent, Diastolic CHF exacerbation possible pneumonia TRAM/CKD requiring renal replacement therapy Diarrhea Plan: Neuro: Follow neuro status. Tylenol when necessary for pain. CV: s/p EP study and radiofrequency ablation for Afib 07/[address] Gonzales. On PO Amiodarone 400mg Q12 yesterday. Cards is following- Dr. Hoffmann. On Eliquis 5mg BID Pulmonary: Continue oxygen keep sat >92% Bronchodilators GI/liver: renal diet. Zofran when necessary for nausea vomiting. Renal/: Monitor renal function, avoid nephrotoxins. Renal-Dr. Montaño. HD per renal. ID: Received Vanco/cefepime in ER. Continue cefepime, d/c Zithromax strep pneumo and Legionella antigen negative. Blood culture 07/05: NGTD Endocrine:, SSI for glycemic control if needed. Heme: Follow CBC, coags- on Eliquis 5mg BID Prophylaxis: SCDs, Eliquis Awaiting transfer to [facility] under [facility] Level 2 El Adamson MD Jul 11, 2017 08:56
--- NOTE | 2017-07-11 09:01 | PD.CARD.PN ---
Subjective Subjective Remarks alert in nad, denies chest pain Objective Medications Current Medications Medications (Trade) Dose Ordered Sig/Denice Route Start Time Stop Time Status Last Admin (NS Flush) 2 ml UNSCH PRN IVF 07/05/17 18:00 (NS Flush) 2 ml BID IV FLUSH 07/05/17 21:00 07/11/17 08:35 (Tylenol) 650 mg Q6H PRN PO 07/05/17 20:00 (Albuterol Neb) 2.5 mg Q6HR NEB PRN INH 07/05/17 20:00 (Atrovent Neb) 0.5 mg Q6HR NEB INH 07/05/17 22:00 07/11/17 03:27 (Heparin Inj) 5,000 units Q8H SQ 07/05/17 22:00 Future Hold 07/06/17 13:31 Miscellaneous Information 1 Q361D XX 07/05/17 20:00 07/06/17 20:00 (Chlorhexidine 2% Cloth) Taper DAILY@04 TOP 07/06/17 04:00 07/02/18 03:59 07/11/17 04:00 (Chlorhexidine 2% Cloth) 3 pack UNSCH PRN TOP 07/05/17 20:00 (Milk Of Magnesia Liq) 30 ml Q12H PRN PO 07/05/17 20:00 (Senokot) 17.2 mg Q12H PRN PO 07/05/17 20:00 (Dulcolax Supp) 10 mg DAILY PRN RECTAL 07/05/17 20:00 (Lactulose Liq) 30 ml DAILY PRN PO 07/05/17 20:00 Cefepime HCl 1000 mg/Sodium Chloride 100 ml @ 200 mls/hr DAILY@1800 IV 07/06/17 18:00 07/10/17 18:40 Sodium Chloride 1,000 ml @ 0 mls/hr Q0M PRN OTHER 07/06/17 09:57 (Heparin Inj) 8,000 units UNSCH PRN IV FLUSH 07/06/17 10:00 Sodium Chloride 1,000 ml @ 200 mls/hr Q5H PRN IV 07/06/17 09:57 Sodium Chloride 1,000 ml @ 0 mls/hr Q0M PRN OTHER 07/06/17 09:57 (Mannitol Inj) 12.5 gm UNSCH PRN IV 07/06/17 10:00 Albumin Human 100 ml @ 60 mls/hr UNSCH PRN IV 07/06/17 10:00 (NS Flush) 5 ml UNSCH PRN IV FLUSH 07/06/17 10:00 (Heparin Inj) UNSCH PRN .XX 07/06/17 10:00 (Gentamicin (Dialysis) Inj) 20 mg UNSCH PRN OTHER 07/06/17 10:00 (Zofran Inj) 4 mg UNSCH PRN IV PUSH 07/06/17 10:00 (Tylenol) 650 mg UNSCH PRN PO 07/06/17 10:00 (Benadryl) 25 mg UNSCH PRN PO 07/06/17 10:00 (Nitrostat Sl) 0.4 mg UNSCH PRN SL 07/06/17 10:00 (Catapres) 0.1 mg UNSCH PRN PO 07/06/17 10:00 (Epogen Inj) 10,000 units UNSCH PRN IV PUSH 07/06/17 10:00 07/09/17 11:12 (Gelfoam 12 Mm/7 Mm Top) 1 foam UNSCH PRN TOP 07/06/17 10:00 07/09/17 11:11 (Lopressor Inj) 5 mg Q2H PRN IV PUSH 07/06/17 15:30 07/08/17 00:57 (Phoslo) 667 mg TID PO 07/07/17 13:00 07/11/17 08:34 (Nephrocaps) 1 cap DAILY PO 07/07/17 10:30 07/11/17 08:34 (Percocet 5-325 Mg) 1 tab Q4H PRN PO 07/09/17 16:30 (Percocet 5-325 Mg) 2 tab Q4H PRN PO 07/09/17 16:30 (Atropine Inj) 0.5 mg UNSCH PRN IV PUSH 07/09/17 16:30 (Reglan Inj) 5 mg Q4H PRN IV PUSH 07/09/17 16:30 (Zofran Inj) 4 mg Q4H PRN IV PUSH 07/09/17 16:30 (Cordarone) 400 mg Q12H PO 07/09/17 17:00 07/11/17 05:21 (Eliquis) 5 mg BID PO 07/09/17 21:00 07/11/17 08:34 Iron Sucrose 100 mg/Sodium Chloride 105 ml @ 105 mls/hr DAILY IV 07/10/17 13:00 07/12/17 09:59 07/11/17 08:35 Vital Signs / I&O Vital Signs Date Time Temp Pulse Resp B/P (MAP) Pulse Ox O2 Delivery O2 Flow Rate FiO2 07/11/17 04:00 98.3 89 14 159/84 (109) 100 07/11/17 04:00 89 07/11/17 00:00 91 07/11/17 00:00 98.4 91 16 155/84 (107) 99 07/10/17 21:16 100 Nasal Cannula 2.00 07/10/17 20:00 91 07/10/17 20:00 98.7 91 18 150/86 (107) 99 07/10/17 16:00 90 07/10/17 16:00 90 14 154/86 (108) 100 07/10/17 12:00 98.4 79 16 150/85 (106) 100 07/10/17 12:00 79 07/10/17 09:02 100 Nasal Cannula 2.00 I/O 07/10/17 07/10/17 07/10/17 07/11/17 07/11/17 07/11/17 07:00 15:00 23:00 07:00 15:00 23:00 Intake Total 400 ml 480 ml 240 ml Output Total 200 ml 550 ml Balance 200 ml 480 ml -310 ml Intake Oral 400 ml 480 ml 240 ml Output Urine Total 200 ml 550 ml # Bowel Movements 1 0 0 Physical Exam GENERAL: SKIN: Warm and dry. HEAD: Normocephalic. EYES: No scleral icterus. No injection or drainage. NECK: Supple, trachea midline. No JVD or lymphadenopathy. CARDIOVASCULAR: Regular rate and rhythm without murmurs, gallops, or rubs. RESPIRATORY: Breath sounds equal bilaterally. No accessory muscle use. GASTROINTESTINAL: Abdomen soft, non-tender, nondistended. MUSCULOSKELETAL: No cyanosis, or edema. BACK: Nontender without obvious deformity. No CVA tenderness. Laboratory Laboratory Tests Test 07/11/17 04:30 White Blood Count 5.6 TH/MM3 Red Blood Count 2.51 MIL/MM3 Hemoglobin 9.3 GM/DL Hematocrit 27.6 % Mean Corpuscular Volume 109.8 FL Mean Corpuscular Hemoglobin 37.1 PG Mean Corpuscular Hemoglobin Concent 33.8 % Red Cell Distribution Width 17.5 % Platelet Count 60 TH/MM3 Mean Platelet Volume 9.5 FL Neutrophils (%) (Auto) 74.6 % Lymphocytes (%) (Auto) 10.2 % Monocytes (%) (Auto) 14.1 % Eosinophils (%) (Auto) 1.0 % Basophils (%) (Auto) 0.1 % Neutrophils # (Auto) 4.2 TH/MM3 Lymphocytes # (Auto) 0.6 TH/MM3 Monocytes # (Auto) 0.8 TH/MM3 Eosinophils # (Auto) 0.1 TH/MM3 Basophils # (Auto) 0.0 TH/MM3 CBC Comment AUTO DIFF Differential Comment AUTO DIFF CONFIRMED Platelet Estimate LOW Platelet Morphology Comment ENLARGED Ovalocytes 1+ Prothrombin Time 12.9 SEC Prothromb Time International Ratio 1.3 RATIO Activated Partial Thromboplast Time 29.5 SEC Blood Urea Nitrogen 55 MG/DL Creatinine 4.80 MG/DL Random Glucose 87 MG/DL Total Protein 6.4 GM/DL Albumin 2.4 GM/DL Calcium Level 8.6 MG/DL Alkaline Phosphatase 59 U/L Aspartate Amino Transf (AST/SGOT) 12 U/L Alanine Aminotransferase (ALT/SGPT) 13 U/L Total Bilirubin 1.3 MG/DL Sodium Level 139 MEQ/L Potassium Level 3.2 MEQ/L Chloride Level 102 MEQ/L Carbon Dioxide Level 26.5 MEQ/L Anion Gap 11 MEQ/L Estimat Glomerular Filtration Rate 15 ML/MIN Assessment and Plan Problem List: (1) Atrial fibrillation ICD Codes: I48.91 - Atrial fibrillation Status: Acute (2) NSTEMI (non-ST elevated myocardial infarction) ICD Codes: I21.4 - Non-ST elevation (NSTEMI) myocardial infarction (3) Chronic kidney disease (CKD) stage G4/A1, severely decreased glomerular filtration rate (GFR) between 15-29 mL/min/1.73 square meter and albuminuria creatinine ratio less than 30 mg/g ICD Codes: N18.4 - Chronic kidney disease (CKD) stage G4/A1, severely decreased glomerular filtration rate (GFR) between 15-29 mL/min/1.73 square meter and albuminuria creatinine ratio less than 30 mg/g Status: Chronic (4) Hepatitis C ICD Codes: B19.20 - Unspecified viral hepatitis C without hepatic coma Status: Acute (5) Anemia ICD Codes: D64.9 - Anemia, unspecified Status: Acute Assessment and Plan 1.) Afib rvr - in nsr s/p ablation per Dr Gonzales, anemia and thrombocytopenia needs work up, placed on eliquis due to chadsvasc score = 4 Dwayne Garcia MD Jul 11, 2017 09:01
--- NOTE | 2017-07-11 10:15 | HHI.NPPN ---
Subjective General Problems: Anemia, Edema, Heart Disease, Hypertension Renal Failure: End Stage Renal Disease History of Present Illness 67-year-old male with a medical history significant for Hypertension, CVA, Atrial fibrillation, and CKD stage four approaching stage 5, with left arm AV fistula placed 10 years ago but has not needed dialysis. He presented yesterday to [facility] [place] and left against advise. Patient then presented to [facility] [place]. Creat is elevated at 10.47 and BUN of 40. Also reports minimal urinary output. Additional Remarks Patient is alert, no SOB ,feeling better, now on HD, no SOB. Review of Systems General Constitutional: Fatigue Respiratory Lungs: SOB Cardiovascular Cardiac: YUAN Objective Data Data Vital Signs Date Time Temp Pulse Resp B/P (MAP) Pulse Ox O2 Delivery O2 Flow Rate FiO2 07/11/17 04:00 98.3 89 14 159/84 (109) 100 07/11/17 04:00 89 07/11/17 00:00 91 07/11/17 00:00 98.4 91 16 155/84 (107) 99 07/10/17 21:16 100 Nasal Cannula 2.00 07/10/17 20:00 91 07/10/17 20:00 98.7 91 18 150/86 (107) 99 07/10/17 16:00 90 07/10/17 16:00 90 14 154/86 (108) 100 07/10/17 12:00 98.4 79 16 150/85 (106) 100 07/10/17 12:00 79 -: 07/11/17 0430 07/11/17 0430 Physical Exam General Appearance: No Acute Distress, Comfortable Eyes Eye Exam: Pupils Equal Neck Neck Exam: Neck Supple Pulmonary Resp Exam: Breath Sounds Equal, Crackles, Rhonchi, Decreased Bases, Diminished Breath Sounds Cardiology CV Exam: Irregular, Tachycardia Gastrointestinal/Abdomen GI Exam: Soft, Non-Tender, Bowel Sounds Present, Distended Extremeties Extremities Exam: Trace Edema Neurologic Neuro Exam: Alert, Awake, Oriented Psychiatric Psych Exam: Appropriate Responses Assessment/Plan Assessment Summary: Anemia of CKD, Hypertension, End Stage Renal Disease Problem List: (1) End stage renal failure on dialysis ICD Codes: N18.6 - End stage renal disease; Z99.2 - Dependence on renal dialysis (2) Congestive heart failure ICD Codes: I50.9 - Congestive heart failure Status: Acute (3) Hypertension ICD Codes: I10 - Hypertension Status: Chronic (4) Anemia ICD Codes: D64.9 - Anemia, unspecified Status: Acute (5) Anemia ICD Codes: D64.9 - Anemia, unspecified (6) COPD Status: Acute (7) Atrial fibrillation ICD Codes: I48.91 - Atrial fibrillation Status: Acute Plan Patient was started on HD. He has advance stage 5 chronic kidney disease. AVF is working, and the BP is stable. Follow Hgb, on Epogen, check iron study. On Phsolo as Po4 slightly elevated. Check PTH. HD to continue 3 times a week. Out patient HD arrangements. Post ablation procedure 07/09. HR is controlled. Out Patient HD to start from 07/20. HD now, tolerating well. Problem Qualifiers (1) Hypertension: Qualified Codes: I10 - Essential (primary) hypertension Marianne Elise MD Jul 11, 2017 10:15
[2017-07-11] MEDS: EPOETIN ALFA 10,000 UNITS/ML VIAL IV PUSH PRN (12:55)
[2017-07-11] MEDS: GELATIN 12 MM/7 MM FOAM TOP PRN (12:55)
[2017-07-11] MEDS: CEFEPIME INJ 1,000 MG in SODIUM CHLORIDE 0.9% INJ 100 ML IV SCH (18:40)
[2017-07-11] MEDS: METOPROLOL TARTRATE 5 MG/5 ML VIAL IV PUSH PRN ×2 (21:18→23:30)
[2017-07-12] VITALS (23 sets, daily range): BP systolic 118–153; BP diastolic 91–98; PULSE 98–164; RESP 18–20; TEMP 96.9–98.6; O2SAT 96–99
[2017-07-12] MEDS: METOPROLOL TARTRATE 5 MG/5 ML VIAL IV PUSH PRN ×3 (02:50→08:59)
[2017-07-12] MEDS: RESP: IPRATROPIUM 0.5 MG/2.5 ML NEB INH SCH ×4 (03:39→20:49)
[2017-07-12] MEDS: CHLORHEXIDINE GLUCONATE 2 % 1 PACK (2 CLOTHS) TOP SCH (04:00)
[2017-07-12 05:26] LABS: AUTOMATED NEUTROPHIL # 4.5 TH/MM3 (1.8-7.7); BASOPHIL % 0.2 % (0.0-2.0); EOSINOPHIL % 0.8 % (0.0-4.0); HEMATOCRIT 28.8 % (39.0-51.0); LYMPH % 8.6 % (9.0-44.0); LYMPHOCYTE # 0.5 TH/MM3 (1.0-4.8); MEAN CELL VOLUME 110.1 FL (80.0-100.0); MEAN CORPUSCULAR HEMOGLOBIN 38.2 PG (27.0-34.0); MEAN CORPUSCULAR HGB CONC 34.7 % (32.0-36.0); MEAN PLATELET VOLUME 9.4 FL (7.0-11.0); MONO % 15.4 % (0.0-8.0); MONOCYTE # 0.9 TH/MM3 (0-0.9); PLATELET COUNT 64 TH/MM3 (150-450); RED BLOOD COUNT 2.62 MIL/MM3 (4.50-5.90); RED CELL DISTRIBUTION WIDTH 17.5 % (11.6-17.2)
[2017-07-12 05:36] LABS: BICARBONATE 26.5 MEQ/L (21.0-32.0); CALCIUM 8.4 MG/DL (8.5-10.1); CREATININE 3.62 MG/DL (0.60-1.30)
[2017-07-12] MEDS: AMIODARONE 200 MG TAB PO SCH ×2 (05:43→16:20)
[2017-07-12 07:32] LABS: BANDS 1 % (0-6); BASOPHILS 1 % (0-2); LYMPHOCYTES 8 % (9-44); MONOCYTES 13 % (0-8); MYELOCYTES 1 % (0-0); NEUTROPHIL # MANUAL DIFF 4.6 TH/MM3 (1.8-7.7); POLYS (SEG NEUTROPHILS) 75 % (16-70)
[2017-07-12 07:33] LABS: ACANTHOCYTES OCC (NORMAL); OVALOCYTES 1+ (NORMAL)
[2017-07-12] MEDS: VITAMIN B CMPLX/VITC/FOLIC AC CAP PO SCH (08:48)
[2017-07-12] MEDS: SODIUM CHLORIDE 0.9% FLUSH 10 ML FLUSH IV FLUSH SCH ×2 (08:48→20:46)
[2017-07-12] MEDS: APIXABAN 5 MG TABLET PO SCH (08:48)
[2017-07-12] MEDS: CALCIUM ACETATE 667 MG CAP PO SCH ×3 (08:48→16:20)
[2017-07-12] MEDS: IRON SUCROSE INJ 100 MG in SODIUM CHLORIDE 0.9% INJ 100 ML IV SCH (08:49)
--- NOTE | 2017-07-12 10:55 | PD.CARD.PN ---
Subjective Subjective Remarks asleep in nad, Objective Medications Current Medications Medications (Trade) Dose Ordered Sig/Denice Route Start Time Stop Time Status Last Admin (NS Flush) 2 ml UNSCH PRN IVF 07/05/17 18:00 (NS Flush) 2 ml BID IV FLUSH 07/05/17 21:00 07/12/17 08:48 (Tylenol) 650 mg Q6H PRN PO 07/05/17 20:00 (Albuterol Neb) 2.5 mg Q6HR NEB PRN INH 07/05/17 20:00 (Atrovent Neb) 0.5 mg Q6HR NEB INH 07/05/17 22:00 07/12/17 03:39 (Heparin Inj) 5,000 units Q8H SQ 07/05/17 22:00 Future Hold 07/06/17 13:31 Miscellaneous Information 1 [id number] XX 07/05/17 20:00 07/06/17 20:00 (Chlorhexidine 2% Cloth) Taper DAILY@04 TOP 07/06/17 04:00 07/02/18 03:59 07/11/17 04:00 (Chlorhexidine 2% Cloth) 3 pack UNSCH PRN TOP 07/05/17 20:00 (Milk Of Magnesia Liq) 30 ml Q12H PRN PO 07/05/17 20:00 (Senokot) 17.2 mg Q12H PRN PO 07/05/17 20:00 (Dulcolax Supp) 10 mg DAILY PRN RECTAL 07/05/17 20:00 (Lactulose Liq) 30 ml DAILY PRN PO 07/05/17 20:00 Cefepime HCl 1000 mg/Sodium Chloride 100 ml @ 200 mls/hr DAILY@1800 IV 07/06/17 18:00 07/11/17 18:40 Sodium Chloride 1,000 ml @ 0 mls/hr Q0M PRN OTHER 07/06/17 09:57 (Heparin Inj) 8,000 units UNSCH PRN IV FLUSH 07/06/17 10:00 Sodium Chloride 1,000 ml @ 200 mls/hr Q5H PRN IV 07/06/17 09:57 07/11/17 12:55 Sodium Chloride 1,000 ml @ 0 mls/hr Q0M PRN OTHER 07/06/17 09:57 (Mannitol Inj) 12.5 gm UNSCH PRN IV 07/06/17 10:00 Albumin Human 100 ml @ 60 mls/hr UNSCH PRN IV 07/06/17 10:00 (NS Flush) 5 ml UNSCH PRN IV FLUSH 07/06/17 10:00 (Heparin Inj) UNSCH PRN .XX 07/06/17 10:00 (Gentamicin (Dialysis) Inj) 20 mg UNSCH PRN OTHER 07/06/17 10:00 (Zofran Inj) 4 mg UNSCH PRN IV PUSH 07/06/17 10:00 (Tylenol) 650 mg UNSCH PRN PO 07/06/17 10:00 (Benadryl) 25 mg UNSCH PRN PO 07/06/17 10:00 (Nitrostat Sl) 0.4 mg UNSCH PRN SL 07/06/17 10:00 (Catapres) 0.1 mg UNSCH PRN PO 07/06/17 10:00 (Epogen Inj) 10,000 units UNSCH PRN IV PUSH 07/06/17 10:00 07/11/17 12:55 (Gelfoam 12 Mm/7 Mm Top) 1 foam UNSCH PRN TOP 07/06/17 10:00 07/11/17 12:55 (Lopressor Inj) 5 mg Q2H PRN IV PUSH 07/06/17 15:30 07/12/17 08:59 (Phoslo) 667 mg TID PO 07/07/17 13:00 07/12/17 08:48 (Nephrocaps) 1 cap DAILY PO 07/07/17 10:30 07/12/17 08:48 (Percocet 5-325 Mg) 1 tab Q4H PRN PO 07/09/17 16:30 (Percocet 5-325 Mg) 2 tab Q4H PRN PO 07/09/17 16:30 (Atropine Inj) 0.5 mg UNSCH PRN IV PUSH 07/09/17 16:30 (Reglan Inj) 5 mg Q4H PRN IV PUSH 07/09/17 16:30 (Zofran Inj) 4 mg Q4H PRN IV PUSH 07/09/17 16:30 (Cordarone) 400 mg Q12H PO 07/09/17 17:00 07/12/17 05:43 (Eliquis) 5 mg BID PO 07/09/17 21:00 07/12/17 08:48 Vital Signs / I&O Vital Signs Date Time Temp Pulse Resp B/P (MAP) Pulse Ox O2 Delivery O2 Flow Rate FiO2 07/12/17 06:00 150 07/12/17 05:00 106 07/12/17 04:00 98.5 105 18 153/97 (115) 97 07/12/17 04:00 102 07/12/17 03:00 107 07/12/17 02:00 110 07/12/17 01:00 110 07/12/17 00:00 98.6 132 18 136/98 (111) 96 07/12/17 00:00 106 07/11/17 23:00 111 07/11/17 22:00 104 07/11/17 21:00 152 07/11/17 20:00 108 07/11/17 20:00 98.0 105 20 110/89 (96) 97 07/11/17 19:00 108 07/11/17 16:09 97.6 103 20 149/84 (105) 100 07/11/17 15:45 98 21 07/11/17 13:54 97.4 98 22 150/92 (111) 100 I/O 07/11/17 07/11/17 07/11/17 07/12/17 07/12/17 07/12/17 07:00 15:00 23:00 07:00 15:00 23:00 Intake Total 240 ml 240 ml Output Total 550 ml 4000 ml 100 ml Balance -310 ml -4000 ml 140 ml Intake Oral 240 ml 240 ml Output Urine Total 550 ml 100 ml Hemodialysis 4000 ml # Bowel Movements 0 3 Physical Exam GENERAL: SKIN: Warm and dry. HEAD: Normocephalic. EYES: No scleral icterus. No injection or drainage. NECK: Supple, trachea midline. No JVD or lymphadenopathy. CARDIOVASCULAR: Regular rate and rhythm without murmurs, gallops, or rubs. RESPIRATORY: Breath sounds equal bilaterally. No accessory muscle use. GASTROINTESTINAL: Abdomen soft, non-tender, nondistended. MUSCULOSKELETAL: No cyanosis, or edema. BACK: Nontender without obvious deformity. No CVA tenderness. Laboratory Laboratory Tests Test 07/12/17 04:17 White Blood Count 6.0 TH/MM3 Red Blood Count 2.62 MIL/MM3 Hemoglobin 10.0 GM/DL Hematocrit 28.8 % Mean Corpuscular Volume 110.1 FL Mean Corpuscular Hemoglobin 38.2 PG Mean Corpuscular Hemoglobin Concent 34.7 % Red Cell Distribution Width 17.5 % Platelet Count 64 TH/MM3 Mean Platelet Volume 9.4 FL Neutrophils (%) (Auto) 75.0 % Lymphocytes (%) (Auto) 8.6 % Monocytes (%) (Auto) 15.4 % Eosinophils (%) (Auto) 0.8 % Basophils (%) (Auto) 0.2 % Neutrophils # (Auto) 4.5 TH/MM3 Lymphocytes # (Auto) 0.5 TH/MM3 Monocytes # (Auto) 0.9 TH/MM3 Eosinophils # (Auto) 0.0 TH/MM3 Basophils # (Auto) 0.0 TH/MM3 CBC Comment AUTO DIFF Differential Total Cells Counted 100 Neutrophils % (Manual) 75 % Band Neutrophils % 1 % Lymphocytes % 8 % Monocytes % 13 % Eosinophils % 1 % Basophils % 1 % Neutrophils # (Manual) 4.6 TH/MM3 Myelocytes 1 % Differential Comment FINAL DIFF MANUAL Platelet Estimate LOW Platelet Morphology Comment NORMAL Ovalocytes 1+ Acanthocytes OCC Blood Urea Nitrogen 38 MG/DL Creatinine 3.62 MG/DL Random Glucose 93 MG/DL Calcium Level 8.4 MG/DL Sodium Level 137 MEQ/L Potassium Level 3.1 MEQ/L Chloride Level 101 MEQ/L Carbon Dioxide Level 26.5 MEQ/L Anion Gap 10 MEQ/L Estimat Glomerular Filtration Rate 21 ML/MIN Assessment and Plan Problem List: (1) Atrial fibrillation ICD Codes: I48.91 - Atrial fibrillation Status: Acute (2) NSTEMI (non-ST elevated myocardial infarction) ICD Codes: I21.4 - Non-ST elevation (NSTEMI) myocardial infarction (3) Chronic kidney disease (CKD) stage G4/A1, severely decreased glomerular filtration rate (GFR) between 15-29 mL/min/1.73 square meter and albuminuria creatinine ratio less than 30 mg/g ICD Codes: N18.4 - Chronic kidney disease (CKD) stage G4/A1, severely decreased glomerular filtration rate (GFR) between 15-29 mL/min/1.73 square meter and albuminuria creatinine ratio less than 30 mg/g Status: Chronic (4) Hepatitis C ICD Codes: B19.20 - Unspecified viral hepatitis C without hepatic coma Status: Acute (5) Anemia ICD Codes: D64.9 - Anemia, unspecified Status: Acute Assessment and Plan 1.) Afib rvr - in nsr s/p ablation per Dr Gonzales, anemia and thrombocytopenia needs work up, d/w nurse, Harper, addressing eliquis dosing with Dr Conrad and reconsulting Dr Gonzales for rvr Dwayne Garcia MD Jul 12, 2017 10:55
--- NOTE | 2017-07-12 11:48 | HHI.NPPN ---
Subjective General Problems: Anemia, Edema, Heart Disease, Hypertension Renal Failure: End Stage Renal Disease History of Present Illness 67-year-old male with a medical history significant for Hypertension, CVA, Atrial fibrillation, and CKD stage four approaching stage 5, with left arm AV fistula placed 10 years ago but has not needed dialysis. He presented yesterday to [facility] [place] and left against advise. Patient then presented to [place]. Creat is elevated at 10.47 and BUN of 40. Also reports minimal urinary output. Additional Remarks Patient is alert in good spirits, no SOB (Chhaya Vee) Review of Systems General Constitutional: Fatigue (Chhaya Vee) Respiratory Lungs: Cough Respiratory Remarks Denies SOB (Chhaya Vee) Cardiovascular Cardiac: YUAN Cardiac Remarks Denies CP (Chhaya Vee) Gastrointestinal GI Remarks Denies Abdominal pain (Chhaya Vee) Objective Data Data Vital Signs Date Time Temp Pulse Resp B/P (MAP) Pulse Ox O2 Delivery O2 Flow Rate FiO2 07/12/17 06:00 150 07/12/17 05:00 106 07/12/17 04:00 98.5 105 18 153/97 (115) 97 07/12/17 04:00 102 07/12/17 03:00 107 07/12/17 02:00 110 07/12/17 01:00 110 07/12/17 00:00 98.6 132 18 136/98 (111) 96 07/12/17 00:00 106 07/11/17 23:00 111 07/11/17 22:00 104 07/11/17 21:00 152 07/11/17 20:00 108 07/11/17 20:00 98.0 105 20 110/89 (96) 97 07/11/17 19:00 108 07/11/17 16:09 97.6 103 20 149/84 (105) 100 07/11/17 15:45 98 21 07/11/17 13:54 97.4 98 22 150/92 (111) 100 (Chhaya Vee) -: 07/12/17 0417 07/12/17 041 Imaging Last Impressions Chest X-Ray 07/06/17 0000 Signed Impressions: Service Date/Time: Thursday, July 06, 2017 03:18 - CONCLUSION: Right base increased density secondary to right effusion with some degree of accompanying atelectasis or consolidation. This is unchanged from the prior exam. Matthew Toro MD Chest CT 07/05/17 0000 Signed Impressions: Service Date/Time: Wednesday, July 05, 2017 22:07 - CONCLUSION: 1. Right greater the left pleural effusions and basilar consolidation. 2. Suspected mildly enlarged right hilar lymph node, nonspecific but no lymphadenopathy seen elsewhere and presumably benign/reactive. 3. Suspected cirrhosis. Small ascites is seen in the upper abdomen. 4. Coronary artery calcification. Matthew Aguila MD (Chhaya Vee) Physical Exam General Appearance: No Acute Distress, Comfortable (Chhaya VeeP) Eyes Eye Exam: Pupils Equal (Chhaya eVeP) Neck Neck Exam: Neck Supple (Chhaya VeeP) Pulmonary Resp Exam: Breath Sounds Equal, Crackles, Rhonchi, Decreased Bases, Diminished Breath Sounds (Chhaya VeeP) Cardiology CV Exam: Irregular, Tachycardia (Chhaya VeeP) Gastrointestinal/Abdomen GI Exam: Soft, Non-Tender, Bowel Sounds Present, Distended (Chhaya VeeP) Extremeties Extremities Exam: Trace Edema (Chhaya VeeP) Neurologic Neuro Exam: Alert, Awake, Oriented (Chhaya VeeP) Psychiatric Psych Exam: Appropriate Responses (Chhaya Vee) Assessment/Plan Assessment Summary: Anemia of CKD, Hypertension, End Stage Renal Disease Problem List: (1) End stage renal failure on dialysis ICD Codes: N18.6 - End stage renal disease; Z99.2 - Dependence on renal dialysis (2) Congestive heart failure ICD Codes: I50.9 - Congestive heart failure Status: Acute (3) Hypertension ICD Codes: I10 - Hypertension Status: Chronic (4) Anemia ICD Codes: D64.9 - Anemia, unspecified Status: Acute (5) Anemia ICD Codes: D64.9 - Anemia, unspecified (6) COPD Status: Acute (7) Atrial fibrillation ICD Codes: I48.91 - Atrial fibrillation Status: Acute Plan Patient was started on HD. He has advance stage 5 chronic kidney disease. AVF is working, and the BP is stable. Follow Hgb, on Epogen, IV Iron replacement given yesterda On Phsolo as Po4 slightly elevated. HD to continue 3 times a week. Post ablation procedure 07/09. Out Patient HD to start from 07/20. Hypokalemia noted at 3.1 replacement given (Chhaya Vee) Plan HD was done yesterday, still has RVR. Cardiology following. (Marianne Elise MD) Problem Qualifiers (1) Hypertension: Qualified Codes: I10 - Essential (primary) hypertension Chhaya Vee Jul 12, 2017 11:48 Marianne Elise MD Jul 12, 2017 18:41
[2017-07-12] MEDS ORDERED: POTASSIUM CHLORIDE 10 MEQ CONTROLLED RELEASE TAB PO ONE (12:00)
--- NOTE | 2017-07-12 13:41 | HHI.PR ---
Subjective Remarks Follow-up atrial fibrillation with RVR/stage renal disease on hemodialysis 07/12/17-patient seen and examined, still in A. fib with RVR however denies any chest pain or shortness of breath. Patient was given Lopressor push 4 overnight. Renal indices improving. H&H remained stable Objective Vitals Vital Signs Date Time Temp Pulse Resp B/P (MAP) Pulse Ox O2 Delivery O2 Flow Rate FiO2 07/12/17 12:00 128 07/12/17 12:00 96.9 161 20 118/91 (100) 97 07/12/17 11:00 126 07/12/17 10:00 106 07/12/17 08:00 104 07/12/17 08:00 96.9 161 20 118/91 (100) 97 07/12/17 06:00 150 07/12/17 05:00 106 07/12/17 04:00 98.5 105 18 153/97 (115) 97 07/12/17 04:00 102 07/12/17 03:00 107 07/12/17 02:00 110 07/12/17 01:00 110 07/12/17 00:00 98.6 132 18 136/98 (111) 96 07/12/17 00:00 106 07/11/17 23:00 111 07/11/17 22:00 104 07/11/17 21:00 152 07/11/17 20:00 108 07/11/17 20:00 98.0 105 20 110/89 (96) 97 07/11/17 19:00 108 07/11/17 16:09 97.6 103 20 149/84 (105) 100 07/11/17 15:45 98 21 07/11/17 13:54 97.4 98 22 150/92 (111) 100 I/O 07/11/17 07/11/17 07/11/17 07/12/17 07/12/17 07/12/17 07:00 15:00 23:00 07:00 15:00 23:00 Intake Total 240 ml 240 ml Output Total 550 ml 4000 ml 100 ml Balance -310 ml -4000 ml 140 ml Intake Oral 240 ml 240 ml Output Urine Total 550 ml 100 ml Hemodialysis 4000 ml # Bowel Movements 0 3 Result Diagram: 07/12/17 0417 07/12/177 Imaging Last Impressions Chest X-Ray 07/06/17 0000 Signed Impressions: Service Date/Time: Thursday, July 06, 2017 03:18 - CONCLUSION: Right base increased density secondary to right effusion with some degree of accompanying atelectasis or consolidation. This is unchanged from the prior exam. Matthew Toro MD Chest CT 07/05/17 0000 Signed Impressions: Service Date/Time: Wednesday, July 05, 2017 22:07 - CONCLUSION: 1. Right greater the left pleural effusions and basilar consolidation. 2. Suspected mildly enlarged right hilar lymph node, nonspecific but no lymphadenopathy seen elsewhere and presumably benign/reactive. 3. Suspected cirrhosis. Small ascites is seen in the upper abdomen. 4. Coronary artery calcification. Matthew Aguila MD Objective Remarks GENERAL: NAD SKIN: Warm and dry. HEAD: Normocephalic. EYES: No scleral icterus. No injection or drainage. NECK: Supple, trachea midline. No JVD or lymphadenopathy. CARDIOVASCULAR: Irregular Regular rate and rhythm without murmurs, gallops, or rubs. RESPIRATORY: Breath sounds equal bilaterally. No accessory muscle use. GASTROINTESTINAL: Abdomen soft, non-tender, nondistended. MUSCULOSKELETAL: No cyanosis, or edema. BACK: Nontender without obvious deformity. No CVA tenderness. A/P Problem List: (1) Atrial fibrillation with RVR ICD Code: I48.91 - Unspecified atrial fibrillation Status: Acute (2) End stage renal failure on dialysis ICD Code: N18.6 - End stage renal disease; Z99.2 - Dependence on renal dialysis (3) Hypertension ICD Code: I10 - Hypertension Status: Chronic Assessment and Plan 67 year-old man with Atrial fibrillation with RVR Status post EP study and radiofrequency ablation for Afib 07/09 , however patient still in RVR therefore will have vegetable grader reassess Continue amiodarone 400 mg every 12 hours Currently on Eliquis 5 mg twice a day however secondary to end-stage renal failure with switch to 2.5 mg twice a day Acute hypoxic respiratory failure Resolved Continue with DuoNeb when necessary Maintain oxygen saturation above 92% Possible pneumonia Currently on cefepime Culture negative to date Iron deficiency anemia Completed Venofer transfusion today End-stage renal disease on hemodialysis Hemodialysis per nephrology Out Patient HD to start from 07/20. On Phsolo Prophylaxis: SCDs, Eliquis PT to treat and eval Problem Qualifiers (1) Hypertension: Qualified Codes: I10 - Essential (primary) hypertension Paulo Conrad MD Jul 12, 2017 13:41
[2017-07-12] MEDS: CEFEPIME INJ 1,000 MG in SODIUM CHLORIDE 0.9% INJ 100 ML IV SCH (16:20)
[2017-07-12] MEDS: APIXABAN 2.5 MG TABLET PO SCH (20:47)
[2017-07-13] VITALS (27 sets, daily range): BP systolic 107–154; BP diastolic 69–94; PULSE 73–172; RESP 18; TEMP 97.1–97.7; O2SAT 96–100
[2017-07-13] MEDS: METOPROLOL TARTRATE 5 MG/5 ML VIAL IV PUSH PRN ×6 (00:49→19:39)
[2017-07-13] MEDS: RESP: IPRATROPIUM 0.5 MG/2.5 ML NEB INH SCH ×4 (03:37→21:19)
[2017-07-13] MEDS: CHLORHEXIDINE GLUCONATE 2 % 1 PACK (2 CLOTHS) TOP SCH (04:00)
[2017-07-13] MEDS: AMIODARONE 200 MG TAB PO SCH ×2 (05:35→16:09)
[2017-07-13] MEDS: APIXABAN 2.5 MG TABLET PO SCH ×2 (08:37→20:16)
[2017-07-13] MEDS: VITAMIN B CMPLX/VITC/FOLIC AC CAP PO SCH (08:37)
[2017-07-13] MEDS: CALCIUM ACETATE 667 MG CAP PO SCH ×3 (08:37→17:02)
[2017-07-13] MEDS: SODIUM CHLORIDE 0.9% FLUSH 10 ML FLUSH IV FLUSH SCH ×2 (08:37→20:17)
[2017-07-13 08:41] LABS: AUTOMATED NEUTROPHIL # 4.7 TH/MM3 (1.8-7.7); BASOPHIL % 0.6 % (0.0-2.0); EOSINOPHIL # 0.1 TH/MM3 (0-0.4); EOSINOPHIL % 0.9 % (0.0-4.0); HEMATOCRIT 29.8 % (39.0-51.0); HEMOGLOBIN 10.1 GM/DL (13.0-17.0); LYMPH % 11.6 % (9.0-44.0); LYMPHOCYTE # 0.8 TH/MM3 (1.0-4.8); MEAN CELL VOLUME 109.9 FL (80.0-100.0); MEAN CORPUSCULAR HEMOGLOBIN 37.2 PG (27.0-34.0); MEAN CORPUSCULAR HGB CONC 33.9 % (32.0-36.0); MEAN PLATELET VOLUME 9.8 FL (7.0-11.0); MONO % 15.9 % (0.0-8.0); PLATELET COUNT 72 TH/MM3 (150-450); RED BLOOD COUNT 2.72 MIL/MM3 (4.50-5.90); WHITE BLOOD COUNT 6.6 TH/MM3 (4.0-11.0)
[2017-07-13 09:04] LABS: BICARBONATE 25.9 MEQ/L (21.0-32.0); CALCIUM 8.8 MG/DL (8.5-10.1); CREATININE 4.4 MG/DL (0.60-1.30)
[2017-07-13 09:29] LABS: BANDS 5 % (0-6); BASOPHILS 1 % (0-2); LYMPHOCYTES 10 % (9-44); MONOCYTES 7 % (0-8); MYELOCYTES 2 % (0-0); NEUTROPHIL # MANUAL DIFF 5.4 TH/MM3 (1.8-7.7); OVALOCYTES 1+ (NORMAL); POLYS (SEG NEUTROPHILS) 75 % (16-70)
[2017-07-13 09:30] LABS: ACANTHOCYTES OCC (NORMAL); KERATOCYTES OCC (NORMAL)
--- NOTE | 2017-07-13 09:48 | HHI.NPPN ---
Subjective General Problems: Anemia, Edema, Heart Disease, Hypertension Renal Failure: End Stage Renal Disease History of Present Illness 67-year-old male with a medical history significant for Hypertension, CVA, Atrial fibrillation, and CKD stage four approaching stage 5, with left arm AV fistula placed 10 years ago but has not needed dialysis. He presented yesterday to [facility] [place] and left against advise. Patient then presented to [place]. Creat is elevated at 10.47 and BUN of 40. Also reports minimal urinary output. Additional Remarks Patient is alert , complain of loose BM, no abd. pain, no vomiting. Review of Systems General Constitutional: Fatigue Respiratory Lungs: Cough Respiratory Remarks Denies SOB Cardiovascular Cardiac: YUAN Cardiac Remarks Denies CP Gastrointestinal GI Remarks Denies Abdominal pain Objective Data Data Vital Signs Date Time Temp Pulse Resp B/P (MAP) Pulse Ox O2 Delivery O2 Flow Rate FiO2 07/13/17 09:23 102 07/13/17 08:10 97.4 104 18 140/87 (104) 98 07/13/17 08:10 164 07/13/17 06:05 98 07/13/17 05:00 114 07/13/17 04:14 97.4 73 154/69 (97) 99 07/13/17 04:00 120 07/13/17 03:54 106 07/13/17 02:00 160 07/13/17 01:00 134 07/13/17 00:00 172 07/13/17 00:00 97.1 103 127/89 (102) 100 07/12/17 23:00 109 07/12/17 22:00 106 07/12/17 21:00 104 07/12/17 20:50 97 21 07/12/17 20:00 98.0 161 126/93 (104) 99 07/12/17 20:00 104 07/12/17 19:00 105 07/12/17 18:00 164 07/12/17 17:00 156 07/12/17 16:00 98.0 159 20 130/92 (105) 98 07/12/17 16:00 112 07/12/17 15:00 126 07/12/17 14:00 100 07/12/17 13:00 98 07/12/17 12:00 128 07/12/17 12:00 96.9 161 20 118/91 (100) 97 07/12/17 11:00 126 07/12/17 10:00 106 -: 07/13/17 0715 07/13/17 0719 Physical Exam General Appearance: No Acute Distress, Comfortable Eyes Eye Exam: Pupils Equal Neck Neck Exam: Neck Supple Pulmonary Resp Exam: Breath Sounds Equal, Crackles, Rhonchi, Decreased Bases, Diminished Breath Sounds Cardiology CV Exam: Irregular, Tachycardia Gastrointestinal/Abdomen GI Exam: Soft, Non-Tender, Bowel Sounds Present, Distended Extremeties Extremities Exam: Trace Edema Neurologic Neuro Exam: Alert, Awake, Oriented Psychiatric Psych Exam: Appropriate Responses Assessment/Plan Assessment Summary: Anemia of CKD, Hypertension, End Stage Renal Disease Problem List: (1) End stage renal failure on dialysis ICD Codes: N18.6 - End stage renal disease; Z99.2 - Dependence on renal dialysis (2) Congestive heart failure ICD Codes: I50.9 - Congestive heart failure Status: Acute (3) Hypertension ICD Codes: I10 - Hypertension Status: Chronic (4) Anemia ICD Codes: D64.9 - Anemia, unspecified Status: Acute (5) Anemia ICD Codes: D64.9 - Anemia, unspecified (6) COPD Status: Acute (7) Atrial fibrillation ICD Codes: I48.91 - Atrial fibrillation Status: Acute Plan HD was done Sat. still has RVR off and on, Cardiology following. Patient has low K, will start PO. Check stool for C.Difficile. HD will be in AM. Problem Qualifiers (1) Hypertension: Qualified Codes: I10 - Essential (primary) hypertension Marianne Elise MD Jul 13, 2017 09:48
--- NOTE | 2017-07-13 10:33 | HHI.PR ---
Subjective Remarks Follow-up for atrial fibrillation with RVR Patient continues to RVR. He stated that he continues to feel shortness of breathing. Positive cough. When I asked patient if he has any history of hepatitis. He stated yes he has a history of hepatitis C. I also asked patient if he drinks alcohol he stated yes about 3-4 beers a day. He denies any withdrawal symptoms or having any history of cirrhosis. Patient is being cleaned by the nursing tach. She stated that patient has a lot of diarrhea that smelly. Patient stated that he always has diarrhea and is intermittent. Deny any abdominal pain. His abdomen is distended but soft. Per patient abdomen is a lot better now. Objective Vitals Vital Signs Date Time Temp Pulse Resp B/P (MAP) Pulse Ox O2 Delivery O2 Flow Rate FiO2 07/13/17 10:11 96 07/13/17 10:01 98 07/13/17 09:23 102 07/13/17 08:10 97.4 104 18 140/87 (104) 98 07/13/17 08:10 164 07/13/17 06:05 98 07/13/17 05:00 114 07/13/17 04:14 97.4 73 154/69 (97) 99 07/13/17 04:00 120 07/13/17 03:54 106 07/13/17 02:00 160 07/13/17 01:00 134 07/13/17 00:00 172 07/13/17 00:00 97.1 103 127/89 (102) 100 07/12/17 23:00 109 07/12/17 22:00 106 07/12/17 21:00 104 07/12/17 20:50 97 21 07/12/17 20:00 98.0 161 126/93 (104) 99 07/12/17 20:00 104 07/12/17 19:00 105 07/12/17 18:00 164 07/12/17 17:00 156 07/12/17 16:00 98.0 159 20 130/92 (105) 98 07/12/17 16:00 112 07/12/17 15:00 126 07/12/17 14:00 100 07/12/17 13:00 98 07/12/17 12:00 128 07/12/17 12:00 96.9 161 20 118/91 (100) 97 07/12/17 11:00 126 I/O 07/12/17 07/12/17 07/12/17 07/13/17 07/13/17 07/13/17 07:00 15:00 23:00 07:00 15:00 23:00 Intake Total 240 ml 720 ml 240 ml Output Total 100 ml 50 ml 250 ml Balance 140 ml 670 ml -10 ml Intake Oral 240 ml 720 ml 240 ml Output Urine Total 100 ml 50 ml 250 ml # Bowel Movements 3 2 Result Diagram: 07/13/17 0715 07/13/17 0719 Objective Remarks GENERAL: IN NAD NECK: Supple, trachea midline. No JVD or lymphadenopathy. CARDIOVASCULAR: Irregular rate irregular rhythm without murmurs, gallops, or rubs. RESPIRATORY: Breath sounds equal bilaterally. No accessory muscle use. GASTROINTESTINAL: Abdomen soft. Positive for distention but very soft. Negative for any pain. MUSCULOSKELETAL: Negative for lower extremity edema. Medications and IVs Current Medications Diltiazem HCl (Cardizem Inj) 25 mg STK-MED ONCE .ROUTE Last administered on at 17:47; Start 07/05/17 at 17:47; Stop 07/05/17 at 17:48; Status DC Sodium Chloride (NS Flush) 2 ml UNSCH PRN IVF FLUSH AFTER USING IV ACCESS; Start 07/05/17 at 18:00 Diltiazem HCl (Cardizem Inj) 25 mg ONCE ONCE IV ; Start 07/05/17 at 18:00; Stop 07/05/17 at 18:01; Status DC Calcium Gluconate 1 gm/Dextrose 110 ml @ 110 mls/hr ONCE ONCE IV Last administered on 07/05/17at 18:21; Start 07/05/17 at 18:15; Stop 07/05/17 at 19:14 ; Status DC Sodium Chloride 500 ml @ 500 mls/hr BOLUS ONCE IV Last administered on at 18:13; Start 07/05/17 at 18:15; Stop 07/05/17 at 19:14; Status DC Metoprolol Tartrate (Lopressor Inj) 2.5 mg ONCE STAT IV PUSH Last administered on 07/05/17at 18:22; Start 07/05/17 at 18:19; Stop 07/05/17 at 18:20 ; Status DC Diltiazem HCl 125 mg/Sodium Chloride 125 ml @ 5 mls/hr TITRATE PRN IV Tachycardia Last administered on 07/08/17at 23:49; Start 07/05/17 at 18:45; Stop 07/09/17 at 16:31; Status DC Diltiazem HCl (Cardizem Inj) 10 mg ONCE ONCE IV Last administered on at 18:47; Start 07/05/17 at 18:45; Stop 07/05/17 at 18:46; Status DC Cefepime HCl 1000 mg/Sodium Chloride 100 ml @ 200 mls/hr ONCE ONCE IV Last administered on 07/05/17at 19:34; Start 07/05/17 at 19:00; Stop 07/05/17 at 19:29 ; Status DC Vancomycin/Sodium Chloride 200 ml @ 200 mls/hr [employer] IV ; Start 07/05/17 at 19:00; Stop 07/08/17 at 18:59; Status Cancel Sodium Chloride 500 ml @ 500 mls/hr BOLUS ONCE IV Last administered on at 19:17; Start 07/05/17 at 19:15; Stop 07/05/17 at 20:14; Status DC Digoxin (Lanoxin Inj) 0.25 mg ONCE ONCE IV PUSH Last administered on at 19:40; Start 07/05/17 at 19:30; Stop 07/05/17 at 19:31; Status DC Vancomycin HCl 1000 mg/Sodium Chloride 250 ml @ 250 mls/hr ONCE ONCE IV Last administered on 07/05/17at 20:57; Start 07/05/17 at 20:30; Stop 07/05/17 at 21:29 ; Status DC Sodium Chloride 1,000 ml @ 60 mls/hr [id number] IV Last administered on at 13:29; Start 07/05/17 at 19:58; Stop 07/06/17 at 14:43; Status DC Sodium Chloride (NS Flush) 2 ml UNSCH PRN IV FLUSH FLUSH AFTER USING IV ACCESS ; Start 07/05/17 at 20:00; Status UNV Sodium Chloride (NS Flush) 2 ml BID IV FLUSH Last administered on 07/13/17at 08: 37; Start 07/05/17 at 21:00 Acetaminophen (Tylenol) 650 mg Q6H PRN PO PAIN 1-10 AND/OR FEVER >101F; Start 07/05/17 at 20:00 Ondansetron HCl (Zofran Inj) 4 mg Q6H PRN IV PUSH MILD NAUSEA OR VOMITING; Start 07/05/17 at 20:00; Stop 07/09/17 at 16:53; Status DC Metoclopramide HCl (Reglan Inj) 5 mg Q6H PRN IV PUSH SEVERE NAUSEA OR VOMITING ; Start 07/05/17 at 20:00; Stop 07/09/17 at 16:52; Status DC Albuterol Sulfate (Albuterol Neb) 2.5 mg Q6HR NEB PRN INH WHEEZING; Start 07/05 at 20:00 Ipratropium [place] (Atrovent Neb) 0.5 mg Q6HR NEB INH Last administered on at 03:37; Start 07/05/17 at 22:00 Heparin Sodium (Porcine) (Heparin Inj) 5,000 units Q8H SQ Last administered on 07/06/17at 13:31; Start 07/05/17 at 22:00; Status Future Hold Miscellaneous Information 1 Q361D XX Last administered on 07/06/17at 20:00; Start 07/05/17 at 20:00 Chlorhexidine Gluconate (Chlorhexidine 2% Cloth) Taper DAILY@04 TOP Last administered on 07/11/17at 04:00; Start 07/06/17 at 04:00; Stop 07/02/18 at 03:59 Chlorhexidine Gluconate (Chlorhexidine 2% Cloth) 3 pack UNSCH PRN TOP HYGIENIC CARE; Start 07/05/17 at 20:00 Magnesium Hydroxide (Milk Of Magnesia Liq) 30 ml Q12H PRN PO Mild constipation ; Start 07/05/17 at 20:00 Sennosides (Senokot) 17.2 mg Q12H PRN PO Moderate constipation; Start 07/05/17 at 20:00 Bisacodyl (Dulcolax Supp) 10 mg DAILY PRN RECTAL SEVERE CONSITIPATION; Start at 20:00 Lactulose (Lactulose Liq) 30 ml DAILY PRN PO SEVERE CONSITIPATION; Start at 20:00 Amiodarone HCl 150 mg/Dextrose 103 ml @ 600 mls/hr Q11M ONCE IV Last administered on 07/05/17at 20:56; Start 07/05/17 at 20:11; Stop 07/05/17 at 20:21 ; Status DC Amiodarone HCl 450 mg/Dextrose 250 ml @ 33.33 mls/ hr Q7H31M PRN IV Per Protocol; Start 07/05/17 at 20:21; Stop 07/05/17 at 20:40; Status DC Amiodarone HCl 450 mg/Sodium Chloride 250 ml @ 33.33 mls/ hr Q7H31M PRN IV Per Protocol Last administered on 07/09/17at 10:35; Start 07/05/17 at 20:45; Stop at 08:57; Status DC Azithromycin (Zithromax) 500 mg DAILY PO Last administered on 07/11/17at 08:34; Start 07/05/17 at 20:45; Stop 07/11/17 at 08:57; Status DC Cefepime HCl 1000 mg/Sodium Chloride 100 ml @ 200 mls/hr DAILY@1800 IV Last administered on 07/12/17at 16:20; Start 07/06/17 at 18:00 Metoprolol Tartrate (Lopressor Inj) 5 mg Q6H IV PUSH Last administered on at 13:30; Start 07/05/17 at 21:00; Stop 07/06/17 at 16:56; Status DC Digoxin (Lanoxin Inj) 0.5 mg ONCE ONCE IV PUSH Last administered on 07/06/17at 00:30; Start 07/06/17 at 00:30; Stop 07/06/17 at 00:31; Status DC Diltiazem HCl (Cardizem Inj) 20 mg ONCE ONCE IV Last administered on at 02:13; Start 07/06/17 at 02:00; Stop 07/06/17 at 02:01; Status DC Sodium Chloride 1,000 ml @ 0 mls/hr Q0M PRN OTHER For Prime & Rinse Back; Start 07/06/17 at 09:57 Heparin Sodium (Porcine) (Heparin Inj) 8,000 units UNSCH PRN IV FLUSH WITH DIALYSIS; Start 07/06/17 at 10:00 Sodium Chloride 1,000 ml @ 200 mls/hr Q5H PRN IV WITH DIALYSIS Last administered on 07/11/17at 12:55; Start 07/06/17 at 09:57 Sodium Chloride 1,000 ml @ 0 mls/hr Q0M PRN OTHER WITH DIALYSIS; Start at 09:57 Mannitol (Mannitol Inj) 12.5 gm UNSCH PRN IV WITH DIALYSIS; Start 07/06/17 at 10:00 Albumin Human 100 ml @ 60 mls/hr UNSCH PRN IV WITH DIALYSIS; Start 07/06/17 at 10:00 Sodium Chloride (NS Flush) 5 ml UNSCH PRN IV FLUSH WITH DIALYSIS; Start at 10:00 Heparin Sodium (Porcine) (Heparin Inj) UNSCH PRN .XX WITH DIALYSIS; Start at 10:00 Gentamicin Sulfate (Gentamicin (Dialysis) Inj) 20 mg UNSCH PRN OTHER WITH DIALYSIS; Start 07/06/17 at 10:00 Ondansetron HCl (Zofran Inj) 4 mg UNSCH PRN IV PUSH WITH DIALYSIS; Start at 10:00 Acetaminophen (Tylenol) 650 mg UNSCH PRN PO for headach, pain, temp > 101F; Start 07/06/17 at 10:00 Diphenhydramine HCl (Benadryl) 25 mg UNSCH PRN PO for hives/itching/anaphylaxis ; Start 07/06/17 at 10:00 Nitroglycerin (Nitrostat Sl) 0.4 mg UNSCH PRN SL CHEST PAIN; Start 07/06/17 at 10:00 Clonidine (Catapres) 0.1 mg UNSCH PRN PO for BP > 180/100 X 2 readings; Start 07/06/17 at 10:00 Epoetin Eric (Epogen Inj) 10,000 units UNSCH PRN IV PUSH WITH DIALYSIS Last administered on 07/11/17at 12:55; Start 07/06/17 at 10:00 Gelatin (Gelfoam 12 Mm/7 Mm Top) 1 foam UNSCH PRN TOP SEE LABEL COMMENTS Last administered on 07/11/17at 12:55; Start 07/06/17 at 10:00 Metoprolol Tartrate (Lopressor Inj) 4 mg STAT STAT IV PUSH ; Start 07/06/17 at 14:07; Stop 07/06/17 at 14:08; Status Cancel Metoprolol Tartrate (Lopressor Inj) 5 mg STAT STAT IV PUSH Last administered on 07/06/17at 15:28; Start 07/06/17 at 14:19; Stop 07/06/17 at 14:20; Status DC Diltiazem HCl (Cardizem) 90 mg Q6H PO Last administered on 07/09/17at 04:34; Start 07/06/17 at 15:30; Stop 07/09/17 at 16:31; Status DC Metoprolol Tartrate (Lopressor) 25 mg Q6H PO Last administered on 07/09/17at 04: 34; Start 07/06/17 at 22:00; Stop 07/09/17 at 16:31; Status DC Metoprolol Tartrate (Lopressor Inj) 5 mg Q2H PRN IV PUSH HR > 120 Last administered on 07/13/17at 08:37; Start 07/06/17 at 15:30 Heparin Sodium/ Dextrose 250 ml @ 17 mls/hr TITRATE PRN IV Coagulation Management Last administered on 07/08/17at 17:52; Start 07/06/17 at 19:00; Stop 07/11/17 at 08:57; Status DC Calcium Acetate (Phoslo) 667 mg TID PO Last administered on 07/13/17at 08:37; Start 07/07/17 at 13:00 Vitamin B Complex/ Vit C/Folic Acid (Nephrocaps) 1 cap DAILY PO Last administered on 07/13/17at 08:37; Start 07/07/17 at 10:30 Potassium Chloride (KCl) 20 meq ONCE ONCE PO Last administered on 07/08/17at 12 :31; Start 07/08/17 at 11:45; Stop 07/08/17 at 11:46; Status DC Heparin Sodium/ Sodium Chloride 2,000 ml @ As Directed STK-MED ONCE .ROUTE Last administered on 07/09/17at 14:10; Start 07/09/17 at 14:10; Stop 07/09/17 at 14:11; Status DC Levofloxacin/ Dextrose 0 ml @ As Directed STK-MED ONCE IV ; Start 07/09/17 at 14 :11; Stop 07/09/17 at 14:12; Status DC Furosemide (Lasix Inj) 40 mg STK-MED ONCE .ROUTE ; Start 07/09/17 at 14:29; Stop 07/09/17 at 14:30; Status DC Protamine Sulfate (Protamine Sulfate Inj) 50 mg STK-MED ONCE .ROUTE ; Start at 14:29; Stop 07/09/17 at 14:30; Status DC Isoproterenol HCl (Isuprel Inj) 1 mg STK-MED ONCE .ROUTE ; Start 07/09/17 at 15: 38; Stop 07/09/17 at 15:39; Status DC Oxycodone/ Acetaminophen (Percocet 5-325 Mg) 1 tab Q4H PRN PO PAIN SCALE 1 TO 4; Start 07/09/17 at 16:30 Oxycodone/ Acetaminophen (Percocet 5-325 Mg) 2 tab Q4H PRN PO PAIN SCALE 5 TO 10; Start 07/09/17 at 16:30 Lorazepam (Ativan Inj) 0.5 mg UNSCH PRN IV PUSH ANXIETY; Start 07/09/17 at 16: 30; Stop 07/10/17 at 16:29; Status DC Atropine Sulfate (Atropine Inj) 0.5 mg UNSCH PRN IV PUSH VAGAL REPONSE; Start 07/09/17 at 16:30 Sodium Chloride 250 ml @ 500 mls/hr ONCE PRN IV VAGAL REPONSE; Start 07/09/17 at 16:30; Stop 07/10/17 at 16:29; Status DC Metoclopramide HCl (Reglan Inj) 5 mg Q4H PRN IV PUSH NAUSEA; Start 07/09/17 at 16:30 Ondansetron HCl (Zofran Inj) 4 mg Q4H PRN IV PUSH NAUSEA; Start 07/09/17 at 16: 30 Lidocaine HCl (Xylocaine 1% Inj) 10 ml UNSCH PRN INFIL SHEATH REMOVAL; Start at 16:30; Stop 07/10/17 at 16:29; Status DC Bacitracin (Bacitracin Oint Packet) 0.9 gm ONCE ONCE TOP ; Start 07/09/17 at 16 :30; Stop 07/09/17 at 16:47; Status DC Amiodarone HCl (Cordarone) 400 mg Q12H PO Last administered on 07/13/17at 05:35 ; Start 07/09/17 at 17:00 Apixaban (Eliquis) 5 mg BID PO Last administered on 07/12/17at 08:48; Start at 21:00; Stop 07/12/17 at 13:34; Status DC Midazolam HCl (Versed Inj) 2 mg STK-MED ONCE .ROUTE ; Start 07/09/17 at 16:59; Stop 07/09/17 at 17:00; Status DC Miscellaneous Information ALL NURSING DEPARTME... UNSCH PRN .XX SEE LABEL COMMENTS; Start 07/09/17 at 17:00; Stop 07/10/17 at 16:59; Status DC Iron Sucrose 100 mg/Sodium Chloride 105 ml @ 105 mls/hr DAILY IV Last administered on 07/12/17at 08:49; Start 07/10/17 at 13:00; Stop 07/12/17 at 09:59 ; Status DC Potassium Chloride (KCl) 30 meq ONCE ONCE PO Last administered on 07/12/17at 12 :22; Start 07/12/17 at 12:00; Stop 07/12/17 at 12:01; Status DC Apixaban (Eliquis) 2.5 mg BID PO Last administered on 07/13/17at 08:37; Start at 21:00 Potassium Chloride (KCl) 20 meq DAILY PO ; Start 07/13/17 at 09:45; Status UNV A/P Problem List: (1) Atrial fibrillation with RVR ICD Code: I48.91 - Unspecified atrial fibrillation Status: Acute (2) End stage renal failure on dialysis ICD Code: N18.6 - End stage renal disease; Z99.2 - Dependence on renal dialysis (3) Hypertension ICD Code: I10 - Hypertension Status: Chronic Assessment and Plan 67 year-old man with Atrial fibrillation with RVR Status post EP study and radiofrequency ablation for Afib 07/09 , however patient still in RVR. [employer] in EP physician following patient. Patient scheduled for possible ablation. Continue amiodarone 400 mg every 12 hours On Eliquis 2.5 mg by mouth twice a day renally dose. Acute hypoxic respiratory failure Resolved but continues to feel shortness of breathing. Will get a chest x- ray. Continue with DuoNeb when necessary Maintain oxygen saturation above 92% Possible pneumonia Currently on cefepime Culture negative to date Iron deficiency anemia Completed Venofer transfusion today End-stage renal disease on hemodialysis Hemodialysis per nephrology Out Patient HD to start from 07/20. On Phsolo Thrombocytopenia This may be chronic. No signs of active bleeding. Stable. Patient does have a history of hepatitis C and is positive here. He also has a history of alcohol use. Will check a liver ultrasound. Diarrhea He is on antibiotics. Will get C. difficile. Prophylaxis: SCDs, Eliquis Problem Qualifiers (1) Hypertension: Qualified Codes: I10 - Essential (primary) hypertension Judy Mac MD Jul 13, 2017 10:33
[2017-07-13] MEDS: POTASSIUM CHLORIDE 20 MEQ CONTROLLED RELEASE TAB PO SCH (11:08)
--- NOTE | 2017-07-13 13:26 | PD.CARD.PN ---
Subjective Subjective Remarks alert in nad, Objective Medications Current Medications Medications (Trade) Dose Ordered Sig/Denice Route Start Time Stop Time Status Last Admin (NS Flush) 2 ml UNSCH PRN IVF 07/05/17 18:00 (NS Flush) 2 ml BID IV FLUSH 07/05/17 21:00 07/13/17 08:37 (Tylenol) 650 mg Q6H PRN PO 07/05/17 20:00 (Albuterol Neb) 2.5 mg Q6HR NEB PRN INH 07/05/17 20:00 (Atrovent Neb) 0.5 mg Q6HR NEB INH 07/05/17 22:00 07/13/17 03:37 (Heparin Inj) 5,000 units Q8H SQ 07/05/17 22:00 Future Hold 07/06/17 13:31 Miscellaneous Information 1 Q361D XX 07/05/17 20:00 07/06/17 20:00 (Chlorhexidine 2% Cloth) Taper DAILY@04 TOP 07/06/17 04:00 07/02/18 03:59 07/11/17 04:00 (Chlorhexidine 2% Cloth) 3 pack UNSCH PRN TOP 07/05/17 20:00 (Milk Of Magnesia Liq) 30 ml Q12H PRN PO 07/05/17 20:00 (Senokot) 17.2 mg Q12H PRN PO 07/05/17 20:00 (Dulcolax Supp) 10 mg DAILY PRN RECTAL 07/05/17 20:00 (Lactulose Liq) 30 ml DAILY PRN PO 07/05/17 20:00 Cefepime HCl 1000 mg/Sodium Chloride 100 ml @ 200 mls/hr DAILY@1800 IV 07/06/17 18:00 07/12/17 16:20 Sodium Chloride 1,000 ml @ 0 mls/hr Q0M PRN OTHER 07/06/17 09:57 (Heparin Inj) 8,000 units UNSCH PRN IV FLUSH 07/06/17 10:00 Sodium Chloride 1,000 ml @ 200 mls/hr Q5H PRN IV 07/06/17 09:57 07/11/17 12:55 Sodium Chloride 1,000 ml @ 0 mls/hr Q0M PRN OTHER 07/06/17 09:57 (Mannitol Inj) 12.5 gm UNSCH PRN IV 07/06/17 10:00 Albumin Human 100 ml @ 60 mls/hr UNSCH PRN IV 07/06/17 10:00 (NS Flush) 5 ml UNSCH PRN IV FLUSH 07/06/17 10:00 (Heparin Inj) UNSCH PRN .XX 07/06/17 10:00 (Gentamicin (Dialysis) Inj) 20 mg UNSCH PRN OTHER 07/06/17 10:00 (Zofran Inj) 4 mg UNSCH PRN IV PUSH 07/06/17 10:00 (Tylenol) 650 mg UNSCH PRN PO 07/06/17 10:00 (Benadryl) 25 mg UNSCH PRN PO 07/06/17 10:00 (Nitrostat Sl) 0.4 mg UNSCH PRN SL 07/06/17 10:00 (Catapres) 0.1 mg UNSCH PRN PO 07/06/17 10:00 (Epogen Inj) 10,000 units UNSCH PRN IV PUSH 07/06/17 10:00 07/11/17 12:55 (Gelfoam 12 Mm/7 Mm Top) 1 foam UNSCH PRN TOP 07/06/17 10:00 07/11/17 12:55 (Lopressor Inj) 5 mg Q2H PRN IV PUSH 07/06/17 15:30 07/13/17 11:40 (Phoslo) 667 mg TID PO 07/07/17 13:00 07/13/17 08:37 (Nephrocaps) 1 cap DAILY PO 07/07/17 10:30 07/13/17 08:37 (Percocet 5-325 Mg) 1 tab Q4H PRN PO 07/09/17 16:30 (Percocet 5-325 Mg) 2 tab Q4H PRN PO 07/09/17 16:30 (Atropine Inj) 0.5 mg UNSCH PRN IV PUSH 07/09/17 16:30 (Reglan Inj) 5 mg Q4H PRN IV PUSH 07/09/17 16:30 (Zofran Inj) 4 mg Q4H PRN IV PUSH 07/09/17 16:30 (Cordarone) 400 mg Q12H PO 07/09/17 17:00 07/13/17 05:35 (Eliquis) 2.5 mg BID PO 07/12/17 21:00 07/13/17 08:37 (KCl) 20 meq DAILY PO 07/13/17 10:00 07/13/17 11:08 Vital Signs / I&O Vital Signs Date Time Temp Pulse Resp B/P (MAP) Pulse Ox O2 Delivery O2 Flow Rate FiO2 07/13/17 13:12 94 07/13/17 12:01 91 07/13/17 11:24 102 07/13/17 11:24 97.6 94 18 122/94 (103) 99 07/13/17 10:11 96 07/13/17 10:01 98 07/13/17 09:23 102 07/13/17 08:10 97.4 104 18 140/87 (104) 98 07/13/17 08:10 164 07/13/17 06:05 98 07/13/17 05:00 114 07/13/17 04:14 97.4 73 154/69 (97) 99 07/13/17 04:00 120 07/13/17 03:54 106 07/13/17 02:00 160 07/13/17 01:00 134 07/13/17 00:00 172 07/13/17 00:00 97.1 103 127/89 (102) 100 07/12/17 23:00 109 07/12/17 22:00 106 07/12/17 21:00 104 07/12/17 20:50 97 21 07/12/17 20:00 98.0 161 126/93 (104) 99 07/12/17 20:00 104 07/12/17 19:00 105 07/12/17 18:00 164 07/12/17 17:00 156 07/12/17 16:00 98.0 159 20 130/92 (105) 98 07/12/17 16:00 112 07/12/17 15:00 126 07/12/17 14:00 100 I/O 07/12/17 07/12/17 07/12/17 07/13/17 07/13/17 07/13/17 07:00 15:00 23:00 07:00 15:00 23:00 Intake Total 240 ml 720 ml 240 ml Output Total 100 ml 50 ml 250 ml Balance 140 ml 670 ml -10 ml Intake Oral 240 ml 720 ml 240 ml Output Urine Total 100 ml 50 ml 250 ml # Bowel Movements 3 2 Physical Exam GENERAL: SKIN: Warm and dry. HEAD: Normocephalic. EYES: No scleral icterus. No injection or drainage. NECK: Supple, trachea midline. No JVD or lymphadenopathy. CARDIOVASCULAR: Regular rate and rhythm without murmurs, gallops, or rubs. RESPIRATORY: Breath sounds equal bilaterally. No accessory muscle use. GASTROINTESTINAL: Abdomen soft, non-tender, nondistended. MUSCULOSKELETAL: No cyanosis, or edema. BACK: Nontender without obvious deformity. No CVA tenderness. Laboratory Laboratory Tests Test 07/13/17 07:15 07/13/17 07:19 White Blood Count 6.6 TH/MM3 Red Blood Count 2.72 MIL/MM3 Hemoglobin 10.1 GM/DL Hematocrit 29.8 % Mean Corpuscular Volume 109.9 FL Mean Corpuscular Hemoglobin 37.2 PG Mean Corpuscular Hemoglobin Concent 33.9 % Red Cell Distribution Width 18.0 % Platelet Count 72 TH/MM3 Mean Platelet Volume 9.8 FL Neutrophils (%) (Auto) 71.0 % Lymphocytes (%) (Auto) 11.6 % Monocytes (%) (Auto) 15.9 % Eosinophils (%) (Auto) 0.9 % Basophils (%) (Auto) 0.6 % Neutrophils # (Auto) 4.7 TH/MM3 Lymphocytes # (Auto) 0.8 TH/MM3 Monocytes # (Auto) 1.0 TH/MM3 Eosinophils # (Auto) 0.1 TH/MM3 Basophils # (Auto) 0.0 TH/MM3 CBC Comment AUTO DIFF Differential Total Cells Counted 100 Neutrophils % (Manual) 75 % Band Neutrophils % 5 % Lymphocytes % 10 % Monocytes % 7 % Basophils % 1 % Neutrophils # (Manual) 5.4 TH/MM3 Myelocytes 2 % Differential Comment FINAL DIFF MANUAL Platelet Estimate LOW Platelet Morphology Comment NORMAL Ovalocytes 1+ Acanthocytes OCC Keratocytes OCC Blood Urea Nitrogen 44 MG/DL Creatinine 4.40 MG/DL Random Glucose 94 MG/DL Calcium Level 8.8 MG/DL Sodium Level 136 MEQ/L Potassium Level 3.1 MEQ/L Chloride Level 100 MEQ/L Carbon Dioxide Level 25.9 MEQ/L Anion Gap 10 MEQ/L Estimat Glomerular Filtration Rate 16 ML/MIN Assessment and Plan Problem List: (1) Atrial fibrillation ICD Codes: I48.91 - Atrial fibrillation Status: Acute (2) NSTEMI (non-ST elevated myocardial infarction) ICD Codes: I21.4 - Non-ST elevation (NSTEMI) myocardial infarction (3) Chronic kidney disease (CKD) stage G4/A1, severely decreased glomerular filtration rate (GFR) between 15-29 mL/min/1.73 square meter and albuminuria creatinine ratio less than 30 mg/g ICD Codes: N18.4 - Chronic kidney disease (CKD) stage G4/A1, severely decreased glomerular filtration rate (GFR) between 15-29 mL/min/1.73 square meter and albuminuria creatinine ratio less than 30 mg/g Status: Chronic (4) Hepatitis C ICD Codes: B19.20 - Unspecified viral hepatitis C without hepatic coma Status: Acute (5) Anemia ICD Codes: D64.9 - Anemia, unspecified Status: Acute Assessment and Plan 1.) Afib rvr - in nsr s/p ablation per Dr Gonzales, anemia and thrombocytopenia needs work up, on eliquis 2.5 mg bid, reconsult Dr Gonzales for rvr, d/w nurse, Dwayne Gonzalez MD Jul 13, 2017 13:26
--- NOTE | 2017-07-13 13:35 | RADRPT ---
EXAM DATE/TIME: 07/13/2017 12:21 [facility] COMPARISON: No previous studies available for comparison. INDICATIONS : Short of Breath MEDICAL HISTORY : Hypertension. Stroke. Chronic obstructive pulmonary disease. CVA A-Fib Renal failure SURGICAL HISTORY : Renal failure ENCOUNTER: Initial ACUITY: 1 week PAIN SCORE: 0/10 LOCATION: Bilateral chest FINDINGS: Small bilateral pleural effusions and associated airspace disease at the bases. Cardiac silhouette is enlarged. Central pulmonary vascularity is indistinct. Bony thorax is intact. CONCLUSION: 1. Small bilateral pleural effusions and associated lower lobe airspace disease. 2. Cardiomegaly with mild positive fluid balance. Carter Marks MD on July 13, 2017 at 13:15 Board Certified Radiologist. This report was verified electronically.
[2017-07-13] MEDS: CEFEPIME INJ 1,000 MG in SODIUM CHLORIDE 0.9% INJ 100 ML IV SCH (17:03)
--- NOTE | 2017-07-13 18:11 | RADRPT ---
EXAM DATE/TIME: 07/13/2017 16:15 [facility] COMPARISON: No previous studies available for comparison. INDICATIONS : Cirrhosis. MEDICAL HISTORY : Congestive heart failure. Hypertension. Chronic obstructive pulmonary disease. CVA. Afib. Renal failu re. SURGICAL HISTORY : AV fistula on left forearm. ENCOUNTER: Initial ACUITY: 1 day PAIN SCORE: 2/10 LOCATION: Bilateral upper quadrant MEASUREMENTS: LIVER: 13.7 cm length COMMON DUCT: 5 mm RIGHT KIDNEY: 10.7 x 3.8 x 5.3 cm SPLEEN: 11.7 cm length FINDINGS: LIVER: Sciatic appearing liver without significant focal intrapelvic ductal dilatation or mass. Trace amount of ascites with free fluid seen primarily along the margin of the liver and spleen. COMMON DUCT: No intraluminal mass or stone visualized. GALLBLADDER: Wall thickening with small amount of sludge in the gallbladder. No significant pericholecystic fluid or sonographic Soto's sign. PANCREAS: The visualized portions are within normal limits. RIGHT KIDNEY: Diffusely increased cortical echogenicity with simple appearing cyst in the midpole measuring 1.7 x 1 .5 x 1.7 cm. SPLEEN: No focal lesion. CONCLUSION: 1. Cirrhotic appearing liver with trace amount of ascites. 2. Mild gallbladder wall thickening with small amount gallbladder sludge. Gallbladder wall thickening is a common finding in patients with chronic liver disease. 3. Echogenic right kidney consistent with patient's history of renal failure. Carter Marks MD on July 13, 2017 at 18:06 Board Certified Radiologist. This report was verified electronically.
[2017-07-14] VITALS (28 sets, daily range): BP systolic 139–180; BP diastolic 83–104; PULSE 80–104; RESP 16–20; TEMP 97.8–98.6; O2SAT 96–100
[2017-07-14] MEDS: cloNIDine HCL 0.1 MG TAB PO PRN ×2 (00:40→15:18)
[2017-07-14] MEDS: RESP: IPRATROPIUM 0.5 MG/2.5 ML NEB INH SCH ×4 (03:48→20:04)
[2017-07-14] MEDS: CHLORHEXIDINE GLUCONATE 2 % 1 PACK (2 CLOTHS) TOP SCH (04:00)
[2017-07-14] MEDS: AMIODARONE 200 MG TAB PO SCH ×2 (04:35→16:46)
[2017-07-14 06:49] LABS: HEMATOCRIT 26.9 % (39.0-51.0); HEMOGLOBIN 9.3 GM/DL (13.0-17.0); MEAN CELL VOLUME 108.9 FL (80.0-100.0); MEAN CORPUSCULAR HEMOGLOBIN 37.6 PG (27.0-34.0); MEAN CORPUSCULAR HGB CONC 34.6 % (32.0-36.0); PLATELET COUNT 71 TH/MM3 (150-450); RED BLOOD COUNT 2.47 MIL/MM3 (4.50-5.90); RED CELL DISTRIBUTION WIDTH 17.6 % (11.6-17.2); WHITE BLOOD COUNT 5.9 TH/MM3 (4.0-11.0)
[2017-07-14 07:16] LABS: BICARBONATE 28.7 MEQ/L (21.0-32.0); CALCIUM 8.7 MG/DL (8.5-10.1); CREATININE 5.01 MG/DL (0.60-1.30)
--- NOTE | 2017-07-14 10:17 | HHI.NPPN ---
Subjective General Problems: Anemia, Edema, Heart Disease, Hypertension Renal Failure: End Stage Renal Disease History of Present Illness 67-year-old male with a medical history significant for Hypertension, CVA, Atrial fibrillation, and CKD stage four approaching stage 5, with left arm AV fistula placed 10 years ago but has not needed dialysis. He presented yesterday to [facility] at [place] and left against advise. Patient then presented to [place]. Creat is elevated at 10.47 and BUN of 40. Also reports minimal urinary output. Additional Remarks Patient is alert , now on HD, started eating better. Review of Systems General Constitutional: Fatigue Respiratory Lungs: Cough Respiratory Remarks Denies SOB Cardiovascular Cardiac: YUAN Cardiac Remarks Denies CP Gastrointestinal GI Remarks Denies Abdominal pain Objective Data Data Vital Signs Date Time Temp Pulse Resp B/P (MAP) Pulse Ox O2 Delivery O2 Flow Rate FiO2 07/14/17 07:41 98.0 80 20 150/99 (116) 100 07/14/17 07:35 91 07/14/17 07:27 99 21 07/14/17 06:00 88 07/14/17 05:00 90 07/14/17 04:32 97.8 92 18 155/95 (115) 99 07/14/17 04:00 100 07/14/17 03:00 98 07/14/17 02:00 90 07/14/17 01:01 96 07/14/17 00:38 180/101 (127) 07/14/17 00:32 98.1 98 16 174/104 (127) 100 07/14/17 00:01 100 07/13/17 23:00 98 07/13/17 22:01 93 07/13/17 22:01 91 07/13/17 21:19 97 21 07/13/17 21:04 92 07/13/17 20:03 95 07/13/17 19:35 97.5 165 153/93 (113) 100 07/13/17 19:00 152 07/13/17 18:02 103 07/13/17 17:32 99 07/13/17 16:16 96 07/13/17 15:08 97.7 151 18 107/86 (93) 99 07/13/17 15:08 108 07/13/17 14:05 103 07/13/17 13:12 94 07/13/17 12:01 91 07/13/17 11:24 102 07/13/17 11:24 97.6 94 18 122/94 (103) 99 -: 07/14/17 0539 07/14/17 0539 Physical Exam General Appearance: No Acute Distress, Comfortable Eyes Eye Exam: Pupils Equal Neck Neck Exam: Neck Supple Pulmonary Resp Exam: Breath Sounds Equal, Crackles, Rhonchi, Decreased Bases, Diminished Breath Sounds Cardiology CV Exam: Irregular, Tachycardia Gastrointestinal/Abdomen GI Exam: Soft, Non-Tender, Bowel Sounds Present, Distended Extremeties Extremities Exam: Trace Edema Neurologic Neuro Exam: Alert, Awake, Oriented Psychiatric Psych Exam: Appropriate Responses Assessment/Plan Assessment Summary: Anemia of CKD, Hypertension, End Stage Renal Disease Problem List: (1) End stage renal failure on dialysis ICD Codes: N18.6 - End stage renal disease; Z99.2 - Dependence on renal dialysis (2) Congestive heart failure ICD Codes: I50.9 - Congestive heart failure Status: Acute (3) Hypertension ICD Codes: I10 - Hypertension Status: Chronic (4) Anemia ICD Codes: D64.9 - Anemia, unspecified Status: Acute (5) Anemia ICD Codes: D64.9 - Anemia, unspecified (6) COPD Status: Acute (7) Atrial fibrillation ICD Codes: I48.91 - Atrial fibrillation Status: Acute Plan HD now, remove fluid as tolerated, Cardiology following, HR is controlled. Patient has low K, will start PO. stool for C.Difficile was negative. K was low, on K replacement and using 4.0 K in HD. Will change his HD to MWF as he will be on MWF as out patient. Problem Qualifiers (1) Hypertension: Qualified Codes: I10 - Essential (primary) hypertension Marianne Elise MD Jul 14, 2017 10:17
[2017-07-14] MEDS: EPOETIN ALFA 10,000 UNITS/ML VIAL IV PUSH PRN (11:06)
[2017-07-14] MEDS: GELATIN 12 MM/7 MM FOAM TOP PRN (11:07)
[2017-07-14] MEDS: VITAMIN B CMPLX/VITC/FOLIC AC CAP PO SCH (12:40)
[2017-07-14] MEDS: APIXABAN 2.5 MG TABLET PO SCH ×2 (12:41→20:49)
[2017-07-14] MEDS: CALCIUM ACETATE 667 MG CAP PO SCH ×3 (12:41→16:46)
[2017-07-14] MEDS: SODIUM CHLORIDE 0.9% FLUSH 10 ML FLUSH IV FLUSH SCH ×2 (12:41→20:49)
[2017-07-14] MEDS: POTASSIUM CHLORIDE 20 MEQ CONTROLLED RELEASE TAB PO SCH (12:41)
--- NOTE | 2017-07-14 14:07 | PD.CARD.PN ---
Subjective Subjective Remarks alert in nad, Objective Medications Current Medications Medications (Trade) Dose Ordered Sig/Denice Route Start Time Stop Time Status Last Admin (NS Flush) 2 ml UNSCH PRN IVF 07/05/17 18:00 (NS Flush) 2 ml BID IV FLUSH 07/05/17 21:00 07/14/17 12:41 (Tylenol) 650 mg Q6H PRN PO 07/05/17 20:00 (Albuterol Neb) 2.5 mg Q6HR NEB PRN INH 07/05/17 20:00 (Atrovent Neb) 0.5 mg Q6HR NEB INH 07/05/17 22:00 07/14/17 07:24 (Heparin Inj) 5,000 units Q8H SQ 07/05/17 22:00 Future Hold 07/06/17 13:31 Miscellaneous Information 1 Q361D XX 07/05/17 20:00 07/06/17 20:00 (Chlorhexidine 2% Cloth) Taper DAILY@04 TOP 07/06/17 04:00 07/02/18 03:59 07/14/17 04:00 (Chlorhexidine 2% Cloth) 3 pack UNSCH PRN TOP 07/05/17 20:00 (Milk Of Magnesia Liq) 30 ml Q12H PRN PO 07/05/17 20:00 (Senokot) 17.2 mg Q12H PRN PO 07/05/17 20:00 (Dulcolax Supp) 10 mg DAILY PRN RECTAL 07/05/17 20:00 (Lactulose Liq) 30 ml DAILY PRN PO 07/05/17 20:00 Cefepime HCl 1000 mg/Sodium Chloride 100 ml @ 200 mls/hr DAILY@1800 IV 07/06/17 18:00 07/13/17 17:03 Sodium Chloride 1,000 ml @ 0 mls/hr Q0M PRN OTHER 07/06/17 09:57 (Heparin Inj) 8,000 units UNSCH PRN IV FLUSH 07/06/17 10:00 Sodium Chloride 1,000 ml @ 200 mls/hr Q5H PRN IV 07/06/17 09:57 07/11/17 12:55 Sodium Chloride 1,000 ml @ 0 mls/hr Q0M PRN OTHER 07/06/17 09:57 (Mannitol Inj) 12.5 gm UNSCH PRN IV 07/06/17 10:00 Albumin Human 100 ml @ 60 mls/hr UNSCH PRN IV 07/06/17 10:00 (NS Flush) 5 ml UNSCH PRN IV FLUSH 07/06/17 10:00 (Heparin Inj) UNSCH PRN .XX 07/06/17 10:00 (Gentamicin (Dialysis) Inj) 20 mg UNSCH PRN OTHER 07/06/17 10:00 (Zofran Inj) 4 mg UNSCH PRN IV PUSH 07/06/17 10:00 (Tylenol) 650 mg UNSCH PRN PO 07/06/17 10:00 (Benadryl) 25 mg UNSCH PRN PO 07/06/17 10:00 (Nitrostat Sl) 0.4 mg UNSCH PRN SL 07/06/17 10:00 (Catapres) 0.1 mg UNSCH PRN PO 07/06/17 10:00 07/14/17 00:40 (Epogen Inj) 10,000 units UNSCH PRN IV PUSH 07/06/17 10:00 07/14/17 11:06 (Gelfoam 12 Mm/7 Mm Top) 1 foam UNSCH PRN TOP 07/06/17 10:00 07/14/17 11:07 (Lopressor Inj) 5 mg Q2H PRN IV PUSH 07/06/17 15:30 07/13/17 19:39 (Phoslo) 667 mg TID PO 07/07/17 13:00 07/14/17 12:41 (Nephrocaps) 1 cap DAILY PO 07/07/17 10:30 07/14/17 12:40 (Percocet 5-325 Mg) 1 tab Q4H PRN PO 07/09/17 16:30 (Percocet 5-325 Mg) 2 tab Q4H PRN PO 07/09/17 16:30 (Atropine Inj) 0.5 mg UNSCH PRN IV PUSH 07/09/17 16:30 (Reglan Inj) 5 mg Q4H PRN IV PUSH 07/09/17 16:30 (Zofran Inj) 4 mg Q4H PRN IV PUSH 07/09/17 16:30 (Cordarone) 400 mg Q12H PO 07/09/17 17:00 07/14/17 04:35 (Eliquis) 2.5 mg BID PO 07/12/17 21:00 07/14/17 12:41 (KCl) 20 meq DAILY PO 07/13/17 10:00 07/14/17 12:41 Vital Signs / I&O Vital Signs Date Time Temp Pulse Resp B/P (MAP) Pulse Ox O2 Delivery O2 Flow Rate FiO2 07/14/17 13:00 93 07/14/17 12:18 98.2 92 19 156/89 (111) 100 07/14/17 07:41 98.0 80 20 150/99 (116) 100 07/14/17 07:35 91 07/14/17 07:27 99 21 07/14/17 06:00 88 07/14/17 05:00 90 07/14/17 04:32 97.8 92 18 155/95 (115) 99 07/14/17 04:00 100 07/14/17 03:00 98 07/14/17 02:00 90 07/14/17 01:01 96 07/14/17 00:38 180/101 (127) 07/14/17 00:32 98.1 98 16 174/104 (127) 100 07/14/17 00:01 100 07/13/17 23:00 98 07/13/17 22:01 93 07/13/17 22:01 91 07/13/17 21:19 97 21 07/13/17 21:04 92 07/13/17 20:03 95 07/13/17 19:35 97.5 165 153/93 (113) 100 07/13/17 19:00 152 07/13/17 18:02 103 07/13/17 17:32 99 07/13/17 16:16 96 07/13/17 15:08 97.7 151 18 107/86 (93) 99 07/13/17 15:08 108 I/O 07/13/17 07/13/17 07/13/17 07/14/17 07/14/17 07/14/17 06:59 14:59 22:59 06:59 14:59 22:59 Intake Total 240 ml 580 ml 120 ml Output Total 250 ml 50 ml 0 ml 3000 ml Balance -10 ml 530 ml 120 ml -3000 ml Intake Oral 240 ml 480 ml 120 ml IV Total 100 ml Output Urine Total 250 ml 50 ml 0 ml Hemodialysis 3000 ml # Bowel Movements 2 2 1 Physical Exam GENERAL: SKIN: Warm and dry. HEAD: Normocephalic. EYES: No scleral icterus. No injection or drainage. NECK: Supple, trachea midline. No JVD or lymphadenopathy. CARDIOVASCULAR: Regular rate and rhythm without murmurs, gallops, or rubs. RESPIRATORY: Breath sounds equal bilaterally. No accessory muscle use. GASTROINTESTINAL: Abdomen soft, non-tender, nondistended. MUSCULOSKELETAL: No cyanosis, or edema. BACK: Nontender without obvious deformity. No CVA tenderness. Laboratory Laboratory Tests Test 07/13/17 14:30 07/14/17 05:39 Stool C. difficile Toxin (PCR) NEGATIVE Stl C. difficile Toxin Epiderm 027 PRESUMPTIVE NEGATIVE White Blood Count 5.9 TH/MM3 Red Blood Count 2.47 MIL/MM3 Hemoglobin 9.3 GM/DL Hematocrit 26.9 % Mean Corpuscular Volume 108.9 FL Mean Corpuscular Hemoglobin 37.6 PG Mean Corpuscular Hemoglobin Concent 34.6 % Red Cell Distribution Width 17.6 % Platelet Count 71 TH/MM3 Mean Platelet Volume 10.0 FL Blood Urea Nitrogen 50 MG/DL Creatinine 5.01 MG/DL Random Glucose 98 MG/DL Calcium Level 8.7 MG/DL Sodium Level 138 MEQ/L Potassium Level 3.0 MEQ/L Chloride Level 101 MEQ/L Carbon Dioxide Level 28.7 MEQ/L Anion Gap 8 MEQ/L Estimat Glomerular Filtration Rate 14 ML/MIN Assessment and Plan Problem List: (1) Atrial fibrillation ICD Codes: I48.91 - Atrial fibrillation Status: Acute (2) NSTEMI (non-ST elevated myocardial infarction) ICD Codes: I21.4 - Non-ST elevation (NSTEMI) myocardial infarction (3) Chronic kidney disease (CKD) stage G4/A1, severely decreased glomerular filtration rate (GFR) between 15-29 mL/min/1.73 square meter and albuminuria creatinine ratio less than 30 mg/g ICD Codes: N18.4 - Chronic kidney disease (CKD) stage G4/A1, severely decreased glomerular filtration rate (GFR) between 15-29 mL/min/1.73 square meter and albuminuria creatinine ratio less than 30 mg/g Status: Chronic (4) Hepatitis C ICD Codes: B19.20 - Unspecified viral hepatitis C without hepatic coma Status: Acute (5) Anemia ICD Codes: D64.9 - Anemia, unspecified Status: Acute Assessment and Plan 1.) Afib rvr - in nsr s/p ablation per Dr Gonzales, anemia and thrombocytopenia needs work up, on eliquis 2.5 mg bid, Dr Gonzales managing rvr, d/w Dr Gonzales Dwayne Garcia MD Jul 14, 2017 14:07
--- NOTE | 2017-07-14 14:49 | HHI.PR ---
Subjective Remarks Follow-up for age of fibrillation with RVR Patient seen in dialysis. He had no complaints. Tolerating oral intake. Denies any pain. I went over the results with patient and let him know that he does have liver cirrhosis. I asked if patient understood what that meant he said that he knew that already despite asking this yesterday. Deny any bleeding. He had no other issues or concerns. Objective Vitals Vital Signs Date Time Temp Pulse Resp B/P (MAP) Pulse Ox O2 Delivery O2 Flow Rate FiO2 07/14/17 14:00 96 07/14/17 13:00 93 07/14/17 12:18 98.2 92 19 156/89 (111) 100 07/14/17 07:41 98.0 80 20 150/99 (116) 100 07/14/17 07:35 91 07/14/17 07:27 99 21 07/14/17 06:00 88 07/14/17 05:00 90 07/14/17 04:32 97.8 92 18 155/95 (115) 99 07/14/17 04:00 100 07/14/17 03:00 98 07/14/17 02:00 90 07/14/17 01:01 96 07/14/17 00:38 180/101 (127) 07/14/17 00:32 98.1 98 16 174/104 (127) 100 07/14/17 00:01 100 07/13/17 23:00 98 07/13/17 22:01 93 07/13/17 22:01 91 07/13/17 21:19 97 21 07/13/17 21:04 92 07/13/17 20:03 95 07/13/17 19:35 97.5 165 153/93 (113) 100 07/13/17 19:00 152 07/13/17 18:02 103 07/13/17 17:32 99 07/13/17 16:16 96 07/13/17 15:08 97.7 151 18 107/86 (93) 99 07/13/17 15:08 108 I/O 07/13/17 07/13/17 07/13/17 07/14/17 07/14/17 07/14/17 07:00 15:00 23:00 07:00 15:00 23:00 Intake Total 240 ml 580 ml 120 ml Output Total 250 ml 50 ml 0 ml 3000 ml Balance -10 ml 530 ml 120 ml -3000 ml Intake Oral 240 ml 480 ml 120 ml IV Total 100 ml Output Urine Total 250 ml 50 ml 0 ml Hemodialysis 3000 ml # Bowel Movements 2 2 1 Result Diagram: 07/14/17 0539 07/14/17 0539 Objective Remarks GENERAL: IN NAD NECK: Supple, trachea midline. No JVD or lymphadenopathy. CARDIOVASCULAR: Irregular rate irregular rhythm without murmurs, gallops, or rubs. RESPIRATORY: Breath sounds equal bilaterally. No accessory muscle use. GASTROINTESTINAL: Abdomen soft. Positive for distention but very soft. Negative for any pain. MUSCULOSKELETAL: Negative for lower extremity edema. Medications and IVs Current Medications Diltiazem HCl (Cardizem Inj) 25 mg STK-MED ONCE .ROUTE Last administered on at 17:47; Start 07/05/17 at 17:47; Stop 07/05/17 at 17:48; Status DC Sodium Chloride (NS Flush) 2 ml UNSCH PRN IVF FLUSH AFTER USING IV ACCESS; Start 07/05/17 at 18:00 Diltiazem HCl (Cardizem Inj) 25 mg ONCE ONCE IV ; Start 07/05/17 at 18:00; Stop 07/05/17 at 18:01; Status DC Calcium Gluconate 1 gm/Dextrose 110 ml @ 110 mls/hr ONCE ONCE IV Last administered on 07/05/17at 18:21; Start 07/05/17 at 18:15; Stop 07/05/17 at 19:14 ; Status DC Sodium Chloride 500 ml @ 500 mls/hr BOLUS ONCE IV Last administered on at 18:13; Start 07/05/17 at 18:15; Stop 07/05/17 at 19:14; Status DC Metoprolol Tartrate (Lopressor Inj) 2.5 mg ONCE STAT IV PUSH Last administered on 07/05/17at 18:22; Start 07/05/17 at 18:19; Stop 07/05/17 at 18:20 ; Status DC Diltiazem HCl 125 mg/Sodium Chloride 125 ml @ 5 mls/hr TITRATE PRN IV Tachycardia Last administered on 07/08/17at 23:49; Start 07/05/17 at 18:45; Stop 07/09/17 at 16:31; Status DC Diltiazem HCl (Cardizem Inj) 10 mg ONCE ONCE IV Last administered on at 18:47; Start 07/05/17 at 18:45; Stop 07/05/17 at 18:46; Status DC Cefepime HCl 1000 mg/Sodium Chloride 100 ml @ 200 mls/hr ONCE ONCE IV Last administered on 07/05/17at 19:34; Start 07/05/17 at 19:00; Stop 07/05/17 at 19:29 ; Status DC Vancomycin/Sodium Chloride 200 ml @ 200 mls/hr BUTCHER IV ; Start 07/05/17 at 19:00; Stop 07/08/17 at 18:59; Status Cancel Sodium Chloride 500 ml @ 500 mls/hr BOLUS ONCE IV Last administered on at 19:17; Start 07/05/17 at 19:15; Stop 07/05/17 at 20:14; Status DC Digoxin (Lanoxin Inj) 0.25 mg ONCE ONCE IV PUSH Last administered on at 19:40; Start 07/05/17 at 19:30; Stop 07/05/17 at 19:31; Status DC Vancomycin HCl 1000 mg/Sodium Chloride 250 ml @ 250 mls/hr ONCE ONCE IV Last administered on 07/05/17at 20:57; Start 07/05/17 at 20:30; Stop 07/05/17 at 21:29 ; Status DC Sodium Chloride 1,000 ml @ 60 mls/hr [id number] IV Last administered on at 13:29; Start 07/05/17 at 19:58; Stop 07/06/17 at 14:43; Status DC Sodium Chloride (NS Flush) 2 ml UNSCH PRN IV FLUSH FLUSH AFTER USING IV ACCESS ; Start 07/05/17 at 20:00; Status UNV Sodium Chloride (NS Flush) 2 ml BID IV FLUSH Last administered on 07/14/17at 12: 41; Start 07/05/17 at 21:00 Acetaminophen (Tylenol) 650 mg Q6H PRN PO PAIN 1-10 AND/OR FEVER >101F; Start 07/05/17 at 20:00 Ondansetron HCl (Zofran Inj) 4 mg Q6H PRN IV PUSH MILD NAUSEA OR VOMITING; Start 07/05/17 at 20:00; Stop 07/09/17 at 16:53; Status DC Metoclopramide HCl (Reglan Inj) 5 mg Q6H PRN IV PUSH SEVERE NAUSEA OR VOMITING ; Start 07/05/17 at 20:00; Stop 07/09/17 at 16:52; Status DC Albuterol Sulfate (Albuterol Neb) 2.5 mg Q6HR NEB PRN INH WHEEZING; Start 07/05 at 20:00 Ipratropium [place] (Atrovent Neb) 0.5 mg Q6HR NEB INH Last administered on at 07:24; Start 07/05/17 at 22:00 Heparin Sodium (Porcine) (Heparin Inj) 5,000 units Q8H SQ Last administered on 07/06/17at 13:31; Start 07/05/17 at 22:00; Status Future Hold Miscellaneous Information 1 Q361D XX Last administered on 07/06/17at 20:00; Start 07/05/17 at 20:00 Chlorhexidine Gluconate (Chlorhexidine 2% Cloth) Taper DAILY@04 TOP Last administered on 07/14/17at 04:00; Start 07/06/17 at 04:00; Stop 07/02/18 at 03:59 Chlorhexidine Gluconate (Chlorhexidine 2% Cloth) 3 pack UNSCH PRN TOP HYGIENIC CARE; Start 07/05/17 at 20:00 Magnesium Hydroxide (Milk Of Magnesia Liq) 30 ml Q12H PRN PO Mild constipation ; Start 07/05/17 at 20:00 Sennosides (Senokot) 17.2 mg Q12H PRN PO Moderate constipation; Start 07/05/17 at 20:00 Bisacodyl (Dulcolax Supp) 10 mg DAILY PRN RECTAL SEVERE CONSITIPATION; Start at 20:00 Lactulose (Lactulose Liq) 30 ml DAILY PRN PO SEVERE CONSITIPATION; Start at 20:00 Amiodarone HCl 150 mg/Dextrose 103 ml @ 600 mls/hr Q11M ONCE IV Last administered on 07/05/17at 20:56; Start 07/05/17 at 20:11; Stop 07/05/17 at 20:21 ; Status DC Amiodarone HCl 450 mg/Dextrose 250 ml @ 33.33 mls/ hr Q7H31M PRN IV Per Protocol; Start 07/05/17 at 20:21; Stop 07/05/17 at 20:40; Status DC Amiodarone HCl 450 mg/Sodium Chloride 250 ml @ 33.33 mls/ hr Q7H31M PRN IV Per Protocol Last administered on 07/09/17at 10:35; Start 07/05/17 at 20:45; Stop at 08:57; Status DC Azithromycin (Zithromax) 500 mg DAILY PO Last administered on 07/11/17at 08:34; Start 07/05/17 at 20:45; Stop 07/11/17 at 08:57; Status DC Cefepime HCl 1000 mg/Sodium Chloride 100 ml @ 200 mls/hr DAILY@1800 IV Last administered on 07/13/17at 17:03; Start 07/06/17 at 18:00 Metoprolol Tartrate (Lopressor Inj) 5 mg Q6H IV PUSH Last administered on at 13:30; Start 07/05/17 at 21:00; Stop 07/06/17 at 16:56; Status DC Digoxin (Lanoxin Inj) 0.5 mg ONCE ONCE IV PUSH Last administered on 07/06/17at 00:30; Start 07/06/17 at 00:30; Stop 07/06/17 at 00:31; Status DC Diltiazem HCl (Cardizem Inj) 20 mg ONCE ONCE IV Last administered on at 02:13; Start 07/06/17 at 02:00; Stop 07/06/17 at 02:01; Status DC Sodium Chloride 1,000 ml @ 0 mls/hr Q0M PRN OTHER For Prime & Rinse Back; Start 07/06/17 at 09:57 Heparin Sodium (Porcine) (Heparin Inj) 8,000 units UNSCH PRN IV FLUSH WITH DIALYSIS; Start 07/06/17 at 10:00 Sodium Chloride 1,000 ml @ 200 mls/hr Q5H PRN IV WITH DIALYSIS Last administered on 07/11/17at 12:55; Start 07/06/17 at 09:57 Sodium Chloride 1,000 ml @ 0 mls/hr Q0M PRN OTHER WITH DIALYSIS; Start at 09:57 Mannitol (Mannitol Inj) 12.5 gm UNSCH PRN IV WITH DIALYSIS; Start 07/06/17 at 10:00 Albumin Human 100 ml @ 60 mls/hr UNSCH PRN IV WITH DIALYSIS; Start 07/06/17 at 10:00 Sodium Chloride (NS Flush) 5 ml UNSCH PRN IV FLUSH WITH DIALYSIS; Start at 10:00 Heparin Sodium (Porcine) (Heparin Inj) UNSCH PRN .XX WITH DIALYSIS; Start at 10:00 Gentamicin Sulfate (Gentamicin (Dialysis) Inj) 20 mg UNSCH PRN OTHER WITH DIALYSIS; Start 07/06/17 at 10:00 Ondansetron HCl (Zofran Inj) 4 mg UNSCH PRN IV PUSH WITH DIALYSIS; Start at 10:00 Acetaminophen (Tylenol) 650 mg UNSCH PRN PO for headach, pain, temp > 101F; Start 07/06/17 at 10:00 Diphenhydramine HCl (Benadryl) 25 mg UNSCH PRN PO for hives/itching/anaphylaxis ; Start 07/06/17 at 10:00 Nitroglycerin (Nitrostat Sl) 0.4 mg UNSCH PRN SL CHEST PAIN; Start 07/06/17 at 10:00 Clonidine (Catapres) 0.1 mg UNSCH PRN PO for BP > 180/100 X 2 readings Last administered on 07/14/17at 00:40; Start 07/06/17 at 10:00 Epoetin Eric (Epogen Inj) 10,000 units UNSCH PRN IV PUSH WITH DIALYSIS Last administered on 07/14/17at 11:06; Start 07/06/17 at 10:00 Gelatin (Gelfoam 12 Mm/7 Mm Top) 1 foam UNSCH PRN TOP SEE LABEL COMMENTS Last administered on 07/14/17at 11:07; Start 07/06/17 at 10:00 Metoprolol Tartrate (Lopressor Inj) 4 mg STAT STAT IV PUSH ; Start 07/06/17 at 14:07; Stop 07/06/17 at 14:08; Status Cancel Metoprolol Tartrate (Lopressor Inj) 5 mg STAT STAT IV PUSH Last administered on 07/06/17at 15:28; Start 07/06/17 at 14:19; Stop 07/06/17 at 14:20; Status DC Diltiazem HCl (Cardizem) 90 mg Q6H PO Last administered on 07/09/17at 04:34; Start 07/06/17 at 15:30; Stop 07/09/17 at 16:31; Status DC Metoprolol Tartrate (Lopressor) 25 mg Q6H PO Last administered on 07/09/17at 04: 34; Start 07/06/17 at 22:00; Stop 07/09/17 at 16:31; Status DC Metoprolol Tartrate (Lopressor Inj) 5 mg Q2H PRN IV PUSH HR > 120 Last administered on 07/13/17at 19:39; Start 07/06/17 at 15:30 Heparin Sodium/ Dextrose 250 ml @ 17 mls/hr TITRATE PRN IV Coagulation Management Last administered on 07/08/17at 17:52; Start 07/06/17 at 19:00; Stop 07/11/17 at 08:57; Status DC Calcium Acetate (Phoslo) 667 mg TID PO Last administered on 07/14/17at 14:43; Start 07/07/17 at 13:00 Vitamin B Complex/ Vit C/Folic Acid (Nephrocaps) 1 cap DAILY PO Last administered on 07/14/17at 12:40; Start 07/07/17 at 10:30 Potassium Chloride (KCl) 20 meq ONCE ONCE PO Last administered on 07/08/17at 12 :31; Start 07/08/17 at 11:45; Stop 07/08/17 at 11:46; Status DC Heparin Sodium/ Sodium Chloride 2,000 ml @ As Directed STK-MED ONCE .ROUTE Last administered on 07/09/17at 14:10; Start 07/09/17 at 14:10; Stop 07/09/17 at 14:11; Status DC Levofloxacin/ Dextrose 0 ml @ As Directed STK-MED ONCE IV ; Start 07/09/17 at 14 :11; Stop 07/09/17 at 14:12; Status DC Furosemide (Lasix Inj) 40 mg STK-MED ONCE .ROUTE ; Start 07/09/17 at 14:29; Stop 07/09/17 at 14:30; Status DC Protamine Sulfate (Protamine Sulfate Inj) 50 mg STK-MED ONCE .ROUTE ; Start at 14:29; Stop 07/09/17 at 14:30; Status DC Isoproterenol HCl (Isuprel Inj) 1 mg STK-MED ONCE .ROUTE ; Start 07/09/17 at 15: 38; Stop 07/09/17 at 15:39; Status DC Oxycodone/ Acetaminophen (Percocet 5-325 Mg) 1 tab Q4H PRN PO PAIN SCALE 1 TO 4; Start 07/09/17 at 16:30 Oxycodone/ Acetaminophen (Percocet 5-325 Mg) 2 tab Q4H PRN PO PAIN SCALE 5 TO 10; Start 07/09/17 at 16:30 Lorazepam (Ativan Inj) 0.5 mg UNSCH PRN IV PUSH ANXIETY; Start 07/09/17 at 16: 30; Stop 07/10/17 at 16:29; Status DC Atropine Sulfate (Atropine Inj) 0.5 mg UNSCH PRN IV PUSH VAGAL REPONSE; Start 07/09/17 at 16:30 Sodium Chloride 250 ml @ 500 mls/hr ONCE PRN IV VAGAL REPONSE; Start 07/09/17 at 16:30; Stop 07/10/17 at 16:29; Status DC Metoclopramide HCl (Reglan Inj) 5 mg Q4H PRN IV PUSH NAUSEA; Start 07/09/17 at 16:30 Ondansetron HCl (Zofran Inj) 4 mg Q4H PRN IV PUSH NAUSEA; Start 07/09/17 at 16: 30 Lidocaine HCl (Xylocaine 1% Inj) 10 ml UNSCH PRN INFIL SHEATH REMOVAL; Start at 16:30; Stop 07/10/17 at 16:29; Status DC Bacitracin (Bacitracin Oint Packet) 0.9 gm ONCE ONCE TOP ; Start 07/09/17 at 16 :30; Stop 07/09/17 at 16:47; Status DC Amiodarone HCl (Cordarone) 400 mg Q12H PO Last administered on 07/14/17at 04:35 ; Start 07/09/17 at 17:00 Apixaban (Eliquis) 5 mg BID PO Last administered on 07/12/17at 08:48; Start at 21:00; Stop 07/12/17 at 13:34; Status DC Midazolam HCl (Versed Inj) 2 mg STK-MED ONCE .ROUTE ; Start 07/09/17 at 16:59; Stop 07/09/17 at 17:00; Status DC Miscellaneous Information ALL NURSING DEPARTME... UNSCH PRN .XX SEE LABEL COMMENTS; Start 07/09/17 at 17:00; Stop 07/10/17 at 16:59; Status DC Iron Sucrose 100 mg/Sodium Chloride 105 ml @ 105 mls/hr DAILY IV Last administered on 07/12/17at 08:49; Start 07/10/17 at 13:00; Stop 07/12/17 at 09:59 ; Status DC Potassium Chloride (KCl) 30 meq ONCE ONCE PO Last administered on 07/12/17at 12 :22; Start 07/12/17 at 12:00; Stop 07/12/17 at 12:01; Status DC Apixaban (Eliquis) 2.5 mg BID PO Last administered on 07/14/17at 12:41; Start at 21:00 Potassium Chloride (KCl) 20 meq DAILY PO Last administered on 07/14/17at 12:41; Start 07/13/17 at 10:00 Lidocaine HCl (Xylocaine-Mpf 1% Inj) 5 ml STK-MED ONCE OTHER ; Start 07/09/17 at 12:00; Stop 07/13/17 at 14:36; Status DC Rocuronium [place] (Zemuron Inj) 50 mg STK-MED ONCE IV PUSH ; Start 07/09/17 at 12:00; Stop 07/13/17 at 14:36; Status DC Neostigmine Methylsulfate (Prostigmine Inj) 5 mg STK-MED ONCE IV PUSH ; Start at 12:00; Stop 07/13/17 at 14:36; Status DC Glycopyrrolate (Robinul Inj) 1 mg STK-MED ONCE IV PUSH ; Start 07/09/17 at 12:00 ; Stop 07/13/17 at 14:36; Status DC Phenylephrine HCl (Neosynephrine/ NS 1000 Mcg/10ml Syr) 1,000 mcg STK-MED ONCE IV ; Start 07/09/17 at 12:00; Stop 07/13/17 at 14:36; Status DC Phenylephrine HCl (Neosynephrine Inj) 10 mg STK-MED ONCE IV ; Start 07/09/17 at 12:00; Stop 07/13/17 at 14:36; Status DC Ephedrine Sulfate (ePHEDrine/NS 25 MG/5 ML SYR) 25 mg STK-MED ONCE IV ; Start at 12:00; Stop 07/13/17 at 14:36; Status DC Succinylcholine Chloride (Quelicin Inj) 100 mg STK-MED ONCE IV PUSH ; Start at 12:00; Stop 07/13/17 at 14:36; Status DC Metoprolol Tartrate (Lopressor Inj) 5 mg STK-MED ONCE IV PUSH ; Start 07/09/17 at 12:00; Stop 07/13/17 at 14:36; Status DC Ondansetron HCl (Zofran Inj) 4 mg STK-MED ONCE IV ; Start 07/09/17 at 12:00; Stop 07/13/17 at 14:36; Status DC Propofol (Diprivan 200 Mg/20 ml Inj) 200 mg STK-MED ONCE IV ; Start 07/09/17 at 12:00; Stop 07/13/17 at 14:36; Status DC A/P Problem List: (1) Atrial fibrillation with RVR ICD Code: I48.91 - Unspecified atrial fibrillation Status: Acute (2) End stage renal failure on dialysis ICD Code: N18.6 - End stage renal disease; Z99.2 - Dependence on renal dialysis (3) Hypertension ICD Code: I10 - Hypertension Status: Chronic Assessment and Plan 67 year-old man with Atrial fibrillation with RVR Status post EP study and radiofrequency ablation for Afib 07/09 , however patient still in RVR. Special Equipment Technician in EP physician following patient. Continue amiodarone 400 mg every 12 hours On Eliquis 2.5 mg by mouth twice a day renally dose. Home rates controlled. Dr. Gonzales managing RVR. Acute hypoxic respiratory failure Chest x-ray yesterday shows small bilateral pleural effusion. Patient is given dialysis. Resolved. Continue with DuoNeb when necessary Maintain oxygen saturation above 92% Possible pneumonia Currently on cefepime. Will switch to Levaquin. Culture negative to date Iron deficiency anemia Completed Venofer transfusion today End-stage renal disease on hemodialysis Hemodialysis per nephrology Out Patient HD to start from 07/20. On Phsolo Thrombocytopenia This is chronic secondary to liver disease. Ultrasound confirms cirrhosis of liver. No active bleeding. Anemia Patient has no active bleeding. Most like he secondary to end-stage renal disease. Hemoglobin is stable. Continue follow up as outpatient. Diarrhea Improved. C. difficile negative. Will add Lactinex. Prophylaxis: SCDs, Eliquis Discharge Planning Once cleared by attendant lodging facilities patient can be discharged to rehabilitation. Discussed case with patient's nurse. Problem Qualifiers (1) Hypertension: Qualified Codes: I10 - Essential (primary) hypertension Judy Mac MD Jul 14, 2017 14:49
[2017-07-14] MEDS ORDERED: LEVOFLOXACIN 750 MG TAB PO ONE (15:00)
[2017-07-14] MEDS: LACTOBACILLUS ACIDOPHILUS TAB PO SCH (16:46)
--- NOTE | 2017-07-14 19:02 | HHI.PR ---
Subjective Remarks Feeling better Objective Vital Signs Date Time Temp Pulse Resp B/P (MAP) Pulse Ox O2 Delivery O2 Flow Rate FiO2 07/14/17 18:00 92 07/14/17 17:45 93 144/88 (106) 99 07/14/17 17:00 94 07/14/17 16:00 96 07/14/17 15:09 98.5 96 18 167/103 (124) 96 07/14/17 15:00 104 07/14/17 14:00 96 07/14/17 13:00 93 07/14/17 12:18 98.2 92 19 156/89 (111) 100 07/14/17 07:41 98.0 80 20 150/99 (116) 100 07/14/17 07:35 91 07/14/17 07:27 99 21 07/14/17 06:00 88 07/14/17 05:00 90 07/14/17 04:32 97.8 92 18 155/95 (115) 99 07/14/17 04:00 100 07/14/17 03:00 98 07/14/17 02:00 90 07/14/17 01:01 96 07/14/17 00:38 180/101 (127) 07/14/17 00:32 98.1 98 16 174/104 (127) 100 07/14/17 00:01 100 07/13/17 23:00 98 07/13/17 22:01 93 07/13/17 22:01 91 07/13/17 21:19 97 21 07/13/17 21:04 92 07/13/17 20:03 95 07/13/17 19:35 97.5 165 153/93 (113) 100 I/O 07/13/17 07/13/17 07/13/17 07/14/17 07/14/17 07/14/17 07:00 15:00 23:00 07:00 15:00 23:00 Intake Total 240 ml 580 ml 120 ml 580 ml Output Total 250 ml 50 ml 0 ml 3000 ml Balance -10 ml 530 ml 120 ml -3000 ml 580 ml Intake Oral 240 ml 480 ml 120 ml 580 ml IV Total 100 ml Output Urine Total 250 ml 50 ml 0 ml Hemodialysis 3000 ml # Voids 1 # Bowel Movements 2 2 1 3 Result Diagram: 07/14/1739 1/23/18 0539 Imaging Alert, fully oriented Lungs: ventilated Heart: S1, S2 regular Abdomen: soft, no mass Ext: No edema Current Medications Medications (Trade) Dose Ordered Sig/Denice Route Start Time Stop Time Status Last Admin (NS Flush) 2 ml UNSCH PRN IVF 07/05/17 18:00 (NS Flush) 2 ml BID IV FLUSH 07/05/17 21:00 07/14/17 12:41 (Tylenol) 650 mg Q6H PRN PO 07/05/17 20:00 (Albuterol Neb) 2.5 mg Q6HR NEB PRN INH 07/05/17 20:00 (Atrovent Neb) 0.5 mg Q6HR NEB INH 07/05/17 22:00 07/14/17 16:09 (Heparin Inj) 5,000 units Q8H SQ 07/05/17 22:00 Future Hold 07/06/17 13:31 Miscellaneous Information 1 Q361D XX 07/05/17 20:00 07/06/17 20:00 (Chlorhexidine 2% Cloth) Taper DAILY@04 TOP 07/06/17 04:00 07/02/18 03:59 07/14/17 04:00 (Chlorhexidine 2% Cloth) 3 pack UNSCH PRN TOP 07/05/17 20:00 (Milk Of Magnesia Liq) 30 ml Q12H PRN PO 07/05/17 20:00 (Senokot) 17.2 mg Q12H PRN PO 07/05/17 20:00 (Dulcolax Supp) 10 mg DAILY PRN RECTAL 07/05/17 20:00 (Lactulose Liq) 30 ml DAILY PRN PO 07/05/17 20:00 Sodium Chloride 1,000 ml @ 0 mls/hr Q0M PRN OTHER 07/06/17 09:57 (Heparin Inj) 8,000 units UNSCH PRN IV FLUSH 07/06/17 10:00 Sodium Chloride 1,000 ml @ 200 mls/hr Q5H PRN IV 07/06/17 09:57 07/11/17 12:55 Sodium Chloride 1,000 ml @ 0 mls/hr Q0M PRN OTHER 07/06/17 09:57 (Mannitol Inj) 12.5 gm UNSCH PRN IV 07/06/17 10:00 Albumin Human 100 ml @ 60 mls/hr UNSCH PRN IV 07/06/17 10:00 (NS Flush) 5 ml UNSCH PRN IV FLUSH 07/06/17 10:00 (Heparin Inj) UNSCH PRN .XX 07/06/17 10:00 (Gentamicin (Dialysis) Inj) 20 mg UNSCH PRN OTHER 07/06/17 10:00 (Zofran Inj) 4 mg UNSCH PRN IV PUSH 07/06/17 10:00 (Tylenol) 650 mg UNSCH PRN PO 07/06/17 10:00 (Benadryl) 25 mg UNSCH PRN PO 07/06/17 10:00 (Nitrostat Sl) 0.4 mg UNSCH PRN SL 07/06/17 10:00 (Catapres) 0.1 mg UNSCH PRN PO 07/06/17 10:00 07/14/17 15:18 (Epogen Inj) 10,000 units UNSCH PRN IV PUSH 07/06/17 10:00 07/14/17 11:06 (Gelfoam 12 Mm/7 Mm Top) 1 foam UNSCH PRN TOP 07/06/17 10:00 07/14/17 11:07 (Lopressor Inj) 5 mg Q2H PRN IV PUSH 07/06/17 15:30 07/13/17 19:39 (Phoslo) 667 mg TID PO 07/07/17 13:00 07/14/17 16:46 (Nephrocaps) 1 cap DAILY PO 07/07/17 10:30 07/14/17 12:40 (Percocet 5-325 Mg) 1 tab Q4H PRN PO 07/09/17 16:30 (Percocet 5-325 Mg) 2 tab Q4H PRN PO 07/09/17 16:30 (Atropine Inj) 0.5 mg UNSCH PRN IV PUSH 07/09/17 16:30 (Reglan Inj) 5 mg Q4H PRN IV PUSH 07/09/17 16:30 (Zofran Inj) 4 mg Q4H PRN IV PUSH 07/09/17 16:30 (Cordarone) 400 mg Q12H PO 07/09/17 17:00 07/14/17 16:46 (Eliquis) 2.5 mg BID PO 07/12/17 21:00 07/14/17 12:41 (KCl) 20 meq DAILY PO 07/13/17 10:00 07/14/17 12:41 (Lactinex) 1 tab TID PO 07/14/17 18:00 07/14/17 16:46 Assessment and Plan Problem List: (1) Atrial fibrillation ICD Codes: I48.91 - Atrial fibrillation Status: Acute Plan: In sinus rhythm HR high Coreg will be added case discussed with patient and sister (2) Hypertension ICD Codes: I10 - Hypertension Status: Chronic Plan: SBP 144 High. Meds need to be reevaluated (3) End stage renal failure on dialysis ICD Codes: N18.6 - End stage renal disease; Z99.2 - Dependence on renal dialysis Plan: Manage by nephrology Problem Qualifiers (1) Hypertension: Qualified Codes: I10 - Essential (primary) hypertension Jonny Gonzales MD Jul 14, 2017 19:02
[2017-07-14] MEDS: CARVEDILOL 12.5 MG TAB PO SCH (20:48)
[2017-07-15] VITALS (25 sets, daily range): BP systolic 131–160; BP diastolic 78–95; PULSE 75–97; RESP 17–20; TEMP 97.5–98.6; O2SAT 99–100
[2017-07-15] MEDS: CHLORHEXIDINE GLUCONATE 2 % 1 PACK (2 CLOTHS) TOP SCH (04:00)
[2017-07-15] MEDS: RESP: IPRATROPIUM 0.5 MG/2.5 ML NEB INH SCH ×4 (04:16→20:34)
[2017-07-15] MEDS: AMIODARONE 200 MG TAB PO SCH ×2 (05:44→18:00)
[2017-07-15 06:41] LABS: HEMATOCRIT 27.4 % (39.0-51.0); HEMOGLOBIN 9.5 GM/DL (13.0-17.0); MEAN CELL VOLUME 108.6 FL (80.0-100.0); MEAN CORPUSCULAR HEMOGLOBIN 37.6 PG (27.0-34.0); MEAN CORPUSCULAR HGB CONC 34.6 % (32.0-36.0); MEAN PLATELET VOLUME 9.4 FL (7.0-11.0); PLATELET COUNT 69 TH/MM3 (150-450); RED BLOOD COUNT 2.52 MIL/MM3 (4.50-5.90); RED CELL DISTRIBUTION WIDTH 18.1 % (11.6-17.2); WHITE BLOOD COUNT 6.4 TH/MM3 (4.0-11.0)
[2017-07-15 07:00] LABS: BICARBONATE 30.3 MEQ/L (21.0-32.0); CALCIUM 8.7 MG/DL (8.5-10.1); CREATININE 3.93 MG/DL (0.60-1.30)
--- NOTE | 2017-07-15 07:50 | PD.CARD.PN ---
Subjective Subjective Remarks Feels okay. Objective Medications Current Medications Medications (Trade) Dose Ordered Sig/Denice Route Start Time Stop Time Status Last Admin (NS Flush) 2 ml UNSCH PRN IVF 07/05/17 18:00 (NS Flush) 2 ml BID IV FLUSH 07/05/17 21:00 07/14/17 20:49 (Tylenol) 650 mg Q6H PRN PO 07/05/17 20:00 (Albuterol Neb) 2.5 mg Q6HR NEB PRN INH 07/05/17 20:00 (Atrovent Neb) 0.5 mg Q6HR NEB INH 07/05/17 22:00 07/14/17 20:04 (Heparin Inj) 5,000 units Q8H SQ 07/05/17 22:00 Future Hold 07/06/17 13:31 Miscellaneous Information 1 [id number] XX 07/05/17 20:00 07/06/17 20:00 (Chlorhexidine 2% Cloth) Taper DAILY@04 TOP 07/06/17 04:00 07/02/18 03:59 07/15/17 04:00 (Chlorhexidine 2% Cloth) 3 pack UNSCH PRN TOP 07/05/17 20:00 (Milk Of Magnesia Liq) 30 ml Q12H PRN PO 07/05/17 20:00 (Senokot) 17.2 mg Q12H PRN PO 07/05/17 20:00 (Dulcolax Supp) 10 mg DAILY PRN RECTAL 07/05/17 20:00 (Lactulose Liq) 30 ml DAILY PRN PO 07/05/17 20:00 Sodium Chloride 1,000 ml @ 0 mls/hr Q0M PRN OTHER 07/06/17 09:57 (Heparin Inj) 8,000 units UNSCH PRN IV FLUSH 07/06/17 10:00 Sodium Chloride 1,000 ml @ 200 mls/hr Q5H PRN IV 07/06/17 09:57 07/11/17 12:55 Sodium Chloride 1,000 ml @ 0 mls/hr Q0M PRN OTHER 07/06/17 09:57 (Mannitol Inj) 12.5 gm UNSCH PRN IV 07/06/17 10:00 Albumin Human 100 ml @ 60 mls/hr UNSCH PRN IV 07/06/17 10:00 (NS Flush) 5 ml UNSCH PRN IV FLUSH 07/06/17 10:00 (Heparin Inj) UNSCH PRN .XX 07/06/17 10:00 (Gentamicin (Dialysis) Inj) 20 mg UNSCH PRN OTHER 07/06/17 10:00 (Zofran Inj) 4 mg UNSCH PRN IV PUSH 07/06/17 10:00 (Tylenol) 650 mg UNSCH PRN PO 07/06/17 10:00 (Benadryl) 25 mg UNSCH PRN PO 07/06/17 10:00 (Nitrostat Sl) 0.4 mg UNSCH PRN SL 07/06/17 10:00 (Catapres) 0.1 mg UNSCH PRN PO 07/06/17 10:00 07/14/17 15:18 (Epogen Inj) 10,000 units UNSCH PRN IV PUSH 07/06/17 10:00 07/14/17 11:06 (Gelfoam 12 Mm/7 Mm Top) 1 foam UNSCH PRN TOP 07/06/17 10:00 07/14/17 11:07 (Lopressor Inj) 5 mg Q2H PRN IV PUSH 07/06/17 15:30 07/13/17 19:39 (Phoslo) 667 mg TID PO 07/07/17 13:00 07/14/17 16:46 (Nephrocaps) 1 cap DAILY PO 07/07/17 10:30 07/14/17 12:40 (Percocet 5-325 Mg) 1 tab Q4H PRN PO 07/09/17 16:30 (Percocet 5-325 Mg) 2 tab Q4H PRN PO 07/09/17 16:30 (Atropine Inj) 0.5 mg UNSCH PRN IV PUSH 07/09/17 16:30 (Reglan Inj) 5 mg Q4H PRN IV PUSH 07/09/17 16:30 (Zofran Inj) 4 mg Q4H PRN IV PUSH 07/09/17 16:30 (Cordarone) 400 mg Q12H PO 07/09/17 17:00 07/15/17 05:44 (Eliquis) 2.5 mg BID PO 07/12/17 21:00 07/14/17 20:49 (KCl) 20 meq DAILY PO 07/13/17 10:00 07/14/17 12:41 (Lactinex) 1 tab TID PO 07/14/17 18:00 07/14/17 16:46 (Coreg) 12.5 mg Q12HR PO 07/14/17 21:00 07/14/17 20:48 Vital Signs / I&O Vital Signs Date Time Temp Pulse Resp B/P (MAP) Pulse Ox O2 Delivery O2 Flow Rate FiO2 07/15/17 07:15 81 07/15/17 07:15 98.6 82 17 158/95 (116) 99 07/15/17 06:00 85 07/15/17 05:00 85 07/15/17 04:00 82 07/15/17 04:00 98.1 82 20 134/78 (96) 99 07/15/17 03:00 83 07/15/17 02:00 95 07/15/17 01:00 93 07/15/17 00:00 95 07/15/17 00:00 98.4 95 20 146/80 (102) 100 07/14/17 23:00 102 07/14/17 22:00 104 07/14/17 21:00 100 07/14/17 20:04 99 07/14/17 20:00 92 07/14/17 19:00 96 07/14/17 19:00 98.6 96 18 139/83 (101) 96 07/14/17 18:00 92 07/14/17 17:45 93 144/88 (106) 99 07/14/17 17:00 94 07/14/17 16:00 96 07/14/17 15:09 98.5 96 18 167/103 (124) 96 07/14/17 15:00 104 07/14/17 14:00 96 07/14/17 13:00 93 07/14/17 12:18 98.2 92 19 156/89 (111) 100 I/O 07/14/17 07/14/17 07/14/17 07/15/17 07/15/17 07/15/17 07:00 15:00 23:00 07:00 15:00 23:00 Intake Total 120 ml 580 ml 460 ml Output Total 0 ml 3000 ml 350 ml Balance 120 ml -3000 ml 580 ml 110 ml Intake Oral 120 ml 580 ml 460 ml Output Urine Total 0 ml 350 ml Hemodialysis 3000 ml # Voids 1 2 # Bowel Movements 1 3 2 Physical Exam GENERAL: Well-nourished, well-developed patient. SKIN: Warm and dry. HEAD: Normocephalic. EYES: No scleral icterus. No injection or drainage. NECK: Supple, trachea midline. No JVD or lymphadenopathy. CARDIOVASCULAR: Regular rate and rhythm without murmurs, gallops, or rubs. RESPIRATORY: Breath sounds equal bilaterally. No accessory muscle use. GASTROINTESTINAL: Abdomen soft, non-tender, nondistended. EXTREMITIES: No cyanosis, or edema. NEUROLOGICAL: Awake, alert, and oriented x 3. Non-focal. Laboratory Laboratory Tests Test 07/15/17 05:08 White Blood Count 6.4 TH/MM3 Red Blood Count 2.52 MIL/MM3 Hemoglobin 9.5 GM/DL Hematocrit 27.4 % Mean Corpuscular Volume 108.6 FL Mean Corpuscular Hemoglobin 37.6 PG Mean Corpuscular Hemoglobin Concent 34.6 % Red Cell Distribution Width 18.1 % Platelet Count 69 TH/MM3 Mean Platelet Volume 9.4 FL Blood Urea Nitrogen 35 MG/DL Creatinine 3.93 MG/DL Random Glucose 111 MG/DL Calcium Level 8.7 MG/DL Sodium Level 137 MEQ/L Potassium Level 3.1 MEQ/L Chloride Level 98 MEQ/L Carbon Dioxide Level 30.3 MEQ/L Anion Gap 9 MEQ/L Estimat Glomerular Filtration Rate 19 ML/MIN Imaging Last Impressions Liver Ultrasound 07/13/17 0000 Signed Impressions: Service Date/Time: Thursday, July 13, 2017 16:15 - CONCLUSION: 1. Cirrhotic appearing liver with trace amount of ascites. 2. Mild gallbladder wall thickening with small amount gallbladder sludge. Gallbladder wall thickening is a common finding in patients with chronic liver disease. 3. Echogenic right kidney consistent with patient's history of renal failure. Carter Marks MD Chest X-Ray 07/13/17 0000 Signed Impressions: Service Date/Time: Thursday, July 13, 2017 12:21 - CONCLUSION: 1. Small bilateral pleural effusions and associated lower lobe airspace disease. 2. Cardiomegaly with mild positive fluid balance. Carter Marks MD Chest CT 07/05/17 0000 Signed Impressions: Service Date/Time: Wednesday, July 05, 2017 22:07 - CONCLUSION: 1. Right greater the left pleural effusions and basilar consolidation. 2. Suspected mildly enlarged right hilar lymph node, nonspecific but no lymphadenopathy seen elsewhere and presumably benign/reactive. 3. Suspected cirrhosis. Small ascites is seen in the upper abdomen. 4. Coronary artery calcification. Matthew Aguila MD Assessment and Plan Problem List: (1) Atrial fibrillation ICD Codes: I48.91 - Atrial fibrillation Status: Acute Plan: In sinus rhythm. Heart rate controlled on current medications. Stable from EP standpoint. Continue current medications per my discussion with Dr. wood. Delmis Cole Jul 15, 2017 07:50
[2017-07-15] MEDS ORDERED: POTASSIUM CHLORIDE 25 MEQ EFFERVESCENT TAB PO ONE (09:00)
[2017-07-15] MEDS: POTASSIUM CHLORIDE 20 MEQ CONTROLLED RELEASE TAB PO SCH (09:27)
[2017-07-15] MEDS: VITAMIN B CMPLX/VITC/FOLIC AC CAP PO SCH (09:27)
[2017-07-15] MEDS: LACTOBACILLUS ACIDOPHILUS TAB PO SCH ×3 (09:27→18:00)
[2017-07-15] MEDS: CARVEDILOL 12.5 MG TAB PO SCH ×2 (09:27→20:16)
[2017-07-15] MEDS: CALCIUM ACETATE 667 MG CAP PO SCH ×3 (09:27→18:00)
[2017-07-15] MEDS: SODIUM CHLORIDE 0.9% FLUSH 10 ML FLUSH IV FLUSH SCH ×2 (09:28→20:17)
[2017-07-15] MEDS: APIXABAN 2.5 MG TABLET PO SCH ×2 (09:28→20:16)
--- NOTE | 2017-07-15 10:44 | HHI.NPPN ---
Subjective General Problems: Anemia, Edema, Heart Disease, Hypertension Renal Failure: End Stage Renal Disease History of Present Illness 67-year-old male with a medical history significant for Hypertension, CVA, Atrial fibrillation, and CKD stage four approaching stage 5, with left arm AV fistula placed 10 years ago but has not needed dialysis. He presented yesterday to [facility] [place] and left against advise. Patient then presented to [facility]. Creat is elevated at 10.47 and BUN of 40. Also reports minimal urinary output. Additional Remarks Patient is alert and oriented. No SOB. No edema noted (Chhaya Vee) Review of Systems General Constitutional: Fatigue (Chhaya Vee) Respiratory Respiratory Remarks Denies SOB (Chhaya Vee) Cardiovascular Cardiac: YUAN Cardiac Remarks Denies CP (Chhaya Vee) Gastrointestinal GI Remarks Denies Abdominal pain (Chhaya Vee) Objective Data Data Vital Signs Date Time Temp Pulse Resp B/P (MAP) Pulse Ox O2 Delivery O2 Flow Rate FiO2 07/15/17 10:00 82 07/15/17 09:55 100 07/15/17 08:00 86 07/15/17 07:15 81 07/15/17 07:15 98.6 82 17 158/95 (116) 99 07/15/17 06:00 85 07/15/17 05:00 85 07/15/17 04:00 82 07/15/17 04:00 98.1 82 20 134/78 (96) 99 07/15/17 03:00 83 07/15/17 02:00 95 07/15/17 01:00 93 07/15/17 00:00 95 07/15/17 00:00 98.4 95 20 146/80 (102) 100 07/14/17 23:00 102 07/14/17 22:00 104 07/14/17 21:00 100 07/14/17 20:04 99 07/14/17 20:00 92 07/14/17 19:00 96 07/14/17 19:00 98.6 96 18 139/83 (101) 96 07/14/17 18:00 92 07/14/17 17:45 93 144/88 (106) 99 07/14/17 17:00 94 07/14/17 16:00 96 07/14/17 15:09 98.5 96 18 167/103 (124) 96 07/14/17 15:00 104 07/14/17 14:00 96 07/14/17 13:00 93 07/14/17 12:18 98.2 92 19 156/89 (111) 100 (Chhaya Vee) -: 07/15/17 0508 07/15/17 0508 Physical Exam General Appearance: No Acute Distress, Comfortable (Chhaya Vee FACILITIES ADMINISTRATOR) Eyes Eye Exam: Pupils Equal (Chhaya VeeP) Neck Neck Exam: Neck Supple (Chhaya Vee FACILITIES ADMINISTRATOR) Pulmonary Resp Exam: Breath Sounds Equal, Crackles, Rhonchi, Decreased Bases, Diminished Breath Sounds (Chhaya VeeP) Cardiology CV Exam: Irregular, Tachycardia (Chhaya VeeP) Gastrointestinal/Abdomen GI Exam: Soft, Non-Tender, Bowel Sounds Present, Distended (Chhaya VeeP) Extremeties Extremities Exam: Trace Edema (Chhaya VeeP) Neurologic Neuro Exam: Alert, Awake, Oriented (Chhaya VeeP) Psychiatric Psych Exam: Appropriate Responses (Chhaya Vee) Assessment/Plan Assessment Summary: Anemia of CKD, Hypertension, End Stage Renal Disease Problem List: (1) End stage renal failure on dialysis ICD Codes: N18.6 - End stage renal disease; Z99.2 - Dependence on renal dialysis (2) Congestive heart failure ICD Codes: I50.9 - Congestive heart failure Status: Acute (3) Hypertension ICD Codes: I10 - Hypertension Status: Chronic (4) Anemia ICD Codes: D64.9 - Anemia, unspecified Status: Acute (5) Anemia ICD Codes: D64.9 - Anemia, unspecified (6) COPD Status: Acute (7) Atrial fibrillation ICD Codes: I48.91 - Atrial fibrillation Status: Acute Plan Cardiology following, HR is controlled. Patient has low K at 3.1. On oral replacement and 1 x dose given stool for C.Difficile was negative. K was low, on K replacement and using 4.0 K in HD. Had dialysis yesterday and when dialysis came today he refused. His HD has been changed to MWF as he will be on MWF as out patient. (Chhaya Vee) Plan Has AVF infiltration today and HD not done. Will try in AM. Can be discharge on 07/17, Thursday after HD. (Marianne Elise MD) Problem Qualifiers (1) Hypertension: Qualified Codes: I10 - Essential (primary) hypertension Chhaya Vee Jul 15, 2017 10:44 Marianne Elise MD Jul 15, 2017 11:46
--- NOTE | 2017-07-15 12:13 | HHI.PR ---
Subjective Remarks Follow-up atrial atrial fibrillation with RVR and end-stage renal disease Patient also went to dialysis this morning but he stated that he did not want it because he had pain at the site. Otherwise he has no complaints. Deny chest pain, shortness of breathing, palpitation, lightheadedness dizziness. Objective Vitals Vital Signs Date Time Temp Pulse Resp B/P (MAP) Pulse Ox O2 Delivery O2 Flow Rate FiO2 07/15/17 12:00 77 07/15/17 11:00 82 07/15/17 11:00 97.8 85 19 156/91 (112) 100 07/15/17 10:00 82 07/15/17 09:55 100 07/15/17 08:00 86 07/15/17 07:15 81 07/15/17 07:15 98.6 82 17 158/95 (116) 99 07/15/17 06:00 85 07/15/17 05:00 85 07/15/17 04:00 82 07/15/17 04:00 98.1 82 20 134/78 (96) 99 07/15/17 03:00 83 07/15/17 02:00 95 07/15/17 01:00 93 07/15/17 00:00 95 07/15/17 00:00 98.4 95 20 146/80 (102) 100 07/14/17 23:00 102 07/14/17 22:00 104 07/14/17 21:00 100 07/14/17 20:04 99 07/14/17 20:00 92 07/14/17 19:00 96 07/14/17 19:00 98.6 96 18 139/83 (101) 96 07/14/17 18:00 92 07/14/17 17:45 93 144/88 (106) 99 07/14/17 17:00 94 07/14/17 16:00 96 07/14/17 15:09 98.5 96 18 167/103 (124) 96 07/14/17 15:00 104 07/14/17 14:00 96 07/14/17 13:00 93 07/14/17 12:18 98.2 92 19 156/89 (111) 100 I/O 07/14/17 07/14/17 07/14/17 07/15/17 07/15/17 07/15/17 07:00 15:00 23:00 07:00 15:00 23:00 Intake Total 120 ml 580 ml 460 ml Output Total 0 ml 3000 ml 350 ml Balance 120 ml -3000 ml 580 ml 110 ml Intake Oral 120 ml 580 ml 460 ml Output Urine Total 0 ml 350 ml Hemodialysis 3000 ml # Voids 1 2 # Bowel Movements 1 3 2 Result Diagram: 07/15/17 0508 07/15/17 0508 Objective Remarks GENERAL: IN NAD NECK: Supple, trachea midline. No JVD or lymphadenopathy. CARDIOVASCULAR: Irregular rate irregular rhythm without murmurs, gallops, or rubs. RESPIRATORY: Breath sounds equal bilaterally. No accessory muscle use. GASTROINTESTINAL: Abdomen soft. Positive for distention but very soft. Negative for any pain. MUSCULOSKELETAL: Negative for lower extremity edema. Medications and IVs Current Medications Diltiazem HCl (Cardizem Inj) 25 mg STK-MED ONCE .ROUTE Last administered on at 17:47; Start 07/05/17 at 17:47; Stop 07/05/17 at 17:48; Status DC Sodium Chloride (NS Flush) 2 ml UNSCH PRN IVF FLUSH AFTER USING IV ACCESS; Start 07/05/17 at 18:00 Diltiazem HCl (Cardizem Inj) 25 mg ONCE ONCE IV ; Start 07/05/17 at 18:00; Stop 07/05/17 at 18:01; Status DC Calcium Gluconate 1 gm/Dextrose 110 ml @ 110 mls/hr ONCE ONCE IV Last administered on 07/05/17at 18:21; Start 07/05/17 at 18:15; Stop 07/05/17 at 19:14 ; Status DC Sodium Chloride 500 ml @ 500 mls/hr BOLUS ONCE IV Last administered on at 18:13; Start 07/05/17 at 18:15; Stop 07/05/17 at 19:14; Status DC Metoprolol Tartrate (Lopressor Inj) 2.5 mg ONCE STAT IV PUSH Last administered on 07/05/17at 18:22; Start 07/05/17 at 18:19; Stop 07/05/17 at 18:20 ; Status DC Diltiazem HCl 125 mg/Sodium Chloride 125 ml @ 5 mls/hr TITRATE PRN IV Tachycardia Last administered on 07/08/17at 23:49; Start 07/05/17 at 18:45; Stop 07/09/17 at 16:31; Status DC Diltiazem HCl (Cardizem Inj) 10 mg ONCE ONCE IV Last administered on at 18:47; Start 07/05/17 at 18:45; Stop 07/05/17 at 18:46; Status DC Cefepime HCl 1000 mg/Sodium Chloride 100 ml @ 200 mls/hr ONCE ONCE IV Last administered on 07/05/17at 19:34; Start 07/05/17 at 19:00; Stop 07/05/17 at 19:29 ; Status DC Vancomycin/Sodium Chloride 200 ml @ 200 mls/hr LAB SPECIALIST IV ; Start 07/05/17 at 19:00; Stop 07/08/17 at 18:59; Status Cancel Sodium Chloride 500 ml @ 500 mls/hr BOLUS ONCE IV Last administered on at 19:17; Start 07/05/17 at 19:15; Stop 07/05/17 at 20:14; Status DC Digoxin (Lanoxin Inj) 0.25 mg ONCE ONCE IV PUSH Last administered on at 19:40; Start 07/05/17 at 19:30; Stop 07/05/17 at 19:31; Status DC Vancomycin HCl 1000 mg/Sodium Chloride 250 ml @ 250 mls/hr ONCE ONCE IV Last administered on 07/05/17at 20:57; Start 07/05/17 at 20:30; Stop 07/05/17 at 21:29 ; Status DC Sodium Chloride 1,000 ml @ 60 mls/hr [id number] IV Last administered on at 13:29; Start 07/05/17 at 19:58; Stop 07/06/17 at 14:43; Status DC Sodium Chloride (NS Flush) 2 ml UNSCH PRN IV FLUSH FLUSH AFTER USING IV ACCESS ; Start 07/05/17 at 20:00; Status UNV Sodium Chloride (NS Flush) 2 ml BID IV FLUSH Last administered on 07/15/17at 09: 28; Start 07/05/17 at 21:00 Acetaminophen (Tylenol) 650 mg Q6H PRN PO PAIN 1-10 AND/OR FEVER >101F; Start 07/05/17 at 20:00 Ondansetron HCl (Zofran Inj) 4 mg Q6H PRN IV PUSH MILD NAUSEA OR VOMITING; Start 07/05/17 at 20:00; Stop 07/09/17 at 16:53; Status DC Metoclopramide HCl (Reglan Inj) 5 mg Q6H PRN IV PUSH SEVERE NAUSEA OR VOMITING ; Start 07/05/17 at 20:00; Stop 07/09/17 at 16:52; Status DC Albuterol Sulfate (Albuterol Neb) 2.5 mg Q6HR NEB PRN INH WHEEZING; Start 07/05 at 20:00 Ipratropium [place] (Atrovent Neb) 0.5 mg Q6HR NEB INH Last administered on at 09:54; Start 07/05/17 at 22:00 Heparin Sodium (Porcine) (Heparin Inj) 5,000 units Q8H SQ Last administered on 07/06/17at 13:31; Start 07/05/17 at 22:00; Status Future Hold Miscellaneous Information 1 Q361D XX Last administered on 07/06/17at 20:00; Start 07/05/17 at 20:00 Chlorhexidine Gluconate (Chlorhexidine 2% Cloth) Taper DAILY@04 TOP Last administered on 07/15/17at 04:00; Start 07/06/17 at 04:00; Stop 07/02/18 at 03:59 Chlorhexidine Gluconate (Chlorhexidine 2% Cloth) 3 pack UNSCH PRN TOP HYGIENIC CARE; Start 07/05/17 at 20:00 Magnesium Hydroxide (Milk Of Magnesia Liq) 30 ml Q12H PRN PO Mild constipation ; Start 07/05/17 at 20:00 Sennosides (Senokot) 17.2 mg Q12H PRN PO Moderate constipation; Start 07/05/17 at 20:00 Bisacodyl (Dulcolax Supp) 10 mg DAILY PRN RECTAL SEVERE CONSITIPATION; Start at 20:00 Lactulose (Lactulose Liq) 30 ml DAILY PRN PO SEVERE CONSITIPATION; Start at 20:00 Amiodarone HCl 150 mg/Dextrose 103 ml @ 600 mls/hr Q11M ONCE IV Last administered on 07/05/17at 20:56; Start 07/05/17 at 20:11; Stop 07/05/17 at 20:21 ; Status DC Amiodarone HCl 450 mg/Dextrose 250 ml @ 33.33 mls/ hr Q7H31M PRN IV Per Protocol; Start 07/05/17 at 20:21; Stop 07/05/17 at 20:40; Status DC Amiodarone HCl 450 mg/Sodium Chloride 250 ml @ 33.33 mls/ hr Q7H31M PRN IV Per Protocol Last administered on 07/09/17at 10:35; Start 07/05/17 at 20:45; Stop at 08:57; Status DC Azithromycin (Zithromax) 500 mg DAILY PO Last administered on 07/11/17at 08:34; Start 07/05/17 at 20:45; Stop 07/11/17 at 08:57; Status DC Cefepime HCl 1000 mg/Sodium Chloride 100 ml @ 200 mls/hr DAILY@1800 IV Last administered on 07/13/17at 17:03; Start 07/06/17 at 18:00; Stop 07/14/17 at 14:52 ; Status DC Metoprolol Tartrate (Lopressor Inj) 5 mg Q6H IV PUSH Last administered on at 13:30; Start 07/05/17 at 21:00; Stop 07/06/17 at 16:56; Status DC Digoxin (Lanoxin Inj) 0.5 mg ONCE ONCE IV PUSH Last administered on 07/06/17at 00:30; Start 07/06/17 at 00:30; Stop 07/06/17 at 00:31; Status DC Diltiazem HCl (Cardizem Inj) 20 mg ONCE ONCE IV Last administered on at 02:13; Start 07/06/17 at 02:00; Stop 07/06/17 at 02:01; Status DC Sodium Chloride 1,000 ml @ 0 mls/hr Q0M PRN OTHER For Prime & Rinse Back; Start 07/06/17 at 09:57 Heparin Sodium (Porcine) (Heparin Inj) 8,000 units UNSCH PRN IV FLUSH WITH DIALYSIS; Start 07/06/17 at 10:00 Sodium Chloride 1,000 ml @ 200 mls/hr Q5H PRN IV WITH DIALYSIS Last administered on 07/11/17at 12:55; Start 07/06/17 at 09:57 Sodium Chloride 1,000 ml @ 0 mls/hr Q0M PRN OTHER WITH DIALYSIS; Start at 09:57 Mannitol (Mannitol Inj) 12.5 gm UNSCH PRN IV WITH DIALYSIS; Start 07/06/17 at 10:00 Albumin Human 100 ml @ 60 mls/hr UNSCH PRN IV WITH DIALYSIS; Start 07/06/17 at 10:00 Sodium Chloride (NS Flush) 5 ml UNSCH PRN IV FLUSH WITH DIALYSIS; Start at 10:00 Heparin Sodium (Porcine) (Heparin Inj) UNSCH PRN .XX WITH DIALYSIS; Start at 10:00 Gentamicin Sulfate (Gentamicin (Dialysis) Inj) 20 mg UNSCH PRN OTHER WITH DIALYSIS; Start 07/06/17 at 10:00 Ondansetron HCl (Zofran Inj) 4 mg UNSCH PRN IV PUSH WITH DIALYSIS; Start at 10:00 Acetaminophen (Tylenol) 650 mg UNSCH PRN PO for headach, pain, temp > 101F; Start 07/06/17 at 10:00 Diphenhydramine HCl (Benadryl) 25 mg UNSCH PRN PO for hives/itching/anaphylaxis ; Start 07/06/17 at 10:00 Nitroglycerin (Nitrostat Sl) 0.4 mg UNSCH PRN SL CHEST PAIN; Start 07/06/17 at 10:00 Clonidine (Catapres) 0.1 mg UNSCH PRN PO for BP > 180/100 X 2 readings Last administered on 07/14/17at 15:18; Start 07/06/17 at 10:00 Epoetin Eric (Epogen Inj) 10,000 units UNSCH PRN IV PUSH WITH DIALYSIS Last administered on 07/14/17at 11:06; Start 07/06/17 at 10:00 Gelatin (Gelfoam 12 Mm/7 Mm Top) 1 foam UNSCH PRN TOP SEE LABEL COMMENTS Last administered on 07/14/17at 11:07; Start 07/06/17 at 10:00 Metoprolol Tartrate (Lopressor Inj) 4 mg STAT STAT IV PUSH ; Start 07/06/17 at 14:07; Stop 07/06/17 at 14:08; Status Cancel Metoprolol Tartrate (Lopressor Inj) 5 mg STAT STAT IV PUSH Last administered on 07/06/17at 15:28; Start 07/06/17 at 14:19; Stop 07/06/17 at 14:20; Status DC Diltiazem HCl (Cardizem) 90 mg Q6H PO Last administered on 07/09/17at 04:34; Start 07/06/17 at 15:30; Stop 07/09/17 at 16:31; Status DC Metoprolol Tartrate (Lopressor) 25 mg Q6H PO Last administered on 07/09/17at 04: 34; Start 07/06/17 at 22:00; Stop 07/09/17 at 16:31; Status DC Metoprolol Tartrate (Lopressor Inj) 5 mg Q2H PRN IV PUSH HR > 120 Last administered on 07/13/17at 19:39; Start 07/06/17 at 15:30 Heparin Sodium/ Dextrose 250 ml @ 17 mls/hr TITRATE PRN IV Coagulation Management Last administered on 07/08/17at 17:52; Start 07/06/17 at 19:00; Stop 07/11/17 at 08:57; Status DC Calcium Acetate (Phoslo) 667 mg TID PO Last administered on 07/15/17at 09:27; Start 07/07/17 at 13:00 Vitamin B Complex/ Vit C/Folic Acid (Nephrocaps) 1 cap DAILY PO Last administered on 07/15/17at 09:27; Start 07/07/17 at 10:30 Potassium Chloride (KCl) 20 meq ONCE ONCE PO Last administered on 07/08/17at 12 :31; Start 07/08/17 at 11:45; Stop 07/08/17 at 11:46; Status DC Heparin Sodium/ Sodium Chloride 2,000 ml @ As Directed STK-MED ONCE .ROUTE Last administered on 07/09/17at 14:10; Start 07/09/17 at 14:10; Stop 07/09/17 at 14:11; Status DC Levofloxacin/ Dextrose 0 ml @ As Directed STK-MED ONCE IV ; Start 07/09/17 at 14 :11; Stop 07/09/17 at 14:12; Status DC Furosemide (Lasix Inj) 40 mg STK-MED ONCE .ROUTE ; Start 07/09/17 at 14:29; Stop 07/09/17 at 14:30; Status DC Protamine Sulfate (Protamine Sulfate Inj) 50 mg STK-MED ONCE .ROUTE ; Start at 14:29; Stop 07/09/17 at 14:30; Status DC Isoproterenol HCl (Isuprel Inj) 1 mg STK-MED ONCE .ROUTE ; Start 07/09/17 at 15: 38; Stop 07/09/17 at 15:39; Status DC Oxycodone/ Acetaminophen (Percocet 5-325 Mg) 1 tab Q4H PRN PO PAIN SCALE 1 TO 4; Start 07/09/17 at 16:30 Oxycodone/ Acetaminophen (Percocet 5-325 Mg) 2 tab Q4H PRN PO PAIN SCALE 5 TO 10; Start 07/09/17 at 16:30 Lorazepam (Ativan Inj) 0.5 mg UNSCH PRN IV PUSH ANXIETY; Start 07/09/17 at 16: 30; Stop 07/10/17 at 16:29; Status DC Atropine Sulfate (Atropine Inj) 0.5 mg UNSCH PRN IV PUSH VAGAL REPONSE; Start 07/09/17 at 16:30 Sodium Chloride 250 ml @ 500 mls/hr ONCE PRN IV VAGAL REPONSE; Start 07/09/17 at 16:30; Stop 07/10/17 at 16:29; Status DC Metoclopramide HCl (Reglan Inj) 5 mg Q4H PRN IV PUSH NAUSEA; Start 07/09/17 at 16:30 Ondansetron HCl (Zofran Inj) 4 mg Q4H PRN IV PUSH NAUSEA; Start 07/09/17 at 16: 30 Lidocaine HCl (Xylocaine 1% Inj) 10 ml UNSCH PRN INFIL SHEATH REMOVAL; Start at 16:30; Stop 07/10/17 at 16:29; Status DC Bacitracin (Bacitracin Oint Packet) 0.9 gm ONCE ONCE TOP ; Start 07/09/17 at 16 :30; Stop 07/09/17 at 16:47; Status DC Amiodarone HCl (Cordarone) 400 mg Q12H PO Last administered on 07/15/17at 05:44 ; Start 07/09/17 at 17:00 Apixaban (Eliquis) 5 mg BID PO Last administered on 07/12/17at 08:48; Start at 21:00; Stop 07/12/17 at 13:34; Status DC Midazolam HCl (Versed Inj) 2 mg STK-MED ONCE .ROUTE ; Start 07/09/17 at 16:59; Stop 07/09/17 at 17:00; Status DC Miscellaneous Information ALL NURSING DEPARTME... UNSCH PRN .XX SEE LABEL COMMENTS; Start 07/09/17 at 17:00; Stop 07/10/17 at 16:59; Status DC Iron Sucrose 100 mg/Sodium Chloride 105 ml @ 105 mls/hr DAILY IV Last administered on 07/12/17at 08:49; Start 07/10/17 at 13:00; Stop 07/12/17 at 09:59 ; Status DC Potassium Chloride (KCl) 30 meq ONCE ONCE PO Last administered on 07/12/17at 12 :22; Start 07/12/17 at 12:00; Stop 07/12/17 at 12:01; Status DC Apixaban (Eliquis) 2.5 mg BID PO Last administered on 07/15/17at 09:28; Start at 21:00 Potassium Chloride (KCl) 20 meq DAILY PO Last administered on 07/15/17at 09:27; Start 07/13/17 at 10:00 Lidocaine HCl (Xylocaine-Mpf 1% Inj) 5 ml STK-MED ONCE OTHER ; Start 07/09/17 at 12:00; Stop 07/13/17 at 14:36; Status DC Rocuronium [place] (Zemuron Inj) 50 mg STK-MED ONCE IV PUSH ; Start 07/09/17 at 12:00; Stop 07/13/17 at 14:36; Status DC Neostigmine Methylsulfate (Prostigmine Inj) 5 mg STK-MED ONCE IV PUSH ; Start at 12:00; Stop 07/13/17 at 14:36; Status DC Glycopyrrolate (Robinul Inj) 1 mg STK-MED ONCE IV PUSH ; Start 07/09/17 at 12:00 ; Stop 07/13/17 at 14:36; Status DC Phenylephrine HCl (Neosynephrine/ NS 1000 Mcg/10ml Syr) 1,000 mcg STK-MED ONCE IV ; Start 07/09/17 at 12:00; Stop 07/13/17 at 14:36; Status DC Phenylephrine HCl (Neosynephrine Inj) 10 mg STK-MED ONCE IV ; Start 07/09/17 at 12:00; Stop 07/13/17 at 14:36; Status DC Ephedrine Sulfate (ePHEDrine/NS 25 MG/5 ML SYR) 25 mg STK-MED ONCE IV ; Start at 12:00; Stop 07/13/17 at 14:36; Status DC Succinylcholine Chloride (Quelicin Inj) 100 mg STK-MED ONCE IV PUSH ; Start at 12:00; Stop 07/13/17 at 14:36; Status DC Metoprolol Tartrate (Lopressor Inj) 5 mg STK-MED ONCE IV PUSH ; Start 07/09/17 at 12:00; Stop 07/13/17 at 14:36; Status DC Ondansetron HCl (Zofran Inj) 4 mg STK-MED ONCE IV ; Start 07/09/17 at 12:00; Stop 07/13/17 at 14:36; Status DC Propofol (Diprivan 200 Mg/20 ml Inj) 200 mg STK-MED ONCE IV ; Start 07/09/17 at 12:00; Stop 07/13/17 at 14:36; Status DC Levofloxacin (Levaquin) 750 mg ONCE ONCE PO Last administered on 07/14/17at 15: 18; Start 07/14/17 at 15:00; Stop 07/14/17 at 15:15; Status DC Lactobacillus Acidophilus (Lactinex) 1 tab TID PO Last administered on at 09:27; Start 07/14/17 at 18:00 Carvedilol (Coreg) 12.5 mg Q12HR PO Last administered on 07/15/17at 09:27; Start 07/14/17 at 21:00 Potassium Bicarb/ Potassium Chloride (K-Lyte Cl Eff) 25 meq ONCE ONCE PO Last administered on 07/15/17at 09:26; Start 07/15/17 at 09:00; Stop 07/15/17 at 09:01; Status DC A/P Problem List: (1) Atrial fibrillation with RVR ICD Code: I48.91 - Unspecified atrial fibrillation Status: Acute (2) End stage renal failure on dialysis ICD Code: N18.6 - End stage renal disease; Z99.2 - Dependence on renal dialysis (3) Hypertension ICD Code: I10 - Hypertension Status: Chronic Assessment and Plan 67 year-old man with Atrial fibrillation with RVR Status post EP study and radiofrequency ablation for Afib 07/09 [employer] Clerk in EP physician following patient. Continue amiodarone 400 mg every 12 hours On Eliquis 2.5 mg by mouth twice a day renally dose. Patient was started on carvedilol yesterday by Dr. Gonzales now rate control. Per Dr. Gonzales continue medical management. Acute hypoxic respiratory failure Chest x-ray yesterday shows small bilateral pleural effusion. Patient is given dialysis. Resolved. Continue with DuoNeb when necessary Maintain oxygen saturation above 92% Possible pneumonia s/p cefepime now on Levaquin. He continues to do well. Culture negative to date Iron deficiency anemia Completed Venofer transfusion today End-stage renal disease on hemodialysis Hemodialysis per nephrology Out Patient HD to start from 07/20. On Phsolo Per tugboat operator will try dialysis again tomorrow a.m. Stated that patient can be discharged on 07/17 after dialysis. Thrombocytopenia This is chronic secondary to liver disease. Ultrasound confirms cirrhosis of liver. No active bleeding. Stable. Anemia Patient has no active bleeding. Most like he secondary to end-stage renal disease. Hemoglobin is stable. Continue follow up as outpatient. Diarrhea Improved. C. difficile negative. on Lactinex. Prophylaxis: SCDs, Eliquis Discharge Planning Patient cleared by EP provider. Per tugboat operator can discharge on 07/17 after dialysis. Problem Qualifiers (1) Hypertension: Qualified Codes: I10 - Essential (primary) hypertension Judy Mac MD Jul 15, 2017 12:13
--- NOTE | 2017-07-15 14:25 | PD.CARD.PN ---
Subjective Subjective Remarks alert in nad, Objective Medications Current Medications Medications (Trade) Dose Ordered Sig/Denice Route Start Time Stop Time Status Last Admin (NS Flush) 2 ml UNSCH PRN IVF 07/05/17 18:00 (NS Flush) 2 ml BID IV FLUSH 07/05/17 21:00 07/15/17 09:28 (Tylenol) 650 mg Q6H PRN PO 07/05/17 20:00 (Albuterol Neb) 2.5 mg Q6HR NEB PRN INH 07/05/17 20:00 (Atrovent Neb) 0.5 mg Q6HR NEB INH 07/05/17 22:00 07/15/17 09:54 (Heparin Inj) 5,000 units Q8H SQ 07/05/17 22:00 Future Hold 07/06/17 13:31 Miscellaneous Information 1 Q361D XX 07/05/17 20:00 07/06/17 20:00 (Chlorhexidine 2% Cloth) Taper DAILY@04 TOP 07/06/17 04:00 07/02/18 03:59 07/15/17 04:00 (Chlorhexidine 2% Cloth) 3 pack UNSCH PRN TOP 07/05/17 20:00 (Milk Of Magnesia Liq) 30 ml Q12H PRN PO 07/05/17 20:00 (Senokot) 17.2 mg Q12H PRN PO 07/05/17 20:00 (Dulcolax Supp) 10 mg DAILY PRN RECTAL 07/05/17 20:00 (Lactulose Liq) 30 ml DAILY PRN PO 07/05/17 20:00 Sodium Chloride 1,000 ml @ 0 mls/hr Q0M PRN OTHER 07/06/17 09:57 (Heparin Inj) 8,000 units UNSCH PRN IV FLUSH 07/06/17 10:00 Sodium Chloride 1,000 ml @ 200 mls/hr Q5H PRN IV 07/06/17 09:57 07/11/17 12:55 Sodium Chloride 1,000 ml @ 0 mls/hr Q0M PRN OTHER 07/06/17 09:57 (Mannitol Inj) 12.5 gm UNSCH PRN IV 07/06/17 10:00 Albumin Human 100 ml @ 60 mls/hr UNSCH PRN IV 07/06/17 10:00 (NS Flush) 5 ml UNSCH PRN IV FLUSH 07/06/17 10:00 (Heparin Inj) UNSCH PRN .XX 07/06/17 10:00 (Gentamicin (Dialysis) Inj) 20 mg UNSCH PRN OTHER 07/06/17 10:00 (Zofran Inj) 4 mg UNSCH PRN IV PUSH 07/06/17 10:00 (Tylenol) 650 mg UNSCH PRN PO 07/06/17 10:00 (Benadryl) 25 mg UNSCH PRN PO 07/06/17 10:00 (Nitrostat Sl) 0.4 mg UNSCH PRN SL 07/06/17 10:00 (Catapres) 0.1 mg UNSCH PRN PO 07/06/17 10:00 07/14/17 15:18 (Epogen Inj) 10,000 units UNSCH PRN IV PUSH 07/06/17 10:00 07/14/17 11:06 (Gelfoam 12 Mm/7 Mm Top) 1 foam UNSCH PRN TOP 07/06/17 10:00 07/14/17 11:07 (Lopressor Inj) 5 mg Q2H PRN IV PUSH 07/06/17 15:30 07/13/17 19:39 (Phoslo) 667 mg TID PO 07/07/17 13:00 07/15/17 13:45 (Nephrocaps) 1 cap DAILY PO 07/07/17 10:30 07/15/17 09:27 (Percocet 5-325 Mg) 1 tab Q4H PRN PO 07/09/17 16:30 (Percocet 5-325 Mg) 2 tab Q4H PRN PO 07/09/17 16:30 (Atropine Inj) 0.5 mg UNSCH PRN IV PUSH 07/09/17 16:30 (Reglan Inj) 5 mg Q4H PRN IV PUSH 07/09/17 16:30 (Zofran Inj) 4 mg Q4H PRN IV PUSH 07/09/17 16:30 (Cordarone) 400 mg Q12H PO 07/09/17 17:00 07/15/17 05:44 (Eliquis) 2.5 mg BID PO 07/12/17 21:00 07/15/17 09:28 (KCl) 20 meq DAILY PO 07/13/17 10:00 07/15/17 09:27 (Lactinex) 1 tab TID PO 07/14/17 18:00 07/15/17 13:45 (Coreg) 12.5 mg Q12HR PO 07/14/17 21:00 07/15/17 09:27 Vital Signs / I&O Vital Signs Date Time Temp Pulse Resp B/P (MAP) Pulse Ox O2 Delivery O2 Flow Rate FiO2 07/15/17 13:00 79 07/15/17 12:00 77 07/15/17 11:00 82 07/15/17 11:00 97.8 85 19 156/91 (112) 100 07/15/17 10:00 82 07/15/17 09:55 100 07/15/17 08:00 86 07/15/17 07:15 81 07/15/17 07:15 98.6 82 17 158/95 (116) 99 07/15/17 06:00 85 07/15/17 05:00 85 07/15/17 04:00 82 07/15/17 04:00 98.1 82 20 134/78 (96) 99 07/15/17 03:00 83 07/15/17 02:00 95 07/15/17 01:00 93 07/15/17 00:00 95 07/15/17 00:00 98.4 95 20 146/80 (102) 100 07/14/17 23:00 102 07/14/17 22:00 104 07/14/17 21:00 100 07/14/17 20:04 99 07/14/17 20:00 92 07/14/17 19:00 96 07/14/17 19:00 98.6 96 18 139/83 (101) 96 07/14/17 18:00 92 07/14/17 17:45 93 144/88 (106) 99 07/14/17 17:00 94 07/14/17 16:00 96 07/14/17 15:09 98.5 96 18 167/103 (124) 96 07/14/17 15:00 104 I/O 07/14/17 07/14/17 07/14/17 07/15/17 07/15/17 07/15/17 07:00 15:00 23:00 07:00 15:00 23:00 Intake Total 120 ml 580 ml 460 ml Output Total 0 ml 3000 ml 350 ml Balance 120 ml -3000 ml 580 ml 110 ml Intake Oral 120 ml 580 ml 460 ml Output Urine Total 0 ml 350 ml Hemodialysis 3000 ml # Voids 1 2 # Bowel Movements 1 3 2 Physical Exam GENERAL: SKIN: Warm and dry. HEAD: Normocephalic. EYES: No scleral icterus. No injection or drainage. NECK: Supple, trachea midline. No JVD or lymphadenopathy. CARDIOVASCULAR: Regular rate and rhythm without murmurs, gallops, or rubs. RESPIRATORY: Breath sounds equal bilaterally. No accessory muscle use. GASTROINTESTINAL: Abdomen soft, non-tender, nondistended. MUSCULOSKELETAL: No cyanosis, or edema. BACK: Nontender without obvious deformity. No CVA tenderness. Laboratory Laboratory Tests Test 07/15/17 05:08 White Blood Count 6.4 TH/MM3 Red Blood Count 2.52 MIL/MM3 Hemoglobin 9.5 GM/DL Hematocrit 27.4 % Mean Corpuscular Volume 108.6 FL Mean Corpuscular Hemoglobin 37.6 PG Mean Corpuscular Hemoglobin Concent 34.6 % Red Cell Distribution Width 18.1 % Platelet Count 69 TH/MM3 Mean Platelet Volume 9.4 FL Blood Urea Nitrogen 35 MG/DL Creatinine 3.93 MG/DL Random Glucose 111 MG/DL Calcium Level 8.7 MG/DL Sodium Level 137 MEQ/L Potassium Level 3.1 MEQ/L Chloride Level 98 MEQ/L Carbon Dioxide Level 30.3 MEQ/L Anion Gap 9 MEQ/L Estimat Glomerular Filtration Rate 19 ML/MIN Assessment and Plan Problem List: (1) Atrial fibrillation ICD Codes: I48.91 - Atrial fibrillation Status: Acute Assessment and Plan 1.) Afib rvr - in nsr s/p ablation per Dr Gonzales, anemia and thrombocytopenia needs work up, on eliquis 2.5 mg bid, Dr Gonzales managing rvr, d/w Dr Gonzales , now on coreg 25 mg bid Dwayne Garcia MD Jul 15, 2017 14:25
[2017-07-16] VITALS (24 sets, daily range): BP systolic 138–173; BP diastolic 71–97; PULSE 72–84; RESP 17–19; TEMP 97.4–98; O2SAT 95–100
[2017-07-16] MEDS: RESP: IPRATROPIUM 0.5 MG/2.5 ML NEB INH SCH ×4 (03:15→21:01)
[2017-07-16] MEDS: CHLORHEXIDINE GLUCONATE 2 % 1 PACK (2 CLOTHS) TOP SCH (04:00)
[2017-07-16] MEDS: AMIODARONE 200 MG TAB PO SCH ×2 (06:05→17:09)
[2017-07-16 07:08] LABS: BICARBONATE 29.6 MEQ/L (21.0-32.0); CALCIUM 8.6 MG/DL (8.5-10.1); CREATININE 4.6 MG/DL (0.60-1.30)
[2017-07-16] MEDS ORDERED: POTASSIUM CHLORIDE 10 MEQ CONTROLLED RELEASE TAB PO ONE (08:30)
[2017-07-16] MEDS ORDERED: LOPERAMIDE HCL 2 MG CAP PO ONE (09:15)
--- NOTE | 2017-07-16 10:05 | HHI.NPPN ---
Subjective General Problems: Anemia, Edema, Heart Disease, Hypertension Renal Failure: End Stage Renal Disease History of Present Illness 67-year-old male with a medical history significant for Hypertension, CVA, Atrial fibrillation, and CKD stage four approaching stage 5, with left arm AV fistula placed 10 years ago but has not needed dialysis. He presented yesterday to [facility] [place] and left against advise. Patient then presented to [facility]. Creat is elevated at 10.47 and BUN of 40. Also reports minimal urinary output. Additional Remarks Patient is alert and oriented. No SOB. No edema noted. Tolerating dialysis well (Chhaya Vee) Additional Remarks Seen by me after HD, mild edema and ecchymosis at AVF site. (Marianne Elise MD) Review of Systems General Constitutional: Fatigue (Chhaya Vee) Respiratory Respiratory Remarks Denies SOB (Chhaya Vee) Cardiovascular Cardiac: YUAN Cardiac Remarks Denies CP (Chhaya Vee) Gastrointestinal GI Remarks Denies Abdominal pain (Chhaya Vee) Objective Data Data Vital Signs Date Time Temp Pulse Resp B/P (MAP) Pulse Ox O2 Delivery O2 Flow Rate FiO2 07/16/17 08:30 95 07/16/17 08:00 80 07/16/17 07:15 97.9 79 17 173/97 (122) 98 07/16/17 07:00 78 07/16/17 06:00 82 07/16/17 05:00 83 07/16/17 04:00 98.0 84 18 142/71 (94) 99 07/16/17 04:00 84 07/16/17 03:00 80 07/16/17 02:00 79 07/16/17 01:00 83 07/16/17 00:00 97.8 82 18 138/78 (98) 99 07/16/17 00:00 83 07/15/17 23:00 79 07/15/17 22:00 83 07/15/17 21:00 97 07/15/17 20:34 99 07/15/17 20:00 82 07/15/17 19:00 97.6 82 18 160/80 (106) 99 07/15/17 19:00 82 07/15/17 18:02 80 07/15/17 17:00 80 07/15/17 16:00 77 07/15/17 15:00 97.5 78 18 131/85 (100) 100 07/15/17 15:00 75 07/15/17 14:00 82 07/15/17 13:00 79 07/15/17 12:00 77 07/15/17 11:00 82 07/15/17 11:00 97.8 85 19 156/91 (112) 100 (Chhaya Vee) -: 07/15/17 0508 07/16/17 0515 Physical Exam General Appearance: No Acute Distress, Comfortable (Chhaya Vee) Eyes Eye Exam: Pupils Equal (Chhaya Vee) Neck Neck Exam: Neck Supple (Chhaya Vee) Pulmonary Resp Exam: Breath Sounds Equal, Crackles, Decreased Bases, Diminished Breath Sounds (Chhaya Vee) Cardiology CV Exam: Irregular, Tachycardia (Chhaya Vee) Gastrointestinal/Abdomen GI Exam: Soft, Non-Tender, Bowel Sounds Present, Distended (Chhaya Vee) Extremeties Extremities Exam: Trace Edema (Chhaya Vee) Neurologic Neuro Exam: Alert, Awake, Oriented (Chhaya Vee) Psychiatric Psych Exam: Appropriate Responses (Chhaya Vee) Assessment/Plan Assessment Summary: Anemia of CKD, Hypertension, End Stage Renal Disease Problem List: (1) End stage renal failure on dialysis ICD Codes: N18.6 - End stage renal disease; Z99.2 - Dependence on renal dialysis (2) Congestive heart failure ICD Codes: I50.9 - Congestive heart failure Status: Acute (3) Hypertension ICD Codes: I10 - Hypertension Status: Chronic (4) Anemia ICD Codes: D64.9 - Anemia, unspecified Status: Acute (5) Anemia ICD Codes: D64.9 - Anemia, unspecified (6) COPD Status: Acute (7) Atrial fibrillation ICD Codes: I48.91 - Atrial fibrillation Status: Acute Plan Patient has low K at 3.2 replacement given and using 4.0 k in HD AVF infiltration yesterday. HD rescheduled for today. Tolerating well. His HD has been will be on MWF as out patient. Can be discharge on 07/17, Thursday after HD. (Chhaya Vee) Plan HD again in AM, to put back his MWF schedule. (Marianne Elise MD) Problem Qualifiers (1) Hypertension: Qualified Codes: I10 - Essential (primary) hypertension Chhaya Vee Jul 16, 2017 10:05 Marianne Elise MD Jul 16, 2017 16:07
--- NOTE | 2017-07-16 10:18 | PD.CARD.PN ---
Subjective Subjective Remarks alert in nad, denies chest pain Objective Medications Current Medications Medications (Trade) Dose Ordered Sig/Denice Route Start Time Stop Time Status Last Admin (NS Flush) 2 ml UNSCH PRN IVF 07/05/17 18:00 (NS Flush) 2 ml BID IV FLUSH 07/05/17 21:00 07/15/17 20:17 (Tylenol) 650 mg Q6H PRN PO 07/05/17 20:00 (Albuterol Neb) 2.5 mg Q6HR NEB PRN INH 07/05/17 20:00 (Atrovent Neb) 0.5 mg Q6HR NEB INH 07/05/17 22:00 07/16/17 03:15 (Heparin Inj) 5,000 units Q8H SQ 07/05/17 22:00 Future Hold 07/06/17 13:31 Miscellaneous Information 1 Q361D XX 07/05/17 20:00 07/06/17 20:00 (Chlorhexidine 2% Cloth) Taper DAILY@04 TOP 07/06/17 04:00 07/02/18 03:59 07/16/17 04:00 (Chlorhexidine 2% Cloth) 3 pack UNSCH PRN TOP 07/05/17 20:00 (Milk Of Magnesia Liq) 30 ml Q12H PRN PO 07/05/17 20:00 (Senokot) 17.2 mg Q12H PRN PO 07/05/17 20:00 (Dulcolax Supp) 10 mg DAILY PRN RECTAL 07/05/17 20:00 (Lactulose Liq) 30 ml DAILY PRN PO 07/05/17 20:00 Sodium Chloride 1,000 ml @ 0 mls/hr Q0M PRN OTHER 07/06/17 09:57 (Heparin Inj) 8,000 units UNSCH PRN IV FLUSH 07/06/17 10:00 Sodium Chloride 1,000 ml @ 200 mls/hr Q5H PRN IV 07/06/17 09:57 07/11/17 12:55 Sodium Chloride 1,000 ml @ 0 mls/hr Q0M PRN OTHER 07/06/17 09:57 (Mannitol Inj) 12.5 gm UNSCH PRN IV 07/06/17 10:00 Albumin Human 100 ml @ 60 mls/hr UNSCH PRN IV 07/06/17 10:00 (NS Flush) 5 ml UNSCH PRN IV FLUSH 07/06/17 10:00 (Heparin Inj) UNSCH PRN .XX 07/06/17 10:00 (Gentamicin (Dialysis) Inj) 20 mg UNSCH PRN OTHER 07/06/17 10:00 (Zofran Inj) 4 mg UNSCH PRN IV PUSH 07/06/17 10:00 (Tylenol) 650 mg UNSCH PRN PO 07/06/17 10:00 (Benadryl) 25 mg UNSCH PRN PO 07/06/17 10:00 (Nitrostat Sl) 0.4 mg UNSCH PRN SL 07/06/17 10:00 (Catapres) 0.1 mg UNSCH PRN PO 07/06/17 10:00 07/14/17 15:18 (Epogen Inj) 10,000 units UNSCH PRN IV PUSH 07/06/17 10:00 07/14/17 11:06 (Gelfoam 12 Mm/7 Mm Top) 1 foam UNSCH PRN TOP 07/06/17 10:00 07/14/17 11:07 (Lopressor Inj) 5 mg Q2H PRN IV PUSH 07/06/17 15:30 07/13/17 19:39 (Phoslo) 667 mg TID PO 07/07/17 13:00 07/15/17 18:00 (Nephrocaps) 1 cap DAILY PO 07/07/17 10:30 07/15/17 09:27 (Percocet 5-325 Mg) 1 tab Q4H PRN PO 07/09/17 16:30 (Percocet 5-325 Mg) 2 tab Q4H PRN PO 07/09/17 16:30 (Atropine Inj) 0.5 mg UNSCH PRN IV PUSH 07/09/17 16:30 (Reglan Inj) 5 mg Q4H PRN IV PUSH 07/09/17 16:30 (Zofran Inj) 4 mg Q4H PRN IV PUSH 07/09/17 16:30 (Cordarone) 400 mg Q12H PO 07/09/17 17:00 07/16/17 06:05 (Eliquis) 2.5 mg BID PO 07/12/17 21:00 07/15/17 20:16 (KCl) 20 meq DAILY PO 07/13/17 10:00 07/15/17 09:27 (Lactinex) 1 tab TID PO 07/14/17 18:00 07/15/17 18:00 (Coreg) 12.5 mg Q12HR PO 07/14/17 21:00 07/15/17 20:16 Vital Signs / I&O Vital Signs Date Time Temp Pulse Resp B/P (MAP) Pulse Ox O2 Delivery O2 Flow Rate FiO2 07/16/17 08:30 95 07/16/17 08:00 80 07/16/17 07:15 97.9 79 17 173/97 (122) 98 07/16/17 07:00 78 07/16/17 06:00 82 07/16/17 05:00 83 07/16/17 04:00 98.0 84 18 142/71 (94) 99 07/16/17 04:00 84 07/16/17 03:00 80 07/16/17 02:00 79 07/16/17 01:00 83 07/16/17 00:00 97.8 82 18 138/78 (98) 99 07/16/17 00:00 83 07/15/17 23:00 79 07/15/17 22:00 83 07/15/17 21:00 97 07/15/17 20:34 99 07/15/17 20:00 82 07/15/17 19:00 97.6 82 18 160/80 (106) 99 07/15/17 19:00 82 07/15/17 18:02 80 07/15/17 17:00 80 07/15/17 16:00 77 07/15/17 15:00 97.5 78 18 131/85 (100) 100 07/15/17 15:00 75 07/15/17 14:00 82 07/15/17 13:00 79 07/15/17 12:00 77 07/15/17 11:00 82 07/15/17 11:00 97.8 85 19 156/91 (112) 100 I/O 07/15/17 07/15/17 07/15/17 07/16/17 07/16/17 07/16/17 07:00 15:00 23:00 07:00 15:00 23:00 Intake Total 460 ml 240 ml 320 ml Output Total 350 ml 20 ml 300 ml Balance 110 ml 220 ml 20 ml Intake Oral 460 ml 240 ml 320 ml Output Urine Total 350 ml 20 ml 300 ml # Voids 2 # Bowel Movements 2 2 3 Physical Exam GENERAL: SKIN: Warm and dry. HEAD: Normocephalic. EYES: No scleral icterus. No injection or drainage. NECK: Supple, trachea midline. No JVD or lymphadenopathy. CARDIOVASCULAR: Regular rate and rhythm without murmurs, gallops, or rubs. RESPIRATORY: Breath sounds equal bilaterally. No accessory muscle use. GASTROINTESTINAL: Abdomen soft, non-tender, nondistended. MUSCULOSKELETAL: No cyanosis, or edema. BACK: Nontender without obvious deformity. No CVA tenderness. Laboratory Laboratory Tests Test 07/16/17 05:15 Blood Urea Nitrogen 42 MG/DL Creatinine 4.60 MG/DL Random Glucose 93 MG/DL Calcium Level 8.6 MG/DL Sodium Level 136 MEQ/L Potassium Level 3.2 MEQ/L Chloride Level 98 MEQ/L Carbon Dioxide Level 29.6 MEQ/L Anion Gap 8 MEQ/L Estimat Glomerular Filtration Rate 16 ML/MIN Assessment and Plan Problem List: (1) Atrial fibrillation ICD Codes: I48.91 - Atrial fibrillation Status: Acute Assessment and Plan 1.) Afib rvr - in nsr s/p ablation per Dr Gonzales, anemia and thrombocytopenia needs work up, on eliquis 2.5 mg bid, Dr Gonzales managing rvr, d/w Dr Gonzales , now on coreg 25 mg bid, rate controlled, assymptomatic Dwayne Garcia MD Jul 16, 2017 10:18
[2017-07-16] MEDS: EPOETIN ALFA 10,000 UNITS/ML VIAL IV PUSH PRN (11:21)
[2017-07-16] MEDS: GELATIN 12 MM/7 MM FOAM TOP PRN (11:21)
[2017-07-16] MEDS: CARVEDILOL 12.5 MG TAB PO SCH ×2 (12:36→20:01)
[2017-07-16] MEDS: CALCIUM ACETATE 667 MG CAP PO SCH ×2 (12:36→17:09)
[2017-07-16] MEDS: APIXABAN 2.5 MG TABLET PO SCH ×2 (12:36→20:01)
[2017-07-16] MEDS: POTASSIUM CHLORIDE 20 MEQ CONTROLLED RELEASE TAB PO SCH (12:36)
[2017-07-16] MEDS: VITAMIN B CMPLX/VITC/FOLIC AC CAP PO SCH (12:37)
[2017-07-16] MEDS: SODIUM CHLORIDE 0.9% FLUSH 10 ML FLUSH IV FLUSH SCH ×2 (12:37→20:01)
[2017-07-16] MEDS: LACTOBACILLUS ACIDOPHILUS TAB PO SCH ×2 (12:37→17:09)
--- NOTE | 2017-07-16 16:19 | HHI.PR ---
Subjective Remarks Follow-up for end-stage renal disease Patient seen and dialysis. Per dialysis nurse he is tolerating dialysis very well. Patient only complaint is his intermittent in diarrhea. Denies abdominal pain. Patient is tolerating oral intake. He remains afebrile. Discussed with patient's nurse. Objective Vitals Vital Signs Date Time Temp Pulse Resp B/P (MAP) Pulse Ox O2 Delivery O2 Flow Rate FiO2 07/16/17 16:00 72 07/16/17 15:00 78 07/16/17 15:00 97.9 78 17 168/95 (119) 100 07/16/17 14:00 80 07/16/17 13:00 75 07/16/17 12:30 80 07/16/17 12:30 97.7 80 19 147/83 (104) 99 07/16/17 08:30 95 07/16/17 08:00 80 07/16/17 07:15 97.9 79 17 173/97 (122) 98 07/16/17 07:00 78 07/16/17 06:00 82 07/16/17 05:00 83 07/16/17 04:00 98.0 84 18 142/71 (94) 99 07/16/17 04:00 84 07/16/17 03:00 80 07/16/17 02:00 79 07/16/17 01:00 83 07/16/17 00:00 97.8 82 18 138/78 (98) 99 07/16/17 00:00 83 07/15/17 23:00 79 07/15/17 22:00 83 07/15/17 21:00 97 07/15/17 20:34 99 07/15/17 20:00 82 07/15/17 19:00 97.6 82 18 160/80 (106) 99 07/15/17 19:00 82 07/15/17 18:02 80 07/15/17 17:00 80 I/O 07/15/17 07/15/17 07/15/17 07/16/17 07/16/17 07/16/17 07:00 15:00 23:00 07:00 15:00 23:00 Intake Total 460 ml 240 ml 320 ml Output Total 350 ml 20 ml 300 ml 3000 ml Balance 110 ml 220 ml 20 ml -3000 ml Intake Oral 460 ml 240 ml 320 ml Output Urine Total 350 ml 20 ml 300 ml Hemodialysis 3000 ml # Voids 2 # Bowel Movements 2 2 3 Result Diagram: 07/15/17 0508 07/16/17 0515 Imaging Last Impressions Liver Ultrasound 07/13/17 0000 Signed Impressions: Service Date/Time: Thursday, July 13, 2017 16:15 - CONCLUSION: 1. Cirrhotic appearing liver with trace amount of ascites. 2. Mild gallbladder wall thickening with small amount gallbladder sludge. Gallbladder wall thickening is a common finding in patients with chronic liver disease. 3. Echogenic right kidney consistent with patient's history of renal failure. Carter Marks MD Chest X-Ray 07/13/17 0000 Signed Impressions: Service Date/Time: Thursday, July 13, 2017 12:21 - CONCLUSION: 1. Small bilateral pleural effusions and associated lower lobe airspace disease. 2. Cardiomegaly with mild positive fluid balance. Carter Marks MD Chest CT 07/05/17 0000 Signed Impressions: Service Date/Time: Wednesday, July 05, 2017 22:07 - CONCLUSION: 1. Right greater the left pleural effusions and basilar consolidation. 2. Suspected mildly enlarged right hilar lymph node, nonspecific but no lymphadenopathy seen elsewhere and presumably benign/reactive. 3. Suspected cirrhosis. Small ascites is seen in the upper abdomen. 4. Coronary artery calcification. Matthew Aguila MD Objective Remarks GENERAL: IN NAD NECK: Supple, trachea midline. No JVD or lymphadenopathy. CARDIOVASCULAR: Irregular rate irregular rhythm without murmurs, gallops, or rubs. RESPIRATORY: Breath sounds equal bilaterally. No accessory muscle use. GASTROINTESTINAL: Abdomen soft. Positive for distention but very soft. Negative for any pain. MUSCULOSKELETAL: Negative for lower extremity edema. Medications and IVs Current Medications Diltiazem HCl (Cardizem Inj) 25 mg STK-MED ONCE .ROUTE Last administered on at 17:47; Start 07/05/17 at 17:47; Stop 07/05/17 at 17:48; Status DC Sodium Chloride (NS Flush) 2 ml UNSCH PRN IVF FLUSH AFTER USING IV ACCESS; Start 07/05/17 at 18:00 Diltiazem HCl (Cardizem Inj) 25 mg ONCE ONCE IV ; Start 07/05/17 at 18:00; Stop 07/05/17 at 18:01; Status DC Calcium Gluconate 1 gm/Dextrose 110 ml @ 110 mls/hr ONCE ONCE IV Last administered on 07/05/17at 18:21; Start 07/05/17 at 18:15; Stop 07/05/17 at 19:14 ; Status DC Sodium Chloride 500 ml @ 500 mls/hr BOLUS ONCE IV Last administered on at 18:13; Start 07/05/17 at 18:15; Stop 07/05/17 at 19:14; Status DC Metoprolol Tartrate (Lopressor Inj) 2.5 mg ONCE STAT IV PUSH Last administered on 07/05/17at 18:22; Start 07/05/17 at 18:19; Stop 07/05/17 at 18:20 ; Status DC Diltiazem HCl 125 mg/Sodium Chloride 125 ml @ 5 mls/hr TITRATE PRN IV Tachycardia Last administered on 07/08/17at 23:49; Start 07/05/17 at 18:45; Stop 07/09/17 at 16:31; Status DC Diltiazem HCl (Cardizem Inj) 10 mg ONCE ONCE IV Last administered on at 18:47; Start 07/05/17 at 18:45; Stop 07/05/17 at 18:46; Status DC Cefepime HCl 1000 mg/Sodium Chloride 100 ml @ 200 mls/hr ONCE ONCE IV Last administered on 07/05/17at 19:34; Start 07/05/17 at 19:00; Stop 07/05/17 at 19:29 ; Status DC Vancomycin/Sodium Chloride 200 ml @ 200 mls/hr GROUND WIRER IV ; Start 07/05/17 at 19:00; Stop 07/08/17 at 18:59; Status Cancel Sodium Chloride 500 ml @ 500 mls/hr BOLUS ONCE IV Last administered on at 19:17; Start 07/05/17 at 19:15; Stop 07/05/17 at 20:14; Status DC Digoxin (Lanoxin Inj) 0.25 mg ONCE ONCE IV PUSH Last administered on at 19:40; Start 07/05/17 at 19:30; Stop 07/05/17 at 19:31; Status DC Vancomycin HCl 1000 mg/Sodium Chloride 250 ml @ 250 mls/hr ONCE ONCE IV Last administered on 07/05/17at 20:57; Start 07/05/17 at 20:30; Stop 07/05/17 at 21:29 ; Status DC Sodium Chloride 1,000 ml @ 60 mls/hr [id number] IV Last administered on at 13:29; Start 07/05/17 at 19:58; Stop 07/06/17 at 14:43; Status DC Sodium Chloride (NS Flush) 2 ml UNSCH PRN IV FLUSH FLUSH AFTER USING IV ACCESS ; Start 07/05/17 at 20:00; Status UNV Sodium Chloride (NS Flush) 2 ml BID IV FLUSH Last administered on 07/16/17at 12: 37; Start 07/05/17 at 21:00 Acetaminophen (Tylenol) 650 mg Q6H PRN PO PAIN 1-10 AND/OR FEVER >101F; Start 07/05/17 at 20:00 Ondansetron HCl (Zofran Inj) 4 mg Q6H PRN IV PUSH MILD NAUSEA OR VOMITING; Start 07/05/17 at 20:00; Stop 07/09/17 at 16:53; Status DC Metoclopramide HCl (Reglan Inj) 5 mg Q6H PRN IV PUSH SEVERE NAUSEA OR VOMITING ; Start 07/05/17 at 20:00; Stop 07/09/17 at 16:52; Status DC Albuterol Sulfate (Albuterol Neb) 2.5 mg Q6HR NEB PRN INH WHEEZING; Start 07/05 at 20:00 Ipratropium Enid (Atrovent Neb) 0.5 mg Q6HR NEB INH Last administered on at 16:04; Start 07/05/17 at 22:00 Heparin Sodium (Porcine) (Heparin Inj) 5,000 units Q8H SQ Last administered on 07/06/17at 13:31; Start 07/05/17 at 22:00; Status Future Hold Miscellaneous Information 1 [id number] Last administered on 07/06/17at 20:00; Start 07/05/17 at 20:00 Chlorhexidine Gluconate (Chlorhexidine 2% Cloth) Taper DAILY@04 TOP Last administered on 07/16/17 04:00; Start 07/06/17 at 04:00; Stop 1/11/19 at 03:59 Chlorhexidine Gluconate (Chlorhexidine 2% Cloth) 3 pack UNSCH PRN TOP HYGIENIC CARE; Start 07/05/17 at 20:00 Magnesium Hydroxide (Milk Of Magnesia Liq) 30 ml Q12H PRN PO Mild constipation ; Start 07/05/17 at 20:00 Sennosides (Senokot) 17.2 mg Q12H PRN PO Moderate constipation; Start 07/05/17 at 20:00 Bisacodyl (Dulcolax Supp) 10 mg DAILY PRN RECTAL SEVERE CONSITIPATION; Start at 20:00 Lactulose (Lactulose Liq) 30 ml DAILY PRN PO SEVERE CONSITIPATION; Start at 20:00 Amiodarone HCl 150 mg/Dextrose 103 ml @ 600 mls/hr Q11M ONCE IV Last administered on 07/05/17at 20:56; Start 07/05/17 at 20:11; Stop 07/05/17 at 20:21 ; Status DC Amiodarone HCl 450 mg/Dextrose 250 ml @ 33.33 mls/ hr Q7H31M PRN IV Per Protocol; Start 07/05/17 at 20:21; Stop 07/05/17 at 20:40; Status DC Amiodarone HCl 450 mg/Sodium Chloride 250 ml @ 33.33 mls/ hr Q7H31M PRN IV Per Protocol Last administered on 07/09/17at 10:35; Start 07/05/17 at 20:45; Stop at 08:57; Status DC Azithromycin (Zithromax) 500 mg DAILY PO Last administered on 07/11/17at 08:34; Start 07/05/17 at 20:45; Stop 07/11/17 at 08:57; Status DC Cefepime HCl 1000 mg/Sodium Chloride 100 ml @ 200 mls/hr DAILY@1800 IV Last administered on 07/13/17at 17:03; Start 07/06/17 at 18:00; Stop 07/14/17 at 14:52 ; Status DC Metoprolol Tartrate (Lopressor Inj) 5 mg Q6H IV PUSH Last administered on at 13:30; Start 07/05/17 at 21:00; Stop 07/06/17 at 16:56; Status DC Digoxin (Lanoxin Inj) 0.5 mg ONCE ONCE IV PUSH Last administered on 07/06/17at 00:30; Start 07/06/17 at 00:30; Stop 07/06/17 at 00:31; Status DC Diltiazem HCl (Cardizem Inj) 20 mg ONCE ONCE IV Last administered on at 02:13; Start 07/06/17 at 02:00; Stop 07/06/17 at 02:01; Status DC Sodium Chloride 1,000 ml @ 0 mls/hr Q0M PRN OTHER For Prime & Rinse Back; Start 07/06/17 at 09:57 Heparin Sodium (Porcine) (Heparin Inj) 8,000 units UNSCH PRN IV FLUSH WITH DIALYSIS; Start 07/06/17 at 10:00 Sodium Chloride 1,000 ml @ 200 mls/hr Q5H PRN IV WITH DIALYSIS Last administered on 07/11/17at 12:55; Start 07/06/17 at 09:57 Sodium Chloride 1,000 ml @ 0 mls/hr Q0M PRN OTHER WITH DIALYSIS; Start at 09:57 Mannitol (Mannitol Inj) 12.5 gm UNSCH PRN IV WITH DIALYSIS; Start 07/06/17 at 10:00 Albumin Human 100 ml @ 60 mls/hr UNSCH PRN IV WITH DIALYSIS; Start 07/06/17 at 10:00 Sodium Chloride (NS Flush) 5 ml UNSCH PRN IV FLUSH WITH DIALYSIS; Start at 10:00 Heparin Sodium (Porcine) (Heparin Inj) UNSCH PRN .XX WITH DIALYSIS; Start at 10:00 Gentamicin Sulfate (Gentamicin (Dialysis) Inj) 20 mg UNSCH PRN OTHER WITH DIALYSIS; Start 07/06/17 at 10:00 Ondansetron HCl (Zofran Inj) 4 mg UNSCH PRN IV PUSH WITH DIALYSIS; Start at 10:00 Acetaminophen (Tylenol) 650 mg UNSCH PRN PO for headach, pain, temp > 101F; Start 07/06/17 at 10:00 Diphenhydramine HCl (Benadryl) 25 mg UNSCH PRN PO for hives/itching/anaphylaxis ; Start 07/06/17 at 10:00 Nitroglycerin (Nitrostat Sl) 0.4 mg UNSCH PRN SL CHEST PAIN; Start 07/06/17 at 10:00 Clonidine (Catapres) 0.1 mg UNSCH PRN PO for BP > 180/100 X 2 readings Last administered on 07/14/17at 15:18; Start 07/06/17 at 10:00 Epoetin Eric (Epogen Inj) 10,000 units UNSCH PRN IV PUSH WITH DIALYSIS Last administered on 07/16/17at 11:21; Start 07/06/17 at 10:00 Gelatin (Gelfoam 12 Mm/7 Mm Top) 1 foam UNSCH PRN TOP SEE LABEL COMMENTS Last administered on 07/16/17at 11:21; Start 07/06/17 at 10:00 Metoprolol Tartrate (Lopressor Inj) 4 mg STAT STAT IV PUSH ; Start 07/06/17 at 14:07; Stop 07/06/17 at 14:08; Status Cancel Metoprolol Tartrate (Lopressor Inj) 5 mg STAT STAT IV PUSH Last administered on 07/06/17at 15:28; Start 07/06/17 at 14:19; Stop 07/06/17 at 14:20; Status DC Diltiazem HCl (Cardizem) 90 mg Q6H PO Last administered on 07/09/17at 04:34; Start 07/06/17 at 15:30; Stop 07/09/17 at 16:31; Status DC Metoprolol Tartrate (Lopressor) 25 mg Q6H PO Last administered on 07/09/17at 04: 34; Start 07/06/17 at 22:00; Stop 07/09/17 at 16:31; Status DC Metoprolol Tartrate (Lopressor Inj) 5 mg Q2H PRN IV PUSH HR > 120 Last administered on 07/13/17at 19:39; Start 07/06/17 at 15:30 Heparin Sodium/ Dextrose 250 ml @ 17 mls/hr TITRATE PRN IV Coagulation Management Last administered on 07/08/17at 17:52; Start 07/06/17 at 19:00; Stop 07/11/17 at 08:57; Status DC Calcium Acetate (Phoslo) 667 mg TID PO Last administered on 07/16/17at 12:36; Start 07/07/17 at 13:00 Vitamin B Complex/ Vit C/Folic Acid (Nephrocaps) 1 cap DAILY PO Last administered on 07/16/17at 12:37; Start 07/07/17 at 10:30 Potassium Chloride (KCl) 20 meq ONCE ONCE PO Last administered on 07/08/17at 12 :31; Start 07/08/17 at 11:45; Stop 07/08/17 at 11:46; Status DC Heparin Sodium/ Sodium Chloride 2,000 ml @ As Directed STK-MED ONCE .ROUTE Last administered on 07/09/17at 14:10; Start 07/09/17 at 14:10; Stop 07/09/17 at 14:11; Status DC Levofloxacin/ Dextrose 0 ml @ As Directed STK-MED ONCE IV ; Start 07/09/17 at 14 :11; Stop 07/09/17 at 14:12; Status DC Furosemide (Lasix Inj) 40 mg STK-MED ONCE .ROUTE ; Start 07/09/17 at 14:29; Stop 07/09/17 at 14:30; Status DC Protamine Sulfate (Protamine Sulfate Inj) 50 mg STK-MED ONCE .ROUTE ; Start at 14:29; Stop 07/09/17 at 14:30; Status DC Isoproterenol HCl (Isuprel Inj) 1 mg STK-MED ONCE .ROUTE ; Start 07/09/17 at 15: 38; Stop 07/09/17 at 15:39; Status DC Oxycodone/ Acetaminophen (Percocet 5-325 Mg) 1 tab Q4H PRN PO PAIN SCALE 1 TO 4; Start 07/09/17 at 16:30 Oxycodone/ Acetaminophen (Percocet 5-325 Mg) 2 tab Q4H PRN PO PAIN SCALE 5 TO 10; Start 07/09/17 at 16:30 Lorazepam (Ativan Inj) 0.5 mg UNSCH PRN IV PUSH ANXIETY; Start 07/09/17 at 16: 30; Stop 07/10/17 at 16:29; Status DC Atropine Sulfate (Atropine Inj) 0.5 mg UNSCH PRN IV PUSH VAGAL REPONSE; Start 07/09/17 at 16:30 Sodium Chloride 250 ml @ 500 mls/hr ONCE PRN IV VAGAL REPONSE; Start 07/09/17 at 16:30; Stop 07/10/17 at 16:29; Status DC Metoclopramide HCl (Reglan Inj) 5 mg Q4H PRN IV PUSH NAUSEA; Start 07/09/17 at 16:30 Ondansetron HCl (Zofran Inj) 4 mg Q4H PRN IV PUSH NAUSEA; Start 07/09/17 at 16: 30 Lidocaine HCl (Xylocaine 1% Inj) 10 ml UNSCH PRN INFIL SHEATH REMOVAL; Start at 16:30; Stop 07/10/17 at 16:29; Status DC Bacitracin (Bacitracin Oint Packet) 0.9 gm ONCE ONCE TOP ; Start 07/09/17 at 16 :30; Stop 07/09/17 at 16:47; Status DC Amiodarone HCl (Cordarone) 400 mg Q12H PO Last administered on 07/16/17at 06:05 ; Start 07/09/17 at 17:00 Apixaban (Eliquis) 5 mg BID PO Last administered on 07/12/17at 08:48; Start at 21:00; Stop 07/12/17 at 13:34; Status DC Midazolam HCl (Versed Inj) 2 mg STK-MED ONCE .ROUTE ; Start 07/09/17 at 16:59; Stop 07/09/17 at 17:00; Status DC Miscellaneous Information ALL NURSING DEPARTME... UNSCH PRN .XX SEE LABEL COMMENTS; Start 07/09/17 at 17:00; Stop 07/10/17 at 16:59; Status DC Iron Sucrose 100 mg/Sodium Chloride 105 ml @ 105 mls/hr DAILY IV Last administered on 07/12/17at 08:49; Start 07/10/17 at 13:00; Stop 07/12/17 at 09:59 ; Status DC Potassium Chloride (KCl) 30 meq ONCE ONCE PO Last administered on 07/12/17at 12 :22; Start 07/12/17 at 12:00; Stop 07/12/17 at 12:01; Status DC Apixaban (Eliquis) 2.5 mg BID PO Last administered on 07/16/17at 12:36; Start at 21:00 Potassium Chloride (KCl) 20 meq DAILY PO Last administered on 07/16/17at 12:36; Start 07/13/17 at 10:00 Lidocaine HCl (Xylocaine-Mpf 1% Inj) 5 ml STK-MED ONCE OTHER ; Start 07/09/17 at 12:00; Stop 07/13/17 at 14:36; Status DC Rocuronium Enid (Zemuron Inj) 50 mg STK-MED ONCE IV PUSH ; Start 07/09/17 at 12:00; Stop 07/13/17 at 14:36; Status DC Neostigmine Methylsulfate (Prostigmine Inj) 5 mg STK-MED ONCE IV PUSH ; Start at 12:00; Stop 07/13/17 at 14:36; Status DC Glycopyrrolate (Robinul Inj) 1 mg STK-MED ONCE IV PUSH ; Start 07/09/17 at 12:00 ; Stop 07/13/17 at 14:36; Status DC Phenylephrine HCl (Neosynephrine/ NS 1000 Mcg/10ml Syr) 1,000 mcg STK-MED ONCE IV ; Start 07/09/17 at 12:00; Stop 07/13/17 at 14:36; Status DC Phenylephrine HCl (Neosynephrine Inj) 10 mg STK-MED ONCE IV ; Start 07/09/17 at 12:00; Stop 07/13/17 at 14:36; Status DC Ephedrine Sulfate (ePHEDrine/NS 25 MG/5 ML SYR) 25 mg STK-MED ONCE IV ; Start at 12:00; Stop 07/13/17 at 14:36; Status DC Succinylcholine Chloride (Quelicin Inj) 100 mg STK-MED ONCE IV PUSH ; Start at 12:00; Stop 07/13/17 at 14:36; Status DC Metoprolol Tartrate (Lopressor Inj) 5 mg STK-MED ONCE IV PUSH ; Start 07/09/17 at 12:00; Stop 07/13/17 at 14:36; Status DC Ondansetron HCl (Zofran Inj) 4 mg STK-MED ONCE IV ; Start 07/09/17 at 12:00; Stop 07/13/17 at 14:36; Status DC Propofol (Diprivan 200 Mg/20 ml Inj) 200 mg STK-MED ONCE IV ; Start 07/09/17 at 12:00; Stop 07/13/17 at 14:36; Status DC Levofloxacin (Levaquin) 750 mg ONCE ONCE PO Last administered on 1/23/18at 15: 18; Start 07/14/17 at 15:00; Stop 07/14/17 at 15:15; Status DC Lactobacillus Acidophilus (Lactinex) 1 tab TID PO Last administered on at 12:37; Start 07/14/17 at 18:00 Carvedilol (Coreg) 12.5 mg Q12HR PO Last administered on 07/16/17at 12:36; Start 07/14/17 at 21:00 Potassium Bicarb/ Potassium Chloride (K-Lyte Cl Eff) 25 meq ONCE ONCE PO Last administered on 07/15/17at 09:26; Start 07/15/17 at 09:00; Stop 07/15/17 at 09:01; Status DC Potassium Chloride (KCl) 30 meq ONCE ONCE PO Last administered on 07/16/17at 12 :36; Start 07/16/17 at 08:30; Stop 07/16/17 at 08:34; Status DC Loperamide HCl (Imodium) 2 mg ONCE ONCE PO Last administered on 07/16/17at 12: 36; Start 07/16/17 at 09:15; Stop 07/16/17 at 09:44; Status DC A/P Problem List: (1) Atrial fibrillation with RVR ICD Code: I48.91 - Unspecified atrial fibrillation Status: Acute (2) End stage renal failure on dialysis ICD Code: N18.6 - End stage renal disease; Z99.2 - Dependence on renal dialysis (3) Hypertension ICD Code: I10 - Hypertension Status: Chronic Assessment and Plan 67 year-old man with Atrial fibrillation with RVR Status post EP study and radiofrequency ablation for Afib 07/09 Tetryl Wringer Operator in EP physician following patient. Continue amiodarone 400 mg every 12 hours On Eliquis 2.5 mg by mouth twice a day renally dose. Rate controlled with carvedilol. Patient cleared by Dr. Gonzales. Acute hypoxic respiratory failure Chest x-ray yesterday shows small bilateral pleural effusion. Patient is given dialysis. Resolved. Continue with DuoNeb when necessary Maintain oxygen saturation above 92% Possible pneumonia s/p cefepime now on Levaquin. He continues to do well. Culture negative to date Iron deficiency anemia Completed Venofer transfusion today End-stage renal disease on hemodialysis Hemodialysis per nephrology Out Patient HD to start from 07/20. On Phsolo Per market superintendent will try dialysis again tomorrow a.m. Stated that patient can be discharged on 07/17 after dialysis. Thrombocytopenia This is chronic secondary to liver disease. Ultrasound confirms cirrhosis of liver. No active bleeding. Stable. Anemia Patient has no active bleeding. Most like he secondary to end-stage renal disease. Hemoglobin is stable. Continue follow up as outpatient. Diarrhea Improved. C. difficile negative. on Lactinex. Will give patient Imodium. Prophylaxis: SCDs, Eliquis Discharge Planning Patient cleared by EP provider. Per market superintendent can discharge on 07/17 which is tomorrow after dialysis. Problem Qualifiers (1) Hypertension: Qualified Codes: I10 - Essential (primary) hypertension Judy Mac MD Jul 16, 2017 16:19
[2017-07-16] MEDS ORDERED: LOPERAMIDE HCL 2 MG CAP PO PRN (16:30)
[2017-07-17] VITALS (20 sets, daily range): BP systolic 135–164; BP diastolic 79–95; PULSE 70–79; RESP 17–19; TEMP 97.9–98.6; O2SAT 98–100
[2017-07-17] MEDS: RESP: IPRATROPIUM 0.5 MG/2.5 ML NEB INH SCH ×3 (03:02→16:37)
[2017-07-17] MEDS: CHLORHEXIDINE GLUCONATE 2 % 1 PACK (2 CLOTHS) TOP SCH (04:00)
[2017-07-17] MEDS: AMIODARONE 200 MG TAB PO SCH ×2 (04:33→17:31)
[2017-07-17 07:38] LABS: BICARBONATE 31.1 MEQ/L (21.0-32.0); CALCIUM 8.6 MG/DL (8.5-10.1); CREATININE 4.04 MG/DL (0.60-1.30)
[2017-07-17] MEDS: SODIUM CHLORIDE 0.9% FLUSH 10 ML FLUSH IV FLUSH SCH (09:00)
[2017-07-17] MEDS ORDERED: OXYC1TAB63 PO (09:17)
[2017-07-17] MEDS ORDERED: LACT PO (09:17)
[2017-07-17] MEDS ORDERED: LOPE2CAP2 PO (09:17)
[2017-07-17] MEDS ORDERED: NEPHRO PO (09:17)
[2017-07-17] MEDS ORDERED: AMIO200T PO (09:17)
[2017-07-17] MEDS ORDERED: CARV12.5 PO (09:17)
[2017-07-17] MEDS ORDERED: POTA20TA5 PO (09:17)
[2017-07-17] MEDS ORDERED: APIX2.5T PO (09:17)
[2017-07-17] MEDS ORDERED: CALC667C PO (09:17)
--- NOTE | 2017-07-17 09:20 | HHI.DS ---
Discharge Summary Admission Date Jul 05, 2017 at 19:23 Admitting Diagnosis Afib with rvr, elevated troponin, renal failure (1) Atrial fibrillation with RVR ICD Code: I48.91 - Unspecified atrial fibrillation Status: Acute (2) End stage renal failure on dialysis ICD Code: N18.6 - End stage renal disease; Z99.2 - Dependence on renal dialysis (3) Hypertension ICD Code: I10 - Hypertension Status: Chronic Brief History - From Admission HPI 67-year-old male with a medical history significant for diastolic CHF, CK D for which she had a left arm AV fistula placed which is being prepped for dialysis. Patient developed a cough about a week back with some shortness of breath and was seen at [facility] yesterday and diagnosed with a pneumonia. He was advised admission however signed out AMA since he wished to come to [facility]. Following leaving that hospital he went home yesterday and then today presented at [facility] ER with persisting cough and shortness of breath. He was noted to be in A. fib with RVR with ventricular rate going up to the 180s. He was otherwise maintaining BP and O2 sats on 2 L nasal cannula. He has had a poor appetite for the last 1 week as well as minimal diarrhea. Denies any chest pain or abdominal pain. He did have some nausea off and on for the last week. He denies any increasing leg swelling, denies any melena or rectal bleeding dysuria. Urinary frequency or hematuria. Patient was also found to have worsening renal function with creatinine of 10 and BUN greater than 100. Patient was initiated on a Cardizem drip for rate control and was also given digoxin 0.5 mg IV 1 dose. He was accepted for admission by critical care medicine service. When I evaluated the patient in the ER he was sitting up in the ER stretcher on 2 L nasal cannula and did not appear to be in any acute distress except for minimal shortness of breath and cough. Patient tells me that he sees his physicians at the [facility] including his director medicaid and central supply technician supervisor. In the ER he did receive a dose of antibiotics after blood cultures were obtained. History PFSH Past Medical History Asthma: No Atrial Fibrillation: Yes Cancer: No Cardiovascular Problems: Yes (CHF) COPD: Yes Cerebrovascular Accident: Yes Endocrine: No Genitourinary: No Hypertension: Yes Immune Disorder: No Musculoskeletal: No Neurologic: Yes (STROKE ABOUT 5YRS AGO) Psychiatric: No Reproductive: No Respiratory: Yes Migraines: No Renal Failure: Yes Seizures: No Sleep Apnea: No Past Surgical History Abdominal Surgery: No Cardiac Surgery: No Ear Surgery: No Endocrine Surgery: No Eye Surgery: No Genitourinary Surgery: No Gynecologic Surgery: No Oral Surgery: No Thoracic Surgery: No Other Surgery: Yes (AV FISTULA ON LEFT FOREARM ) Social History Alcohol Use: Yes (BEER DAILY) Tobacco Use: No Substance Use: No Allergies-Medications Allergies-Medications (Allergen,Severity, Reaction): Coded Allergies: No Known Allergies (Verified Adverse Reaction, Unknown, 07/05/17) Reported Meds & Prescriptions Reported Meds & Active Scripts Active Reported Hydralazine HCl 25 Mg Tablet 50 Mg PO TID Terazosin (Terazosin HCl) 5 Mg Cap 5 Mg PO HS Metoprolol Tartrate 100 Mg Tab 150 Mg PO DAILY Metolazone 2.5 Mg Tab 2.5 Mg PO DAILY Calcitriol 0.25 Mcg Cap 0.25 Mcg PO DAILY Amlodipine (Amlodipine Besylate) 10 Mg Tab 5 Mg PO DAILY Allopurinol 100 Mg Tab 100 Mg PO DAILY ROS Review of Systems Except as stated in HPI: all other systems reviewed are Neg General / Constitutional: No: Fever, Chills HENT: No: Headaches, Lightheadedness Cardiovascular: Positive: Palpitations Respiratory: Positive: Cough, Shortness of Breath Gastrointestinal: Positive : Diarrhea. No: Nausea, Vomiting Genitourinary: Positive: Decreased Urinary Output Musculoskeletal: No: Myalgias, Edema Skin: No Rash, No Change in Pigmentation Neurologic: No: Weakness, Dizziness CBC/BMP: 07/15/17 0508 07/17/17 0540 Significant Findings Laboratory Tests Test 07/15/17 05:08 07/16/17 05:15 07/17/17 05:40 Red Blood Count 2.52 MIL/MM3 (4.50-5.90) Hemoglobin 9.5 GM/DL (13.0-17.0) Hematocrit 27.4 % (39.0-51.0) Mean Corpuscular Volume 108.6 FL (80.0-100.0) Mean Corpuscular Hemoglobin 37.6 PG (27.0-34.0) Red Cell Distribution Width 18.1 % (11.6-17.2) Platelet Count 69 TH/MM3 (150-450) Blood Urea Nitrogen 35 MG/DL (7-18) 42 MG/DL (7-18) 31 MG/DL (7-18) Creatinine 3.93 MG/DL (0.60-1.30) 4.60 MG/DL (0.60-1.30) 4.04 MG/DL (0.60-1.30) Random Glucose 111 MG/DL (74-106) Potassium Level 3.1 MEQ/L (3.5-5.1) 3.2 MEQ/L (3.5-5.1) Estimat Glomerular Filtration Rate 19 ML/MIN (>89) 16 ML/MIN (>89) 18 ML/MIN (>89) PE at Discharge GENERAL: IN NAD NECK: Supple, trachea midline. No JVD or lymphadenopathy. CARDIOVASCULAR: Irregular rate irregular rhythm without murmurs, gallops, or rubs. RESPIRATORY: Breath sounds equal bilaterally. No accessory muscle use. GASTROINTESTINAL: Abdomen soft. Positive for distention but very soft. Negative for any pain. MUSCULOSKELETAL: Negative for lower extremity edema. Pt Condition on Discharge: Stable Discharge Disposition: Discharge to SNF Discharge Instructions DIET: Follow Instructions for: Heart Healthy Diet, Dialysis Diet Activities you can perform: Regular-No Restrictions Judy Mac MD Jul 17, 2017 09:20
--- NOTE | 2017-07-17 09:23 | PD.CARD.PN ---
Subjective Subjective Remarks asleep in nad Objective Medications Current Medications Medications (Trade) Dose Ordered Sig/Denice Route Start Time Stop Time Status Last Admin (NS Flush) 2 ml UNSCH PRN IVF 07/05/17 18:00 (NS Flush) 2 ml BID IV FLUSH 07/05/17 21:00 07/16/17 20:01 (Tylenol) 650 mg Q6H PRN PO 07/05/17 20:00 (Albuterol Neb) 2.5 mg Q6HR NEB PRN INH 07/05/17 20:00 (Atrovent Neb) 0.5 mg Q6HR NEB INH 07/05/17 22:00 07/17/17 03:02 (Heparin Inj) 5,000 units Q8H SQ 07/05/17 22:00 Future Hold 07/06/17 13:31 Miscellaneous Information 1 Q361D XX 07/05/17 20:00 07/06/17 20:00 (Chlorhexidine 2% Cloth) Taper DAILY@04 TOP 07/06/17 04:00 07/02/18 03:59 07/16/17 04:00 (Chlorhexidine 2% Cloth) 3 pack UNSCH PRN TOP 07/05/17 20:00 (Milk Of Magnesia Liq) 30 ml Q12H PRN PO 07/05/17 20:00 (Senokot) 17.2 mg Q12H PRN PO 07/05/17 20:00 (Dulcolax Supp) 10 mg DAILY PRN RECTAL 07/05/17 20:00 (Lactulose Liq) 30 ml DAILY PRN PO 07/05/17 20:00 Sodium Chloride 1,000 ml @ 0 mls/hr Q0M PRN OTHER 07/06/17 09:57 (Heparin Inj) 8,000 units UNSCH PRN IV FLUSH 07/06/17 10:00 Sodium Chloride 1,000 ml @ 200 mls/hr Q5H PRN IV 07/06/17 09:57 07/11/17 12:55 Sodium Chloride 1,000 ml @ 0 mls/hr Q0M PRN OTHER 07/06/17 09:57 (Mannitol Inj) 12.5 gm UNSCH PRN IV 07/06/17 10:00 Albumin Human 100 ml @ 60 mls/hr UNSCH PRN IV 07/06/17 10:00 (NS Flush) 5 ml UNSCH PRN IV FLUSH 07/06/17 10:00 (Heparin Inj) UNSCH PRN .XX 07/06/17 10:00 (Gentamicin (Dialysis) Inj) 20 mg UNSCH PRN OTHER 07/06/17 10:00 (Zofran Inj) 4 mg UNSCH PRN IV PUSH 07/06/17 10:00 (Tylenol) 650 mg UNSCH PRN PO 07/06/17 10:00 (Benadryl) 25 mg UNSCH PRN PO 07/06/17 10:00 (Nitrostat Sl) 0.4 mg UNSCH PRN SL 07/06/17 10:00 (Catapres) 0.1 mg UNSCH PRN PO 07/06/17 10:00 07/14/17 15:18 (Epogen Inj) 10,000 units UNSCH PRN IV PUSH 07/06/17 10:00 07/16/17 11:21 (Gelfoam 12 Mm/7 Mm Top) 1 foam UNSCH PRN TOP 07/06/17 10:00 07/16/17 11:21 (Lopressor Inj) 5 mg Q2H PRN IV PUSH 07/06/17 15:30 07/13/17 19:39 (Phoslo) 667 mg TID PO 07/07/17 13:00 07/16/17 17:09 (Nephrocaps) 1 cap DAILY PO 07/07/17 10:30 07/16/17 12:37 (Percocet 5-325 Mg) 1 tab Q4H PRN PO 07/09/17 16:30 (Percocet 5-325 Mg) 2 tab Q4H PRN PO 07/09/17 16:30 (Atropine Inj) 0.5 mg UNSCH PRN IV PUSH 07/09/17 16:30 (Reglan Inj) 5 mg Q4H PRN IV PUSH 07/09/17 16:30 (Zofran Inj) 4 mg Q4H PRN IV PUSH 07/09/17 16:30 (Cordarone) 400 mg Q12H PO 07/09/17 17:00 07/17/17 04:33 (Eliquis) 2.5 mg BID PO 07/12/17 21:00 07/16/17 20:01 (KCl) 20 meq DAILY PO 07/13/17 10:00 07/16/17 12:36 (Lactinex) 1 tab TID PO 07/14/17 18:00 07/16/17 17:09 (Coreg) 12.5 mg Q12HR PO 07/14/17 21:00 07/16/17 20:01 (Imodium) 2 mg Q6H PRN PO 07/16/17 16:30 07/17/17 04:33 Vital Signs / I&O Vital Signs Date Time Temp Pulse Resp B/P (MAP) Pulse Ox O2 Delivery O2 Flow Rate FiO2 07/17/17 09:00 78 07/17/17 08:00 72 07/17/17 07:30 98.0 76 19 155/88 (110) 99 07/17/17 07:00 79 07/17/17 06:00 70 07/17/17 05:00 72 07/17/17 04:29 98.6 75 18 164/95 (118) 98 07/17/17 04:00 75 07/17/17 03:00 74 07/17/17 02:00 74 07/17/17 01:00 78 07/17/17 00:16 97.9 74 18 158/94 (115) 100 07/17/17 00:03 79 07/16/17 23:00 78 07/16/17 22:00 74 07/16/17 21:00 72 07/16/17 20:05 75 07/16/17 19:56 97.4 76 18 153/91 (111) 99 07/16/17 19:00 78 07/16/17 18:00 75 07/16/17 17:00 78 07/16/17 16:00 72 07/16/17 15:00 78 07/16/17 15:00 97.9 78 17 168/95 (119) 100 07/16/17 14:00 80 07/16/17 13:00 75 07/16/17 12:30 80 07/16/17 12:30 97.7 80 19 147/83 (104) 99 I/O 07/16/17 07/16/17 07/16/17 07/17/17 07/17/17 07/17/17 07:00 15:00 23:00 07:00 15:00 23:00 Intake Total 320 ml 480 ml 240 ml Output Total 300 ml 3000 ml 120 ml 50 ml Balance 20 ml -3000 ml 360 ml 190 ml Intake Oral 320 ml 480 ml 240 ml Output Urine Total 300 ml 120 ml 50 ml Hemodialysis 3000 ml # Bowel Movements 3 1 3 Physical Exam GENERAL: SKIN: Warm and dry. HEAD: Normocephalic. EYES: No scleral icterus. No injection or drainage. NECK: Supple, trachea midline. No JVD or lymphadenopathy. CARDIOVASCULAR: Regular rate and rhythm without murmurs, gallops, or rubs. RESPIRATORY: Breath sounds equal bilaterally. No accessory muscle use. GASTROINTESTINAL: Abdomen soft, non-tender, nondistended. MUSCULOSKELETAL: No cyanosis, or edema. BACK: Nontender without obvious deformity. No CVA tenderness. Laboratory Laboratory Tests Test 07/17/17 05:40 Blood Urea Nitrogen 31 MG/DL Creatinine 4.04 MG/DL Random Glucose 89 MG/DL Calcium Level 8.6 MG/DL Sodium Level 137 MEQ/L Potassium Level 3.7 MEQ/L Chloride Level 99 MEQ/L Carbon Dioxide Level 31.1 MEQ/L Anion Gap 7 MEQ/L Estimat Glomerular Filtration Rate 18 ML/MIN Assessment and Plan Problem List: (1) Atrial fibrillation ICD Codes: I48.91 - Atrial fibrillation Status: Acute Assessment and Plan 1.) Afib rvr - in nsr s/p ablation per Dr Gonzales, anemia and thrombocytopenia needs work up, on eliquis 2.5 mg bid, Dr Gonzales managing rvr, d/w Dr Gonzales , now on coreg 12.5 mg bid, rate controlled, assymptomatic Dwayne Garcia MD Jul 17, 2017 09:23
--- NOTE | 2017-07-17 10:30 | HHI.NPPN ---
Subjective General Problems: Anemia, Edema, Heart Disease, Hypertension Renal Failure: End Stage Renal Disease History of Present Illness 67-year-old male with a medical history significant for Hypertension, CVA, Atrial fibrillation, and CKD stage four approaching stage 5, with left arm AV fistula placed 10 years ago but has not needed dialysis. He presented yesterday to [facility] [place] and left against advise. Patient then presented to [place]. Creat is elevated at 10.47 and BUN of 40. Also reports minimal urinary output. Additional Remarks Seen during dialysis, plans for discharge today to [facility]. Mild edema, no SOB. (Chhaya Vee) Review of Systems General Constitutional: Fatigue (Chhaya Vee) Respiratory Respiratory Remarks Denies SOB (Chhaya Vee) Cardiovascular Cardiac Remarks Denies CP (Chhaya Vee) Gastrointestinal GI Remarks Denies Abdominal pain (Chhaya Vee) Objective Data Data Vital Signs Date Time Temp Pulse Resp B/P (MAP) Pulse Ox O2 Delivery O2 Flow Rate FiO2 07/17/17 09:27 98 07/17/17 09:00 78 07/17/17 08:00 72 07/17/17 07:30 98.0 76 19 155/88 (110) 99 07/17/17 07:00 79 07/17/17 06:00 70 07/17/17 05:00 72 07/17/17 04:29 98.6 75 18 164/95 (118) 98 07/17/17 04:00 75 07/17/17 03:00 74 07/17/17 02:00 74 07/17/17 01:00 78 07/17/17 00:16 97.9 74 18 158/94 (115) 100 07/17/17 00:03 79 07/16/17 23:00 78 07/16/17 22:00 74 07/16/17 21:00 72 07/16/17 20:05 75 07/16/17 19:56 97.4 76 18 153/91 (111) 99 07/16/17 19:00 78 07/16/17 18:00 75 07/16/17 17:00 78 07/16/17 16:00 72 07/16/17 15:00 78 07/16/17 15:00 97.9 78 17 168/95 (119) 100 07/16/17 14:00 80 07/16/17 13:00 75 07/16/17 12:30 80 07/16/17 12:30 97.7 80 19 147/83 (104) 99 (Chhaya Vee) -: 07/15/17 0508 07/17/17 0540 Imaging Last Impressions Liver Ultrasound 07/13/17 0000 Signed Impressions: Service Date/Time: Thursday, July 13, 2017 16:15 - CONCLUSION: 1. Cirrhotic appearing liver with trace amount of ascites. 2. Mild gallbladder wall thickening with small amount gallbladder sludge. Gallbladder wall thickening is a common finding in patients with chronic liver disease. 3. Echogenic right kidney consistent with patient's history of renal failure. Carter Marks MD Chest X-Ray 07/13/17 0000 Signed Impressions: Service Date/Time: Thursday, July 13, 2017 12:21 - CONCLUSION: 1. Small bilateral pleural effusions and associated lower lobe airspace disease. 2. Cardiomegaly with mild positive fluid balance. Carter Marks MD Chest CT 07/05/17 0000 Signed Impressions: Service Date/Time: Wednesday, July 05, 2017 22:07 - CONCLUSION: 1. Right greater the left pleural effusions and basilar consolidation. 2. Suspected mildly enlarged right hilar lymph node, nonspecific but no lymphadenopathy seen elsewhere and presumably benign/reactive. 3. Suspected cirrhosis. Small ascites is seen in the upper abdomen. 4. Coronary artery calcification. Matthew Aguila MD (Chhaya Vee) Physical Exam General Appearance: No Acute Distress, Comfortable (Chhaya Vee) Eyes Eye Exam: Pupils Equal (Chhaya Vee) Neck Neck Exam: Neck Supple (Chhaya Vee) Pulmonary Resp Exam: Breath Sounds Equal, Crackles, Decreased Bases, Diminished Breath Sounds (Chhaya Vee) Cardiology CV Exam: Irregular, Tachycardia (Chhaya Vee) Gastrointestinal/Abdomen GI Exam: Soft, Non-Tender, Bowel Sounds Present, Distended (Chhaya Vee) Extremeties Extremities Exam: Trace Edema (Chhaya Vee) Neurologic Neuro Exam: Alert, Awake, Oriented (Chhaya Vee) Psychiatric Psych Exam: Appropriate Responses (Chhaya Vee) Assessment/Plan Assessment Summary: Anemia of CKD, Hypertension, End Stage Renal Disease Problem List: (1) End stage renal failure on dialysis ICD Codes: N18.6 - End stage renal disease; Z99.2 - Dependence on renal dialysis (2) Congestive heart failure ICD Codes: I50.9 - Congestive heart failure Status: Acute (3) Hypertension ICD Codes: I10 - Hypertension Status: Chronic (4) Anemia ICD Codes: D64.9 - Anemia, unspecified Status: Acute (5) Anemia ICD Codes: D64.9 - Anemia, unspecified (6) COPD Status: Acute (7) Atrial fibrillation ICD Codes: I48.91 - Atrial fibrillation Status: Acute Plan Seen during dialysis tolerating well. labs reviewed. His HD has been will be on [facility] as out patient. (Chhaya Vee) Plan Patient seen and examined. For D/C to SNF, HD at [facility]. (Marianne Elise MD) Problem Qualifiers (1) Hypertension: Qualified Codes: I10 - Essential (primary) hypertension Chhaya Vee Jul 17, 2017 10:30 Marianne Elise MD Jul 17, 2017 15:45
[2017-07-17] MEDS: LACTOBACILLUS ACIDOPHILUS TAB PO SCH ×2 (13:37→17:31)
[2017-07-17] MEDS: CALCIUM ACETATE 667 MG CAP PO SCH ×2 (13:37→17:31)
[2017-07-17] MEDS: CARVEDILOL 12.5 MG TAB PO SCH (13:37)
[2017-07-17] MEDS: VITAMIN B CMPLX/VITC/FOLIC AC CAP PO SCH (13:37)
[2017-07-17] MEDS: POTASSIUM CHLORIDE 20 MEQ CONTROLLED RELEASE TAB PO SCH (13:38)
[2017-07-17] MEDS: APIXABAN 2.5 MG TABLET PO SCH (13:38)
[2017-07-17] MEDS ORDERED: TUBERCULIN, PPD 5 UNITS/0.1 ML SYRINGE I-DERMAL ONE (15:30)
[2017-07-17] MEDS ORDERED: CANDIDA ALBICANS 0.1 ML SYRINGE I-DERMAL ONE (15:45)
--- NOTE | 2017-07-17 16:27 | RADRPT ---
EXAM DATE/TIME: 07/17/2017 16:02 [place] COMPARISON: CHEST PA & LAT, July 13, 2017, 12:21. INDICATIONS : R/o TB MEDICAL HISTORY : Congestive heart failure. Hypertension Chronic obstructive pulmonary disease. a-FIB, CVA SURGICAL HISTORY : av fistula ENCOUNTER: Initial ACUITY: 1 week PAIN SCORE: 0/10 LOCATION: Bilateral chest FINDINGS: The heart is enlarged. There are bilateral effusions. There is interstitial prominence most consisten t with congestive failure. The visualized bony structures are grossly intact. CONCLUSION: 1. Cardiomegaly bilateral effusions and interstitial prominence most consistent with congestive failu re. No definite findings to indicate TB identified. 2. Stable compared to previous. Curly Hicks MD on July 17, 2017 at 16:21 Board Certified Radiologist. This report was verified electronically.
[2017-07-18] MEDS ORDERED: SKIN TEST RESULT SCH (15:45)
== END 2017-07-17 18:04 | DRG 273 ==
LOC: NEPE 17:35 → NEDA 19:23 → HIME 22:15 → HCIS 07-11 12:39
PROVIDERS: ADMIT Internal Medicine Critical Care Medicine; ATTEND Family Medicine
PROC: 02K83ZZ Map Conduction Mechanism, Percutaneous Approach (ICD-10-PCS; 2017-07-09)
PROC: 4A0234Z Measurement of Cardiac Electrical Activity, Percutaneous Approach (ICD-10-PCS; 2017-07-09)
PROC: 5A1D70Z Performance of Urinary Filtration, Intermittent, Less than 6 Hours Per Day (ICD-10-PCS; 2017-07-09)
PROC: 02583ZZ Destruction of Conduction Mechanism, Percutaneous Approach (ICD-10-PCS; principal; 2017-07-09 14:45)
DX: I48.1 Persistent atrial fibrillation (principal); J18.9 Pneumonia, unspecified organism; J96.01 Acute respiratory failure with hypoxia; I50.33 Acute on chronic diastolic (congestive) heart failure; N17.9 Acute kidney failure, unspecified; J90 Pleural effusion, not elsewhere classified; N18.6 End stage renal disease; D69.59 Other secondary thrombocytopenia; J44.0 Chronic obstructive pulmonary disease with (acute) lower respiratory infection; I13.2 Hypertensive heart and chronic kidney disease with heart failure and with stage 5 chronic kidney disease, or end stage renal disease; K74.60 Unspecified cirrhosis of liver; I47.1 Supraventricular tachycardia; D63.1 Anemia in chronic kidney disease; B19.20 Unspecified viral hepatitis C without hepatic coma; E87.6 Hypokalemia; R19.7 Diarrhea, unspecified; I25.10 Atherosclerotic heart disease of native coronary artery without angina pectoris; E88.09 Other disorders of plasma-protein metabolism, not elsewhere classified; I34.0 Nonrheumatic mitral (valve) insufficiency; Z86.73 Personal history of transient ischemic attack (TIA), and cerebral infarction without residual deficits; Z87.891 Personal history of nicotine dependence; Z95.5 Presence of coronary angioplasty implant and graft
CPT/HCPCS: 36591; 71045; 71046; 71250; 76705; 76937; 80048; 80053; 80074; 80162; 81001; 82550; 82728; 82948; 83540; 83550; 83605; 83735; 83880; 83970; 84100; 84443; 84484; 85002; 85007; 85025; 85027; 85060; 85610; 85730; 87040; 87086; 87449; 87493; 87641; 90935; 93005; 93306; 93312; 93320; 93325; 93613; 93623; 93656; 93662; 94640; 94664; 96365; 96367; 96374; 96375; 96376; C1730; C1731; C1732; C1759; C1766; C2630; J0282; J0330; J0610; J0692; J1160; J1644; J1756; J1940; J1956; J2250; J2370; J2405; J2710; J2720; J3370; J7030; J7040; J7050; J7644; Q4081